=== PATIENT | female | born 1970 | race Caucasian/White ===

== ENCOUNTER 2016-08-16 12:08 | Emergency (ER) | payer BC ==
[2016-08-16] MEDS ORDERED: methylPREDNISolone SOD SUCCI 125 MG/2 ML VIAL IM STA (12:39)
[2016-08-16] MEDS ORDERED: IPRATROPIUM-ALBUTEROL 3 ML NEB INHALATION STA (12:39)
--- NOTE | 2016-08-16 12:42 | ED ---
General Adult HPI - General Chief complaint: Upper Respiratory Infection Stated complaint: asthma, chest congestion Time Seen by Provider: 08/16/16 12:34 Source: patient, RN notes reviewed Mode of arrival: ambulatory Limitations: no limitations - History of Present Illness Initial comments: Patient 46-year-old female with significant past medical history for asthma, who presents emergency room today with chief complaint of cough congestion over the last 2 weeks. Does admit that she was treated initially with steroid taper along with Bactrim. States she seemed to be getting better. He states seemed to increase over the weekend and Saturday went to her steam hand. States she was started on azithromycin and another course steroids. States does not feel like she is getting any better. Admits that she's been coughing so hard she has had some vomiting. States tried taking her medicine today but vomited shortly thereafter is unsure if it stayed down. Patient denies any other complaints or associated symptoms currently. Patient denies any recent fever, chills, chest pain, back pain, abdominal pain, nausea or vomiting, numbness or tingling, dysuria or hematuria, constipation or diarrhea, headaches or visual changes, or any other complaints. - Related Data Home Medications Medication Instructions Recorded Confirmed Fluticasone/Salmeterol [Advair 1 puff INHALATION RT-BID 08/04/14 08/16/16 250-50 Diskus] Montelukast [Singulair] 10 mg PO HS 08/04/14 08/16/16 Omeprazole [PriLOSEC] 20 mg PO DAILY PRN 08/04/14 08/16/16 Albuterol Inhaler [Ventolin 1 - 2 puff INHALATION RT-QID PRN 08/05/14 08/16/16 Inhaler] Albuterol Nebulized [Ventolin 2.5 mg INHALATION RT-QID PRN 08/16/16 08/16/16 Nebulized] Azithromycin [Zithromax] 500 mg PO DAILY 08/16/16 08/16/16 predniSONE See Taper PO DAILY 08/16/16 08/16/16 Previous Rx's Medication Instructions Recorded Benzonatate [Tessalon Perles] 100 mg PO TID PRN #30 capsule 08/16/16 Allergies Allergy/AdvReac Type Severity Reaction Status Date / Time moxifloxacin HCl Allergy Nausea & Verified 08/16/16 12:23 [From Avelox] Vomiting Review of Systems ROS Statement: Those systems with pertinent positive or pertinent negative responses have been documented in the HPI. ROS Other: All systems not noted in ROS Statement are negative. Past Medical History Past Medical History: Asthma, GERD/Reflux History of Any Multi-Drug Resistant Organisms: None Reported Past Surgical History: Appendectomy, Tonsillectomy Additional Past Surgical History / Comment(s): D&C; Bunionectomy Past Anesthesia/Blood Transfusion Reactions: Postoperative Nausea & Vomiting ( PONV) Smoking Status: Never smoker Past Alcohol Use History: Rare Past Drug Use History: None Reported - Past Family History Mother Family Medical History: No Reported History General Exam - General Exam Comments Initial Comments: General: The patient is awake and alert, in no distress, and does not appear acutely ill. Eye: Pupils are equal, round and reactive to light, extra-ocular movements are intact. No nystagmus. There is normal conjunctiva bilaterally. No signs of icterus. Ears, nose, mouth and throat: There are moist mucous membranes and no oral lesions. Neck: The neck is supple, there is no tenderness or JVD. Cardiovascular: There is a regular rate and rhythm. No murmur, rub or gallop is appreciated. Respiratory: Mild expiratory wheeze on the right with forced expiration. respirations are non-labored, breath sounds are equal. No stridor, rales, or rhonchi. Gastrointestinal: Soft, non-distended, non-tender abdomen without masses or organomegaly noted. There is no rebound or guarding present. No CVA tenderness. Bowel sounds are unremarkable. Musculoskeletal: Normal ROM, no tenderness. Strength 5/5. Sensation intact. Pulses equal bilaterally 2+. Neurological: A&O x 3. CN II-XII intact, There are no obvious motor or sensory deficits. Coordination appears grossly intact. Speech is normal. Skin: Skin is warm and dry and no rashes or lesions are noted. Psychiatric: Cooperative, appropriate mood & affect, normal judgment. Limitations: no limitations Course Vital Signs 08/16/16 08/16/16 08/16/16 12:10 13:02 13:14 Temperature 98.5 F Pulse Rate 94 86 84 Respiratory 18 Rate Blood Pressure 152/93 O2 Sat by Pulse 97 Oximetry Medical Decision Making - Medical Decision Making Patient's x-ray reviewed are unremarkable. Patient's vital stable here in the emergency room currently 97% on room air. Patient currently on azithromycin and steroids at home. Will be given cough suppressant. She does have an appointment with her steam hand tomorrow at 9 AM. Advised to follow-up in the morning. Advised return for any other concerns. Disposition Clinical Impression: Acute bronchitis Disposition: HOME SELF-CARE Condition: Good Instructions: Acute Bronchitis (ED) Additional Instructions: Please use medication as discussed. Please follow-up with steam hand tomorrow morning as scheduled. Please return to emergency room if the symptoms increase or worsen or for any other concerns. Prescriptions: Benzonatate [Tessalon Perles] 100 mg PO TID PRN #30 capsule PRN Reason: Cough Time of Disposition: 13:59
--- NOTE | 2016-08-16 13:40 | XR ---
EXAMINATION TYPE: XR chest 2V DATE OF EXAM: 08/16/2016 1:27 PM COMPARISON: NONE HISTORY: Cough, congestion, and shortness of breath. History of asthma. TECHNIQUE: Frontal and lateral views of the chest are obtained. FINDINGS: There is no focal air space opacity, pleural effusion, or pneumothorax seen. The cardiac silhouette size is within normal limits. The osseous structures are intact. IMPRESSION: No acute pulmonary process.
[2016-08-16 14:03] VITALS: BP 138/91; PULSE 93; RESP 20; TEMP 99.2
== END 2016-08-16 14:10 | disposition home or self-care (01) ==
LOC: EC 12:08
DX: J20.9 Acute bronchitis, unspecified (principal); K21.9 Gastro-esophageal reflux disease without esophagitis; Z79.899 Other long term (current) drug therapy; Z79.51 Long term (current) use of inhaled steroids; Z88.1 Allergy status to other antibiotic agents; J45.909 Unspecified asthma, uncomplicated
CPT/HCPCS: 94640; 71020; 99283; 96372; J2930

== ENCOUNTER 2016-08-27 10:07 | Day surgery (SDC) | payer BC ==
[~2016-08-27 10:07] MED LIST: ALBUTEROL NEB (CONC) 2.5 MG/0.5 ML INHALATION ONE; LIDOCAINE 2% (PF) 20 MG/ML 10ML INHALATION ONE
[2016-08-27] MEDS ORDERED: LIDOCAINE 1% 20 ML VIAL (10MG/ML) FOR IV START INTRADERMA PRN (10:31)
[2016-08-27] MEDS ORDERED: LACTATED RINGERS 1,000 ML IV ONE ×2 (10:31→11:33)
[2016-08-27 10:34] VITALS: TEMP 97.8
[2016-08-27] MEDS ORDERED: ATROPINE SULFATE 0.4 MG/ML 1 ML VIAL IM ONE (10:46)
[2016-08-27] MEDS ORDERED: ONDANSETRON 4 MG/2 ML VIAL IVP ONE (11:02)
[2016-08-27] MEDS ORDERED: PROPOFOL 10 MG/ML 20 ML VIAL IV ONE (11:05)
[2016-08-27] MEDS ORDERED: LIDOCAINE 1% INJ 10MG/ML (20 ML MDV) ONE (11:05)
[2016-08-27] MEDS ORDERED: MIDAZOLAM 2 MG/2 ML VIAL ONE (11:05)
[2016-08-27] MEDS ORDERED: LIDOCAINE 2% SYG (PF) 100 MG/5 ML MISCELLANE ONE (11:26)
--- NOTE | 2016-08-27 11:54 | PCN ---
DATE OF PROCEDURE: PROCEDURE: Bronch BAL airway examination, therapeutic lavage, BAL right middle lobe. PREOPERATIVE DIAGNOSIS: Persistent asthma and cough. POSTOPERATIVE DIAGNOSIS: Persistent asthma and cough. There was informed consent. There was universal timeout. CARDIOVASCULAR SURGEON provided IV conscious sedation. After the patient was adequately sedated and being fully monitored, the bronchoscope was inserted through the right nostril. It passed through the right nasopharynx into the oropharynx. The hypopharynx was identified. The hypopharyngeal structures, including anterior commissure, true cords, false cords, arytenoids, piriform sinuses, right and left valleculae were all normal. After topicalization, bronchoscope was pushed through the glottic opening into the trachea. Trachea was relatively normal save for the fact that there was lots of erythema and there was some vascular engorgement. Tracheal julius was sharp. The right and left mainstem were topicalized. I did a thorough evaluation of both lungs including the right upper lobe and its 3 segments, the right middle lobe and its 2 segments, the right lower lobe and its 5 segments, the left upper lobe proper and its 2 segments, the lingula and its 2 segments, and the left lower lobe and its 4 segments. Findings were similar throughout including diffuse airway erythema and hyperemia. There was significant vascular engorgement. There was mucosal friability. The patient bled easily. There were thick secretions noted throughout. No dominant mass or lesion. The bronchoscope was wedged into the right middle lobe. BAL took place. Additional saline was used to cleanse the rest of the airways. The patient tolerated the procedure well and the bronchoscope was withdrawn. The patient will be recovered.
[2016-08-27 12:02] VITALS: BP 122/80; PULSE 89; RESP 18
[2016-08-27 16:09] LABS: RBC, Body Fluid 7360 /uL
[2016-08-28] MEDS ORDERED: LACTATED RINGERS 1,000 ML IV ONE (05:00)
--- NOTE | 2016-08-29 12:41 | CDI ---
Pt Name: Leydi Grimes CONFIDENTIAL MR#: [id number] Adm Date: 08/27/2016 10:07:00 AM Printed:08/29/2016 Physician Documentation Request Page 1 of 1 ICD-10-CM Ready Physicians Documentation Request Patient: Leydi Grimes EPI: [id number] Account: [id number] Payer: [facility] Facility: [facility] Location: - Admit Date: 08/27/2016 10:07:00 AM Query Send By: Martha Newman Phone #: Ext. Communication Date: 08/29/2016 12:37:00 PM Clarification Outpatient By submitting this query, we are merely seeking further clarification of documentation to accurately reflect all conditions that you are monitoring, evaluating, treating or that extend the hospitalization or utilize additional resources of care. Please utilize your independent clinical judgment when addressing the question(s) below. Dear Doctor Shalom Coker, The patients Clinical Indicators include: see below Documentation Clarification OP The op report states that the CARBURETOR REPAIRER provided IV conscious sedation, but the Anesthesia Record shows GA/Unconscious Sedation. This is a conflict. If unconscious sedation was used, then we need an addendum to the op report. Please clarify the situation via an addendum. Thank you. PLEASE DOCUMENT ANY ADDITIONAL DIAGNOSES AND/OR SPECIFICITY IN THE PROGRESS NOTES AND/OR DISCHARGE SUMMARY. Agreed & documented Unable to determine/unknown Disagree with the above request Need to discuss MTDD
--- NOTE | 2016-08-30 11:00 | P.PN ---
Progress Note - Text The recent bronchoscopy done on this patient was done with general anesthesia and unconscious sedation.
== END 2016-08-27 12:16 | disposition home or self-care (01) ==
LOC: ORWHC2ENDO 10:07
PROVIDERS: ATTEND Internal Medicine Critical Care Medicine
DX: J45.51 Severe persistent asthma with (acute) exacerbation (principal); R05 Cough; K21.9 Gastro-esophageal reflux disease without esophagitis; Z79.51 Long term (current) use of inhaled steroids; Z79.52 Long term (current) use of systemic steroids; Z79.899 Other long term (current) drug therapy; Z88.8 Allergy status to other drugs, medicaments and biological substances; Z91.09 Other allergy status, other than to drugs and biological substances
CPT/HCPCS: 87798 ×4; 87496; 87498; 87529 ×2; 88108; 88305; 89050; 87252; 87502 ×2; 87070; 87205; 87116; 87102; 87206; 31624; J2250; J0461; J2405; J2001 ×2; J2704

== ENCOUNTER → 2016-10-29 | Outpatient (CLI) | payer BC ==
--- NOTE | 2016-10-30 07:48 | MM ---
Reason for exam: screening (asymptomatic). Last mammogram was performed 1 year and 4 months ago. Physical Findings: A clinical breast exam by your physician is recommended on an annual basis and results should be correlated with mammographic findings. MG 3D Screening Mammo W/Cad Bilateral CC and MLO view(s) were taken. Prior study comparison: July 11, 2015, bilateral MG 3d screening mammo w/cad. May 27, 2014, mammogram, performed at [facility]. The breast tissue is heterogeneously dense. This may lower the sensitivity of mammography. There is no discrete abnormality. No significant changes when compared with prior studies. ASSESSMENT: Negative, BI-RAD 1 RECOMMENDATION: Routine screening mammogram of both breasts in 1 year.
== END | disposition home or self-care (01) ==
LOC: RADMAMWWP 07:52
PROVIDERS: ATTEND Obstetrics & Gynecology
DX: Z12.31 Encounter for screening mammogram for malignant neoplasm of breast (principal)
CPT/HCPCS: 77063; G0202

== ENCOUNTER → 2017-12-09 | Outpatient (CLI) | payer BC ==
[2017-12-09 08:04] LABS: T4, Free (Free Thyroxine) 0.91 ng/dL (0.78-2.19)
--- NOTE | 2017-12-10 08:47 | MM ---
Reason for exam: screening (asymptomatic). Last mammogram was performed 1 year and 1 month ago. Physical Findings: A clinical breast exam by your physician is recommended on an annual basis and results should be correlated with mammographic findings. MG 3D Screening Mammo W/Cad Bilateral CC and MLO view(s) were taken. Prior study comparison: October 29, 2016, bilateral MG 3d screening mammo w/cad. July 11, 2015, bilateral MG 3d screening mammo w/cad. The breast tissue is heterogeneously dense. This may lower the sensitivity of mammography. No significant changes when compared with prior studies. ASSESSMENT: Negative, BI-RAD 1 RECOMMENDATION: Routine screening mammogram of both breasts in 1 year.
== END | disposition home or self-care (01) ==
LOC: RADMAMWWP 06:58
PROVIDERS: ATTEND Obstetrics & Gynecology
DX: Z12.31 Encounter for screening mammogram for malignant neoplasm of breast (principal); Z13.220 Encounter for screening for lipoid disorders; Z13.1 Encounter for screening for diabetes mellitus
CPT/HCPCS: 36415; 77063; 77067; 80061; 82947; 84439; 84443; 84479

== ENCOUNTER → 2018-07-25 | Outpatient (CLI) | payer OTHER ==
--- NOTE | 2018-07-25 15:41 | XR ---
EXAMINATION TYPE: XR ankle complete LT, XR foot complete LT DATE OF EXAM: 07/25/2018 CLINICAL HISTORY: Fall injury today with pain. TECHNIQUE: Frontal, lateral and oblique images of the left ankle and foot are obtained. COMPARISON: None. FINDINGS: There is no acute fracture/dislocation evident in the left ankle. The ankle mortise appea rs within normal limits. The overlying soft tissue appears unremarkable. There is no acute fracture or dislocation evident in the left foot. Hallex valgus positioning first m etatarsophalangeal joint is present. There is flexion and there is positioning distal fourth toe. The re is small to moderate size inferior calcaneal spur . Mild spurring hindfoot and midfoot level is pr esent. Overlying soft tissue is unremarkable. IMPRESSION: There is no acute fracture or dislocation in the left ankle or foot.
--- NOTE | 2018-07-25 15:42 | XR ---
EXAMINATION TYPE: XR knee complete LT DATE OF EXAM: 07/25/2018 CLINICAL HISTORY: Pain after fall injury today. TECHNIQUE: Three views of the left knee are obtained on 4 images. COMPARISON: None. FINDINGS: There is no acute fracture/dislocation evident in left knee. Mild medial tibiofemoral comp artment joint space loss is seen. The overlying soft tissue appears unremarkable. IMPRESSION: There is no acute fracture or dislocation in the left knee.
--- NOTE | 2018-07-25 15:44 | XR ---
EXAMINATION TYPE: XR lumbosacral spine min 4V DATE OF EXAM: 07/25/2018 COMPARISON: NONE HISTORY: 47-year-old female pain after fall today TECHNIQUE: 5 views FINDINGS: Levoconvex curvature. 5 lumbar type vertebral bodies. Hypertrophic facet arthropathy is present. No p ars interarticularis defect identified on the oblique views. There is a prominent grade 1, nearly gra de 2 anterolisthesis of L4-L5. Moderate disc height loss at L4-L5 and mild at L5-S1. Vertebral body h eights are preserved. IMPRESSION: Degenerated levoconvex curvature with advanced hypertrophic facet arthropathy mid to lower lumbar spi ne with grade 1, nearly grade 2 anterolisthesis of L4-L5. Moderate degenerative disc disease at L4-L5 and mild at L5-S1.
== END | disposition home or self-care (01) ==
LOC: RADXRMAIN 15:05
PROVIDERS: ATTEND Emergency Medicine
DX: M43.16 Spondylolisthesis, lumbar region (principal); M51.37 Other intervertebral disc degeneration, lumbosacral region; M46.86 Other specified inflammatory spondylopathies, lumbar region; M43.8X6 Other specified deforming dorsopathies, lumbar region; S80.02XA Contusion of left knee, initial encounter; S93.402A Sprain of unspecified ligament of left ankle, initial encounter; S93.602A Unspecified sprain of left foot, initial encounter; S30.0XXA Contusion of lower back and pelvis, initial encounter
CPT/HCPCS: 72110

== ENCOUNTER 2018-12-17 23:22 | Emergency (ER) | payer BC ==
[2018-12-17 23:29] VITALS: RESP 16; TEMP 98.1
[2018-12-17] MEDS ORDERED: SODIUM CHLORIDE 0.9% 1,000 ML IV STA (23:50)
[2018-12-18 00:01] LABS: Basophils # (A) 0.1 k/uL (0-0.2); Basophils % (A) 1 %; Eosinophils # (A) 0.3 k/uL (0-0.7); Eosinophils % (A) 2 %; HCT 43.4 % (34.0-46.0); HGB 14.3 gm/dL (11.4-16.0); Lymphocytes # (A) 3.7 k/uL (1.0-4.8); Lymphocytes % (A) 33 %; MCH 31.4 pg (25.0-35.0); MCHC 32.8 g/dL (31.0-37.0); MCV 95.6 fL (80.0-100.0); Mean Platelet Volume 7.9; Monocytes # (A) 0.7 k/uL (0-1.0); Monocytes % (A) 6 %; Neutrophils # (A) 6.4 k/uL (1.3-7.7); Neutrophils % (A) 56 %; Platelet Count 271 k/uL (150-450); RBC 4.54 m/uL (3.80-5.40); RDW 12.3 % (11.5-15.5); WBC 11.4 k/uL (3.8-10.6)
[2018-12-18 00:10] LABS: ALT 41 U/L (9-52); AST 33 U/L (14-36); African American GFR (CKD) >90 (>60 ml/min/1.73 sqM); Albumin 3.7 g/dL (3.5-5.0); Alkaline Phosphatase 74 U/L (38-126); Anion Gap 6 mmol/L; Blood Urea Nitrogen 13 mg/dL (7-17); Calcium 9.2 mg/dL (8.4-10.2); Carbon Dioxide 26 mmol/L (22-30); Chloride 107 mmol/L (98-107); Glucose 101 mg/dL (74-99); Potassium 3.6 mmol/L (3.5-5.1); Sodium 139 mmol/L (137-145); Total Bilirubin 0.6 mg/dL (0.2-1.3); Total Protein 6.3 g/dL (6.3-8.2)
[2018-12-18 00:20] LABS: D-Dimer 0.27 mg/L FEU (<0.60); INR 0.9 (<1.2); Partial Thromboplastin Time 23.9 sec (22.0-30.0); Prothrombin Time 9.5 sec (9.0-12.0)
--- NOTE | 2018-12-18 01:20 | XR ---
EXAM: XR Chest, 2 Views CLINICAL HISTORY: Chest pain TECHNIQUE: Frontal and lateral views of the chest. COMPARISON: Chest x-ray dated 08/16/2016 FINDINGS: Lungs: Unremarkable. No consolidation. Pleural space: Unremarkable. No pneumothorax. Heart: Unremarkable. No cardiomegaly. Mediastinum: Unremarkable. Bones/joints: Unremarkable. IMPRESSION: Normal chest x-rays.
--- NOTE | 2018-12-18 01:34 | ED ---
Arrhythmia/Palpitations HPI - General Chief Complaint: Arrhythmia/Palpitations Stated Complaint: Palpitations, Nausea Time Seen by Provider: 12/17/18 23:49 Source: patient Mode of arrival: ambulatory - History of Present Illness Initial Comments: Leydi is a 48-year-old female who presents the emergency department today for evaluation of palpitations. Patient reports that throughout the day today she was outside working, she reports that she was standing in her diuretic and that she wasn't drinking much water. By the end of the day she felt very exhausted, around 5:30 or 6 PM she went inside to lay down and relax however she felt like her heart was pounding very hard. Patient reports she was able to fall asleep but upon waking she still felt that her heart was beating too hard, she doesn't think it was beating too fast his Spann is beating hard. She also felt just generalized tired so she came to the ER for evaluation. Patient has no cardiac history no history of hypertension, hyperlipidemia, diabetes she was never a smoker. She does report that her mom may have had a mild cardiac event but not a heart attack when she was in her mid 50s no other family history of cardiac disease. - Related Data Home Medications Medication Instructions Recorded Confirmed Fluticasone/Salmeterol [Advair 1 puff INHALATION RT-BID 08/04/14 08/27/16 250-50 Diskus] Montelukast [Singulair] 10 mg PO HS 08/04/14 08/27/16 Omeprazole [PriLOSEC] 20 mg PO DAILY PRN 08/04/14 08/27/16 Albuterol Inhaler [Ventolin 1 - 2 puff INHALATION RT-QID PRN 08/05/14 08/27/16 Inhaler] Albuterol Nebulized [Ventolin 2.5 mg INHALATION RT-QID PRN 08/16/16 08/27/16 Nebulized] Azithromycin [Zithromax] 500 mg PO DAILY 08/16/16 08/27/16 predniSONE See Taper PO DAILY 08/16/16 08/27/16 Previous Rx's Medication Instructions Recorded Benzonatate [Tessalon Perles] 100 mg PO TID PRN #30 capsule 08/16/16 Allergies Allergy/AdvReac Type Severity Reaction Status Date / Time moxifloxacin HCl Allergy Nausea & Verified 08/27/16 10:36 [From Avelox] Vomiting Review of Systems ROS Statement: Those systems with pertinent positive or pertinent negative responses have been documented in the HPI. ROS Other: All systems not noted in ROS Statement are negative. Past Medical History Past Medical History: Asthma, GERD/Reflux History of Any Multi-Drug Resistant Organisms: None Reported Past Surgical History: Appendectomy, Tonsillectomy Additional Past Surgical History / Comment(s): D&C; Bunionectomy Past Anesthesia/Blood Transfusion Reactions: Postoperative Nausea & Vomiting (PONV) Smoking Status: Never smoker Past Alcohol Use History: Rare Past Drug Use History: None Reported - Past Family History Mother Family Medical History: No Reported History General Exam - General Exam Comments Initial Comments: Physical Exam GENERAL: Patient is well-developed and well-nourished. Patient is nontoxic and well- hydrated and is in no distress. HENT: Normocephalic, Atraumatic. EYES: PERRL, EOMI PULMONARY: Unlabored respirations. No audible rales rhonchi or wheezing was noted. CARDIOVASCULAR: There is a regular rate and rhythm without any murmurs gallops or rubs. ABDOMEN: Soft and nontender with normal bowel sounds. SKIN: Skin is clear with no lesions or rashes and otherwise unremarkable. : Deferred NEUROLOGIC: Patient is alert and oriented x3. Moving all extremities spontaneously MUSCULOSKELETAL: Normal extremities with adequate strength and full range of motion. No lower extremity swelling or edema. No calf tenderness. PSYCHIATRIC: Normal psychiatric evaluation. Course Vital Signs 12/17/18 12/18/18 23:25 01:45 Temperature 98.1 F Pulse Rate 82 66 Respiratory 16 16 Rate Blood Pressure 150/87 138/92 O2 Sat by Pulse 99 99 Oximetry EKG Findings - EKG Comments: EKG Findings:: EKG was obtained due to complaint of palpitations. EKG obtained at 2342, rate 74 rhythm is sinus there is a normal axis there are normal intervals, OR is 170 come here is 92, QT 402, QTc is 446 there are no acute ST elevations or depressions there is no evidence of acute ischemia, infarction or arrhythmia. Medical Decision Making - Medical Decision Making The patient was seen and evaluated, history is obtained from the patient has been at bedside With a previously healthy 48-year-old female no cardiac history presenting with feeling as though her heart was beating very hard, no exertional chest pain dyspnea lightheadedness or diaphoresis Labs and imaging were obtained Labs are unremarkable EKG is nonischemic Heart score to for age and risk factor of mother having possible cardiac event to their 50s Results were discussed with the patient. I discussed with patient options for staying in the hospital for observation and evaluation of cardiology versus discharge home. Risk factors were discussed at this time patient's comfortable with plan for discharge home and rest. I encouraged the patient to stay hydrated if she is working outside but to take it easy for the next day and relax. Patient expressed understanding and agreement with this plan. All q uestions pertaining care were answered return parameters were discussed patient was discharged home in stable condition. - Lab Data Result diagrams: 12/17/18 23:53 12/17/18 23:53 Lab Results 12/17/18 12/17/18 12/17/18 Range/Units 23:53 23:53 23:53 WBC 11.4 H (3.8-10.6) k/uL RBC 4.54 (3.80-5.40) m/uL Hgb 14.3 (11.4-16.0) gm/dL Hct 43.4 (34.0-46.0) % MCV 95.6 (80.0-100.0) fL MCH 31.4 (25.0-35.0) pg MCHC 32.8 (31.0-37.0) g/dL RDW 12.3 (11.5-15.5) % Plt Count 271 (150-450) k/uL Neutrophils % 56 % Lymphocytes % 33 % Monocytes % 6 % Eosinophils % 2 % Basophils % 1 % Neutrophils # 6.4 (1.3-7.7) k/uL Lymphocytes # 3.7 (1.0-4.8) k/uL Monocytes # 0.7 (0-1.0) k/uL Eosinophils # 0.3 (0-0.7) k/uL Basophils # 0.1 (0-0.2) k/uL PT 9.5 (9.0-12.0) sec INR 0.9 (<1.2) APTT 23.9 (22.0-30.0) sec D-Dimer 0.27 (<0.60) mg/L FEU Sodium 139 (137-145) mmol/L Potassium 3.6 (3.5-5.1) mmol/L Chloride 107 (98-107) mmol/L Carbon Dioxide 26 (22-30) mmol/L Anion Gap 6 mmol/L BUN 13 (7-17) mg/dL Creatinine 0.72 (0.52-1.04) mg/dL Est GFR (CKD-EPI)AfAm >90 (>60 ml/min/1.73 sqM) Est GFR (CKD-EPI)NonAf >90 (>60 ml/min/1.73 sqM) Glucose 101 H (74-99) mg/dL Calcium 9.2 (8.4-10.2) mg/dL Magnesium 2.0 (1.6-2.3) mg/dL Total Bilirubin 0.6 (0.2-1.3) mg/dL AST 33 (14-36) U/L ALT 41 (9-52) U/L Alkaline Phosphatase 74 (38-126) U/L Troponin I (0.000-0.034) ng/mL Total Protein 6.3 (6.3-8.2) g/dL Albumin 3.7 (3.5-5.0) g/dL TSH 4.330 (0.465-4.680) mIU/L 12/17/18 Range/Units 23:53 WBC (3.8-10.6) k/uL RBC (3.80-5.40) m/uL Hgb (11.4-16.0) gm/dL Hct (34.0-46.0) % MCV (80.0-100.0) fL MCH (25.0-35.0) pg MCHC (31.0-37.0) g/dL RDW (11.5-15.5) % Plt Count (150-450) k/uL Neutrophils % % Lymphocytes % % Monocytes % % Eosinophils % % Basophils % % Neutrophils # (1.3-7.7) k/uL Lymphocytes # (1.0-4.8) k/uL Monocytes # (0-1.0) k/uL Eosinophils # (0-0.7) k/uL Basophils # (0-0.2) k/uL PT (9.0-12.0) sec INR (<1.2) APTT (22.0-30.0) sec D-Dimer (<0.60) mg/L FEU Sodium (137-145) mmol/L Potassium (3.5-5.1) mmol/L Chloride (98-107) mmol/L Carbon Dioxide (22-30) mmol/L Anion Gap mmol/L BUN (7-17) mg/dL Creatinine (0.52-1.04) mg/dL Est GFR (CKD-EPI)AfAm (>60 ml/min/1.73 sqM) Est GFR (CKD-EPI)NonAf (>60 ml/min/1.73 sqM) Glucose (74-99) mg/dL Calcium (8.4-10.2) mg/dL Magnesium (1.6-2.3) mg/dL Total Bilirubin (0.2-1.3) mg/dL AST (14-36) U/L ALT (9-52) U/L Alkaline Phosphatase (38-126) U/L Troponin I <0.012 (0.000-0.034) ng/mL Total Protein (6.3-8.2) g/dL Albumin (3.5-5.0) g/dL TSH (0.465-4.680) mIU/L Disposition Clinical Impression: Palpitations Disposition: HOME SELF-CARE Condition: Stable Instructions (If sedation given, give patient instructions): Heart Palpitations (ED) Is patient prescribed a controlled substance at d/c from ED?: No Referrals: Harini Alejo MD [Primary Care Provider] - 1-2 days
[2018-12-18 01:46] VITALS: BP 138/92; PULSE 66
== END 2018-12-18 01:48 | disposition home or self-care (01) ==
LOC: EC 23:22
DX: R00.2 Palpitations (principal); J45.909 Unspecified asthma, uncomplicated; Z79.52 Long term (current) use of systemic steroids; Z79.51 Long term (current) use of inhaled steroids; Z79.899 Other long term (current) drug therapy; Z88.1 Allergy status to other antibiotic agents
CPT/HCPCS: 36415; 71046; 80053; 83735; 84443; 84484; 85025; 85379; 85610; 85730; 93005; 99285

== ENCOUNTER → 2019-01-02 | Outpatient (CLI) | payer BC ==
[2019-01-02 08:34] LABS: Cholesterol 221 mg/dL (<200); HDL Cholesterol 67 mg/dL (40-60); LDL Cholesterol,Calculated 140 mg/dL (0-99); Triglycerides 71 mg/dL (<150)
--- NOTE | 2019-01-06 08:05 | MM ---
Reason for exam: screening (asymptomatic). Last mammogram was performed 1 year and 1 month ago. History: Took hormonal contraceptives for 14 years. Physical Findings: A clinical breast exam by your physician is recommended on an annual basis and results should be correlated with mammographic findings. MG 3D Screening Mammo W/Cad Bilateral CC and MLO view(s) were taken. Prior study comparison: December 09, 2017, bilateral MG 3d screening mammo w/cad. October 29, 2016, bilateral MG 3d screening mammo w/cad. The breast tissue is heterogeneously dense. This may lower the sensitivity of mammography. No significant changes when compared with prior studies. ASSESSMENT: Benign, BI-RAD 2 RECOMMENDATION: Routine screening mammogram of both breasts in 1 year.
== END | disposition home or self-care (01) ==
LOC: RADMAMWWP 07:36
PROVIDERS: ATTEND Obstetrics & Gynecology
DX: Z12.31 Encounter for screening mammogram for malignant neoplasm of breast (principal); Z13.220 Encounter for screening for lipoid disorders
CPT/HCPCS: 36415; 77063; 77067; 80061

== ENCOUNTER → 2020-02-04 | Outpatient (CLI) | payer BC ==
[2020-02-04 10:22] LABS: HCT 45.9 % (34.0-46.0); HGB 14.8 gm/dL (11.4-16.0); MCH 31.9 pg (25.0-35.0); MCHC 32.2 g/dL (31.0-37.0); MCV 98.9 fL (80.0-100.0); Mean Platelet Volume 8.7; Platelet Count 340 k/uL (150-450); RBC 4.64 m/uL (3.80-5.40)
[2020-02-04 10:33] LABS: ALT 24 U/L (4-34); AST 30 U/L (14-36); African American GFR (CKD) >90 (>60 ml/min/1.73 sqM); Albumin 3.9 g/dL (3.5-5.0); Alkaline Phosphatase 71 U/L (38-126); Anion Gap 4 mmol/L; Blood Urea Nitrogen 10 mg/dL (7-17); Calcium 9.6 mg/dL (8.4-10.2); Carbon Dioxide 30 mmol/L (22-30); Chloride 103 mmol/L (98-107); Glucose 85 mg/dL (74-99); Non-African American GFR(CKD) >90 (>60 ml/min/1.73 sqM); Potassium 4.2 mmol/L (3.5-5.1); Sodium 137 mmol/L (137-145); Total Bilirubin 1.2 mg/dL (0.2-1.3); Total Protein 6.5 g/dL (6.3-8.2)
[2020-02-04 10:50] LABS: Cholesterol 222 mg/dL (<200); HDL Cholesterol 68 mg/dL (40-60); LDL Cholesterol,Calculated 133 mg/dL (0-99); Triglycerides 106 mg/dL (<150)
--- NOTE | 2020-02-08 09:01 | MM ---
Reason for exam: screening (asymptomatic). Last mammogram was performed 1 year and 1 month ago. History: Family history of breast cancer in mother at age 50 and breast cancer in maternal cousin. Took hormonal contraceptives for 14 years. Physical Findings: A clinical breast exam by your physician is recommended on an annual basis and results should be correlated with mammographic findings. MG 3D Screening Mammo W/Cad Bilateral CC and MLO view(s) were taken. Prior study comparison: January 02, 2019, bilateral MG 3d screening mammo w/cad. December 09, 2017, bilateral MG 3d screening mammo w/cad. The breast tissue is heterogeneously dense. This may lower the sensitivity of mammography. No significant changes when compared with prior studies. ASSESSMENT: Negative, BI-RAD 1 RECOMMENDATION: Routine screening mammogram of both breasts in 1 year.
== END | disposition home or self-care (01) ==
LOC: RADMAMWWP 09:03
PROVIDERS: ATTEND Obstetrics & Gynecology
DX: Z12.31 Encounter for screening mammogram for malignant neoplasm of breast (principal); Z80.3 Family history of malignant neoplasm of breast; Z13.220 Encounter for screening for lipoid disorders
CPT/HCPCS: 77063; 77067; 80053; 80061; 85027

== ENCOUNTER → 2021-01-03 | Outpatient (CLI) | payer BC ==
--- NOTE | 2021-01-03 11:04 | US ---
EXAMINATION TYPE: US venous doppler duplex LE RT DATE OF EXAM: 01/03/2021 10:48 AM COMPARISON: NONE CLINICAL HISTORY: R22.41 SWELLING OF THE RIGHT LOWER LIMB. Patient complains of pain right deep media l knee today; no observed swelling is noted SIDE PERFORMED: Right TECHNIQUE: The lower extremity deep venous system is examined utilizing real time linear array sonog catalina with graded compression, doppler sonography and color-flow sonography. VESSELS IMAGED: Common Femoral Vein Deep Femoral Vein Greater Saphenous Vein * Femoral Vein Popliteal Vein Proximal Calf Veins (* superficial vessels) Right Leg: Negative for DVT. Negative for Superficial Vein thrombosis at patient's complaint of me dial right knee pain. IMPRESSION: No sonographic evidence of deep vein thrombosis or superficial thrombophlebitis of the right lower ex tremity
== END | disposition home or self-care (01) ==
LOC: RADUSWWP 09:58
PROVIDERS: ATTEND Internal Medicine Critical Care Medicine
DX: R22.41 Localized swelling, mass and lump, right lower limb (principal); M25.561 Pain in right knee

== ENCOUNTER → 2021-02-28 | Outpatient (CLI) | payer BC ==
[2021-02-28 08:11] LABS: HCT 44.3 % (34.0-46.0); HGB 14.7 gm/dL (11.4-16.0); MCH 33.8 pg (25.0-35.0); MCHC 33.2 g/dL (31.0-37.0); MCV 101.8 fL (80.0-100.0); Platelet Count 350 k/uL (150-450); RBC 4.35 m/uL (3.80-5.40); RDW 12.3 % (11.5-15.5); WBC 9.8 k/uL (3.8-10.6)
[2021-02-28 08:40] LABS: T4, Free (Free Thyroxine) 0.96 ng/dL (0.78-2.19)
[2021-02-28 12:17] LABS: Chol/HDL Ratio 3.07; LDL Cholesterol,Calculated 131.2 mg/dL (0.0-131.0); VLDL Calculation 15.8 mg/dL (5.00-40.00)
--- NOTE | 2021-03-01 09:15 | MM ---
Reason for exam: screening (asymptomatic). Last mammogram was performed 1 year and 1 month ago. History: Family history of breast cancer in mother at age 50 and breast cancer in maternal cousin. Took hormonal contraceptives for 14 years. Physical Findings: A clinical breast exam by your physician is recommended on an annual basis and results should be correlated with mammographic findings. MG 3D Screening Mammo W/Cad Bilateral CC and MLO view(s) were taken. Prior study comparison: February 04, 2020, bilateral MG 3d screening mammo w/cad. January 02, 2019, bilateral MG 3d screening mammo w/cad. The breast tissue is heterogeneously dense. This may lower the sensitivity of mammography. There is no discrete abnormality. No significant changes when compared with prior studies. ASSESSMENT: Negative, BI-RAD 1 RECOMMENDATION: Routine screening mammogram of both breasts in 1 year.
== END | disposition home or self-care (01) ==
LOC: RADMAMWWP 07:38
PROVIDERS: ATTEND Obstetrics & Gynecology
DX: Z12.31 Encounter for screening mammogram for malignant neoplasm of breast (principal); Z80.3 Family history of malignant neoplasm of breast; Z79.3 Long term (current) use of hormonal contraceptives
CPT/HCPCS: 77063; 77067; 80061; 82947; 84439; 84443; 84479; 85027

== ENCOUNTER → 2021-04-18 | Outpatient (CLI) | payer BC ==
--- NOTE | 2021-04-18 08:57 | BD ---
EXAMINATION TYPE: Axial Bone Density DATE OF EXAM: 04/18/2021 COMPARISON: NONE CLINICAL HISTORY: Postmenopausal female. Height: 5 FT 5 IN Weight: 184 FRAX RISK QUESTIONS: Alcohol (3 or more units per day): NO Family History (Parent hip fracture): NO Glucocorticoids (More than 3mos): YES (Ex: prednisone, prednisolone, methylprednisolone, dexamethasone, and hydrocortisone). History of Fracture in Adulthood: NO Secondary Osteoporosis: 1. Type 1 Diabetes: NO 2. Hyperthyroidism: NO 3. Menopause before 45: NO 4. Malnutrition: NO 5. Chronic liver disease: FATTY Rheumatoid Arthritis: NO Current Tobacco Use: NO RISK FACTORS HISTORY OF: Surgery to Spine/Hip(right/left)/Wrist (right/left): NO Family History of Osteoporosis: NO Active: MODERATELY Diet low in dairy products/other sources of calcium: NO If Premenopausal, do you have irregular periods: YES Take estrogen and/or progesterone medications: NO Lost more than 2 inches in height since high school: NO MEDICATIONS: Prednisone or other steroids: ON AND OFF How Long: CURRENTLY USING FOR ASTHMA Additional Medications: ADVAIR,SINGULAIR,ZYRTEC, OMEPRAZOLE, ALBUTEROL Additional History: ASTHMA EXAM MEASUREMENTS: Bone mineral densitometry was performed using the Fresh[employer] System. Bone mineral density as measured about the Lumbar spine is: ----- L1-L4(G/cm2): 1.150 T Score Values are as follows: ----- L2: -0.9 ----- L3: 0.0 ----- L4: 1.5 ----- L1-L4: -0.3 BASELINE Bone mineral density about the R hip (g/cm2): 0.885 Bone mineral density about the L hip (g/cm2): 0.918 T Score values are as follows: -----R Neck: -1.1 -----L Neck: -0.9 -----R Total: -1.1 -----L Total: -1.2 BASELINE IMPRESSION: Osteopenia (T Score between -2.5 and -1). There is slightly increased risk of fracture and the patient may be considered for treatment. Re-Screen 2-5 years. NOTE: T-SCORE=SD OF THE YOUNG ADULT MEAN.
== END | disposition home or self-care (01) ==
LOC: RADBDWWP 07:16
PROVIDERS: ATTEND Obstetrics & Gynecology
DX: M85.89 Other specified disorders of bone density and structure, multiple sites (principal); Z78.0 Asymptomatic menopausal state; Z79.51 Long term (current) use of inhaled steroids; Z79.52 Long term (current) use of systemic steroids
CPT/HCPCS: 77080

== ENCOUNTER → 2022-01-09 | Outpatient (CLI) | payer BC ==
[2022-01-10 10:50] LABS: Alternaria alternata IgE <0.10 kU/L; Aspergillus fumagatus IgE <0.10 kU/L; Birch IgE <0.10 kU/L; Cladosporian herbarum IgE <0.10 kU/L; Clam IgE <0.10 kU/L; Cockroach IgE <0.10 kU/L; Codfish IgE <0.10 kU/L; Dog Dander IgE <0.10 kU/L; Egg White IgE <0.10 kU/L; Elm IgE <0.10 kU/L; Oak IgE <0.10 kU/L; Peanut IgE <0.10 kU/L; Ragweed,Common IgE <0.10 kU/L; Red Top (Bentgrass) IgE <0.10 kU/L; Scallop IgE <0.10 kU/L; Shrimp IgE <0.10 kU/L; Soybean IgE <0.10 kU/L; Walnut IgE (Food) <0.10 kU/L
[2022-01-10 12:41] LABS: Immunoglobulin E 8
[2022-01-10 12:42] LABS: Immunoglobulin E 8
[2022-01-10 13:43] LABS: Cat Epith & Dander IgE 2.03 kU/L; Dermato. farinae IgE 0.52 kU/L; Maple (Box Elder) IgE 0.17 kU/L
== END | disposition home or self-care (01) ==
LOC: LABWHC1 16:28
PROVIDERS: ATTEND Internal Medicine Critical Care Medicine
DX: J45.909 Unspecified asthma, uncomplicated (principal)
CPT/HCPCS: 36415; 82785; 86003

== ENCOUNTER → 2022-03-22 | Outpatient (CLI) | payer BC ==
[2022-03-22 14:45] LABS: Chol/HDL Ratio 3.33 Ratio; LDL Cholesterol,Calculated 133.6 mg/dL (0.0-131.0); VLDL Calculation 18.26 mg/dL (5.00-40.00)
--- NOTE | 2022-03-23 07:50 | MM ---
Reason for Exam: Screening (asymptomatic). Last screening mammogram was performed 12 month(s) ago. Patient History: Menarche at age 10. First Full-Term at age 25. Postmenopausal. Patient has history of breast feeding. Patient used Hormonal Contraceptives for 14 years. Maternal cousin had breast cancer. Mother had breast cancer, age 50. Risk Values: Nikkie 5 year model risk: 2.2%. NCI Lifetime model risk: 16.1%. Prior Study Comparison: 01/02/2019 Bilateral Screening Mammogram, [facility]. 02/04/2020 Bilateral Screening Mammogram, [facility]. 02/28/2021 Bilateral Screening Mammogram, [facility]. Tissue Density: The breast tissue is heterogeneously dense. This may lower the sensitivity of mammography. Findings: Analyzed By CAD. . Some Scattered and loosely grouped small benign-appearing round calcifications throughout the bilateral breasts are redemonstrated. There is no suspicious new group of microcalcifications or new suspicious mass in either breast. Overall Assessment: Benign, BI-RAD 2 Management: Screening Mammogram of both breasts in 1 year. A clinical breast exam by your physician is recommended on an annual basis and results should be correlated with mammographic findings. Electronically signed and approved by: Lopez Freed M.D.
== END | disposition home or self-care (01) ==
LOC: RADMAMWWP 07:41
PROVIDERS: ATTEND Obstetrics & Gynecology
DX: Z12.31 Encounter for screening mammogram for malignant neoplasm of breast (principal); Z13.220 Encounter for screening for lipoid disorders; Z80.3 Family history of malignant neoplasm of breast; Z78.0 Asymptomatic menopausal state
CPT/HCPCS: 77063; 77067; 80061

== ENCOUNTER → 2022-03-28 | Outpatient (CLI) | payer BC ==
--- NOTE | 2022-03-28 14:52 | USB ---
Patient History: Menarche at age 10. First Full-Term at age 25. Postmenopausal. Patient has history of breast feeding. Patient used Hormonal Contraceptives for 14 years. Maternal cousin had breast cancer. Mother had breast cancer, age 50. Risk Values: Nikkie 5 year model risk: 2.2%. NCI Lifetime model risk: 16.1%. Technique: Method: Targeted. Prior Study Comparison: 02/04/2020 Bilateral Screening Mammogram, [facility]. 02/28/2021 Bilateral Screening Mammogram, [facility]. 03/22/2022 Bilateral MG 3D screening mammo w/cad, [facility]. Findings: The medial section of the breast of the right breast was scanned. A complete US of all four quadrants of the breast and retro-areolar region were reviewed. No solid or cystic masses are identified. Nothing in the area of palpable abnormality is seen on grayscale imaging.. Overall Assessment: Negative, BI-RAD 1 Management: Screening Mammogram of both breasts in 1 year. Clinical correlation for patient's palpable abnormality. A clinical breast exam by your physician is recommended on an annual basis and results should be correlated with mammographic findings. Electronically signed and approved by: Shalom Peña DO
== END | disposition home or self-care (01) ==
LOC: RADUSWWP 14:15
PROVIDERS: ATTEND Obstetrics & Gynecology
DX: N63.10 Unspecified lump in the right breast, unspecified quadrant (principal); Z78.0 Asymptomatic menopausal state; Z80.3 Family history of malignant neoplasm of breast

== ENCOUNTER 2022-05-28 11:23 | Inpatient (IN) | payer BC ==
[~2022-05-28 11:23] MED LIST changes: +ATROPINE SULFATE 0.4 MG/ML 1 ML VIAL IM ONE; +LACTATED RINGERS 1,000 ML IV SCH; +LIDOCAINE 1% (10MG/ML) FOR IV START INTRADERMA PRN; -LIDOCAINE 2% (PF) 20 MG/ML 10ML INHALATION ONE; +LIDOCAINE VISCOUS 300 MG/15 ML CUP MUCOUS MEM ONE; +MORPHINE SULFATE 2 MG/ML SYRINGE IV PRN; +ONDANSETRON 4 MG/2 ML VIAL IVP PRN
[2022-05-28 11:56] LABS: Glucose,Whole Blood 92 mg/dL (70-110)
[2022-05-28] MEDS ORDERED: ONDANSETRON 4 MG/2 ML VIAL IVP ONE (11:57)
[2022-05-28] MEDS ORDERED: HYDROCORTISONE SUCCINATE 100 MG/2 ML VIAL IVP ONE (11:57)
[2022-05-28] MEDS ORDERED: MIDAZOLAM 2 MG/2 ML VIAL ONE (12:33)
[2022-05-28] MEDS ORDERED: LIDOCAINE 2% INJ 20 MG/ML (2 ML VIAL) ONE (12:33)
[2022-05-28] MEDS ORDERED: KETAMINE 10 MG/ML 20 ML VIAL ONE (12:33)
[2022-05-28] MEDS ORDERED: fentaNYL (PF) 50 MCG/ML 2 ML AMP ONE (12:33)
[2022-05-28] MEDS ORDERED: GLYCOPYRROLATE 0.2 MG/ML 2 ML VIAL ONE (12:33)
[2022-05-28] MEDS ORDERED: PROPOFOL 10 MG/ML 20 ML VIAL IV ONE (12:33)
[2022-05-28] MEDS ORDERED: SUCCINYLCHOLINE CHLORIDE 200 MG/10 ML VIAL IV ONE (12:33)
[2022-05-28] MEDS ORDERED: NALOXONE 0.4 MG/ML 1 ML VIAL IV PRN (13:17)
[2022-05-28 13:37] LABS: Glucose,Whole Blood 101 mg/dL (70-110)
--- NOTE | 2022-05-28 13:38 | P.CNPUL ---
History of Present Illness Consult date: 05/28/22 Requesting physician: Wily E Luis Reason for consult: dyspnea, cough, asthma, hypoxemia Chief complaint: Shortness of breath, cough. History of present illness: Pulmonary consult dated 05/28/2022. 51-year-old female who recently was at [facility] for an asthma exacerbation. She was discharged on Saturday, after a number of days, and she was discharged on prednisone 50 mg a day. The patient in my opinion, improved while at [facility], but her improvement was very gradual in minimal at best. The patient was scheduled to have an elective outpatient bronchoscopy airway examination therapy lavage and BAL today, at [facility]. Unfortunately, the patient's saturations were very low, we attempted to do bronchoscopy in the standard way, and therefore, we elected to intubate her, to do a more safely. Her airways were very inflamed and erythematous. There was mucosal friability. She bled easily. We did do a formal BAL in the right middle lobe. And we deci ded to keep the patient intubated and mechanically ventilated. The mid a bit for her in the intensive care unit. Her only other medical problem other than severe asthma is migraine cephalgia. No laboratory data as yet. The patient will be maintained on the ventilator. Ventilator settings will be the volume assist control mode, rate 20, tidal volume 400, FiO2 100%, and PEEP of 5. The patient will have a blood gas done eventually. In addition, the patient gets saline at 75 mL an hour, Zosyn, updrafts with albuterol sulfate and ipratropium bromide, along with updrafts with budesonide and formoterol, and Solu-Medrol 60 mg every 6 hours. The patient will stay on propofol for sedation. Labs and x- rays will be done in the morning. Review of Systems REVIEW OF SYSTEMS: CONSTITUTIONAL: [Negative.] NEUROLOGIC: [ Negative.] HEENT: [ Negative.] CARDIAC: [Negative.] PULMONARY: Shortness of breath, and cough. GI: [Negative.] : [Negative.] RHEUMATOLOGIC: [ Negative.] IMMUNOLOGIC: [ Negative.] ENDOCRINE: [Negative. ] DERMATOLOGIC: [Negative.] Past Medical History Past Medical History: Asthma, GERD/Reflux, Hypertension Additional Past Medical History / Comment(s): migraines, arrythmia per Dr Mon, swelling in neck ? thryroid. will see PCP. arthritis generalized. pt hospitalized [facility] 05/21/22 for cough increased SOB, ,will be discharged today. recent steroid use. hx of Covid 12/2021. hx RSV History of Any Multi-Drug Resistant Organisms: None Reported Past Surgical History: Appendectomy, Tonsillectomy, Uterine Ablation Additional Past Surgical History / Comment(s): D&C; Bunionectomy, colonoscopy. bronchoscopy Past Anesthesia/Blood Transfusion Reactions: Postoperative Nausea & Vomiting (PONV) Additional Past Anesthesia/Blood Transfusion Reaction / Comment(s): no blood tranfusions Smoking Status: Never smoker - Past Family History Mother Family Medical History: Cancer, Myocardial Infarction ([place]) Additional Family Medical History / Comment(s): breast cancer Father Additional Family Medical History / Comment(s): heart failure and multip organ failure recently passed Medications and Allergies Home Medications Medication Instructions Recorded Confirmed Type Montelukast [Singulair] 10 mg PO HS 08/04/14 05/25/22 History Omeprazole [PriLOSEC] 20 mg PO DAILY PRN 08/04/14 05/25/22 History Albuterol Inhaler [Ventolin 1 - 2 puff INHALATION RT-QID PRN 08/05/14 05/25/22 History Inhaler] Albuterol Nebulized [Ventolin 2.5 mg INHALATION RT-QID PRN 08/16/16 05/25/22 History Nebulized] Cholecalciferol [Vitamin D3 (25 50 mcg PO DAILY 05/25/22 05/25/22 History Mcg = 1000 Iu)] Fluticasone Propion/Salmeterol 1 puff INHALATION BID 05/25/22 05/25/22 History [Advair 500-50 Diskus] Propranolol HCl [Propranolol HCl 80 mg PO HS 05/25/22 05/25/22 History ER] Unk Multi Vitamin 1 tab PO DAILY 05/25/22 05/25/22 History Unk Vitamin C 1 tab PO DAILY 05/25/22 05/25/22 History Allergies Allergy/AdvReac Type Severity Reaction Status Date / Time moxifloxacin HCl Allergy Nausea & Verified 05/28/22 11:39 [From Avelox] Vomiting Physical Exam Osteopathic Statement: *. No significant issues noted on an osteopathic structural exam other than those noted in the History and Physical/Consult. Vitals: Vital Signs Temp Pulse Resp BP Pulse Ox FiO2 05/28/22 13:23 100 05/28/22 13:17 100 05/28/22 11:37 97.7 F 84 18 163/97 90 L Intake and Output 05/27/22 05/28/22 05/28/22 22:59 06:59 14:59 Intake Total 100 Balance 100 Intake: IV 100 Other: Weight 83.5 kg No acute distress, sedated, and intubated. HEENT examination is grossly unremarkable. Neck supple. Full range of motion. No adenopathy thyromegaly or neck vein distention. Cardiovascular examination reveals regular rhythm rate. S1-S2 normal. No S3 or S4. No discernible murmur noted. Heart rate 84 bpm. Lungs reveal coarse bilateral breath sounds. Expiratory wheezes are noted. No crackles. Breath sounds equal bilaterally. Her cough is harsh. Abdomen soft bowel sounds are heard. No masses or tenderness. Extremities are intact. No cyanosis clubbing or edema. Skin is without rash or lesion. Neurologic examination cannot be assessed as she is currently sedated. Prior to that, her neurologic examination was normal. Results - Diagnostic Findings Chest x-ray: image reviewed Assessment and Plan Assessment: Acute hypoxemic respiratory failure, secondary to severe asthma, status post bronchoscopy and intubation with mechanical ventilation, on 05/28/2022. History of severe asthma. History of migraine cephalgia. Recent admission to [facility] for severe asthma exacerbation. Plan: Plan dated 05/28/2022. The patient underwent bronchoscopy today. Unfortunately, because of low saturations, we ended up intubated the patient. Overnight, and hopefully get her extubated tomorrow or the next day. The patient is placed on Solu-Medrol 60 mg every 6, updrafts with albuterol and ipratropium bromide, as well as budesonide and formoterol. The patient will also be placed on Zosyn. Labs and x-rays be done in the morning. I did speak to the family. Additional recommendations and suggestions are forthcoming. Time with Patient: Greater than 30
[2022-05-28] MEDS: SODIUM CHLORIDE 0.9% 1,000 ML IV SCH (13:57)
[2022-05-28 14:20] LABS: Basophils # (A) 0.2 k/uL (0-0.2); Basophils % (A) 1 %; Eosinophils # (A) 0.3 k/uL (0-0.7); Eosinophils % (A) 1 %; HCT 44.9 % (34.0-46.0); HGB 15.2 gm/dL (11.4-16.0); Lymphocytes % (A) 12 %; MCH 32.4 pg (25.0-35.0); MCHC 33.8 g/dL (31.0-37.0); Mean Platelet Volume 8.7; Monocytes # (A) 1.2 k/uL (0-1.0); Monocytes % (A) 5 %; Neutrophils # (A) 19.9 k/uL (1.3-7.7); Neutrophils % (A) 80 %; Platelet Count 225 k/uL (150-450); RBC 4.68 m/uL (3.80-5.40); RDW 12.7 % (11.5-15.5); WBC 24.9 k/uL (3.8-10.6)
--- NOTE | 2022-05-28 14:22 | XR ---
EXAMINATION TYPE: XR chest 1V portable DATE OF EXAM: 05/28/2022 HISTORY: Shortness of breath. COMPARISON: 12/18/2018 TECHNIQUE: Single view of the chest is submitted. FINDINGS: Endotracheal tube is well-positioned with its distal tip approximately 3 cm from the julius. Basilar infiltrates and small effusions noted. NG tube is seen coursing into the stomach. The heart is stable. Hilar and mediastinal structures are within normal limits. Degenerative changes are seen of the dorsal spine. IMPRESSION: 1. Basilar infiltrates and/or atelectasis with small effusions. Indwelling tubes and catheters as no diamond.
[2022-05-28 14:31] LABS: African American GFR (CKD) >90 (>60 ml/min/1.73 sqM); Anion Gap 3 mmol/L; Blood Urea Nitrogen 13 mg/dL (7-17); Calcium 8.3 mg/dL (8.4-10.2); Carbon Dioxide 27 mmol/L (22-30); Chloride 104 mmol/L (98-107); Glucose 101 mg/dL (74-99); Non-African American GFR(CKD) >90 (>60 ml/min/1.73 sqM); Potassium 3.8 mmol/L (3.5-5.1); Sodium 134 mmol/L (137-145)
[2022-05-28] MEDS: IPRATROPIUM-ALBUTEROL 3 ML NEB INHALATION SCH ×3 (15:11→22:57)
[2022-05-28] MEDS: PIPERACILLIN-TAZOBACTAM 3.375 GM in SODIUM CHLORIDE 0.9% 100 ML IVPB SCH (16:19)
[2022-05-28] MEDS: methylPREDNISolone SOD SUCCI 125 MG/2 ML VIAL IV SCH (17:26)
[2022-05-28] MEDS: BUDESONIDE 1 MG/2 ML NEBU INHALATION SCH (19:22)
[2022-05-28] MEDS: FORMOTEROL FUMARATE 20 MCG/2 ML NEBU INHALATION SCH (19:43)
[2022-05-28] MEDS: HEPARIN SODIUM,PORCINE/PF 5,000 UNIT/0.5 ML SYRINGE SQ SCH (20:12)
[2022-05-28] MEDS: CHLORHEXIDINE GLUCONATE 15 ML CUP MUCOUS MEM SCH (20:12)
--- NOTE | 2022-05-28 20:12 | PCN ---
PROCEDURE NOTE PULMONARY/CRITICAL CARE PROCEDURE NOTE: PROCEDURES PERFORMED: Bronchoscopy airway examination, therapeutic lavage, and BAL right middle lobe. PREOPERATIVE DIAGNOSIS: Severe asthma. POSTOPERATIVE DIAGNOSIS: Severe asthma. OPERATORS: 1. Dr. Coker. 2. Dr. Florez. There was informed consent and universal timeout. ANESTHESIA: Anesthesia provided general anesthesia. DESCRIPTION OF PROCEDURE: The patient initially was to have a bronchoscopy in the standard fashion, with just a sedation, but unfortunately, she had her saturations dropped during the initial part of the procedure, and therefore, the patient was electively intubated by Anesthesia including Dr. Riojas. The patient did receive some propofol during that process. She was intubated and then we could safely proceed with bronchoscopy. The bronchoscope was passed through the bronchoscope adapter connected to the endotracheal tube. The trachea was very erythematous and hyperemic. There was some bleeding. Tracheal julius was sharp. Right and left mainstem were topicalized. The right upper lobe and its 3 segments, right middle lobe and its 2 segments, right lower lobe and its 5 segments, the left upper lobe proper and its 2 segments, lingula and its 2 segments, and left lower lobe and its 4 segments all had similar findings of diffuse insignificant airway erythema, hyperemia, and mucosal friability. The mucosa bled easily. There was vascular engorgement. There was no definitive or distinct masses or lesion. There were purulent secretions noted throughout. They were suctioned. The bronchoscope was wedged into the right middle lobe. A formal BAL took place. The fluid will be sent for analysis. There was no immediate complication. The patient tolerated the procedure well. The patient will remain intubated and be transported back to the intensive care unit. I did give the vent settings to the nurse. In addition, I did spend time talking to the family members about what happened during the procedure. They were very understanding. The patient will be kept sedated and be placed on steroids, antibiotics, and breathing treatments. Additional recommendations and suggestions are forthcoming. MMODL / IJN: [id number] /
[2022-05-29] MEDS: PIPERACILLIN-TAZOBACTAM 3.375 GM in SODIUM CHLORIDE 0.9% 100 ML IVPB SCH ×4 (00:23→23:51)
[2022-05-29] MEDS: methylPREDNISolone SOD SUCCI 125 MG/2 ML VIAL IV SCH ×5 (00:24→23:51)
[2022-05-29] MEDS: IPRATROPIUM-ALBUTEROL 3 ML NEB INHALATION SCH ×6 (03:10→19:49)
[2022-05-29] MEDS: SODIUM CHLORIDE 0.9% 1,000 ML IV SCH ×2 (03:16→16:46)
[2022-05-29 05:41] LABS: ABG Base Excess 4.1 mmol/L; ABG HCO3 28 mmol/L (21-25); ABG Oxygen Saturation 98.9 % (94-97); ABG PCO2 38 mmHg (35-45); ABG PH 7.48 (7.35-7.45); ABG PO2 118 mmHg (83-108); ABG TCO2 29 mmol/L (19-24); Allen Test Performed? Yes
[2022-05-29 06:45] LABS: HCT 43.6 % (34.0-46.0); HGB 14.8 gm/dL (11.4-16.0); MCH 32.4 pg (25.0-35.0); MCV 95.4 fL (80.0-100.0); Mean Platelet Volume 8.7; Platelet Count 309 k/uL (150-450); RBC 4.57 m/uL (3.80-5.40); RDW 12.3 % (11.5-15.5); WBC 27.3 k/uL (3.8-10.6)
[2022-05-29 06:59] LABS: African American GFR (CKD) >90 (>60 ml/min/1.73 sqM); Anion Gap 3 mmol/L; Blood Urea Nitrogen 12 mg/dL (7-17); Calcium 8.3 mg/dL (8.4-10.2); Carbon Dioxide 27 mmol/L (22-30); Chloride 105 mmol/L (98-107); Glucose 150 mg/dL (74-99); Non-African American GFR(CKD) >90 (>60 ml/min/1.73 sqM); Potassium 4.2 mmol/L (3.5-5.1); Sodium 135 mmol/L (137-145)
[2022-05-29] MEDS: FORMOTEROL FUMARATE 20 MCG/2 ML NEBU INHALATION SCH ×2 (07:39→19:49)
[2022-05-29] MEDS: BUDESONIDE 1 MG/2 ML NEBU INHALATION SCH ×2 (07:39→19:49)
[2022-05-29 07:42] LABS: Band Neutrophils % 2 %; Lymphocytes # (M) 1.64 k/uL (1.0-4.8); Monocytes # (M) 0.27 k/uL (0-1.0); Neutrophils % (M) 91 %; Nucleated Red Blood Cells 0 /100 WBC (0-0); Total Cells Counted 100
[2022-05-29 07:45] LABS: RBC Morphology Normal
[2022-05-29] MEDS: HEPARIN SODIUM,PORCINE/PF 5,000 UNIT/0.5 ML SYRINGE SQ SCH ×2 (08:17→20:49)
[2022-05-29] MEDS: CHLORHEXIDINE GLUCONATE 15 ML CUP MUCOUS MEM SCH (08:17)
--- NOTE | 2022-05-29 08:50 | XR ---
EXAMINATION TYPE: XR chest 1V portable DATE OF EXAM: 05/29/2022 6:45 AM COMPARISON: Chest radiographs from 05/28/2022 TECHNIQUE: XR chest 1V portable Frontal view of the chest. CLINICAL INDICATION:Female, 51 years old with history of Tube placement; FINDINGS: Lungs/Pleura: Small bilateral pleural effusions with similar bibasilar patchy opacities. No pneumotho rax. Pulmonary vascularity: Unremarkable. Heart/mediastinum: Cardiomediastinal silhouette is enlarged and stable. Musculoskeletal: No acute osseous pathology. Other findings: None Lines/Tubes: Endotracheal tube is stable position. Nasogastric tube is in stable position. IMPRESSION: 1. Similar small bilateral pleural effusions and cardiomegaly with bibasilar patchy airspace opaciti es which may represent infiltrates and/or atelectasis. 2. Stable support tubes.
[2022-05-29] MEDS ORDERED: FUROSEMIDE 10 MG/ML 10 ML VIAL IV STA (08:52)
[2022-05-29] MEDS ORDERED: PANTOPRAZOLE 40 MG/10 ML VIAL IV SCH (09:00)
[2022-05-29] MEDS: ARTIFICIAL TEARS-HYPROMELLOSE DROPS 15 ML BTL BOTH EYES PRN ×2 (10:14→23:54)
--- NOTE | 2022-05-29 11:13 | P.PN ---
Subjective Progress Note Date: 05/29/22 Principal diagnosis: Respiratory failure. Pulmonary consult dated 05/28/2022. 51-year-old female who recently was at [facility] for an asthma exacerbation. She was discharged on Saturday, after a number of days, and she was discharged on prednisone 50 mg a day. The patient in my opinion, improved while at [facility], but her improvement was very gradual in minimal at best. The patient was scheduled to have an elective outpatient bronchoscopy a [facility] examination therapy lavage and BAL today, at [facility]. Unfortunately, the patient's saturations were very low, we attempted to do bronchoscopy in the standard way, and therefore, we elected to intubate her, to do a more safely. Her airways were very inflamed and erythematous. There was mucosal friability. She bled easily. We did do a formal BAL in the right middle lobe. And we decided to keep the patient intubated and mechanically ventilated. The mid a bit for her in the intensive care unit. Her only other medical problem other than severe asthma is migraine cephalgia. No laboratory data as yet. The patient will be maintained on the ventilator. Ventilator settings will be the volume assist control mode, rate 20, tidal volume 400, FiO2 100%, and PEEP of 5. The patient will have a blood gas done eventually. In addition, the patient gets saline at 75 mL an hour, Zosyn, updrafts with albuterol sulfate and ipratropium bromide, along with updrafts with budesonide and formoterol, and Solu-Medrol 60 mg every 6 hours. The patient will stay on propofol for sedation. Labs and x-rays will be done in the morning. Progress note dated 05/29/2022. 51-year-old female was recently at [facility] for severe asthma exacerbation. She was discharged last Saturday, and brought to the bronchoscopy suite yesterday for an elective bronchoscopy and BAL. Unfortunately, as restarted the procedure, her saturations drop, and she required intubation and mechanical ventilation, to do this procedure safely. I did speak to the family afterwards. This morning, she remains on mechanical ventilator. She is on the volume assist control, rate 20, tidal volume 400, FiO2 down to 50%, with a PEEP of 5. Blood gases on 60% showed pO2 118, pCO2 38, and a pH 7.48. The broncho scopy in the intubation both place on May 28. This morning she is on propofol at 50 mcg/kg/m, and saline at 75 mL an hour. We are going to resume her Singulair. We will give her Lasix 60 mg IV push. The patient will have a daily interruption of sedation, and a spontaneous breathing trial. Laboratory data includes a white count of 27.3, with a normal hemoglobin, hematocrit, and platelet count. Sodium 135, potassium 4.2, chlorides 105, CO2 27, within normal BUN and creatinine. Chest x-ray shows some mild fluid overload, small lung volumes, and small bilateral effusions. Objective - Vital Signs Vital signs: Vital Signs Temp 98.2 F 05/29/22 08:00 Pulse 96 05/29/22 11:04 Resp 20 05/29/22 10:00 BP 138/88 05/29/22 10:00 Pulse Ox 92 L 05/29/22 10:00 FiO2 50 05/29/22 10:18 Intake & Output 05/28/22 05/29/22 05/29/22 18:59 06:59 18:59 Intake Total 083.881 5774.000 527.367 Output Total 1395 1635 1840 Balance -676.541 -50.000 -1312.633 Weight 86.5 kg 86 kg Intake: IV 575 1075 325 Piperacillin-Tazobactam 3 100 100 100 .375 gm In Sodium Chloride 0.9% 100 ml @ 25 mls/hr IVPB Q8HR ASHA Rx# :[id number] Sodium Chloride 0.9% 1, 375 975 225 000 ml @ 75 mls/hr IV . [id number] ASHA Rx#:[id number] Intake, IV Titration 63.459 300.000 142.367 Amount propofoL 1,000 mg In 63.459 300.000 142.367 Empty Bag 1 bag @ 15 MCG/ KG/MIN 7.515 mls/hr IV . [id number] ASHA Rx#:[id number] Tube Feeding 50 210 30 Other 30 30 Output: Urine 1395 1635 1840 Other: Voiding Method Indwelling Catheter Indwelling Catheter Indwelling Catheter - Exam No acute distress, sedated, and intubated. HEENT examination is grossly unremarkable. Neck supple. Full range of motion. No adenopathy thyromegaly or neck vein distention. Cardiovascular examination reveals regular rhythm rate. S1-S2 normal. No S3 or S4. No discernible murmur noted. Heart rate 96 bpm. Heart sounds are distant. Lungs reveal scattered rhonchi bilaterally. No wheezes. No crackles. Breath sounds equal. Abdomen soft bowel sounds are heard. No masses or tenderness. Extremities are intact. No cyanosis clubbing or edema. Skin is without rash or lesion. Neurologic examination cannot be assessed as she is currently sedated. - Labs CBC & Chem 7: 05/29/22 06:25 05/29/22 06:25 Labs: Abnormal Lab Results - Last 24 Hours (Table) 05/28/22 05/28/22 05/29/22 Range/Units 14:03 14:03 05:34 WBC 24.9 H (3.8-10.6) k/uL Neutrophils # 19.9 H (1.3-7.7) k/uL Neutrophils # (Manual) (1.3-7.7) k/uL Monocytes # 1.2 H (0-1.0) k/uL ABG pH 7.48 H (7.35-7.45) ABG pO2 118 H (83-108) mmHg ABG HCO3 28 H (21-25) mmol/L ABG Total CO2 29 H (19-24) mmol/L ABG O2 Saturation 98.9 H (94-97) % Sodium 134 L (137-145) mmol/L Glucose 101 H (74-99) mg/dL Calcium 8.3 L (8.4-10.2) mg/dL 05/29/22 05/29/22 Range/Units 06:25 06:25 WBC 27.3 H (3.8-10.6) k/uL Neutrophils # (1.3-7.7) k/uL Neutrophils # (Manual) 25.30 H (1.3-7.7) k/uL Monocytes # (0-1.0) k/uL ABG pH (7.35-7.45) ABG pO2 (83-108) mmHg ABG HCO3 (21-25) mmol/L ABG Total CO2 (19-24) mmol/L ABG O2 Saturation (94-97) % Sodium 135 L (137-145) mmol/L Glucose 150 H (74-99) mg/dL Calcium 8.3 L (8.4-10.2) mg/dL Assessment and Plan Assessment: Acute hypoxemic respiratory failure, secondary to severe asthma, status post bronchoscopy and intubation with mechanical ventilation, on 05/28/2022. History of severe asthma. History of migraine cephalgia. Recent admission to [facility] for severe asthma exacerbation. Plan: Plan dated 05/28/2022. The patient underwent bronchoscopy today. Unfortunately, because of low saturations, we ended up intubated the patient. Overnight, and hopefully get her extubated tomorrow or the next day. The patient is placed on Solu-Medrol 60 mg every 6, updrafts with albuterol and ipratropium bromide, as well as budesonide and formoterol. The patient will also be placed on Zosyn. Labs and x-rays be done in the morning. I did speak to the family. Additional recommendations and suggestions are forthcoming. Plan dated 05/29/2022. This morning, the patient received Lasix 60 mg IV push times one. Labs, x-rays, and medications are reviewed. The patient remains on albuterol sulfate and ipratropium bromide breathing treatments, budesonide, and formoterol breathing treatments, Solu-Medrol, and Zosyn. Also, we added back Singulair. The patient's weaning parameters this morning were excellent. The patient's rapid shallow breathing index was low. She had a good cuff leak. The patient was extubated. I did tell her Mazin. He had a number of questions, all of which I answered. Time with Patient: Greater than 30
[2022-05-29] MEDS ORDERED: guaiFENesin-Coden 100-10MG/5ML 10 ML CUP PO PRN (12:33)
[2022-05-29] MEDS: guaiFENesin-Coden 100-10MG/5ML 10 ML CUP PO SCH ×3 (12:44→23:51)
[2022-05-29] MEDS: BENZONATATE 100 MG CAP PO SCH ×2 (12:44→21:53)
[2022-05-29] MEDS ORDERED: PROMETHAZINE 25 MG TAB PO SCH (18:00)
[2022-05-29 19:12] LABS: Appearance,BF Bloody
--- NOTE | 2022-05-29 19:38 | P.HPIM ---
History of Present Illness H&P Date: 05/28/22 Chief Complaint: Intubated This is a 51-year-old patient, follows with Dr. Yarelis Alejo. 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 Patient long-standing asthma. Patient was recently at [facility] then for 5 days being discharged 3 days ago. She still having respiratory symptoms when she left. Patient is scheduled to have a bronchoscopy with lavage today. Relevant procedures she was found an extensive inflammatory changes secretions. And friable tissue including bleeding. Dr. coker decided to keep the patient intubated and admitted to the ICU. Patient is on propofol. Sinus rhythm. at the bedside. Review of systems: Patient intubated Past medical history to include: Asthma, reflux, hypertension, migraines, arthralgias COVID December 2021 Social history: . No smoking. Alcohol rarely Physical examination: VITAL SIGNS: 97.8, 83, 21, 145.94, 95% on the ventilator at 60% GENERAL: [Average built, laying in bed, intubated. EYES: Pupils equal. Conjunctiva normal. HEENT: External appearance of nose and ears normal, oral cavity endotracheal tube. NECK: JVD not raised; masses not palpable. HEART: First and second heart sounds are normal; no edema. LUNGS: Respiratory rate normal; decreased breath sounds. ABDOMEN: Soft, nontender, liver spleen not palpable, no masses palpable. PSYCH: [As his sedated l. MUSCULOSKELETAL:No Clubbing/cyanosis;muscles-grossly intact NEUROLOGICAL: Cranial nerves grossly intact; no facial asymmetry, power and sensation grossly intact. LYMPHATICS: No lymph nodes palpable in the axilla and neck INVESTIGATIONS, reviewed in the clinical context: White count 24.9 hemoglobin 15.2 platelets 225 potassium 3.8 creatinine 0.61 Telemetric tracing personally reviewed by me: Sinus rhythm Chest x-ray film personally reviewed by me-ET tube. Some basal haziness Assessment and plan: -Acute hypoxic respiratory failure from asthma exacerbation Ventilator support. -Acute severe asthma exacerbation DuoNeb, IV Solu-Medrol, nebulized Pulmicort, Perforomist, Singulair -Essential hypertension Diet-controlled -Chronic recurrent migraine headaches Patient on propranolol for migraine prophylaxis, resume when okay with Dr. Coker -GERD PPI -Acute severe tracheobronchitis IV Zosyn -Obesity BMI 30.6 Weight loss measures -Full code Patient intubated on the ventilator. DuoNeb, IV Solu-Medrol, nebulized Pu lmicort and Perforomist, IV Zosyn. Discussed with at the bedside. We will follow with pulmonary. Past Medical History Past Medical History: Asthma, GERD/Reflux, Hypertension Additional Past Medical History / Comment(s): migraines, arrythmia per Dr Mon, swelling in neck ? thryroid. will see PCP. arthritis generalized. pt hospitalized [facility] 05/21/22 for cough increased SOB, ,will be discharged today. recent steroid use. hx of Covid 12/2021. hx RSV History of Any Multi-Drug Resistant Organisms: None Reported Past Surgical History: Appendectomy, Tonsillectomy, Uterine Ablation Additional Past Surgical History / Comment(s): D&C; Bunionectomy, colonoscopy. bronchoscopy Past Anesthesia/Blood Transfusion Reactions: Postoperative Nausea & Vomiting (PONV) Additional Past Anesthesia/Blood Transfusion Reaction / Comment(s): no blood tranfusions Smoking Status: Never smoker - Past Family History Mother Family Medical History: Cancer, Myocardial Infarction (CT) Additional Family Medical History / Comment(s): breast cancer Father Additional Family Medical History / Comment(s): heart failure and multip organ failure recently passed Medications and Allergies Home Medications Medication Instructions Recorded Confirmed Type Montelukast [Singulair] 10 mg PO HS 08/04/14 05/25/22 History Omeprazole [PriLOSEC] 20 mg PO DAILY PRN 08/04/14 05/25/22 History Albuterol Inhaler [Ventolin 1 - 2 puff INHALATION RT-QID PRN 08/05/14 05/25/22 History Inhaler] Albuterol Nebulized [Ventolin 2.5 mg INHALATION RT-QID PRN 08/16/16 05/25/22 History Nebulized] Cholecalciferol [Vitamin D3 (25 50 mcg PO DAILY 05/25/22 05/25/22 History Mcg = 1000 Iu)] Fluticasone Propion/Salmeterol 1 puff INHALATION BID 05/25/22 05/25/22 History [Advair 500-50 Diskus] Propranolol HCl [Propranolol HCl 80 mg PO HS 05/25/22 05/25/22 History ER] Unk Multi Vitamin 1 tab PO DAILY 05/25/22 05/25/22 History Unk Vitamin C 1 tab PO DAILY 05/25/22 05/25/22 History Allergies Allergy/AdvReac Type Severity Reaction Status Date / Time Milk Containing Products Allergy Nausea & Verified 05/29/22 16:57 [Dairy] Vomiting & Diarrhea moxifloxacin HCl Allergy Nausea & Verified 05/28/22 11:39 [From Avelox] Vomiting Physical Exam Vitals: Vital Signs Temp Pulse Pulse Resp BP BP Pulse Ox 05/28/22 18:00 79 20 117/75 96 05/28/22 17:00 79 20 110/72 96 05/28/22 16:00 97.8 F 83 21 145/94 95 05/28/22 15:58 05/28/22 15:31 86 05/28/22 15:19 84 05/28/22 15:13 05/28/22 15:00 81 20 160/111 93 L 05/28/22 14:07 05/28/22 14:00 97.5 F L 80 20 149/106 100 05/28/22 13:25 98 05/28/22 13:23 05/28/22 13:17 05/28/22 11:37 97.7 F 84 18 163/97 90 L FiO2 05/28/22 18:00 60 05/28/22 17:00 60 05/28/22 16:00 60 05/28/22 15:58 60 05/28/22 15:31 05/28/22 15:19 05/28/22 15:13 60 05/28/22 15:00 60 05/28/22 14:07 60 05/28/22 14:00 60 05/28/22 13:25 05/28/22 13:23 100 05/28/22 13:17 100 05/28/22 11:37 Intake and Output 05/28/22 05/28/22 05/28/22 06:59 14:59 22:59 Intake Total 207.544 510.915 Output Total 400 995 Balance -192.456 -484.085 Intake: IV 175 400 Piperacillin-Tazobactam 3 100 .375 gm In Sodium Chloride 0.9% 100 ml @ 25 mls/hr IVPB Q8HR [facility] Rx# :[id number] Sodium Chloride 0.9% 1, 75 300 000 ml @ 75 mls/hr IV . [id number] [facility] Rx#:[id number] Intake, IV Titration 22.544 40.915 Amount propofoL 1,000 mg In 22.544 40.915 Empty Bag 1 bag @ 15 MCG/ KG/MIN 7.515 mls/hr IV . [id number] ASHA Rx#:[id number] Tube Feeding 10 40 Other 30 Output: Urine 400 995 Other: Voiding Method Indwelling Catheter Indwelling Catheter Weight 86.5 kg Results CBC & Chem 7: 05/29/22 06:25 05/29/22 06:25 Labs: Abnormal Lab Results - Last 24 Hours (Table) 05/28/22 05/28/22 Range/Units 14:03 14:03 WBC 24.9 H (3.8-10.6) k/uL Neutrophils # 19.9 H (1.3-7.7) k/uL Monocytes # 1.2 H (0-1.0) k/uL Sodium 134 L (137-145) mmol/L Glucose 101 H (74-99) mg/dL Calcium 8.3 L (8.4-10.2) mg/dL Thrombosis Risk Factor Assmnt - Choose All That Apply Each Factor Represents 1 point: Age 41-60 years, Obesity (BMI >25) Other Risk Factors: No Thrombosis Risk Factor Assessment Total Risk Factor Score: 2 Thrombosis Risk Factor Assessment Level: Low Risk
--- NOTE | 2022-05-29 19:41 | P.PN ---
Progress Note - Text Progress Note Date: 05/29/22 Chief Complaint: Intubated This is a 51-year-old patient, follows with Dr. Yarelis Alejo. 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 Patient long-standing asthma. Patient was recently at [facility] then for 5 days being discharged 3 days ago. She still having respiratory symptoms when she left. Patient is scheduled to have a bronchoscopy with lavage today. Relevant procedures she was found an extensive inflammatory changes secretions. And friable tissue including bleeding. Dr. coker decided to keep the patient intubated and admitted to the ICU. Patient is on propofol. Sinus rhythm. at the bedside. 05/29/2022: Patient was extubated earlier today. On nasal cannula. Some cough. Patient's 2 daughters at the bedside. Remains on bronchodilators steroids IV Zosyn. Active Medications Albuterol/Ipratropium (Ipratropium-Albuterol 3 Ml Neb) 3 ml INHALATION RT-Q2H PRN PRN Reason: Shortness Of Breath Or Wheezing Albuterol/Ipratropium (Ipratropium-Albuterol 3 Ml Neb) 3 ml INHALATION RT-QID ASHA Last Admin: 05/29/22 15:57 Dose: Not Given Artificial Tears (Artificial Tears-Hypromellose Drops 15 Ml Btl) 2 drops BOTH EYES QID PRN PRN Reason: Dry Eye(s) Last Admin: 05/29/22 10:14 Dose: 2 drops Benzonatate (Benzonatate 100 Mg Cap) 200 mg PO TID ASHA Last Admin: 05/29/22 12:44 Dose: 200 mg Budesonide (Budesonide 1 Mg/2 Ml Nebu) 1 mg INHALATION RT-BID ASHA Last Admin: 05/29/22 07:39 Dose: 1 mg Formoterol Fumarate (Formoterol Fumarate 20 Mcg/2 Ml Nebu) 20 mcg INHALATION RT-BID ASHA Last Admin: 05/29/22 07:39 Dose: 20 mcg Guaifenesin/Codeine Phosphate (Guaifenesin-Coden 100-10mg/5ml 10 Ml Cup) 10 ml PO Q6HR ASHA Last Admin: 05/29/22 17:06 Dose: 10 ml Heparin Sodium (Porcine) (Heparin Sodium,Porcine/Pf 5,000 Unit/0.5 Ml Syringe) 5,000 unit SQ Q12HR ASHA Last Admin: 05/29/22 08:17 Dose: 5,000 unit Sodium Chloride (Saline 0.9%) 1,000 mls @ 75 mls/hr IV .[id number] [facility] Last Admin: 05/29/22 16:46 Dose: 75 mls/hr Piperacillin Sod/Tazobactam (Sod 3.375 gm/ Sodium Chloride) 100 mls @ 25 mls/hr IVPB Q8HR [facility]; Protocol Last Admin: 05/29/22 16:46 Dose: 25 mls/hr Lidocaine HCl (Lidocaine 1% (10mg/Ml) For Iv Start) 0.1 ml INTRADERMA PER PROTOCOL PRN PRN Reason: IV Start Stop: 06/27/22 06:38 Methylprednisolone Sodium Succinate (Methylprednisolone Sod Succi 125 Mg/2 Ml Vial) 60 mg IV Q6HR [facility] Last Admin: 05/29/22 17:06 Dose: 60 mg Montelukast Sodium (Montelukast 10 Mg Tab) 10 mg PO HS [facility] Naloxone HCl (Naloxone 0.4 Mg/Ml 1 Ml Vial) 0.2 mg IV Q2M PRN PRN Reason: Opioid Reversal Pantoprazole Sodium (Pantoprazole 40 Mg/10 Ml Vial) 40 mg IV DAILY [facility] Last Admin: 05/29/22 08:17 Dose: 40 mg Past medical history to include: Asthma, reflux, hypertension, migraines, arthralgias COVID December 2021 Social history: . No smoking. Alcohol rarely Physical examination: VITAL SIGNS: ID 0.2, 93, 16, 1:30/88, 93% on 5 L GENERAL: Laying in bed, awake, tired EYES: Pupils equal. Conjunctiva normal. HEENT: External appearance of nose and ears normal, oral cavity endotracheal tube. NECK: JVD not raised; masses not palpable. HEART: First and second heart sounds are normal; no edema. LUNGS: Respiratory rate increased, decreased breaths on some extremity crackles ABDOMEN: Soft, nontender, liver spleen not palpable, no masses palpable. PSYCH: Alert 3, mood and affect normal MUSCULOSKELETAL:No Clubbing/cyanosis;muscles-grossly intact NEUROLOGICAL: Cranial nerves grossly intact; no facial asymmetry, power and sensation grossly intact. INVESTIGATIONS, reviewed in the clinical context: 05/29/2022: White count was 7.3 hemoglobin 14.8 platelets 309 potassium 4.2 creatinine 0.63 White count 24.9 hemoglobin 15.2 platelets 225 potassium 3.8 creatinine 0.61 Telemetric tracing personally reviewed by me: Sinus rhythm Chest x-ray film personally reviewed by me-ET tube. Some basal haziness Assessment and plan: -Acute hypoxic respiratory failure from asthma exacerbation:: Slow to respond Status post Ventilator support, extubated May 29. Currently on 5 L nasal cannula -Acute severe asthma exacerbation: Slow to respond DuoNeb, IV Solu-Medrol, nebulized Pulmicort, Perforomist, Singulair -Essential hypertension Diet-controlled -Chronic recurrent migraine headaches Patient on propranolol for migraine prophylaxis, resume when okay with Dr. Coker -GERD PPI -Acute severe tracheobronchitis IV Zosyn -Obesity BMI 30.6 Weight loss measures -Full code Continue DuoNeb, IV Solu-Medrol, nebulized Pulmicort and Perforomist, IV Zosyn. Discussed with the patient to daughters at the bedside. Increase Protonix to 40 mg twice a day. Incentive spirometry. Await culture results.
[2022-05-29] MEDS: PANTOPRAZOLE 40 MG TABLET PO SCH (20:49)
[2022-05-29] MEDS: MONTELUKAST 10 MG TAB PO SCH (20:49)
[2022-05-29] MEDS: IPRATROPIUM-ALBUTEROL 3 ML NEB INHALATION PRN (23:28)
[2022-05-30] MEDS: IPRATROPIUM-ALBUTEROL 3 ML NEB INHALATION PRN ×2 (03:22→23:44)
[2022-05-30] MEDS: SODIUM CHLORIDE 0.9% 1,000 ML IV SCH ×3 (05:53→23:04)
[2022-05-30] MEDS: methylPREDNISolone SOD SUCCI 125 MG/2 ML VIAL IV SCH ×4 (05:53→23:36)
[2022-05-30] MEDS: guaiFENesin-Coden 100-10MG/5ML 10 ML CUP PO SCH ×4 (05:54→23:36)
[2022-05-30 06:54] LABS: African American GFR (CKD) >90 (>60 ml/min/1.73 sqM); Anion Gap 4 mmol/L; Blood Urea Nitrogen 17 mg/dL (7-17); Calcium 8.8 mg/dL (8.4-10.2); Carbon Dioxide 30 mmol/L (22-30); Chloride 105 mmol/L (98-107); Glucose 145 mg/dL (74-99); Non-African American GFR(CKD) >90 (>60 ml/min/1.73 sqM); Potassium 3.9 mmol/L (3.5-5.1); Sodium 139 mmol/L (137-145)
--- NOTE | 2022-05-30 06:59 | XR ---
EXAMINATION TYPE: XR chest 1V portable DATE OF EXAM: 05/30/2022 5:29 AM COMPARISON: Chest radiograph from one day prior. TECHNIQUE: XR chest 1V portable Portable AP radiograph of the chest. CLINICAL INDICATION:Female, 51 years old with history of Tube placement; FINDINGS: Lungs/Pleura: Bibasilar atelectasis. No evidence for pneumothorax , or focal consolidation. Blunting of the costophrenic angles. Pulmonary vascularity: Unremarkable. Heart/mediastinum: Cardiomediastinal silhouette is enlarged and stable. Musculoskeletal: No acute osseous pathology. IMPRESSION: 1. Nasogastric tube has been removed. 2. Stable cardiomegaly and bilateral pleural effusions.
[2022-05-30] MEDS: FORMOTEROL FUMARATE 20 MCG/2 ML NEBU INHALATION SCH ×2 (07:32→20:01)
[2022-05-30] MEDS: IPRATROPIUM-ALBUTEROL 3 ML NEB INHALATION SCH ×4 (07:32→20:01)
[2022-05-30] MEDS: BUDESONIDE 1 MG/2 ML NEBU INHALATION SCH ×2 (07:32→20:01)
[2022-05-30] MEDS: PANTOPRAZOLE 40 MG TABLET PO SCH ×2 (08:49→17:22)
[2022-05-30] MEDS: HEPARIN SODIUM,PORCINE/PF 5,000 UNIT/0.5 ML SYRINGE SQ SCH ×2 (08:49→21:10)
[2022-05-30] MEDS: BENZONATATE 100 MG CAP PO SCH ×3 (08:50→23:02)
[2022-05-30] MEDS: PIPERACILLIN-TAZOBACTAM 3.375 GM in SODIUM CHLORIDE 0.9% 100 ML IVPB SCH ×3 (08:50→23:40)
[2022-05-30 09:07] LABS: Basophils # (A) 0.2 k/uL (0-0.2); Basophils % (A) 1 %; Eosinophils # (A) 0.1 k/uL (0-0.7); Eosinophils % (A) 0 %; HCT 45.5 % (34.0-46.0); HGB 15.1 gm/dL (11.4-16.0); Lymphocytes # (A) 1.1 k/uL (1.0-4.8); Lymphocytes % (A) 3 %; MCH 33.2 pg (25.0-35.0); MCHC 33.3 g/dL (31.0-37.0); MCV 99.8 fL (80.0-100.0); Mean Platelet Volume 10.6; Monocytes % (A) 3 %; Neutrophils # (A) 31.1 k/uL (1.3-7.7); Neutrophils % (A) 92 %; Platelet Count 233 k/uL (150-450); RBC 4.56 m/uL (3.80-5.40); WBC 33.8 k/uL (3.8-10.6)
[2022-05-30 09:56] LABS: RBC Morphology Normal
--- NOTE | 2022-05-30 10:12 | P.PN ---
Subjective Progress Note Date: 05/30/22 Principal diagnosis: Respiratory failure. Pulmonary consult dated 05/28/2022. 51-year-old female who recently was at [facility] for an asthma exacerbation. She was discharged on Saturday, after a number of days, and she was discharged on prednisone 50 mg a day. The patient in my opinion, improved while at [facility], but her improvement was very gradual in minimal at best. The patient was scheduled to have an elective outpatient bronchoscopy a [facility] examination therapy lavage and BAL today, at [facility]. Unfortunately, the patient's saturations were very low, we attempted to do bronchoscopy in the standard way, and therefore, we elected to intubate her, to do a more safely. Her airways were very inflamed and erythematous. There was mucosal friability. She bled easily. We did do a formal BAL in the right middle lobe. And we decided to keep the patient intubated and mechanically ventilated. The mid a bit for her in the intensive care unit. Her only other medical problem other than severe asthma is migraine cephalgia. No laboratory data as yet. The patient will be maintained on the ventilator. Ventilator settings will be the volume assist control mode, rate 20, tidal volume 400, FiO2 100%, and PEEP of 5. The patient will have a blood gas done eventually. In addition, the patient gets saline at 75 mL an hour, Zosyn, updrafts with albuterol sulfate and ipratropium bromide, along with updrafts with budesonide and formoterol, and Solu-Medrol 60 mg every 6 hours. The patient will stay on propofol for sedation. Labs and x-rays will be done in the morning. Progress note dated 05/29/2022. 51-year-old female was recently at [facility] for severe asthma exacerbation. She was discharged last Saturday, and brought to the bronchoscopy suite yesterday for an elective bronchoscopy and BAL. Unfortunately, as restarted the procedure, her saturations drop, and she required intubation and mechanical ventilation, to do this procedure safely. I did speak to the family afterwards. This morning, she remains on mechanical ventilator. She is on the volume assist control, rate 20, tidal volume 400, FiO2 down to 50%, with a PEEP of 5. Blood gases on 60% showed pO2 118, pCO2 38, and a pH 7.48. The broncho scopy in the intubation both place on May 28. This morning she is on propofol at 50 mcg/kg/m, and saline at 75 mL an hour. We are going to resume her Singulair. We will give her Lasix 60 mg IV push. The patient will have a daily interruption of sedation, and a spontaneous breathing trial. Laboratory data includes a white count of 27.3, with a normal hemoglobin, hematocrit, and platelet count. Sodium 135, potassium 4.2, chlorides 105, CO2 27, within normal BUN and creatinine. Chest x-ray shows some mild fluid overload, small lung volumes, and small bilateral effusions. Progress note dated 05/30/2022. 51-year-old female who was extubated yesterday, May 29. He was in the [facility], for a number of days, with a severe asthma exacerbation. We attempted bronchoscopy on Saturday, for BAL, and unfortunately, she had to be intubated. She was extubated yesterday successfully. She is on 3 L of oxygen. She's getting saline at 75 mL an hour. Microbiologic sampling from the bronchoscopy are thus far negative are pending. She's getting usual medications including Zosyn, updrafts, and steroids. We also are giving her a codeine containing cough syrup, and Tessalon. White count 33.8, with a normal hemoglobin, hematocrit, and platelet count. Sodium, potassium, chloride, CO2, BUN and creatinine are all normal. Glucose is 145. Objective - Vital Signs Vital signs: Vital Signs Temp 97.5 F L 05/30/22 04:00 Pulse 100 05/30/22 07:57 Resp 14 05/30/22 06:00 BP 136/84 05/30/22 06:00 Pulse Ox 93 L 05/30/22 06:00 FiO2 50 05/29/22 10:18 Intake & Output 05/29/22 05/30/22 05/30/22 18:59 06:59 18:59 Intake Total 1227.367 900 Output Total 3225 390 Balance -1996.633 510 Weight 86 kg 82.6 kg Intake: IV 1025 900 Piperacillin-Tazobactam 3 200 .375 gm In Sodium Chloride 0.9% 100 ml @ 25 mls/hr IVPB Q8HR [facility] Rx# :[id number] Sodium Chloride 0.9% 1, 825 900 000 ml @ 75 mls/hr IV . [id number] [facility] Rx#:[id number] Intake, IV Titration 142.367 Amount propofoL 1,000 mg In 142.367 Empty Bag 1 bag @ 15 MCG/ KG/MIN 7.515 mls/hr IV . [id number] [facility] Rx#:[id number] Tube Feeding 30 Other 30 Output: Urine 3225 390 Other: Voiding Method Indwelling Catheter Toilet Bedside Commode # Voids 0 - Exam No acute distress, on nasal O2 at 3 L. Feeling much better. HEENT examination is grossly unremarkable. Neck supple. Full range of motion. No adenopathy thyromegaly or neck vein distention. Cardiovascular examination reveals regular rhythm rate. S1-S2 normal. No S3 or S4. No discernible murmur noted. Heart rate 100 bpm. Heart sounds are distant. Lungs reveal scattered rhonchi bilaterally. No wheezes. No crackles. Breath sounds equal. Saturations are 98%. Abdomen soft bowel sounds are heard. No masses or tenderness. Extremities are intact. No cyanosis clubbing or edema. Skin is without rash or lesion. Neurologic examination is brief but nonfocal. - Labs CBC & Chem 7: 05/30/22 05:38 05/30/22 05:38 Labs: Abnormal Lab Results - Last 24 Hours (Table) 05/30/22 05/30/22 Range/Units 05:38 05:38 WBC 33.8 H (3.8-10.6) k/uL Neutrophils # 31.1 H (1.3-7.7) k/uL Glucose 145 H (74-99) mg/dL Microbiology - Last 24 Hours (Table) 05/28/22 12:45 Acid Fast Bacilli Culture - Preliminary Bronchial Washings - Right 05/28/22 12:45 Fungal Culture - Preliminary Bronchial Washings - Right 05/28/22 12:45 Bronchial Washings Culture - Preliminary Bronchial Washings - Right Assessment and Plan Assessment: Acute hypoxemic respiratory failure, secondary to severe asthma, status post bronchoscopy and intubation with mechanical ventilation, on 05/28/2022. S/P successful extubation on 05/29/2022. History of severe asthma. History of migraine cephalgia. Recent admission to [facility] for severe asthma exacerbation. Plan: Plan dated 05/28/2022. The patient underwent bronchoscopy today. Unfortunately, because of low saturations, we ended up intubated the patient. Overnight, and hopefully get her extubated tomorrow or the next day. The patient is placed on Solu-Medrol 60 mg every 6, updrafts with albuterol and ipratropium bromide, as well as budesonide and formoterol. The patient will also be placed on Zosyn. Labs and x-rays be done in the morning. I did speak to the family. Additional recommendations and suggestions are forthcoming. Plan dated 05/29/2022. This morning, the patient received Lasix 60 mg IV push times one. Labs, x-rays, and medications are reviewed. The patient remains on albuterol sulfate and ipratropium bromide breathing treatments, budesonide, and formoterol breathing treatments, Solu-Medrol, and Zosyn. Also, we added back Singulair. The patient's weaning parameters this morning were excellent. The patient's rapid shallow breathing index was low. She had a good cuff leak. The patient was extubated. I did tell her Mazin. He had a number of questions, all of which I answered. Plan dated 05/30/2022. The patient was successfully extubated yesterday. She remains in the intensive care unit. Later today, she could be transferred out to the general medical floor. She certainly not ready for discharge. I did update the family yesterd ay. She is resting comfortably in the intensive care unit. She continues on steroids, breathing treatments, and Zosyn. No additional recommendations are made. Prognosis is thought to be generally good. Time with Patient: Less than 30
--- NOTE | 2022-05-30 15:56 | P.PN ---
Progress Note - Text Progress Note Date: 05/30/22 Chief Complaint: Short of breath Hospital course: This is a 51-year-old patient, follows with Dr. Yarelis Alejo. 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 Patient long-standing asthma. Patient was recently at [facility] then for 5 days being discharged 3 days ago. She still having respiratory symptoms when she left. Patient is scheduled to have a bronchoscopy with lavage today. Relevant procedures she was found an extensive inflammatory changes secretions. And friable tissue including bleeding. Dr. coker decided to keep the patient intubated and admitted to the ICU. Patient is on propofol. Sinus rhythm. at the bedside. 05/29/2022: Patient was extubated earlier today. On nasal cannula. Some cough. Patient's 2 daughters at the bedside. Remains on bronchodilators steroids IV Zosyn. 05/30/2022: Up in a chair. Shortness of breath. Some congested cough. Throat hurts with cold liquids. Remains on IV Zosyn. DuoNeb. Cultures pending. Active Medications Albuterol/Ipratropium (Ipratropium-Albuterol 3 Ml Neb) 3 ml INHALATION RT-Q2H PRN PRN Reason: Shortness Of Breath Or Wheezing Last Admin: 05/30/22 03:22 Dose: 3 ml Albuterol/Ipratropium (Ipratropium-Albuterol 3 Ml Neb) 3 ml INHALATION RT-QID [facility] Last Admin: 05/30/22 15:14 Dose: 3 ml Artificial Tears (Artificial Tears-Hypromellose Drops 15 Ml Btl) 2 drops BOTH EYES QID PRN PRN Reason: Dry Eye(s) Last Admin: 05/29/22 23:54 Dose: 2 drops Benzonatate (Benzonatate 100 Mg Cap) 200 mg PO TID ASHA Last Admin: 05/30/22 08:50 Dose: 200 mg Budesonide (Budesonide 1 Mg/2 Ml Nebu) 1 mg INHALATION RT-BID ASHA Last Admin: 05/30/22 07:32 Dose: 1 mg Formoterol Fumarate (Formoterol Fumarate 20 Mcg/2 Ml Nebu) 20 mcg INHALATION RT-BID [facility] Last Admin: 05/30/22 07:32 Dose: 20 mcg Guaifenesin/Codeine Phosphate (Guaifenesin-Coden 100-10mg/5ml 10 Ml Cup) 10 ml PO Q6HR [facility] Last Admin: 05/30/22 12:20 Dose: 10 ml Heparin Sodium (Porcine) (Heparin Sodium,Porcine/Pf 5,000 Unit/0.5 Ml Syringe) 5,000 unit SQ Q12HR [facility] Last Admin: 05/30/22 08:49 Dose: 5,000 unit Sodium Chloride (Saline 0.9%) 1,000 mls @ 75 mls/hr IV .[id number] [facility] Last Admin: 05/30/22 05:53 Dose: 75 mls/hr Piperacillin Sod/Tazobactam (Sod 3.375 gm/ Sodium Chloride) 100 mls @ 25 mls/hr IVPB Q8HR [facility]; Protocol Last Admin: 05/30/22 08:50 Dose: 25 mls/hr Lidocaine HCl (Lidocaine 1% (10mg/Ml) For Iv Start) 0.1 ml INTRADERMA PER PROTOCOL PRN PRN Reason: IV Start Stop: 06/27/22 06:38 Methylprednisolone Sodium Succinate (Methylprednisolone Sod Succi 125 Mg/2 Ml Vial) 60 mg IV Q6HR [facility] Last Admin: 05/30/22 12:19 Dose: 60 mg Montelukast Sodium (Montelukast 10 Mg Tab) 10 mg PO HS [facility] Last Admin: 05/29/22 20:49 Dose: 10 mg Naloxone HCl (Naloxone 0.4 Mg/Ml 1 Ml Vial) 0.2 mg IV Q2M PRN PRN Reason: Opioid Reversal Pantoprazole Sodium (Pantoprazole 40 Mg Tablet) 40 mg PO AC-BID [facility] Last Admin: 05/30/22 08:49 Dose: 40 mg Past medical history to include: Asthma, reflux, hypertension, migraines, arthralgias COVID December 2021 Social history: . No smoking. Alcohol rarely Physical examination: VITAL SIGNS: 98.8, 101, 15, 1 5797, 92% on 3 L GENERAL: Up in a recliner tired EYES: Pupils equal. Conjunctiva normal. HEENT: External appearance of nose and ears normal, oral cavity endotracheal tube. NECK: JVD not raised; masses not palpable. HEART: First and second heart sounds are normal; no edema. LUNGS: Respiratory rate increased, decreased breaths sounds ABDOMEN: Soft, nontender, liver spleen not palpable, no masses palpable. PSYCH: Alert 3, mood and affect normal INVESTIGATIONS, reviewed in the clinical context: 05/30/2022: WBC 33.8 hemoglobin 15.7 potassium 3.9 pro-calcitonin 0.02 05/29/2022: White count was 7.3 hemoglobin 14.8 platelets 309 potassium 4.2 creatinine 0.63 White count 24.9 hemoglobin 15.2 platelets 225 potassium 3.8 creatinine 0.61 Telemetric tracing personally reviewed by me: Sinus rhythm Chest x-ray film personally reviewed by me-ET tube. Some basal haziness Assessment and plan: -Acute hypoxic respiratory failure from asthma exacerbation:: Slow to respond Status post Ventilator support, extubated May 29. Currently on3 L nasal cannula -Acute severe asthma exacerbation: Slow to respond DuoNeb, IV Solu-Medrol, nebulized Pulmicort, PerforomBrigette santos -Essential hypertension Diet-controlled -Chronic recurrent migraine headaches Patient on propranolol for migraine prophylaxis, resume when okay with Dr. Coker -GERD PPI -Acute severe tracheobronchitis IV Zosyn -Obesity BMI 30.6 Weight loss measures -Full code DuoNeb, IV Solu-Medrol, nebulized Pulmicort and Perforomist, IV Zosyn. Discussed with the patient Incentive spirometry. Await culture results. Told to avoid cold liquids. Add Mucinex
[2022-05-30] MEDS: guaiFENesin 600 MG TABLET.ER PO SCH ×2 (17:22→21:10)
[2022-05-30] MEDS: MONTELUKAST 10 MG TAB PO SCH (21:10)
[2022-05-31] MEDS: IPRATROPIUM-ALBUTEROL 3 ML NEB INHALATION PRN (03:43)
[2022-05-31] MEDS: methylPREDNISolone SOD SUCCI 125 MG/2 ML VIAL IV SCH (07:33)
[2022-05-31] MEDS: guaiFENesin-Coden 100-10MG/5ML 10 ML CUP PO SCH ×3 (07:33→15:31)
[2022-05-31] MEDS: PANTOPRAZOLE 40 MG TABLET PO SCH ×2 (07:33→15:30)
[2022-05-31] MEDS: IPRATROPIUM-ALBUTEROL 3 ML NEB INHALATION SCH ×4 (09:10→21:24)
[2022-05-31] MEDS: BUDESONIDE 1 MG/2 ML NEBU INHALATION SCH ×2 (09:10→21:24)
[2022-05-31] MEDS: FORMOTEROL FUMARATE 20 MCG/2 ML NEBU INHALATION SCH ×2 (09:10→21:24)
[2022-05-31] MEDS: PIPERACILLIN-TAZOBACTAM 3.375 GM in SODIUM CHLORIDE 0.9% 100 ML IVPB SCH ×2 (09:57→15:30)
[2022-05-31] MEDS: BENZONATATE 100 MG CAP PO SCH ×4 (11:06→20:50)
[2022-05-31] MEDS: guaiFENesin 600 MG TABLET.ER PO SCH ×2 (11:08→13:06)
[2022-05-31] MEDS: HEPARIN SODIUM,PORCINE/PF 5,000 UNIT/0.5 ML SYRINGE SQ SCH ×2 (11:08→20:50)
--- NOTE | 2022-05-31 11:50 | P.PN ---
Subjective Progress Note Date: 05/31/22 51-year-old female who recently was at [facility] for an asthma exacerbation. She was discharged on Saturday, after a number of days, and she was discharged on prednisone 50 mg a day. The patient in my opinion, improved while at [facility], but her improvement was very gradual in minimal at best. The patient was scheduled to have an elective outpatient bronchoscopy airway examination therapy lavage and BAL today, at [facility]. Unfortunately, the patient's saturations were very low, we attempted to do bronchoscopy in the standard way, and therefore, we elected to intubate her, to do a more safely. Her airways were very inflamed and erythematous. There was mucosal friability. She bled easily. We did do a formal BAL in the right middle lobe. And we decided to keep the patient intubated and mechanically ventilated. The mid a bit for her in the intensive care unit. Her only other medical problem other than severe asthma is migraine cephalgia. No laboratory data as yet. The patient will be maintained on the ventilator. Ventilator settings will be the volume assist control mode, rate 20, tidal volume 400, FiO2 100%, and PEEP of 5. The patient will have a blood gas done eventually. In addition, the patient gets saline at 75 mL an hour, Zosyn, updrafts with albuterol sulfate and ipratropium bromide, along with updrafts with budesonide and formoterol, and Solu-Medrol 60 mg every 6 hours. The patient will stay on propofol for sedation. Labs and x-rays will be done in the morning. Progress note dated 05/29/2022. 51-year-old female was recently at [facility] for severe asthma exacerbation. She was discharged last Saturday, and brought to the bronchoscopy suite yesterday for an elective bronchoscopy and BAL. Unfortunately, as res tarted the procedure, her saturations drop, and she required intubation and mechanical ventilation, to do this procedure safely. I did speak to the family afterwards. This morning, she remains on mechanical ventilator. She is on the volume assist control, rate 20, tidal volume 400, FiO2 down to 50%, with a PEEP of 5. Blood gases on 60% showed pO2 118, pCO2 38, and a pH 7.48. The bronchoscopy in the intubation both place on May 28. This morning she is on propofol at 50 mcg/kg/m, and saline at 75 mL an hour. We are going to resume her Singulair. We will give her Lasix 60 mg IV push. The patient will have a daily interruption of sedation, and a spontaneous breathing trial. Laboratory data includes a white count of 27.3, with a normal hemoglobin, hematocrit, and platelet count. Sodium 135, potassium 4.2, chlorides 105, CO2 27, within normal BUN and creatinine. Chest x-ray shows some mild fluid overload, small lung volumes, and small bilateral effusions. Progress note dated 05/30/2022. 51-year-old female who was extubated yesterday, May 29. He was in the [facility], for a number of days, with a severe asthma exacerbation. We attempted bronchoscopy on Saturday, for BAL, and unfortunately, she had to be intubated. She was extubated yesterday successfully. She is on 3 L of oxygen. She's getting saline at 75 mL an hour. Microbiologic sampling from the bronchoscopy are thus far negative are pending. She's getting usual medications including Zosyn, updrafts, and steroids. We also are giving her a codeine containing cough syrup, and Tessalon. White count 33.8, with a normal hemoglobin, hematocrit, and platelet count. Sodium, potassium, chloride, CO2, BUN and creatinine are all normal. Glucose is 145. The patient is seen today 05/31/2022 in follow-up on the regular medical floor. She is currently sitting up in bed. Awake and alert in no acute distress. She continues with the dry nonproductive cough. She is improved. She is maintaining O2 saturations in the 90s on 3 L/m per nasal cannula. Normal saline at 75 ML's per hour. Bronchoscopy wash cultures are still pending. Pro- calcitonin 0.02. She remains on Zosyn, IV Solu-Medrol, bronchodilators. Heparin for DVT prophylaxis. Objective - Vital Signs Vital signs: Vital Signs Temp 98.9 F 05/31/22 08:00 Pulse 78 05/31/22 09:35 Resp 16 05/31/22 08:00 BP 138/84 05/31/22 08:00 Pulse Ox 91 L 05/31/22 09:11 FiO2 50 12/06/22 10:18 Intake & Output 05/30/22 05/31/22 05/31/22 18:59 06:59 18:59 Intake Total 1660 20 Balance 1660 20 Intake: IV 940 20 Invasive Line 1 40 20 Sodium Chloride 0.9% 1, 900 000 ml @ 75 mls/hr IV . [id number] [facility] Rx#:[id number] Oral 720 Other: Voiding Method Toilet Toilet Bedside Commode Bedside Commode # Voids 0 2 - Exam GENERAL EXAM: Alert, pleasant 51-year-old female, on 3 L nasal cannula,, comfortable in no apparent distress. HEAD: Normocephalic. EYES: Normal reaction of pupils, equal size. NOSE: Clear with pink turbinates. THROAT: No erythema or exudates. NECK: No masses, no JVD. CHEST: No chest wall deformity. LUNGS: Equal air entry with end expiratory wheeze, diminished. CVS: S1 and S2 normal with no audible murmur, regular rhythm. ABDOMEN: No hepatosplenomegaly, normal bowel sounds, no guarding or rigidity. SPINE: No scoliosis or deformity SKIN: No rashes CENTRAL NERVOUS SYSTEM: No focal deficits, tone is normal in all 4 extremities. EXTREMITIES: There is no peripheral edema. No clubbing, no cyanosis. Peripheral pulses are intact. - Labs CBC & Chem 7: 05/30/22 05:38 05/30/22 05:38 Labs: Microbiology - Last 24 Hours (Table) 05/28/22 12:45 Acid Fast Bacilli Smear - Final Bronchial Washings - Right Acid Fast Bacilli Culture - Preliminary 05/28/22 12:45 Gram Stain - Preliminary Bronchial Washings - Right Bronchial Washings Culture - Preliminary Assessment and Plan Assessment: Acute hypoxemic respiratory failure, secondary to severe asthma, status post bronchoscopy and intubation with mechanical ventilation, on 05/28/2022. S/P successful extubation on 05/29/2022. History of severe asthma. History of migraine cephalgia. Recent admission to [facility] for severe asthma exacerbation. Plan: The patient was seen and evaluated Medications reviewed Discontinue Zosyn Add Augmentin Titrate the FiO2 as tolerated Continue Solu-Medrol and bronchodilators Increase her activity as tolerated We will continue to follow I have personally seen and examined the patient, performed the documentation and the assessment and plan as written. Number of minutes spent on the visit: 10.
[2022-05-31] MEDS: methylPREDNISolone SOD SUCCI 40 MG/ML 1 ML VIAL IV SCH (15:30)
--- NOTE | 2022-05-31 16:04 | P.PN ---
Progress Note - Text Progress Note Date: 05/31/22 Chief Complaint: Short of breath Hospital course: This is a 51-year-old patient, follows with Dr. Yarelis Alejo. 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 Patient long-standing asthma. Patient was recently at [facility] then for 5 days being discharged 3 days ago. She still having respiratory symptoms when she left. Patient is scheduled to have a bronchoscopy with lavage today. Relevant procedures she was found an extensive inflammatory changes secretions. And friable tissue including bleeding. Dr. coker decided to keep the patient intubated and admitted to the ICU. Patient is on propofol. Sinus rhythm. at the bedside. 05/29/2022: Patient was extubated earlier today. On nasal cannula. Some cough. Patient's 2 daughters at the bedside. Remains on bronchodilators steroids IV Zosyn. 05/30/2022: Up in a chair. Shortness of breath. Some congested cough. Throat hurts with cold liquids. Remains on IV Zosyn. DuoNeb. Cultures pending. 05/31/2022: Up in a recliner. Eating a bit better. Breathing better. On IV Zosyn DuoNeb Solu-Medrol. Discussed with patient. Incentive spirometry discussed and ordered Cultures pending. Active Medications Albuterol/Ipratropium (Ipratropium-Albuterol 3 Ml Neb) 3 ml INHALATION RT-Q2H PRN PRN Reason: Shortness Of Breath Or Wheezing Last Admin: 05/31/22 03:43 Dose: 3 ml Albuterol/Ipratropium (Ipratropium-Albuterol 3 Ml Neb) 3 ml INHALATION RT-QID [facility] Last Admin: 05/31/22 12:10 Dose: 3 ml Artificial Tears (Artificial Tears-Hypromellose Drops 15 Ml Btl) 2 drops BOTH EYES QID PRN PRN Reason: Dry Eye(s) Last Admin: 05/29/22 23:54 Dose: 2 drops Benzonatate (Benzonatate 100 Mg Cap) 200 mg PO TID [facility] Last Admin: 05/31/22 15:31 Dose: 200 mg Budesonide (Budesonide 1 Mg/2 Ml Nebu) 1 mg INHALATION RT-BID [facility] Last Admin: 05/31/22 09:10 Dose: 1 mg Formoterol Fumarate (Formoterol Fumarate 20 Mcg/2 Ml Nebu) 20 mcg INHALATION RT-BID [facility] Last Admin: 05/31/22 09:10 Dose: 20 mcg Guaifenesin/Codeine Phosphate (Guaifenesin-Coden 100-10mg/5ml 10 Ml Cup) 10 ml PO Q6HR [facility] Last Admin: 05/31/22 15:31 Dose: 10 ml Heparin Sodium (Porcine) (Heparin Sodium,Porcine/Pf 5,000 Unit/0.5 Ml Syringe) 5,000 unit SQ Q12HR [facility] Last Admin: 05/31/22 11:08 Dose: 5,000 unit Sodium Chloride (Saline 0.9%) 1,000 mls @ 20 mls/hr IV .Q24H [facility] Last Admin: 05/30/22 23:04 Dose: 75 mls/hr Piperacillin Sod/Tazobactam (Sod 3.375 gm/ Sodium Chloride) 100 mls @ 25 mls/hr IVPB Q8HR [facility]; Protocol Last Admin: 05/31/22 15:30 Dose: 25 mls/hr Methylprednisolone Sodium Succinate (Methylprednisolone Sod Succi 40 Mg/Ml 1 Ml Vial) 40 mg IV Q8HR [facility] Last Admin: 05/31/22 15:30 Dose: 40 mg Montelukast Sodium (Montelukast 10 Mg Tab) 10 mg PO HS [facility] Last Admin: 05/30/22 21:10 Dose: 10 mg Naloxone HCl (Naloxone 0.4 Mg/Ml 1 Ml Vial) 0.2 mg IV Q2M PRN PRN Reason: Opioid Reversal Pantoprazole Sodium (Pantoprazole 40 Mg Tablet) 40 mg PO AC-BID [facility] Last Admin: 05/31/22 15:30 Dose: 40 mg Past medical history to include: Asthma, reflux, hypertension, migraines, arthralgias COVID December 2021 Social history: . No smoking. Alcohol rarely Physical examination: VITAL SIGNS: 98.5, 94, 17, 130/86, 95% on 3 L GENERAL: Up in a recliner looking better EYES: Pupils equal. Conjunctiva normal. HEENT: External appearance of nose and ears normal, oral cavity endotracheal tube. NECK: JVD not raised; masses not palpable. HEART: First and second heart sounds are normal; no edema. LUNGS: Respiratory rate increased, decreased breaths sounds ABDOMEN: Soft, nontender, liver spleen not palpable, no masses palpable. PSYCH: Alert 3, mood and affect normal INVESTIGATIONS, reviewed in the clinical context: 05/30/2022: WBC 33.8 hemoglobin 15.7 potassium 3.9 pro-calcitonin 0.02 05/29/2022: White count was 7.3 hemoglobin 14.8 platelets 309 potassium 4.2 creatinine 0.63 White count 24.9 hemoglobin 15.2 platelets 225 potassium 3.8 creatinine 0.61 Telemetric tracing personally reviewed by me: Sinus rhythm Chest x-ray film personally reviewed by me-ET tube. Some basal haziness Assessment and plan: -Acute hypoxic respiratory failure from asthma exacerbation:: Status post Ventilator support, extubated May 29. Currently on3 L nasal cannula -Acute severe asthma exacerbation: Slow to respond DuoNeb, IV Solu-Medrol 40 mg every 8, nebulized Pulmicort, PerforomistBrigette -Essential hypertension Diet-controlled -Chronic recurrent migraine headaches Patient on propranolol for migraine prophylaxis, resume when okay with Dr. Coker -GERD PPI -Acute severe tracheobronchitis IV Zosyn -Obesity BMI 30.6 Weight loss measures -Full code DuoNeb, IV Solu-Medrol 40 mg every 8, nebulized Pulmicort and Perforomist, IV Zosyn. Discussed with the patient Incentive spirometry. Breathing exercises discussed length. Cultures pending. Increase activity.
[2022-05-31] MEDS: MONTELUKAST 10 MG TAB PO SCH (20:51)
[2022-05-31] MEDS ORDERED: LACTULOSE 20 GM/30 ML CUP PO ONE (21:19)
[2022-06-01] MEDS: PIPERACILLIN-TAZOBACTAM 3.375 GM in SODIUM CHLORIDE 0.9% 100 ML IVPB SCH ×2 (00:59→08:37)
[2022-06-01] MEDS: guaiFENesin-Coden 100-10MG/5ML 10 ML CUP PO SCH ×4 (00:59→18:48)
[2022-06-01] MEDS: methylPREDNISolone SOD SUCCI 40 MG/ML 1 ML VIAL IV SCH ×4 (00:59→18:48)
[2022-06-01] MEDS: IPRATROPIUM-ALBUTEROL 3 ML NEB INHALATION PRN (03:38)
[2022-06-01] MEDS: PANTOPRAZOLE 40 MG TABLET PO SCH ×2 (06:28→16:39)
[2022-06-01] MEDS: HEPARIN SODIUM,PORCINE/PF 5,000 UNIT/0.5 ML SYRINGE SQ SCH ×2 (08:36→22:19)
[2022-06-01] MEDS: BENZONATATE 100 MG CAP PO SCH ×3 (08:36→22:19)
[2022-06-01] MEDS: BUDESONIDE 1 MG/2 ML NEBU INHALATION SCH ×2 (09:00→20:32)
[2022-06-01] MEDS: FORMOTEROL FUMARATE 20 MCG/2 ML NEBU INHALATION SCH ×2 (09:00→20:32)
[2022-06-01] MEDS: IPRATROPIUM-ALBUTEROL 3 ML NEB INHALATION SCH ×4 (09:00→20:32)
--- NOTE | 2022-06-01 11:45 | P.PN ---
Subjective Progress Note Date: 06/01/22 51-year-old female who recently was at [facility] for an asthma exacerbation. She was discharged on Saturday, after a number of days, and she was discharged on prednisone 50 mg a day. The patient in my opinion, improved while at [facility], but her improvement was very gradual in minimal at best. The patient was scheduled to have an elective outpatient bronchoscopy airway examination therapy lavage and BAL today, at [facility]. Unfortunately, the patient's saturations were very low, we attempted to do bronchoscopy in the standard way, and therefore, we elected to intubate her, to do a more safely. Her airways were very inflamed and erythematous. There was mucosal friability. She bled easily. We did do a formal BAL in the right middle lobe. And we decided to keep the patient intubated and mechanically ventilated. The mid a bit for her in the intensive care unit. Her only other medical problem other than severe asthma is migraine cephalgia. No laboratory data as yet. The patient will be maintained on the ventilator. Ventilator settings will be the volume assist control mode, rate 20, tidal volume 400, FiO2 100%, and PEEP of 5. The patient will have a blood gas done eventually. In addition, the patient gets saline at 75 mL an hour, Zosyn, updrafts with albuterol sulfate and ipratropium bromide, along with updrafts with budesonide and formoterol, and Solu-Medrol 60 mg every 6 hours. The patient will stay on propofol for sedation. Labs and x-rays will be done in the morning. Progress note dated 05/29/2022. 51-year-old female was recently at [facility] for severe asthma exacerbation. She was discharged last Saturday, and brought to the bronchoscopy suite yesterday for an elective bronchoscopy and BAL. Unfortunately, as res tarted the procedure, her saturations drop, and she required intubation and mechanical ventilation, to do this procedure safely. I did speak to the family afterwards. This morning, she remains on mechanical ventilator. She is on the volume assist control, rate 20, tidal volume 400, FiO2 down to 50%, with a PEEP of 5. Blood gases on 60% showed pO2 118, pCO2 38, and a pH 7.48. The bronchoscopy in the intubation both place on May 28. This morning she is on propofol at 50 mcg/kg/m, and saline at 75 mL an hour. We are going to resume her Singulair. We will give her Lasix 60 mg IV push. The patient will have a daily interruption of sedation, and a spontaneous breathing trial. Laboratory data includes a white count of 27.3, with a normal hemoglobin, hematocrit, and platelet count. Sodium 135, potassium 4.2, chlorides 105, CO2 27, within normal BUN and creatinine. Chest x-ray shows some mild fluid overload, small lung volumes, and small bilateral effusions. Progress note dated 05/30/2022. 51-year-old female who was extubated yesterday, May 29. He was in the [facility], for a number of days, with a severe asthma exacerbation. We attempted bronchoscopy on Saturday, for BAL, and unfortunately, she had to be intubated. She was extubated yesterday successfully. She is on 3 L of oxygen. She's getting saline at 75 mL an hour. Microbiologic sampling from the bronchoscopy are thus far negative are pending. She's getting usual medications including Zosyn, updrafts, and steroids. We also are giving her a codeine containing cough syrup, and Tessalon. White count 33.8, with a normal hemoglobin, hematocrit, and platelet count. Sodium, potassium, chloride, CO2, BUN and creatinine are all normal. Glucose is 145. The patient is seen today 05/31/2022 in follow-up on the regular medical floor. She is currently sitting up in bed. Awake and alert in no acute distress. She continues with the dry nonproductive cough. She is improved. She is maintaining O2 saturations in the 90s on 3 L/m per nasal cannula. Normal saline at 75 ML's per hour. Bronchoscopy wash cultures are still pending. Pro- calcitonin 0.02. She remains on Zosyn, IV Solu-Medrol, bronchodilators. Heparin for DVT prophylaxis. The patient is seen today 06/01/2022 follow-up on the regular medical floor. She is awake and alert in no acute distress. Sitting up at the bedside. She is improved. Not quite back to her baseline. Still some bronchospasm and wheezin g. Still requiring some extra breathing treatments. She is continued on IV Solu-Medrol increased back to 60 mg IV every 6 hours, DuoNeb inhalations, Pulmicort and Perforomist inhalations, Singulair. Antibiotics in the form of Zosyn. Robitussin and Tessalon Perles for her cough. Bronchial wash cultures are still pending. Pro-calcitonin 0.02. Objective - Vital Signs Vital signs: Vital Signs Temp 97.5 F L 06/01/22 08:00 Pulse 74 06/01/22 09:19 Resp 17 06/01/22 08:00 BP 137/94 06/01/22 08:00 Pulse Ox 93 L 06/01/22 09:01 FiO2 50 05/29/22 10:18 Intake & Output 05/31/22 06/01/22 06/01/22 18:59 06:59 18:59 Intake Total 200 Balance 200 Weight 89.5 kg Intake: Intake, IV Titration 200 Amount Piperacillin-Tazobactam 3 200 .375 gm In Sodium Chloride 0.9% 100 ml @ 25 mls/hr IVPB Q8HR [facility] Rx# :[id number] Other: Voiding Method Toilet Toilet # Voids 2 - Exam GENERAL EXAM: Alert, pleasant 51-year-old female, on 3 L nasal cannula, sitting up at the bedside, comfortable in no apparent distress. HEAD: Normocephalic. EYES: Normal reaction of pupils, equal size. NOSE: Clear with pink turbinates. THROAT: No erythema or exudates. NECK: No masses, no JVD. CHEST: No chest wall deformity. LUNGS: Equal air entry with end expiratory wheeze, diminished. CVS: S1 and S2 normal with no audible murmur, regular rhythm. ABDOMEN: No hepatosplenomegaly, normal bowel sounds, no guarding or rigidity. SPINE: No scoliosis or deformity SKIN: No rashes CENTRAL NERVOUS SYSTEM: No focal deficits, tone is normal in all 4 extremities. EXTREMITIES: There is no peripheral edema. No clubbing, no cyanosis. Peripheral pulses are intact. - Labs CBC & Chem 7: 05/30/22 05:38 05/30/22 05:38 Assessment and Plan Assessment: Acute hypoxemic respiratory failure, secondary to severe asthma, status post bronchoscopy and intubation with mechanical ventilation, on 05/28/2022. S/P successful extubation on 05/29/2022. History of severe asthma. History of migraine cephalgia. Recent admission to [facility] for severe asthma exacerbation. Plan: The patient was seen and evaluated Medications reviewed Continue on Augmentin Continue Solu-Medrol and bronchodilators Increase her activity as tolerated Titrate down the FiO2 as tolerated We will continue to follow I have personally seen and examined the patient, performed the documentation and the assessment and plan as written. Number of minutes spent on the visit: 10.
[2022-06-01] MEDS: SODIUM CHLORIDE 0.9% 1,000 ML IV SCH (16:40)
[2022-06-01] MEDS: MONTELUKAST 10 MG TAB PO SCH (22:19)
[2022-06-01] MEDS: AMOXIC-POT CLAV 875-125MG 1 EACH TAB PO SCH (22:19)
--- NOTE | 2022-06-01 22:55 | P.PN ---
Progress Note - Text Progress Note Date: 06/01/22 Chief Complaint: Short of breath Hospital course: This is a 51-year-old patient, follows with Dr. Yarelis Alejo. Spice Fum[employer] Dr. Coker. Patient long-standing asthma. Patient was recently at [facility] then for 5 days being discharged 3 days ago. She still having respiratory symptoms when she left. Patient is scheduled to have a bronchoscopy with lavage today. Relevant procedures she was found an extensive inflammatory changes secretions. And friable tissue including bleeding. Dr. coker decided to keep the patient intubated and admitted to the ICU. Patient is on propofol. Sinus rhythm. at the bedside. 05/29/2022: Patient was extubated earlier today. On nasal cannula. Some cough. Patient's 2 daughters at the bedside. Remains on bronchodilators steroids IV Zosyn. 05/30/2022: Up in a chair. Shortness of breath. Some congested cough. Throat hurts with cold liquids. Remains on IV Zosyn. DuoNeb. Cultures pending. 05/31/2022: Up in a recliner. Eating a bit better. Breathing better. On IV Zosyn DuoNeb Solu-Medrol. Discussed with patient. Incentive spirometry discussed and ordered Cultures pending. 06/01/2022: Patient had some more wheezing this morning. Solu-Medrol increased to 60 mg every 6. Deep breathing exercises. Eating fair. Up to the bathroom. Family at the bedside. Active Medications Albuterol/Ipratropium (Ipratropium-Albuterol 3 Ml Neb) 3 ml INHALATION RT-Q2H PRN PRN Reason: Shortness Of Breath Or Wheezing Last Admin: 06/01/22 03:38 Dose: 3 ml Albuterol/Ipratropium (Ipratropium-Albuterol 3 Ml Neb) 3 ml INHALATION RT-QID ASHA Last Admin: 06/01/22 20:32 Dose: 3 ml Amoxicillin/Clavulanate Potassium (Amoxic-Pot Clav 875-125mg 1 Each Tab) 1 each PO Q12HR ASHA; Protocol Last Admin: 06/01/22 22:19 Dose: 1 each Artificial Tears (Artificial Tears-Hypromellose Drops 15 Ml Btl) 2 drops BOTH EYES QID PRN PRN Reason: Dry Eye(s) Last Admin: 05/29/22 23:54 Dose: 2 drops Benzonatate (Benzonatate 100 Mg Cap) 200 mg PO TID [facility] Last Admin: 06/01/22 22:19 Dose: 200 mg Budesonide (Budesonide 1 Mg/2 Ml Nebu) 1 mg INHALATION RT-BID [facility] Last Admin: 06/01/22 20:32 Dose: 1 mg Formoterol Fumarate (Formoterol Fumarate 20 Mcg/2 Ml Nebu) 20 mcg INHALATION RT-BID [facility] Last Admin: 06/01/22 20:32 Dose: 20 mcg Guaifenesin/Codeine Phosphate (Guaifenesin-Coden 100-10mg/5ml 10 Ml Cup) 10 ml PO Q6HR [facility] Last Admin: 06/01/22 18:48 Dose: 10 ml Heparin Sodium (Porcine) (Heparin Sodium,Porcine/Pf 5,000 Unit/0.5 Ml Syringe) 5,000 unit SQ Q12HR [facility] Last Admin: 06/01/22 22:19 Dose: 5,000 unit Sodium Chloride (Saline 0.9%) 1,000 mls @ 20 mls/hr IV .Q24H [facility] Last Admin: 06/01/22 16:40 Dose: 20 mls/hr Methylprednisolone Sodium Succinate (Methylprednisolone Sod Succi 40 Mg/Ml 1 Ml Vial) 60 mg IV Q6HR [facility] Last Admin: 06/01/22 18:48 Dose: 60 mg Montelukast Sodium (Montelukast 10 Mg Tab) 10 mg PO HS [facility] Last Admin: 06/01/22 22:19 Dose: 10 mg Naloxone HCl (Naloxone 0.4 Mg/Ml 1 Ml Vial) 0.2 mg IV Q2M PRN PRN Reason: Opioid Reversal Pantoprazole Sodium (Pantoprazole 40 Mg Tablet) 40 mg PO AC-BID [facility] Last Admin: 06/01/22 16:39 Dose: 40 mg Past medical history to include: Asthma, reflux, hypertension, migraines, arthralgias COVID December 2021 Social history: . No smoking. Alcohol rarely Physical examination: VITAL SIGNS: 97.8, 80, 20, 145 and 96, 93% on 2 L GENERAL: The bed, some shortness of breath EYES: Pupils equal. Conjunctiva normal. HEENT: External appearance of nose and ears normal, oral cavity endotracheal tube. NECK: JVD not raised; masses not palpable. HEART: First and second heart sounds are normal; no edema. LUNGS: Respiratory rate increased, decreased breaths sounds slight but air entry ABDOMEN: Soft, nontender, liver spleen not palpable, no masses palpable. PSYCH: Alert 3, mood and affect normal INVESTIGATIONS, reviewed in the clinical context: Bronchial washings: He will for less than fluency 05/30/2022: WBC 33.8 hemoglobin 15.7 potassium 3.9 pro-calcitonin 0.02 05/29/2022: White count was 7.3 hemoglobin 14.8 platelets 309 potassium 4.2 creatinine 0.63 White count 24.9 hemoglobin 15.2 platelets 225 potassium 3.8 creatinine 0.61 Telemetric tracing personally reviewed by me: Sinus rhythm Chest x-ray film personally reviewed by me-ET tube. Some basal haziness Assessment and plan: -Acute hypoxic respiratory failure from asthma exacerbation:: Status post Ventilator support, extubated May 29. Currently on3 L nasal cannula -Acute severe asthma exacerbation: Slow to respond DuoNeb, trace IV Solu-Medrol 60 every 6, nebulized Pulmicort, PerforomistBrigette -Essential hypertension Diet-controlled -Chronic recurrent migraine headaches Patient on propranolol for migraine prophylaxis, resume when okay with Dr. Coker -GERD PPI -Acute severe tracheobronchitis, from Haemophilus influenzae IV Zosyn -Obesity BMI 30.6 Weight loss measures -Full code DuoNeb, IV Solu-Medrol to every 6, nebulized Pulmicort and Perforomist, IV Zosyn. Discussed with the patient Incentive spirometry. Breathing exercises follow with pulmonary.
[2022-06-02] MEDS: methylPREDNISolone SOD SUCCI 40 MG/ML 1 ML VIAL IV SCH ×5 (01:22→23:56)
[2022-06-02] MEDS: guaiFENesin-Coden 100-10MG/5ML 10 ML CUP PO SCH ×5 (01:22→23:56)
[2022-06-02] MEDS: IPRATROPIUM-ALBUTEROL 3 ML NEB INHALATION PRN (04:27)
[2022-06-02] MEDS: BUDESONIDE 1 MG/2 ML NEBU INHALATION SCH ×2 (07:54→21:14)
[2022-06-02] MEDS: FORMOTEROL FUMARATE 20 MCG/2 ML NEBU INHALATION SCH ×2 (07:54→21:14)
[2022-06-02] MEDS: IPRATROPIUM-ALBUTEROL 3 ML NEB INHALATION SCH ×4 (07:54→21:14)
[2022-06-02] MEDS: PANTOPRAZOLE 40 MG TABLET PO SCH ×2 (08:52→16:13)
[2022-06-02] MEDS: BENZONATATE 100 MG CAP PO SCH ×3 (08:52→22:13)
[2022-06-02] MEDS: HEPARIN SODIUM,PORCINE/PF 5,000 UNIT/0.5 ML SYRINGE SQ SCH ×2 (08:52→22:13)
[2022-06-02] MEDS: AMOXIC-POT CLAV 875-125MG 1 EACH TAB PO SCH ×2 (08:52→22:13)
--- NOTE | 2022-06-02 13:33 | P.PN ---
Subjective Progress Note Date: 06/02/22 51-year-old female who recently was at [facility] for an asthma exacerbation. She was discharged on Saturday, after a number of days, and she was discharged on prednisone 50 mg a day. The patient in my opinion, improved while at [facility], but her improvement was very gradual in minimal at best. The patient was scheduled to have an elective outpatient bronchoscopy airway examination therapy lavage and BAL today, at [facility]. Unfortunately, the patient's saturations were very low, we attempted to do bronchoscopy in the standard way, and therefore, we elected to intubate her, to do a more safely. Her airways were very inflamed and erythematous. There was mucosal friability. She bled easily. We did do a formal BAL in the right middle lobe. And we decided to keep the patient intubated and mechanically ventilated. The mid a bit for her in the intensive care unit. Her only other medical problem other than severe asthma is migraine cephalgia. No laboratory data as yet. The patient will be maintained on the ventilator. Ventilator settings will be the volume assist control mode, rate 20, tidal volume 400, FiO2 100%, and PEEP of 5. The patient will have a blood gas done eventually. In addition, the patient gets saline at 75 mL an hour, Zosyn, updrafts with albuterol sulfate and ipratropium bromide, along with updrafts with budesonide and formoterol, and Solu-Medrol 60 mg every 6 hours. The patient will stay on propofol for sedation. Labs and x-rays will be done in the morning. Progress note dated 05/29/2022. 51-year-old female was recently at [facility] for severe asthma exacerbation. She was discharged last Saturday, and brought to the bronchoscopy suite yesterday for an elective bronchoscopy and BAL. Unfortunately, as res tarted the procedure, her saturations drop, and she required intubation and mechanical ventilation, to do this procedure safely. I did speak to the family afterwards. This morning, she remains on mechanical ventilator. She is on the volume assist control, rate 20, tidal volume 400, FiO2 down to 50%, with a PEEP of 5. Blood gases on 60% showed pO2 118, pCO2 38, and a pH 7.48. The bronchoscopy in the intubation both place on May 28. This morning she is on propofol at 50 mcg/kg/m, and saline at 75 mL an hour. We are going to resume her Singulair. We will give her Lasix 60 mg IV push. The patient will have a daily interruption of sedation, and a spontaneous breathing trial. Laboratory data includes a white count of 27.3, with a normal hemoglobin, hematocrit, and platelet count. Sodium 135, potassium 4.2, chlorides 105, CO2 27, within normal BUN and creatinine. Chest x-ray shows some mild fluid overload, small lung volumes, and small bilateral effusions. Progress note dated 05/30/2022. 51-year-old female who was extubated yesterday, May 29. He was in the [facility], for a number of days, with a severe asthma exacerbation. We attempted bronchoscopy on Saturday, for BAL, and unfortunately, she had to be intubated. She was extubated yesterday successfully. She is on 3 L of oxygen. She's getting saline at 75 mL an hour. Microbiologic sampling from the bronchoscopy are thus far negative are pending. She's getting usual medications including Zosyn, updrafts, and steroids. We also are giving her a codeine containing cough syrup, and Tessalon. White count 33.8, with a normal hemoglobin, hematocrit, and platelet count. Sodium, potassium, chloride, CO2, BUN and creatinine are all normal. Glucose is 145. The patient is seen today 05/31/2022 in follow-up on the regular medical floor. She is currently sitting up in bed. Awake and alert in no acute distress. She continues with the dry nonproductive cough. She is improved. She is maintaining O2 saturations in the 90s on 3 L/m per nasal cannula. Normal saline at 75 ML's per hour. Bronchoscopy wash cultures are still pending. Pro- calcitonin 0.02. She remains on Zosyn, IV Solu-Medrol, bronchodilators. Heparin for DVT prophylaxis. The patient is seen today 06/01/2022 follow-up on the regular medical floor. She is awake and alert in no acute distress. Sitting up at the bedside. She is improved. Not quite back to her baseline. Still some bronchospasm and wheezin g. Still requiring some extra breathing treatments. She is continued on IV Solu-Medrol increased back to 60 mg IV every 6 hours, DuoNeb inhalations, Pulmicort and Perforomist inhalations, Singulair. Antibiotics in the form of Zosyn. Robitussin and Tessalon Perles for her cough. Bronchial wash cultures are still pending. Pro-calcitonin 0.02. The patient is seen today 06/02/2022 follow-up on the regular medical floor. Sitting up at the bedside. Awake and alert in no acute distress. Breathing better today compared to yesterday. Still not quite back to her baseline. She is continued on IV Solu-Medrol, DuoNeb inhalations, Pulmicort and Perforomist inhalations. He is on Singulair. Remains on Tessalon Perles and Robitussin for her cough. Antibiotics in the form of Augmentin. Bronchial wash cultures were positive for Haemophilus influenza. Objective - Vital Signs Vital signs: Vital Signs Temp 97.6 F 06/02/22 08:02 Pulse 102 H 06/02/22 11:36 Resp 14 06/02/22 08:02 BP 178/82 06/02/22 08:02 Pulse Ox 91 L 06/02/22 08:02 FiO2 50 05/29/22 10:18 Intake & Output 06/01/22 06/02/22 06/02/22 18:59 06:59 18:59 Weight 86.7 kg Other: Voiding Method Toilet Toilet # Voids 3 2 - Exam GENERAL EXAM: Alert, pleasant 51-year-old female, on 3 L nasal cannula, comfortable in no apparent distress. HEAD: Normocephalic. EYES: Normal reaction of pupils, equal size. NOSE: Clear with pink turbinates. THROAT: No erythema or exudates. NECK: No masses, no JVD. CHEST: No chest wall deformity. LUNGS: Equal air entry with end expiratory wheeze, diminished. CVS: S1 and S2 normal with no audible murmur, regular rhythm. ABDOMEN: No hepatosplenomegaly, normal bowel sounds, no guarding or rigidity. SPINE: No scoliosis or deformity SKIN: No rashes CENTRAL NERVOUS SYSTEM: No focal deficits, tone is normal in all 4 extremities. EXTREMITIES: There is no peripheral edema. No clubbing, no cyanosis. Peripheral pulses are intact. - Labs CBC & Chem 7: 05/30/22 05:38 05/30/22 05:38 Labs: Microbiology - Last 24 Hours (Table) 05/28/22 12:45 Gram Stain - Final Bronchial Washings - Right Bronchial Washings Culture - Final Haemophilus influenzae Assessment and Plan Assessment: Acute hypoxemic respiratory failure, secondary to severe asthma, status post bronchoscopy and intubation with mechanical ventilation, on 05/28/2022. S/P successful extubation on 05/29/2022. History of severe asthma. History of migraine cephalgia. Recent admission to [facility] for severe asthma exacerbation. Plan: The patient was seen and evaluated Continue the current treatment plan Increase her activity as tolerated Titrate down the FiO2 as tolerated We will continue to follow I have personally seen and examined the patient, performed the documentation and the assessment and plan as written. Number of minutes spent on the visit: 10.
--- NOTE | 2022-06-02 16:20 | P.PN ---
Progress Note - Text Progress Note Date: 06/02/22 Chief Complaint: Short of breath Hospital course: This is a 51-year-old patient, follows with Dr. Yarelis Alejo. 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 Patient long-standing asthma. Patient was recently at [facility] then for 5 days being discharged 3 days ago. She still having respiratory symptoms when she left. Patient is scheduled to have a bronchoscopy with lavage today. Relevant procedures she was found an extensive inflammatory changes secretions. And friable tissue including bleeding. Dr. coker decided to keep the patient intubated and admitted to the ICU. Patient is on propofol. Sinus rhythm. at the bedside. 05/29/2022: Patient was extubated earlier today. On nasal cannula. Some cough. Patient's 2 daughters at the bedside. Remains on bronchodilators steroids IV Zosyn. 05/30/2022: Up in a chair. Shortness of breath. Some congested cough. Throat hurts with cold liquids. Remains on IV Zosyn. DuoNeb. Cultures pending. 05/31/2022: Up in a recliner. Eating a bit better. Breathing better. On IV Zosyn DuoNeb Solu-Medrol. Discussed with patient. Incentive spirometry discussed and ordered Cultures pending. 06/01/2022: Patient had some more wheezing this morning. Solu-Medrol increased to 60 mg every 6. Deep breathing exercises. Eating fair. Up to the bathroom. Family at the bedside. 06/02/2022: Some shortness of breath and wheezing. Getting slowly in the hallway. No phlegm. IV Solu-Medrol. Oral intake fair. Bronchial culture positive for Haemophilus influenzae. Active Medications Albuterol/Ipratropium (Ipratropium-Albuterol 3 Ml Neb) 3 ml INHALATION RT-Q2H PRN PRN Reason: Shortness Of Breath Or Wheezing Last Admin: 06/02/22 04:27 Dose: 3 ml Albuterol/Ipratropium (Ipratropium-Albuterol 3 Ml Neb) 3 ml INHALATION RT-QID ASHA Last Admin: 06/02/22 15:53 Dose: 3 ml Amoxicillin/Clavulanate Potassium (Amoxic-Pot Clav 875-125mg 1 Each Tab) 1 each PO Q12HR [facility]; Protocol Last Admin: 06/02/22 08:52 Dose: 1 each Artificial Tears (Artificial Tears-Hypromellose Drops 15 Ml Btl) 2 drops BOTH EYES QID PRN PRN Reason: Dry Eye(s) Last Admin: 05/29/22 23:54 Dose: 2 drops Benzonatate (Benzonatate 100 Mg Cap) 200 mg PO TID [facility] Last Admin: 06/02/22 16:13 Dose: 200 mg Budesonide (Budesonide 1 Mg/2 Ml Nebu) 1 mg INHALATION RT-BID [facility] Last Admin: 06/02/22 07:54 Dose: 1 mg Formoterol Fumarate (Formoterol Fumarate 20 Mcg/2 Ml Nebu) 20 mcg INHALATION RT-BID [facility] Last Admin: 06/02/22 07:54 Dose: 20 mcg Guaifenesin/Codeine Phosphate (Guaifenesin-Coden 100-10mg/5ml 10 Ml Cup) 10 ml PO Q6HR [facility] Last Admin: 06/02/22 16:14 Dose: 10 ml Heparin Sodium (Porcine) (Heparin Sodium,Porcine/Pf 5,000 Unit/0.5 Ml Syringe) 5,000 unit SQ Q12HR [facility] Last Admin: 06/02/22 08:52 Dose: 5,000 unit Methylprednisolone Sodium Succinate (Methylprednisolone Sod Succi 40 Mg/Ml 1 Ml Vial) 60 mg IV Q6HR [facility] Last Admin: 06/02/22 16:14 Dose: 60 mg Montelukast Sodium (Montelukast 10 Mg Tab) 10 mg PO HS [facility] Last Admin: 06/01/22 22:19 Dose: 10 mg Naloxone HCl (Naloxone 0.4 Mg/Ml 1 Ml Vial) 0.2 mg IV Q2M PRN PRN Reason: Opioid Reversal Pantoprazole Sodium (Pantoprazole 40 Mg Tablet) 40 mg PO AC-BID [facility] Last Admin: 06/02/22 16:13 Dose: 40 mg Past medical history to include: Asthma, reflux, hypertension, migraines, arthralgias COVID December 2021 Social history: . No smoking. Alcohol rarely Physical examination: VITAL SIGNS: As 7.8, 1 or 2, 16, 150/99, 92% on 3 L GENERAL: Some shortness of breath EYES: Pupils equal. Conjunctiva normal. HEENT: External appearance of nose and ears normal, oral cavity endotracheal tube. NECK: JVD not raised; masses not palpable. HEART: First and second heart sounds are normal; no edema. LUNGS: Respiratory rate increased, decreased breaths sounds ABDOMEN: Soft, nontender, liver spleen not palpable, no masses palpable. PSYCH: Alert 3, mood and affect normal INVESTIGATIONS, reviewed in the clinical context: Bronchial washings: Hemophyllis influenza 05/30/2022: WBC 33.8 hemoglobin 15.7 potassium 3.9 pro-calcitonin 0.02 05/29/2022: White count was 7.3 hemoglobin 14.8 platelets 309 potassium 4.2 creatinine 0.63 White count 24.9 hemoglobin 15.2 platelets 225 potassium 3.8 creatinine 0.61 Telemetric tracing personally reviewed by me: Sinus rhythm Chest x-ray film personally reviewed by me-ET tube. Some basal haziness Assessment and plan: -Acute hypoxic respiratory failure from asthma exacerbation:: Slow to respond Status post Ventilator support, extubated May 29. Currently on3 L nasal cannula -Acute severe asthma exacerbation: Slow to respond DuoNeb, trace IV Solu-Medrol 60 every 6, nebulized Pulmicort, Perforomist, Singulair -Essential hypertension Diet-controlled -Chronic recurrent migraine headaches Patient on propranolol for migraine prophylaxis, resume when okay with Dr. Coker -GERD PPI -Acute severe tracheobronchitis, from Haemophilus influenzae IV Zosyn -Obesity BMI 30.6 Weight loss measures -Full code DuoNeb, IV Solu-Medrol to every 6, nebulized Pulmicort and Perforomist, IV Zosyn. Discussed with the patient increase activity ambulation
[2022-06-02] MEDS: MONTELUKAST 10 MG TAB PO SCH (22:14)
[2022-06-03] MEDS ORDERED: IPRATROPIUM-ALBUTEROL 3 ML NEB ONE (00:02)
[2022-06-03] MEDS: IPRATROPIUM-ALBUTEROL 3 ML NEB INHALATION PRN ×2 (00:56→04:10)
[2022-06-03] MEDS: methylPREDNISolone SOD SUCCI 40 MG/ML 1 ML VIAL IV SCH ×4 (06:25→23:21)
[2022-06-03] MEDS: guaiFENesin-Coden 100-10MG/5ML 10 ML CUP PO SCH ×4 (06:25→23:21)
[2022-06-03] MEDS: AMOXIC-POT CLAV 875-125MG 1 EACH TAB PO SCH ×2 (07:23→20:46)
[2022-06-03] MEDS: BENZONATATE 100 MG CAP PO SCH ×3 (07:23→20:46)
[2022-06-03] MEDS: PANTOPRAZOLE 40 MG TABLET PO SCH ×2 (07:23→16:06)
[2022-06-03] MEDS: HEPARIN SODIUM,PORCINE/PF 5,000 UNIT/0.5 ML SYRINGE SQ SCH ×2 (07:23→20:45)
[2022-06-03] MEDS: FORMOTEROL FUMARATE 20 MCG/2 ML NEBU INHALATION SCH ×2 (07:36→19:08)
[2022-06-03] MEDS: BUDESONIDE 1 MG/2 ML NEBU INHALATION SCH ×2 (07:36→19:08)
[2022-06-03] MEDS: IPRATROPIUM-ALBUTEROL 3 ML NEB INHALATION SCH ×4 (07:36→19:08)
--- NOTE | 2022-06-03 13:30 | P.PN ---
Subjective Progress Note Date: 06/03/22 Principal diagnosis: Respiratory failure. Pulmonary consult dated 05/28/2022. 51-year-old female who recently was at [facility] for an asthma exacerbation. She was discharged on Saturday, after a number of days, and she was discharged on prednisone 50 mg a day. The patient in my opinion, improved while at [facility], but her improvement was very gradual in minimal at best. The patient was scheduled to have an elective outpatient bronchoscopy a [facility] examination therapy lavage and BAL today, at [facility]. Unfortunately, the patient's saturations were very low, we attempted to do bronchoscopy in the standard way, and therefore, we elected to intubate her, to do a more safely. Her airways were very inflamed and erythematous. There was mucosal friability. She bled easily. We did do a formal BAL in the right middle lobe. And we decided to keep the patient intubated and mechanically ventilated. The mid a bit for her in the intensive care unit. Her only other medical problem other than severe asthma is migraine cephalgia. No laboratory data as yet. The patient will be maintained on the ventilator. Ventilator settings will be the volume assist control mode, rate 20, tidal volume 400, FiO2 100%, and PEEP of 5. The patient will have a blood gas done eventually. In addition, the patient gets saline at 75 mL an hour, Zosyn, updrafts with albuterol sulfate and ipratropium bromide, along with updrafts with budesonide and formoterol, and Solu-Medrol 60 mg every 6 hours. The patient will stay on propofol for sedation. Labs and x-rays will be done in the morning. Progress note dated 05/29/2022. 51-year-old female was recently at [facility] for severe asthma exacerbation. She was discharged last Saturday, and brought to the bronchoscopy suite yesterday for an elective bronchoscopy and BAL. Unfortunately, as restarted the procedure, her saturations drop, and she required intubation and mechanical ventilation, to do this procedure safely. I did speak to the family afterwards. This morning, she remains on mechanical ventilator. She is on the volume assist control, rate 20, tidal volume 400, FiO2 down to 50%, with a PEEP of 5. Blood gases on 60% showed pO2 118, pCO2 38, and a pH 7.48. The broncho scopy in the intubation both place on May 28. This morning she is on propofol at 50 mcg/kg/m, and saline at 75 mL an hour. We are going to resume her Singulair. We will give her Lasix 60 mg IV push. The patient will have a daily interruption of sedation, and a spontaneous breathing trial. Laboratory data includes a white count of 27.3, with a normal hemoglobin, hematocrit, and platelet count. Sodium 135, potassium 4.2, chlorides 105, CO2 27, within normal BUN and creatinine. Chest x-ray shows some mild fluid overload, small lung volumes, and small bilateral effusions. Progress note dated 05/30/2022. 51-year-old female who was extubated yesterday, May 29. He was in the [facility], for a number of days, with a severe asthma exacerbation. We attempted bronchoscopy on Saturday, for BAL, and unfortunately, she had to be intubated. She was extubated yesterday successfully. She is on 3 L of oxygen. She's getting saline at 75 mL an hour. Microbiologic sampling from the bronchoscopy are thus far negative are pending. She's getting usual medications including Zosyn, updrafts, and steroids. We also are giving her a codeine containing cough syrup, and Tessalon. White count 33.8, with a normal hemoglobin, hematocrit, and platelet count. Sodium, potassium, chloride, CO2, BUN and creatinine are all normal. Glucose is 145. Progress note dated 06/03/2022. 51-year-old female who was admitted with a diagnosis of severe asthma. She underwent bronchoscopy, with BAL, on Saturday. Prior to that, she was at [facility] and discharged a week ago Saturday. Because of low saturations during bronchoscopy, she was intubated, and transferred to the intensive care unit. She was promptly extubated the following day. The BAL did show evidence of Haemophilus influenzae. She's currently on Augmentin, and prior to that was on Zosyn. She's been slow to improve, but, she is doing much better. She seen today in room 476. She is on O2 at 3 L. No new labs to note. I did order a chest x-ray in the morning. She will see my partner in the morning, and he will make a decision about possible discharge. Objective - Vital Signs Vital signs: Vital Signs Temp 97.6 F 06/03/22 08:00 Pulse 106 H 06/03/22 12:06 Resp 18 06/03/22 08:00 BP 149/90 06/03/22 08:00 Pulse Ox 93 L 06/03/22 08:00 FiO2 50 05/29/22 10:18 Intake & Output 06/02/22 06/03/22 06/03/22 18:59 06:59 18:59 Output Total 300 Balance -300 Weight 86.6 kg Output: Urine 300 Other: Voiding Method Toilet # Voids 2 2 - Exam No acute distress, on nasal O2 at 3 L. Feeling much better. HEENT examination is grossly unremarkable. Neck supple. Full range of motion. No adenopathy thyromegaly or neck vein distention. Cardiovascular examination reveals regular rhythm rate. S1-S2 normal. No S3 or S4. No discernible murmur noted. Heart rate 101 bpm. Heart sounds are distant. Lungs reveal scattered rhonchi bilaterally. No wheezes. No crackles. Breath sounds equal. Saturations are 95 %. Abdomen soft bowel sounds are heard. No masses or tenderness. Extremities are intact. No cyanosis clubbing or edema. Skin is without rash or lesion. Neurologic examination is brief but nonfocal. - Labs CBC & Chem 7: 05/30/22 05:38 05/30/22 05:38 Assessment and Plan Assessment: Acute hypoxemic respiratory failure, secondary to severe asthma, status post bronchoscopy and intubation with mechanical ventilation, on 05/28/2022. S/P successful extubation on 05/29/2022. History of severe asthma. History of migraine cephalgia. Recent admission to [facility] for severe asthma exacerbation. Plan: Plan dated 05/28/2022. The patient underwent bronchoscopy today. Unfortunately, because of low saturations, we ended up intubated the patient. Overnight, and hopefully get her extubated tomorrow or the next day. The patient is placed on Solu-Medrol 60 mg every 6, updrafts with albuterol and ipratropium bromide, as well as budesonide and formoterol. The patient will also be placed on Zosyn. Labs and x-rays be done in the morning. I did speak to the family. Additional recommendations and suggestions are forthcoming. Plan dated 05/29/2022. This morning, the patient received Lasix 60 mg IV push times one. Labs, x-rays, and medications are reviewed. The patient remains on albuterol sulfate and ipratropium bromide breathing treatments, budesonide, and formoterol breathing treatments, Solu-Medrol, and Zosyn. Also, we added back Singulair. The patient's weaning parameters this morning were excellent. The patient's rapid shallow breathing index was low. She had a good cuff leak. The patient was extubated. I did tell her Mazin. He had a number of questions, all of which I answered. Plan dated 05/30/2022. The patient was successfully extubated yesterday. She remains in the intensive care unit. Later today, she could be transferred out to the general medical floor. She certainly not ready for discharge. I did update the family yesterday. She is resting comfortably in the intensive care unit. She co ntinues on steroids, breathing treatments, and Zosyn. No additional recommendations are made. Prognosis is thought to be generally good. Plan dated 06/03/2022. The patient continues to improve. The patient is currently on 3 L. The patient may be able to be discharged early this week. I will leave that up to my partner. The patient continues on Augmentin, and usual breathing treatments, along with Solu-Medrol. The patient's bronchoscopy washings did come back positive for Haemophilus influenzae. The patient has been on Zosyn for a number of days, and then transitioned to Augmentin. Prognosis is guarded. She does have an appointment to see me this week in the office. Time with Patient: Less than 30
--- NOTE | 2022-06-03 16:11 | P.PN ---
Progress Note - Text Progress Note Date: 06/03/22 Chief Complaint: Short of breath Hospital course: This is a 51-year-old patient, follows with Dr. Yarelis Alejo. Molding Engineer Dr. Coker. Patient long-standing asthma. Patient was recently at [facility] then for 5 days being discharged 3 days ago. She still having respiratory symptoms when she left. Patient is scheduled to have a bronchoscopy with lavage today. Relevant procedures she was found an extensive inflammatory changes secretions. And friable tissue including bleeding. Dr. coker decided to keep the patient intubated and admitted to the ICU. Patient is on propofol. Sinus rhythm. at the bedside. 05/29/2022: Patient was extubated earlier today. On nasal cannula. Some cough. Patient's 2 daughters at the bedside. Remains on bronchodilators steroids IV Zosyn. 05/30/2022: Up in a chair. Shortness of breath. Some congested cough. Throat hurts with cold liquids. Remains on IV Zosyn. DuoNeb. Cultures pending. 05/31/2022: Up in a recliner. Eating a bit better. Breathing better. On IV Zosyn DuoNeb Solu-Medrol. Discussed with patient. Incentive spirometry discussed and ordered Cultures pending. 06/01/2022: Patient had some more wheezing this morning. Solu-Medrol increased to 60 mg every 6. Deep breathing exercises. Eating fair. Up to the bathroom. Family at the bedside. 06/02/2022: Some shortness of breath and wheezing. Getting slowly in the hallway. No phlegm. IV Solu-Medrol. Oral intake fair. Bronchial culture positive for Haemophilus influenzae. 06/03/2022: Congestive some shortness of breath and wheezing. On high dose IV Solu-Medrol. Care was discussed with the patient and mother at the bedside. Patient is ambulating in the room. Using incentive spirometry. Breathing exercises. Patient be switched over to Augmentin Active Medications Albuterol/Ipratropium (Ipratropium-Albuterol 3 Ml Neb) 3 ml INHALATION RT-Q2H PRN PRN Reason: Shortness Of Breath Or Wheezing Last Admin: 06/03/22 04:10 Dose: 3 ml Albuterol/Ipratropium (Ipratropium-Albuterol 3 Ml Neb) 3 ml INHALATION RT-QID REPLACED BY [facility] Last Admin: 06/03/22 15:34 Dose: 3 ml Amoxicillin/Clavulanate Potassium (Amoxic-Pot Clav 875-125mg 1 Each Tab) 1 each PO Q12HR REPLACED BY [facility]; Protocol Last Admin: 06/03/22 07:23 Dose: 1 each Artificial Tears (Artificial Tears-Hypromellose Drops 15 Ml Btl) 2 drops BOTH EYES QID PRN PRN Reason: Dry Eye(s) Last Admin: 05/29/22 23:54 Dose: 2 drops Benzonatate (Benzonatate 100 Mg Cap) 200 mg PO TID REPLACED BY [facility] Last Admin: 06/03/22 16:06 Dose: 200 mg Budesonide (Budesonide 1 Mg/2 Ml Nebu) 1 mg INHALATION RT-BID REPLACED BY [facility] Last Admin: 06/03/22 07:36 Dose: 1 mg Formoterol Fumarate (Formoterol Fumarate 20 Mcg/2 Ml Nebu) 20 mcg INHALATION RT-BID REPLACED BY [facility] Last Admin: 06/03/22 07:36 Dose: 20 mcg Guaifenesin/Codeine Phosphate (Guaifenesin-Coden 100-10mg/5ml 10 Ml Cup) 10 ml PO Q6HR REPLACED BY [facility] Last Admin: 06/03/22 12:33 Dose: 10 ml Heparin Sodium (Porcine) (Heparin Sodium,Porcine/Pf 5,000 Unit/0.5 Ml Syringe) 5,000 unit SQ Q12HR REPLACED BY [facility] Last Admin: 06/03/22 07:23 Dose: 5,000 unit Methylprednisolone Sodium Succinate (Methylprednisolone Sod Succi 40 Mg/Ml 1 Ml Vial) 60 mg IV Q6HR REPLACED BY [facility] Last Admin: 06/03/22 12:33 Dose: 60 mg Montelukast Sodium (Montelukast 10 Mg Tab) 10 mg PO HS REPLACED BY [facility] Last Admin: 06/02/22 22:14 Dose: 10 mg Naloxone HCl (Naloxone 0.4 Mg/Ml 1 Ml Vial) 0.2 mg IV Q2M PRN PRN Reason: Opioid Reversal Pantoprazole Sodium (Pantoprazole 40 Mg Tablet) 40 mg PO AC-BID REPLACED BY [facility] Last Admin: 06/03/22 16:06 Dose: 40 mg Past medical history to include: Asthma, reflux, hypertension, migraines, arthralgias COVID December 2021 Social history: . No smoking. Alcohol rarely Physical examination: VITAL SIGNS: 98.1, 108, 18, 1 57/95, 93% on 3 L GENERAL: Sitting up in bed, mild shortness of breath EYES: Pupils equal. Conjunctiva normal. HEENT: External appearance of nose and ears normal, oral cavity endotracheal tube. NECK: JVD not raised; masses not palpable. HEART: First and second heart sounds are normal; no edema. LUNGS: Respiratory rate increased, decreased breaths sounds , some wheezing ABDOMEN: Soft, nontender, liver spleen not palpable, no masses palpable. PSYCH: Alert 3, mood and affect normal INVESTIGATIONS, reviewed in the clinical context: Bronchial washings: Hemophyllis influenza 05/30/2022: WBC 33.8 hemoglobin 15.7 potassium 3.9 pro-calcitonin 0.02 05/29/2022: White count was 7.3 hemoglobin 14.8 platelets 309 potassium 4.2 creatinine 0.63 White count 24.9 hemoglobin 15.2 platelets 225 potassium 3.8 creatinine 0.61 Telemetric tracing personally reviewed by me: Sinus rhythm Chest x-ray film personally reviewed by me-ET tube. Some basal haziness Assessment and plan: -Acute hypoxic respiratory failure from asthma exacerbation:: Slow to respond Status post Ventilator support, extubated May 29. Currently on3 L nasal cannula -Acute severe asthma exacerbation: Slow to respond DuoNeb, trace IV Solu-Medrol 60 every 6, nebulized Pulmicort, DarielaomistIssaculair -Essential hypertension Diet-controlled -Chronic recurrent migraine headaches Patient on propranolol for migraine prophylaxis, resume when okay with Dr. Coker -GERD PPI -Acute severe tracheobronchitis, from Haemophilus influenzae IV Zosyn changed over to Augmentin yesterday -Obesity BMI 30.6 Weight loss measures -Full code DuoNeb, IV Solu-Medrol 60 to every 6, nebulized Pulmicort and Perforomist, IV Zosyn changed to Augmentin yesterday. Discussed with the patient and the mother. Did ambulate in the hallway.
[2022-06-03] MEDS: CALCIUM CARB-VIT D 500 MG-5 MCG TAB PO SCH (17:02)
[2022-06-03] MEDS: MONTELUKAST 10 MG TAB PO SCH (20:46)
[2022-06-04] MEDS: IPRATROPIUM-ALBUTEROL 3 ML NEB INHALATION SCH ×6 (00:25→19:56)
[2022-06-04] MEDS: methylPREDNISolone SOD SUCCI 40 MG/ML 1 ML VIAL IV SCH ×2 (06:40→12:44)
[2022-06-04] MEDS: guaiFENesin-Coden 100-10MG/5ML 10 ML CUP PO SCH ×4 (06:40→23:30)
--- NOTE | 2022-06-04 07:31 | XR ---
EXAMINATION TYPE: XR chest 2V DATE OF EXAM: 06/04/2022 7:00 AM COMPARISON: Chest radiographs from 05/30/2022. TECHNIQUE: XR chest 2V Frontal and lateral views of the chest. CLINICAL INDICATION:Female, 51 years old with history of pneumonia; FINDINGS: Lungs/Pleura: Bibasilar atelectasis with small bilateral pleural effusions, similar prior. Pulmonary vascularity: Unremarkable. Heart/mediastinum: Cardiomediastinal silhouette is unremarkable. Musculoskeletal: No acute osseous pathology. IMPRESSION: Similar bibasilar atelectasis and small bilateral pleural effusions.
[2022-06-04] MEDS: BUDESONIDE 1 MG/2 ML NEBU INHALATION SCH ×2 (08:02→19:56)
[2022-06-04] MEDS: FORMOTEROL FUMARATE 20 MCG/2 ML NEBU INHALATION SCH ×2 (08:02→19:56)
[2022-06-04] MEDS: BENZONATATE 100 MG CAP PO SCH ×3 (09:08→21:58)
[2022-06-04] MEDS: PANTOPRAZOLE 40 MG TABLET PO SCH ×2 (09:08→17:17)
[2022-06-04] MEDS: AMOXIC-POT CLAV 875-125MG 1 EACH TAB PO SCH ×2 (09:09→21:58)
[2022-06-04] MEDS: CALCIUM CARB-VIT D 500 MG-5 MCG TAB PO SCH ×2 (09:09→17:17)
[2022-06-04] MEDS: HEPARIN SODIUM,PORCINE/PF 5,000 UNIT/0.5 ML SYRINGE SQ SCH ×2 (09:09→21:58)
[2022-06-04 11:36] VITALS: BMI 31.0
[2022-06-04] MEDS ORDERED: FUROSEMIDE 10 MG/ML 4 ML VIAL IV STA (14:52)
[2022-06-04] MEDS: predniSONE 20 MG TAB PO SCH (15:38)
--- NOTE | 2022-06-04 17:40 | P.PN ---
Progress Note - Text Progress Note Date: 06/04/22 Chief Complaint: Short of breath Hospital course: This is a 51-year-old patient, follows with Dr. Yarelis Alejo. Catering Attendant Dr. Coker. Patient long-standing asthma. Patient was recently at [facility] then for 5 days being discharged 3 days ago. She still having respiratory symptoms when she left. Patient is scheduled to have a bronchoscopy with lavage today. Relevant procedures she was found an extensive inflammatory changes secretions. And friable tissue including bleeding. Dr. coker decided to keep the patient intubated and admitted to the ICU. Patient is on propofol. Sinus rhythm. at the bedside. 05/29/2022: Patient was extubated earlier today. On nasal cannula. Some cough. Patient's 2 daughters at the bedside. Remains on bronchodilators steroids IV Zosyn. 05/30/2022: Up in a chair. Shortness of breath. Some congested cough. Throat hurts with cold liquids. Remains on IV Zosyn. DuoNeb. Cultures pending. 05/31/2022: Up in a recliner. Eating a bit better. Breathing better. On IV Zosyn DuoNeb Solu-Medrol. Discussed with patient. Incentive spirometry discussed and ordered Cultures pending. 06/01/2022: Patient had some more wheezing this morning. Solu-Medrol increased to 60 mg every 6. Deep breathing exercises. Eating fair. Up to the bathroom. Family at the bedside. 06/02/2022: Some shortness of breath and wheezing. Getting slowly in the hallway. No phlegm. IV Solu-Medrol. Oral intake fair. Bronchial culture positive for Haemophilus influenzae. 06/03/2022: Congestive some shortness of breath and wheezing. On high dose IV Solu-Medrol. Care was discussed with the patient and mother at the bedside. Patient is ambulating in the room. Using incentive spirometry. Breathing exercises. Patient be switched over to Augmentin 06/04/2022: Ambulating. Some shortness of breath and wheezing present. This morning remains on IV Solu-Medrol. Later seen by pulmonary changed over to oral prednisone. Active Medications Albuterol/Ipratropium (Ipratropium-Albuterol 3 Ml Neb) 3 ml INHALATION RT-Q2H PRN PRN Reason: Shortness Of Breath Or Wheezing Last Admin: 06/03/22 04:10 Dose: 3 ml Albuterol/Ipratropium (Ipratropium-Albuterol 3 Ml Neb) 3 ml INHALATION RT-Q4H [facility] Last Admin: 06/04/22 16:06 Dose: 3 ml Amoxicillin/Clavulanate Potassium (Amoxic-Pot Clav 875-125mg 1 Each Tab) 1 each PO Q12HR [facility]; Protocol Last Admin: 06/04/22 09:09 Dose: 1 each Artificial Tears (Artificial Tears-Hypromellose Drops 15 Ml Btl) 2 drops BOTH EYES QID PRN PRN Reason: Dry Eye(s) Last Admin: 05/29/22 23:54 Dose: 2 drops Benzonatate (Benzonatate 100 Mg Cap) 200 mg PO TID [facility] Last Admin: 06/04/22 15:38 Dose: 200 mg Budesonide (Budesonide 1 Mg/2 Ml Nebu) 1 mg INHALATION RT-BID [facility] Last Admin: 06/04/22 08:02 Dose: 1 mg Calcium Carbonate (Calcium Carb-Vit D 500 Mg-5 Mcg Tab) 1 each PO BID-W/MEALS [facility] Last Admin: 06/04/22 17:17 Dose: 1 each Formoterol Fumarate (Formoterol Fumarate 20 Mcg/2 Ml Nebu) 20 mcg INHALATION RT-BID [facility] Last Admin: 06/04/22 08:02 Dose: 20 mcg Guaifenesin/Codeine Phosphate (Guaifenesin-Coden 100-10mg/5ml 10 Ml Cup) 10 ml PO Q6HR [facility] Last Admin: 06/04/22 17:17 Dose: 10 ml Heparin Sodium (Porcine) (Heparin Sodium,Porcine/Pf 5,000 Unit/0.5 Ml Syringe) 5,000 unit SQ Q12HR [facility] Last Admin: 06/04/22 09:09 Dose: 5,000 unit Montelukast Sodium (Montelukast 10 Mg Tab) 10 mg PO HS [facility] Last Admin: 06/03/22 20:46 Dose: 10 mg Naloxone HCl (Naloxone 0.4 Mg/Ml 1 Ml Vial) 0.2 mg IV Q2M PRN PRN Reason: Opioid Reversal Pantoprazole Sodium (Pantoprazole 40 Mg Tablet) 40 mg PO AC-BID [facility] Last Admin: 06/04/22 17:17 Dose: 40 mg Prednisone (Prednisone 20 Mg Tab) 40 mg PO DAILY [facility] Last Admin: 06/04/22 15:38 Dose: 40 mg Past medical history to include: Asthma, reflux, hypertension, migraines, arthralgias COVID December 2021 Social history: . No smoking. Alcohol rarely Physical examination: VITAL SIGNS: 98.4, 84, 17, 140/88, 94% on 3 L GENERAL: Sitting up in bed, some shortness of breath EYES: Pupils equal. Conjunctiva normal. HEENT: External appearance of nose and ears normal, oral cavity endotracheal tube. NECK: JVD not raised; masses not palpable. HEART: First and second heart sounds are normal; no edema. LUNGS: Respiratory rate increased, decreased breaths sounds , some wheezing ABDOMEN: Soft, nontender, liver spleen not palpable, no masses palpable. PSYCH: Alert 3, mood and affect normal INVESTIGATIONS, reviewed in the clinical context: Bronchial washings: Hemophyllis influenza 05/30/2022: WBC 33.8 hemoglobin 15.7 potassium 3.9 pro-calcitonin 0.02 05/29/2022: White count was 7.3 hemoglobin 14.8 platelets 309 potassium 4.2 creatinine 0.63 White count 24.9 hemoglobin 15.2 platelets 225 potassium 3.8 creatinine 0.61 Telemetric tracing personally reviewed by me: Sinus rhythm Chest x-ray film personally reviewed by me-ET tube. Some basal haziness Assessment and plan: -Acute hypoxic respiratory failure from asthma exacerbation:: Some improvement Status post Ventilator support, extubated May 29. Currently on3 L nasal cannula -Acute severe asthma exacerbation: DuoNeb, IV Solu-Medrol being changed over to prednisone 40 mg by pulmonary today., nebulized Pulmicort, Perforomist, Singulair -Essential hypertension Diet-controlled -Chronic recurrent migraine headaches Patient on propranolol for migraine prophylaxis, resume when okay with Dr. Coker -GERD PPI -Acute severe tracheobronchitis, from Haemophilus influenzae Augmentin -Obesity BMI 30.6 Weight loss measures -Full code DuoNeb, IV Solu-Medrol being changed to oral prednisone., nebulized Pulmicort and Perforomist, Augmentin.. Increased activity. Hopefully discharge tomorrow.
--- NOTE | 2022-06-04 19:14 | P.PN ---
Subjective Progress Note Date: 06/04/22 51-year-old female who recently was at [facility] for an asthma exacerbation. She was discharged on Saturday, after a number of days, and she was discharged on prednisone 50 mg a day. The patient in my opinion, improved while at [facility], but her improvement was very gradual in minimal at best. The patient was scheduled to have an elective outpatient bronchoscopy airway examination therapy lavage and BAL today, at [facility]. Unfortunately, the patient's saturations were very low, we attempted to do bronchoscopy in the standard way, and therefore, we elected to intubate her, to do a more safely. Her airways were very inflamed and erythematous. There was mucosal friability. She bled easily. We did do a formal BAL in the right middle lobe. And we decided to keep the patient intubated and mechanically ventilated. The mid a bit for her in the intensive care unit. Her only other medical problem other than severe asthma is migraine cephalgia. No laboratory data as yet. The patient will be maintained on the ventilator. Ventilator settings will be the volume assist control mode, rate 20, tidal volume 400, FiO2 100%, and PEEP of 5. The patient will have a blood gas done eventually. In addition, the patient gets saline at 75 mL an hour, Zosyn, updrafts with albuterol sulfate and ipratropium bromide, along with updrafts with budesonide and formoterol, and Solu-Medrol 60 mg every 6 hours. The patient will stay on propofol for sedation. Labs and x-rays will be done in the morning. Progress note dated 05/29/2022. 51-year-old female was recently at [facility] for severe asthma exacerbation. She was discharged last Saturday, and brought to the bronchoscopy suite yesterday for an elective bronchoscopy and BAL. Unfortunately, as re started the procedure, her saturations drop, and she required intubation and mechanical ventilation, to do this procedure safely. I did speak to the family afterwards. This morning, she remains on mechanical ventilator. She is on the volume assist control, rate 20, tidal volume 400, FiO2 down to 50%, with a PEEP of 5. Blood gases on 60% showed pO2 118, pCO2 38, and a pH 7.48. The bronchoscopy in the intubation both place on May 28. This morning she is on propofol at 50 mcg/kg/m, and saline at 75 mL an hour. We are going to resume her Singulair. We will give her Lasix 60 mg IV push. The patient will have a daily interruption of sedation, and a spontaneous breathing trial. Laboratory data includes a white count of 27.3, with a normal hemoglobin, hematocrit, and platelet count. Sodium 135, potassium 4.2, chlorides 105, CO2 27, within normal BUN and creatinine. Chest x-ray shows some mild fluid overload, small lung volumes, and small bilateral effusions. Progress note dated 05/30/2022. 51-year-old female who was extubated yesterday, May 29. He was in the [facility], for a number of days, with a severe asthma exacerbation. We attempted bronchoscopy on Saturday, for BAL, and unfortunately, she had to be intubated. She was extubated yesterday successfully. She is on 3 L of oxygen. She's getting saline at 75 mL an hour. Microbiologic sampling from the bronchoscopy are thus far negative are pending. She's getting usual medications including Zosyn, updrafts, and steroids. We also are giving her a codeine containing cough syrup, and Tessalon. White count 33.8, with a normal hemoglobin, hematocrit, and platelet count. Sodium, potassium, chloride, CO2, BUN and creatinine are all normal. Glucose is 145. Progress note dated 06/03/2022. 51-year-old female who was admitted with a diagnosis of severe asthma. She underwent bronchoscopy, with BAL, on Saturday. Prior to that, she was at [facility] and discharged a week ago Saturday. Because of low saturations during bronchoscopy, she was intubated, and transferred to the intensive care unit. She was promptly extubated the following day. The BAL did show evidence of Haemophilus influenzae. She's currently on Augmentin, and prior to that was on Zosyn. She's been slow to improve, but, she is doing much better. She seen today in room 476. She is on O2 at 3 L. No new labs to note. I did order a chest x-ray in the morning. She will see my partner in the orning, and he will make a decision about possible discharge. On 06/04/22, the patient is feeling better and she is less SOB. She is still on 02 and the CXR is showing pulmonary infiltrated, atelectasis and small effusions in the ling bases. The patient has elevated WBC count and this is probably related to steroids. No other complaint and she is ambulating Objective - Vital Signs Vital signs: Vital Signs Temp 97.8 F 06/04/22 08:00 Pulse 120 H 06/04/22 13:19 Resp 16 06/04/22 08:00 BP 145/88 06/04/22 08:00 Pulse Ox 90 L 06/04/22 13:19 FiO2 50 05/29/22 10:18 Intake & Output 06/03/22 06/04/22 06/04/22 18:59 06:59 18:59 Output Total 300 Balance -300 Weight 87.3 kg 87.3 kg Output: Urine 300 Other: Voiding Method Toilet Toilet # Voids 2 - Exam No acute distress, on nasal O2 at 3 L. Feeling much better. HEENT examination is grossly unremarkable. Neck supple. Full range of motion. No adenopathy thyromegaly or neck vein distention. Cardiovascular examination reveals regular rhythm rate. S1-S2 normal. No S3 or S4. No discernible murmur noted. Heart rate 101 bpm. Heart sounds are distant. Lungs reveal scattered rhonchi bilaterally. No wheezes. No crackles. Breath sounds equal. Abdomen soft bowel sounds are heard. No masses or tenderness. Extremities are intact. No cyanosis clubbing or edema. Skin is without rash or lesion. Neurologic examination is brief but nonfocal. - Labs CBC & Chem 7: 05/30/22 05:38 05/30/22 05:38 Assessment and Plan Plan: Acute hypoxemic respiratory failure, secondary to severe asthma, status post bronchoscopy and intubation with mechanical ventilation, on 05/28/2022. Haemophilus influenza pneumonia S/P successful extubation on 05/29/2022. History of severe asthma. History of migraine cephalgia. Recent admission to [facility] for severe asthma exacerbation. Acute leukocytosis Plan: Wean Fio2 Monitor white cell count DC IV Solu-Medrol. Start prednisone 40 mg by mouth daily continue IS Continue Augmentin Continue DuoNeb Continue Pulmicort and Perforomist We'll follow
[2022-06-04] MEDS: MONTELUKAST 10 MG TAB PO SCH (21:58)
[2022-06-05] MEDS: IPRATROPIUM-ALBUTEROL 3 ML NEB INHALATION SCH ×6 (01:03→21:41)
[2022-06-05] MEDS: guaiFENesin-Coden 100-10MG/5ML 10 ML CUP PO SCH ×3 (06:41→16:44)
[2022-06-05] MEDS: PANTOPRAZOLE 40 MG TABLET PO SCH ×2 (06:41→16:51)
[2022-06-05] MEDS: CALCIUM CARB-VIT D 500 MG-5 MCG TAB PO SCH ×2 (06:41→16:44)
[2022-06-05] MEDS: BUDESONIDE 1 MG/2 ML NEBU INHALATION SCH ×2 (08:17→21:41)
[2022-06-05] MEDS: FORMOTEROL FUMARATE 20 MCG/2 ML NEBU INHALATION SCH ×2 (08:17→21:41)
[2022-06-05] MEDS: AMOXIC-POT CLAV 875-125MG 1 EACH TAB PO SCH ×2 (09:03→21:47)
[2022-06-05] MEDS: predniSONE 20 MG TAB PO SCH (09:03)
[2022-06-05 09:04] LABS: HCT 41.5 % (37.2-46.3); HGB 13.5 g/dL (12.0-15.0); MCH 32.2 pg (27.0-32.0); MCHC 32.5 g/dL (32.0-37.0); Mean Platelet Volume 11.2 fL (9.5-12.2); NRBC Per 100 WBC 0 /100 WBCS (0.0-0.0); Platelet Count 291 X 10*3/uL (140-440); RBC 4.19 X 10*6/uL (4.10-5.20); RDW 14.4 % (11.5-14.5); WBC 20.52 X 10*3/uL (4.50-10.00)
[2022-06-05] MEDS: BENZONATATE 100 MG CAP PO SCH ×3 (09:04→21:46)
[2022-06-05] MEDS: HEPARIN SODIUM,PORCINE/PF 5,000 UNIT/0.5 ML SYRINGE SQ SCH ×2 (09:04→21:46)
[2022-06-05 09:28] LABS: African American GFR (CKD) 120.6 (60.0-200.0); Albumin 3.3 g/dL (3.8-4.9); Albumin/Globulin Ratio 1.94 (1.60-3.17); Anion Gap 11.2 mmol/L (10.00-18.00); BUN/Creat Ratio 26.67 Ratio (12.00-20.00); Carbon Dioxide 28.8 mmol/L (20.0-27.5); Globulin 1.7 g/dL (1.6-3.3); Non-African American GFR(CKD) 104.1 (60.0-200.0); Potassium 3.9 mmol/L (3.5-5.5); Total Bilirubin 0.5 mg/dL (0.30-1.20)
[2022-06-05 10:02] LABS: Basophils # (M) 0 X 10*3/uL (0.00-0.10); Eosinophils # (M) 0 X 10*3/uL (0.04-0.35); Lymphocytes # (M) 0.82 X 10*3/uL (0.90-5.00); Monocytes # (M) 1.44 X 10*3/uL (0.20-1.00); Neutrophils # (M) 18.26 X 10*3/uL (2.00-8.90); Neutrophils % (M) 89 %; RBC Morphology NORMAL
[2022-06-05] MEDS ORDERED: ACETAMINOPHEN TAB 500 MG TAB PO STA (10:48)
[2022-06-05] MEDS ORDERED: FUROSEMIDE 10 MG/ML 4 ML VIAL IV SCH (12:00)
[2022-06-05] MEDS: FUROSEMIDE 10 MG/ML 2 ML VIAL IV SCH ×2 (12:43→21:46)
--- NOTE | 2022-06-05 14:14 | P.PN ---
Subjective Progress Note Date: 06/05/22 51-year-old female who recently was at [facility] for an asthma exacerbation. She was discharged on Saturday, after a number of days, and she was discharged on prednisone 50 mg a day. The patient in my opinion, improved while at [facility], but her improvement was very gradual in minimal at best. The patient was scheduled to have an elective outpatient bronchoscopy airway examination therapy lavage and BAL today, at [facility]. Unfortunately, the patient's saturations were very low, we attempted to do bronchoscopy in the standard way, and therefore, we elected to intubate her, to do a more safely. Her airways were very inflamed and erythematous. There was mucosal friability. She bled easily. We did do a formal BAL in the right middle lobe. And we decided to keep the patient intubated and mechanically ventilated. The mid a bit for her in the intensive care unit. Her only other medical problem other than severe asthma is migraine cephalgia. No laboratory data as yet. The patient will be maintained on the ventilator. Ventilator settings will be the volume assist control mode, rate 20, tidal volume 400, FiO2 100%, and PEEP of 5. The patient will have a blood gas done eventually. In addition, the patient gets saline at 75 mL an hour, Zosyn, updrafts with albuterol sulfate and ipratropium bromide, along with updrafts with budesonide and formoterol, and Solu-Medrol 60 mg every 6 hours. The patient will stay on propofol for sedation. Labs and x-rays will be done in the morning. Progress note dated 05/29/2022. 51-year-old female was recently at [facility] for severe asthma exacerbation. She was discharged last Saturday, and brought to the bronchoscopy suite yesterday for an elective bronchoscopy and BAL. Unfortunately, as res tarted the procedure, her saturations drop, and she required intubation and mechanical ventilation, to do this procedure safely. I did speak to the family afterwards. This morning, she remains on mechanical ventilator. She is on the volume assist control, rate 20, tidal volume 400, FiO2 down to 50%, with a PEEP of 5. Blood gases on 60% showed pO2 118, pCO2 38, and a pH 7.48. The bronchoscopy in the intubation both place on May 28. This morning she is on propofol at 50 mcg/kg/m, and saline at 75 mL an hour. We are going to resume her Singulair. We will give her Lasix 60 mg IV push. The patient will have a daily interruption of sedation, and a spontaneous breathing trial. Laboratory data includes a white count of 27.3, with a normal hemoglobin, hematocrit, and platelet count. Sodium 135, potassium 4.2, chlorides 105, CO2 27, within normal BUN and creatinine. Chest x-ray shows some mild fluid overload, small lung volumes, and small bilateral effusions. Progress note dated 05/30/2022. 51-year-old female who was extubated yesterday, May 29. He was in the [facility], for a number of days, with a severe asthma exacerbation. We attempted bronchoscopy on Saturday, for BAL, and unfortunately, she had to be intubated. She was extubated yesterday successfully. She is on 3 L of oxygen. She's getting saline at 75 mL an hour. Microbiologic sampling from the bronchoscopy are thus far negative are pending. She's getting usual medications including Zosyn, updrafts, and steroids. We also are giving her a codeine containing cough syrup, and Tessalon. White count 33.8, with a normal hemoglobin, hematocrit, and platelet count. Sodium, potassium, chloride, CO2, BUN and creatinine are all normal. Glucose is 145. The patient is seen today 05/31/2022 in follow-up on the regular medical floor. She is currently sitting up in bed. Awake and alert in no acute distress. She continues with the dry nonproductive cough. She is improved. She is maintaining O2 saturations in the 90s on 3 L/m per nasal cannula. Normal saline at 75 ML's per hour. Bronchoscopy wash cultures are still pending. Pro- calcitonin 0.02. She remains on Zosyn, IV Solu-Medrol, bronchodilators. Heparin for DVT prophylaxis. The patient is seen today 06/01/2022 follow-up on the regular medical floor. She is awake and alert in no acute distress. Sitting up at the bedside. She is improved. Not quite back to her baseline. Still some bronchospasm and wheezin g. Still requiring some extra breathing treatments. She is continued on IV Solu-Medrol increased back to 60 mg IV every 6 hours, DuoNeb inhalations, Pulmicort and Perforomist inhalations, Singulair. Antibiotics in the form of Zosyn. Robitussin and Tessalon Perles for her cough. Bronchial wash cultures are still pending. Pro-calcitonin 0.02. The patient is seen today 06/02/2022 follow-up on the regular medical floor. Sitting up at the bedside. Awake and alert in no acute distress. Breathing better today compared to yesterday. Still not quite back to her baseline. She is continued on IV Solu-Medrol, DuoNeb inhalations, Pulmicort and Perforomist inhalations. He is on Singulair. Remains on Tessalon Perles and Robitussin for her cough. Antibiotics in the form of Augmentin. Bronchial wash cultures were positive for Haemophilus influenza. Progress note dated 06/03/2022. 51-year-old female who was admitted with a diagnosis of severe asthma. She underwent bronchoscopy, with BAL, on Saturday. Prior to that, she was at [facility] and discharged a week ago Saturday. Because of low saturations during bronchoscopy, she was intubated, and transferred to the intensive care unit. She was promptly extubated the following day. The BAL did show evidence of Haemophilus influenzae. She's currently on Augmentin, and prior to that was on Zosyn. She's been slow to improve, but, she is doing much better. She seen today in room 476. She is on O2 at 3 L. No new labs to note. I did order a chest x-ray in the morning. She will see my partner in the morning, and he will make a decision about possible discharge. On 06/04/22, the patient is feeling better and she is less SOB. She is still on 02 and the CXR is showing pulmonary infiltrated, atelectasis and small effusions in the ling bases. The patient has elevated WBC count and this is probably related to steroids. No other complaint and she is ambulating The patient is seen today 06/05/2022 in follow-up on the regular medical floor. She is currently sitting up in a chair at the bedside. Awake and alert in no acute distress. Doing better today compared to yesterday. Still not back to her baseline. Still with some dyspnea on exertion. Some end expiratory wheeze. She is continued on DuoNeb inhalations, Pulmicort and Perforomist inhalations, prednisone taper. Empiric Biaxin the form of Augmentin. She remains on Tessalon Perles. Remains on IV diuretics. She was having fluid retention sec ondary to the steroids. Objective - Vital Signs Vital signs: Vital Signs Temp 97.8 F 06/05/22 07:31 Pulse 100 06/05/22 12:16 Resp 18 06/05/22 07:31 BP 155/94 06/05/22 07:31 Pulse Ox 97 06/05/22 08:17 FiO2 50 05/29/22 10:18 Intake & Output 06/04/22 06/05/22 06/05/22 18:59 06:59 18:59 Output Total 1100 Balance -1100 Weight 87.3 kg 87.2 kg Output: Urine 1100 Other: Voiding Method Toilet Toilet # Voids 4 4 - Exam GENERAL EXAM: Alert, pleasant 51-year-old female, on 3 L nasal cannula, comfortable in no apparent distress. HEAD: Normocephalic. EYES: Normal reaction of pupils, equal size. NOSE: Clear with pink turbinates. THROAT: No erythema or exudates. NECK: No masses, no JVD. CHEST: No chest wall deformity. LUNGS: Equal air entry with end expiratory wheeze, diminished. CVS: S1 and S2 normal with no audible murmur, regular rhythm. ABDOMEN: No hepatosplenomegaly, normal bowel sounds, no guarding or rigidity. SPINE: No scoliosis or deformity SKIN: No rashes CENTRAL NERVOUS SYSTEM: No focal deficits, tone is normal in all 4 extremities. EXTREMITIES: There is 1+ peripheral edema. No clubbing, no cyanosis. Peripheral pulses are intact. - Labs CBC & Chem 7: 06/05/22 05:43 06/05/22 05:43 Labs: Abnormal Lab Results - Last 24 Hours (Table) 06/05/22 06/05/22 Range/Units 05:43 05:43 WBC 20.52 H (4.50-10.00) X 10*3/uL MCV 99.0 H (80.0-97.0) fL MCH 32.2 H (27.0-32.0) pg Neutrophils # (Manual) 18.26 H (2.00-8.90) X 10*3/uL Lymphocytes # (Manual) 0.82 L (0.90-5.00) X 10*3/uL Monocytes # (Manual) 1.44 H (0.20-1.00) X 10*3/uL Eosinophils # (Manual) 0 L (0.04-0.35) X 10*3/uL Carbon Dioxide 28.8 H (20.0-27.5) mmol/L BUN/Creatinine Ratio 26.67 H (12.00-20.00) Ratio Glucose 165 H (70-110) mg/dL ALT 57 H (8-44) U/L Total Protein 5.0 L (6.2-8.2) g/dL Albumin 3.3 L (3.8-4.9) g/dL Assessment and Plan Assessment: Acute hypoxemic respiratory failure, secondary to severe asthma, status post bronchoscopy and intubation with mechanical ventilation, on 05/28/2022. Extubated on 05/29/2022. History of severe asthma. History of migraine cephalgia. Recent admission to [facility] for severe asthma exacerbation. Plan: The patient was seen and evaluated Continue the current treatment plan Additional 20 mg of IV Lasix 2 Increase her activity as tolerated Titrate down the FiO2 as tolerated Probable discharge in the a.m. We will continue to follow I have personally seen and examined the patient, performed the documentation and the assessment and plan as written. Number of minutes spent on the visit: 10. Joint evaluation that was done along with the nurse practitioner. Again the above-mentioned plan. Evaluation was done in more than 20 minutes . The patient is on diuretics. White blood given additional dose of Lasix. We'll continue to follow. Repeat chest x-ray in a.m.
--- NOTE | 2022-06-05 17:23 | P.PN ---
Progress Note - Text Progress Note Date: 06/05/22 Chief Complaint: Short of breath Hospital course: This is a 51-year-old patient, follows with Dr. Yarelis Alejo. Watch [employer] Dr. Coker. Patient long-standing asthma. Patient was recently at [facility] then for 5 days being discharged 3 days ago. She still having respiratory symptoms when she left. Patient is scheduled to have a bronchoscopy with lavage today. Relevant procedures she was found an extensive inflammatory changes secretions. And friable tissue including bleeding. Dr. coker decided to keep the patient intubated and admitted to the ICU. Patient is on propofol. Sinus rhythm. at the bedside. 05/29/2022: Patient was extubated earlier today. On nasal cannula. Some cough. Patient's 2 daughters at the bedside. Remains on bronchodilators steroids IV Zosyn. 05/30/2022: Up in a chair. Shortness of breath. Some congested cough. Throat hurts with cold liquids. Remains on IV Zosyn. DuoNeb. Cultures pending. 05/31/2022: Up in a recliner. Eating a bit better. Breathing better. On IV Zosyn DuoNeb Solu-Medrol. Discussed with patient. Incentive spirometry discussed and ordered Cultures pending. 06/01/2022: Patient had some more wheezing this morning. Solu-Medrol increased to 60 mg every 6. Deep breathing exercises. Eating fair. Up to the bathroom. Family at the bedside. 06/02/2022: Some shortness of breath and wheezing. Getting slowly in the hallway. No phlegm. IV Solu-Medrol. Oral intake fair. Bronchial culture positive for Haemophilus influenzae. 06/03/2022: Congestive some shortness of breath and wheezing. On high dose IV Solu-Medrol. Care was discussed with the patient and mother at the bedside. Patient is ambulating in the room. Using incentive spirometry. Breathing exercises. Patient be switched over to Augmentin 06/04/2022: Ambulating. Some shortness of breath and wheezing present. This morning remains on IV Solu-Medrol. Later seen by pulmonary changed over to oral prednisone. 06/05/2022: Episodes of shortness of breath wheezing up and down. Deep breathing exercises. On oral prednisone. DuoNeb. Augmentin. Discussed with patient in pulmonary. Some Lasix given by pulmonary. Fluid retention secondary to steroids. Active Medications Albuterol/Ipratropium (Ipratropium-Albuterol 3 Ml Neb) 3 ml INHALATION RT-Q2H PRN PRN Reason: Shortness Of Breath Or Wheezing Last Admin: 06/03/22 04:10 Dose: 3 ml Albuterol/Ipratropium (Ipratropium-Albuterol 3 Ml Neb) 3 ml INHALATION RT-Q4H ASHA Last Admin: 06/05/22 16:54 Dose: 3 ml Amoxicillin/Clavulanate Potassium (Amoxic-Pot Clav 875-125mg 1 Each Tab) 1 each PO Q12HR ASHA; Protocol Last Admin: 06/05/22 09:03 Dose: 1 each Artificial Tears (Artificial Tears-Hypromellose Drops 15 Ml Btl) 2 drops BOTH EYES QID PRN PRN Reason: Dry Eye(s) Last Admin: 05/29/22 23:54 Dose: 2 drops Benzonatate (Benzonatate 100 Mg Cap) 200 mg PO TID FOR[facility]LY [facility], [facility]1983 Last Admin: 06/05/22 16:43 Dose: 200 mg Budesonide (Budesonide 1 Mg/2 Ml Nebu) 1 mg INHALATION RT-BID ASHA Last Admin: 06/05/22 08:17 Dose: 1 mg Calcium Carbonate (Calcium Carb-Vit D 500 Mg-5 Mcg Tab) 1 each PO BID-W/MEALS FORMERLY [facility], 1928–1983 Last Admin: 06/05/22 16:44 Dose: 1 each Formoterol Fumarate (Formoterol Fumarate 20 Mcg/2 Ml Nebu) 20 mcg INHALATION RT-BID FOR[facility]LY [facility], 1928–1983 Last Admin: 06/05/22 08:17 Dose: 20 mcg Furosemide (Furosemide 10 Mg/Ml 2 Ml Vial) 20 mg IV Q12HR ASHA Stop: 06/05/22 21:01 Last Admin: 06/05/22 12:43 Dose: 20 mg Guaifenesin/Codeine Phosphate (Guaifenesin-Coden 100-10mg/5ml 10 Ml Cup) 10 ml PO Q6HR FOR[facility], 1928[facility]1983 Last Admin: 06/05/22 16:44 Dose: 10 ml Heparin Sodium (Porcine) (Heparin Sodium,Porcine/Pf 5,000 Unit/0.5 Ml Syringe) 5,000 unit SQ Q12HR ASHA Last Admin: 06/05/22 09:04 Dose: 5,000 unit Montelukast Sodium (Montelukast 10 Mg Tab) 10 mg PO HS [facility], [facility] Last Admin: 06/04/22 21:58 Dose: 10 mg Naloxone HCl (Naloxone 0.4 Mg/Ml 1 Ml Vial) 0.2 mg IV Q2M PRN PRN Reason: Opioid Reversal Pantoprazole Sodium (Pantoprazole 40 Mg Tablet) 40 mg PO AC-BID FOR[facility], [facility]1983 Last Admin: 06/05/22 16:51 Dose: 40 mg Prednisone (Prednisone 20 Mg Tab) 40 mg PO DAILY FOR[facility]LY [facility], [facility]1983 Last Admin: 06/05/22 09:03 Dose: 40 mg Past medical history to include: Asthma, reflux, hypertension, migraines, arthralgias COVID December 2021 Social history: . No smoking. Alcohol rarely Physical examination: VITAL SIGNS: 98.1, 110, 18, 154.93, 92% on 1 L GENERAL: Sitting up in chair, mild shortness of breath EYES: Pupils equal. Conjunctiva normal. HEENT: External appearance of nose and ears normal, oral cavity endotracheal tube. NECK: JVD not raised; masses not palpable. HEART: First and second heart sounds are normal; no edema. LUNGS: Respiratory rate increased, decreased breaths sounds , some wheezing ABDOMEN: Soft, nontender, liver spleen not palpable, no masses palpable. PSYCH: Alert 3, mood and affect normal INVESTIGATIONS, reviewed in the clinical context: Bronchial washings: Hemophyllis influenza 05/30/2022: WBC 33.8 hemoglobin 15.7 potassium 3.9 pro-calcitonin 0.02 05/29/2022: White count was 7.3 hemoglobin 14.8 platelets 309 potassium 4.2 creatinine 0.63 White count 24.9 hemoglobin 15.2 platelets 225 potassium 3.8 creatinine 0.61 Telemetric tracing personally reviewed by me: Sinus rhythm Chest x-ray film personally reviewed by me-ET tube. Some basal haziness Assessment and plan: -Acute hypoxic respiratory failure from asthma exacerbation:: Some improvement Status post Ventilator support, extubated May 29. Currently on3 L nasal cannula -Acute severe asthma exacerbation: DuoNeb, prednisone 40 mg ., nebulized Pulmicort, Perforomist, Singulair -Essential hypertension Diet-controlled. Chlorthalidone -Chronic recurrent migraine headaches Patient on propranolol for migraine prophylaxis, resume when okay with Dr. Coker -GERD PPI -Acute severe tracheobronchitis, from Haemophilus influenzae Augmentin -Obesity BMI 30.6 Weight loss measures -Full code DuoNeb, oral prednisone., nebulized Pulmicort and Perforomist, Augmentin.. Increased activity. Discussed with pulmonary. Taking some IV Lasix. Add chlorthalidone. Fluid restriction to 1 mL day.
[2022-06-05] MEDS: MONTELUKAST 10 MG TAB PO SCH (21:47)
[2022-06-06] MEDS: guaiFENesin-Coden 100-10MG/5ML 10 ML CUP PO SCH ×2 (00:04→06:56)
[2022-06-06] MEDS: IPRATROPIUM-ALBUTEROL 3 ML NEB INHALATION SCH ×4 (00:53→12:14)
[2022-06-06 03:09] VITALS: RESP 16
[2022-06-06] MEDS: PANTOPRAZOLE 40 MG TABLET PO SCH (06:56)
[2022-06-06] MEDS: CALCIUM CARB-VIT D 500 MG-5 MCG TAB PO SCH (06:56)
[2022-06-06 07:11] LABS: African American GFR (CKD) >90 (>60 ml/min/1.73 sqM); Anion Gap 2 mmol/L; Blood Urea Nitrogen 19 mg/dL (7-17); Calcium 8.7 mg/dL (8.4-10.2); Carbon Dioxide 35 mmol/L (22-30); Chloride 99 mmol/L (98-107); Glucose 88 mg/dL (74-99); Non-African American GFR(CKD) >90 (>60 ml/min/1.73 sqM); Potassium 4.1 mmol/L (3.5-5.1); Sodium 136 mmol/L (137-145)
[2022-06-06 07:18] VITALS: BP 121/81; TEMP 98.2
[2022-06-06] MEDS ORDERED: CHLORTHALIDONE 25 MG TAB PO SCH (09:00)
[2022-06-06] MEDS: BUDESONIDE 1 MG/2 ML NEBU INHALATION SCH (09:01)
[2022-06-06] MEDS: FORMOTEROL FUMARATE 20 MCG/2 ML NEBU INHALATION SCH (09:01)
[2022-06-06] MEDS: HEPARIN SODIUM,PORCINE/PF 5,000 UNIT/0.5 ML SYRINGE SQ SCH (10:36)
[2022-06-06] MEDS: AMOXIC-POT CLAV 875-125MG 1 EACH TAB PO SCH (10:36)
[2022-06-06] MEDS: BENZONATATE 100 MG CAP PO SCH (10:36)
[2022-06-06] MEDS: predniSONE 20 MG TAB PO SCH (10:37)
[2022-06-06 12:19] VITALS: PULSE 104
--- NOTE | 2022-06-06 12:21 | XR ---
EXAMINATION TYPE: XR chest 1V portable DATE OF EXAM: 06/06/2022 COMPARISON: 06/04/2022 INDICATION: Bilateral effusions TECHNIQUE: Single frontal view of the chest is obtained. FINDINGS: The heart size is normal. The pulmonary vasculature is normal. Bibasilar infiltrates are present likely on the basis of subsegmental atelectasis. Small residual rig ht pleural effusion may be present. Previous left pleural effusion is not as well-visualized on the c urrent exam. IMPRESSION: 1. Bibasilar subsegmental atelectasis with small right pleural effusion
--- NOTE | 2022-06-06 15:23 | P.PN ---
Subjective Progress Note Date: 06/06/22 51-year-old female who recently was at [facility] for an asthma exacerbation. She was discharged on Saturday, after a number of days, and she was discharged on prednisone 50 mg a day. The patient in my opinion, improved while at [facility], but her improvement was very gradual in minimal at best. The patient was scheduled to have an elective outpatient bronchoscopy airway examination therapy lavage and BAL today, at [facility]. Unfortunately, the patient's saturations were very low, we attempted to do bronchoscopy in the standard way, and therefore, we elected to intubate her, to do a more safely. Her airways were very inflamed and erythematous. There was mucosal friability. She bled easily. We did do a formal BAL in the right middle lobe. And we decided to keep the patient intubated and mechanically ventilated. The mid a bit for her in the intensive care unit. Her only other medical problem other than severe asthma is migraine cephalgia. No laboratory data as yet. The patient will be maintained on the ventilator. Ventilator settings will be the volume assist control mode, rate 20, tidal volume 400, FiO2 100%, and PEEP of 5. The patient will have a blood gas done eventually. In addition, the patient gets saline at 75 mL an hour, Zosyn, updrafts with albuterol sulfate and ipratropium bromide, along with updrafts with budesonide and formoterol, and Solu-Medrol 60 mg every 6 hours. The patient will stay on propofol for sedation. Labs and x-rays will be done in the morning. Progress note dated 05/29/2022. 51-year-old female was recently at [facility] for severe asthma exacerbation. She was discharged last Saturday, and brought to the bronchoscopy suite yesterday for an elective bronchoscopy and BAL. Unfortunately, as res tarted the procedure, her saturations drop, and she required intubation and mechanical ventilation, to do this procedure safely. I did speak to the family afterwards. This morning, she remains on mechanical ventilator. She is on the volume assist control, rate 20, tidal volume 400, FiO2 down to 50%, with a PEEP of 5. Blood gases on 60% showed pO2 118, pCO2 38, and a pH 7.48. The bronchoscopy in the intubation both place on May 28. This morning she is on propofol at 50 mcg/kg/m, and saline at 75 mL an hour. We are going to resume her Singulair. We will give her Lasix 60 mg IV push. The patient will have a daily interruption of sedation, and a spontaneous breathing trial. Laboratory data includes a white count of 27.3, with a normal hemoglobin, hematocrit, and platelet count. Sodium 135, potassium 4.2, chlorides 105, CO2 27, within normal BUN and creatinine. Chest x-ray shows some mild fluid overload, small lung volumes, and small bilateral effusions. Progress note dated 05/30/2022. 51-year-old female who was extubated yesterday, May 29. He was in the [facility], for a number of days, with a severe asthma exacerbation. We attempted bronchoscopy on Saturday, for BAL, and unfortunately, she had to be intubated. She was extubated yesterday successfully. She is on 3 L of oxygen. She's getting saline at 75 mL an hour. Microbiologic sampling from the bronchoscopy are thus far negative are pending. She's getting usual medications including Zosyn, updrafts, and steroids. We also are giving her a codeine containing cough syrup, and Tessalon. White count 33.8, with a normal hemoglobin, hematocrit, and platelet count. Sodium, potassium, chloride, CO2, BUN and creatinine are all normal. Glucose is 145. The patient is seen today 05/31/2022 in follow-up on the regular medical floor. She is currently sitting up in bed. Awake and alert in no acute distress. She continues with the dry nonproductive cough. She is improved. She is maintaining O2 saturations in the 90s on 3 L/m per nasal cannula. Normal saline at 75 ML's per hour. Bronchoscopy wash cultures are still pending. Pro- calcitonin 0.02. She remains on Zosyn, IV Solu-Medrol, bronchodilators. Heparin for DVT prophylaxis. The patient is seen today 06/01/2022 follow-up on the regular medical floor. She is awake and alert in no acute distress. Sitting up at the bedside. She is improved. Not quite back to her baseline. Still some bronchospasm and wheezin g. Still requiring some extra breathing treatments. She is continued on IV Solu-Medrol increased back to 60 mg IV every 6 hours, DuoNeb inhalations, Pulmicort and Perforomist inhalations, Singulair. Antibiotics in the form of Zosyn. Robitussin and Tessalon Perles for her cough. Bronchial wash cultures are still pending. Pro-calcitonin 0.02. The patient is seen today 06/02/2022 follow-up on the regular medical floor. Sitting up at the bedside. Awake and alert in no acute distress. Breathing better today compared to yesterday. Still not quite back to her baseline. She is continued on IV Solu-Medrol, DuoNeb inhalations, Pulmicort and Perforomist inhalations. He is on Singulair. Remains on Tessalon Perles and Robitussin for her cough. Antibiotics in the form of Augmentin. Bronchial wash cultures were positive for Haemophilus influenza. Progress note dated 06/03/2022. 51-year-old female who was admitted with a diagnosis of severe asthma. She underwent bronchoscopy, with BAL, on Saturday. Prior to that, she was at [facility] and discharged a week ago Saturday. Because of low saturations during bronchoscopy, she was intubated, and transferred to the intensive care unit. She was promptly extubated the following day. The BAL did show evidence of Haemophilus influenzae. She's currently on Augmentin, and prior to that was on Zosyn. She's been slow to improve, but, she is doing much better. She seen today in room 476. She is on O2 at 3 L. No new labs to note. I did order a chest x-ray in the morning. She will see my partner in the morning, and he will make a decision about possible discharge. On 06/04/22, the patient is feeling better and she is less SOB. She is still on 02 and the CXR is showing pulmonary infiltrated, atelectasis and small effusions in the ling bases. The patient has elevated WBC count and this is probably related to steroids. No other complaint and she is ambulating The patient is seen today 06/05/2022 in follow-up on the regular medical floor. She is currently sitting up in a chair at the bedside. Awake and alert in no acute distress. Doing better today compared to yesterday. Still not back to her baseline. Still with some dyspnea on exertion. Some end expiratory wheeze. She is continued on DuoNeb inhalations, Pulmicort and Perforomist inhalations, prednisone taper. Empiric Biaxin the form of Augmentin. She remains on Tessalon Perles. Remains on IV diuretics. She was having fluid retention sec ondary to the steroids. The patient is seen today 06/06/2022 in follow-up on the regular medical floor. She is awake and alert in no acute distress. Feeling nearly back to her baseline. Maintaining good O2 saturations in the 90s on room air. Less edema. She is continued on the current treatment plan. She is anxious to go home. Sodium 136. Potassium 4.1. Bicarb 35. BUN 19. Creatinine 0.67. Objective - Vital Signs Vital signs: Vital Signs Temp 98.2 F 06/06/22 07:13 Pulse 104 H 06/06/22 12:28 Resp 16 06/06/22 07:13 BP 121/81 06/06/22 07:13 Pulse Ox 95 06/06/22 09:02 FiO2 50 05/29/22 10:18 Intake & Output 06/05/22 06/06/22 06/06/22 18:59 06:59 18:59 Output Total 1999 Balance -1999 Weight 85.4 kg Output: Urine 1999 Other: Voiding Method Toilet Toilet # Voids 2 - Exam GENERAL EXAM: Alert, pleasant 51-year-old female, on room air, comfortable in no apparent distress. HEAD: Normocephalic. EYES: Normal reaction of pupils, equal size. NOSE: Clear with pink turbinates. THROAT: No erythema or exudates. NECK: No masses, no JVD. CHEST: No chest wall deformity. LUNGS: Equal air entry with faint end expiratory wheeze, diminished. CVS: S1 and S2 normal with no audible murmur, regular rhythm. ABDOMEN: No hepatosplenomegaly, normal bowel sounds, no guarding or rigidity. SPINE: No scoliosis or deformity SKIN: No rashes CENTRAL NERVOUS SYSTEM: No focal deficits, tone is normal in all 4 extremities. EXTREMITIES: There is 1+ peripheral edema. No clubbing, no cyanosis. Peripheral pulses are intact. - Labs CBC & Chem 7: 06/05/22 05:43 06/06/22 06:24 Labs: Abnormal Lab Results - Last 24 Hours (Table) 06/06/22 Range/Units 06:24 Sodium 136 L (137-145) mmol/L Carbon Dioxide 35 H (22-30) mmol/L BUN 19 H (7-17) mg/dL Assessment and Plan Assessment: Acute hypoxemic respiratory failure, secondary to severe asthma, status post bronchoscopy and intubation with mechanical ventilation, on 05/28/2022. Extubated on 05/29/2022. History of severe asthma. History of migraine cephalgia. Recent admission to [facility] for severe asthma exacerbation. Plan: The patient was seen and evaluated Medications and labs reviewed Stable and on room air Cleared for discharge from pulmonary standpoint Follow up with Dr. Coker in the office next week I have personally seen and examined the patient, performed the documentation and the assessment and plan as written. Number of minutes spent on the visit: 10. This is a joint evaluation that was done along with INTERACTIVE MEDIA MARKETING STRATEGIST. The patient was seen and evaluated personally. I reviewed and discussed the the above-mentioned plan with the patient and the INTERACTIVE MEDIA MARKETING STRATEGIST. This evaluation was done in more than 20 minutes. I agree to the above-mentioned evaluation, information and planning.
--- NOTE | 2022-06-06 19:16 | P.DS ---
Providers Date of admission: 05/28/22 13:15 Expected date of discharge: 06/06/22 Attending physician: Mikhail Mitchell Consults: 05/28/22 14:01 Consult Physician Routine Consulting Provider: Shalom Coker Reason/Comments: ICU management/vent Do you want consulting provider notified?: Already Contacted Primary care physician: Harini Alejo [facility] Course: Chief Complaint: Short of breath Hospital course: This is a 51-year-old patient, follows with Dr. Yarelis Alejo. Technical Services Assistant Dr. Coker. Patient long-standing asthma. Patient was recently at [facility] then for 5 days being discharged 3 days ago. She still having respiratory symptoms when she left. Patient is scheduled to have a bronchoscopy with lavage today. Relevant procedures she was found an extensive inflammatory changes secretions. And friable tissue including bleeding. Dr. coker decided to keep the patient intubated and admitted to the ICU. Patient is on propofol. Sinus rhythm. at the bedside. 05/29/2022: Patient was extubated earlier today. On nasal cannula. Some cough. Patient's 2 daughters at the bedside. Remains on bronchodilators steroids IV Zosyn. 05/30/2022: Up in a chair. Shortness of breath. Some congested cough. Throat hurts with cold liquids. Remains on IV Zosyn. DuoNeb. Cultures pending. 05/31/2022: Up in a recliner. Eating a bit better. Breathing better. On IV Zosyn DuoNeb Solu-Medrol. Discussed with patient. Incentive spirometry discussed and ordered Cultures pending. 06/01/2022: Patient had some more wheezing this morning. Solu-Medrol increased to 60 mg every 6. Deep breathing exercises. Eating fair. Up to the bathroom. Family at the bedside. 06/02/2022: Some shortness of breath and wheezing. Getting slowly in the hallway. No phlegm. IV Solu-Medrol. Oral intake fair. Bronchial culture positive for Haemophilus influenzae. 06/03/2022: Congestive some shortness of breath and wheezing. On high dose IV Solu-Medrol. Care was discussed with the patient and mother at the bedside. Patient is ambulating in the room. Using incentive spirometry. Breathing exercises. Patient be switched over to Augmentin 06/04/2022: Ambulating. Some shortness of breath and wheezing present. This morning remains on IV Solu-Medrol. Later seen by pulmonary changed over to oral prednisone. 06/05/2022: Episodes of shortness of breath wheezing up and down. Deep breathing exercises. On oral prednisone. DuoNeb. Augmentin. Discussed with patient in pulmonary. Some Lasix given by pulmonary. Fluid retention secondary to steroids. 06/06/2022: Patient done well overnight. Off oxygen. Breathing better. Discussed Dr. Romero. We'll discharged on 40 mg of prednisone. She's been on steroids for a while. This can be tapered as outpatient by pharmacy clerk Dr. Neri. Breathing exercises discussed. Questions answered. Discussed fluid restriction. Discussion and discharge planning more than 35 minutes Past medical history to include: Asthma, reflux, hypertension, migraines, arthralgias COVID December 2021 Social history: . No smoking. Alcohol rarely Physical examination: VITAL SIGNS: 98.2, 101, 16, 120/81, 95% room air GENERAL: Sitting up in chair, breathing stable EYES: Pupils equal. Conjunctiva normal. HEENT: External appearance of nose and ears normal, oral cavity endotracheal tube. NECK: JVD not raised; masses not palpable. HEART: First and second heart sounds are normal; no edema. LUNGS: Respiratory rate normal, appropriate entry ABDOMEN: Soft, nontender, liver spleen not palpable, no masses palpable. PSYCH: Alert 3, mood and affect normal INVESTIGATIONS, reviewed in the clinical context: Bronchial washings: Hemophyllis influenza 05/30/2022: WBC 33.8 hemoglobin 15.7 potassium 3.9 pro-calcitonin 0.02 05/29/2022: White count was 7.3 hemoglobin 14.8 platelets 309 potassium 4.2 creatinine 0.63 White count 24.9 hemoglobin 15.2 platelets 225 potassium 3.8 creatinine 0.61 Telemetric tracing personally reviewed by me: Sinus rhythm Chest x-ray film personally reviewed by me-ET tube. Some basal haziness Assessment and plan: -Acute hypoxic respiratory failure from asthma exacerbation:: Improved Status post Ventilator support, extubated May 29. Down to room air -Acute severe asthma exacerbation: Improved DuoNeb, prednisone 40 mg ., nebulized Pulmicort, PerforomistBrigette Discharged on: Ventolin nebulizer 3 times a day, prednisone 40 mg a day, Advair 500/50 -Essential hypertension Diet-controlled. Chlorthalidone -Chronic recurrent migraine headaches Patient on propranolol for migraine prophylaxis, resume when okay with Dr. Coker -GERD PPI -Acute severe tracheobronchitis, from Haemophilus influenzae Augmentin -Obesity BMI 30.6 Weight loss measures -Full code Disposition: Home Plan - Discharge Summary Discharge Rx Participant: No New Discharge Prescriptions: New Chlorthalidone [Hygroton] 25 mg PO DAILY #30 tab Calcium Carb-Vit D 500Mg-5Mcg [Oscal 500+D 5 Mcg (200 Iu)] 1 each PO BID- W/MEALS #60 tab Albuterol Nebulized [Ventolin Nebulized] 2.5 mg INHALATION TID #75 ml Artificial Tears-Hypromellose [Artificial Tear Drops] 2 drops BOTH EYES QID PRN ml PRN Reason: Dry Eye(S) Amoxic-Pot Clav 875-125Mg [Augmentin 875-125] 1 each PO Q12HR #14 tab predniSONE [Deltasone] 40 mg PO DAILY #60 tab Omeprazole [PriLOSEC] 20 mg PO AC-BID #60 cap Continue Montelukast [Singulair] 10 mg PO HS Albuterol Inhaler [Ventolin Hfa Inhaler] 1 - 2 puff INHALATION RT-QID PRN PRN Reason: Bronchospasm Albuterol Nebulized [Ventolin Nebulized] 2.5 mg INHALATION RT-QID PRN PRN Reason: Shortness Of Breath Fluticasone Propion/Salmeterol [Advair 500-50 Diskus] 1 puff INHALATION BID Unk Vitamin C 1 tab PO DAILY Unk Multi Vitamin 1 tab PO DAILY Discontinued Omeprazole [PriLOSEC] 20 mg PO DAILY PRN PRN Reason: gerd Cholecalciferol [Vitamin D3 (25 Mcg = 1000 Iu)] 50 mcg PO DAILY Discharge Medication List Montelukast [Singulair] 10 mg PO HS 08/04/14 [History] Albuterol Inhaler [Ventolin Hfa Inhaler] 1 - 2 puff INHALATION RT-QID PRN 08/05/14 [History] Albuterol Nebulized [Ventolin Nebulized] 2.5 mg INHALATION RT-QID PRN 08/16/16 [History] Fluticasone Propion/Salmeterol [Advair 500-50 Diskus] 1 puff INHALATION BID 05/25/22 [History] Unk Multi Vitamin 1 tab PO DAILY 05/25/22 [History] Unk Vitamin C 1 tab PO DAILY 05/25/22 [History] Albuterol Nebulized [Ventolin Nebulized] 2.5 mg INHALATION TID #75 ml 06/06/22 [Rx] Amoxic-Pot Clav 875-125Mg [Augmentin 875-125] 1 each PO Q12HR #14 tab 06/06/22 [Rx] Artificial Tears-Hypromellose [Artificial Tear Drops] 2 drops BOTH EYES QID PRN ml 06/06/22 [Rx] Calcium Carb-Vit D 500Mg-5Mcg [Oscal 500+D 5 Mcg (200 Iu)] 1 each PO BID-W/MEALS #60 tab 06/06/22 [Rx] Chlorthalidone [Hygroton] 25 mg PO DAILY #30 tab 06/06/22 [Rx] Omeprazole [PriLOSEC] 20 mg PO AC-BID #60 cap 06/06/22 [Rx] predniSONE [Deltasone] 40 mg PO DAILY #60 tab 06/06/22 [Rx] Follow up Appointment(s)/Referral(s): [facility] [NON-STAFF] - As Needed (nebulizer) Shalom Coker DO [Doctor of Osteopathic Medicine] - 1 Week Harini Alejo MD [Primary Care Provider] - 1 Week Patient Instructions/Handouts: Asthma (DC)
== END 2022-06-06 13:40 | disposition home or self-care (01) | DRG 208 ==
LOC: ORWHC2ENDO 11:23 → 2SICU 13:06 → ORWHC2ENDO 13:15 → 2SICU 13:15 → 4SSUR 05-30 22:30
PROVIDERS: ADMIT Hospitalist; ATTEND Hospitalist
PROC: 0B9D8ZX Drainage of Right Middle Lung Lobe, Via Natural or Artificial Opening Endoscopic, Diagnostic (ICD-10-PCS; principal; 2022-05-28 12:30)
PROC: 0D9670Z Drainage of Stomach with Drainage Device, Via Natural or Artificial Opening (ICD-10-PCS; principal; 2022-05-28 12:30)
PROC: 5A1945Z Respiratory Ventilation, 24-96 Consecutive Hours (ICD-10-PCS; principal; 2022-05-28 12:30)
DX: J45.51 Severe persistent asthma with (acute) exacerbation (principal); J96.01 Acute respiratory failure with hypoxia; J98.11 Atelectasis; J20.9 Acute bronchitis, unspecified; E87.70 Fluid overload, unspecified; D72.829 Elevated white blood cell count, unspecified; I10 Essential (primary) hypertension; G43.909 Migraine, unspecified, not intractable, without status migrainosus; K21.9 Gastro-esophageal reflux disease without esophagitis; M19.90 Unspecified osteoarthritis, unspecified site; E66.9 Obesity, unspecified; Z68.30 Body mass index [BMI] 30.0-30.9, adult; T38.0X5A Adverse effect of glucocorticoids and synthetic analogues, initial encounter; Z79.51 Long term (current) use of inhaled steroids; Z79.899 Other long term (current) drug therapy; Z86.16 Personal history of COVID-19; Z71.3 Dietary counseling and surveillance; Z88.1 Allergy status to other antibiotic agents; Z91.011 Allergy to milk products
CPT/HCPCS: 31624; 36600; 71045; 71046; 80048; 80053; 82805; 83735; 84145; 85025; 87070; 87102; 87116; 87205; 87206; 87252; 87496; 87498; 87502; 87529; 87634; 87798; 88108; 88305; 89050; 94002; 94003; 94640; 94760

== ENCOUNTER 2022-06-09 08:02 | Inpatient (IN) | payer BC ==
[2022-06-09] MEDS ORDERED: SODIUM CHLORIDE 0.9% 500 ML 500 ML IV STA (08:35)
--- NOTE | 2022-06-09 08:44 | ED ---
General Adult HPI - General Chief complaint: Chest Pain Stated complaint: back pain, chest pain Time Seen by Provider: 06/09/22 08:15 Source: patient, RN notes reviewed, old records reviewed Mode of arrival: ambulatory - History of Present Illness Initial comments: This is a 51-year-old female who was just discharged the hospital 2 days ago. Patient was in the hospital and was determined to have pneumonia him off as influenza. Patient states last night she had no episode which started to sweat and felt short of breath and then it seemed to subside. Patient states that it occurred in the middle the night she started having chest pain radiated to her back became very short of breath she took 3 baby aspirin and it seemed to subside over half an hour and then she woke up this morning and it started to occur again. Patient denies any recent fever or chills. Patient states she still is occasional cough. Patient denies any headache patient denies lightheadedness or dizziness. Patient denies any abdominal pain. Patient states that this time she has a very slight chest discomfort but is very mild compared to earlier today. - Related Data Home Medications Medication Instructions Recorded Confirmed Montelukast [Singulair] 10 mg PO HS 08/04/14 05/25/22 Albuterol Inhaler [Ventolin Hfa 1 - 2 puff INHALATION RT-QID PRN 08/05/14 05/25/22 Inhaler] Albuterol Nebulized [Ventolin 2.5 mg INHALATION RT-QID PRN 08/16/16 05/25/22 Nebulized] Fluticasone Propion/Salmeterol 1 puff INHALATION BID 05/25/22 05/25/22 [Advair 500-50 Diskus] Unk Multi Vitamin 1 tab PO DAILY 05/25/22 05/25/22 Unk Vitamin C 1 tab PO DAILY 05/25/22 05/25/22 Previous Rx's Medication Instructions Recorded Albuterol Nebulized [Ventolin 2.5 mg INHALATION TID #75 ml 06/06/22 Nebulized] Amoxic-Pot Clav 875-125Mg 1 each PO Q12HR #14 tab 06/06/22 [Augmentin 875-125] Artificial Tears-Hypromellose 2 drops BOTH EYES QID PRN ml 06/06/22 [Artificial Tear Drops] Calcium Carb-Vit D 500Mg-5Mcg 1 each PO BID-W/MEALS #60 tab 06/06/22 [Oscal 500+D 5 Mcg (200 Iu)] Chlorthalidone [Hygroton] 25 mg PO DAILY #30 tab 06/06/22 Omeprazole [PriLOSEC] 20 mg PO AC-BID #60 cap 06/06/22 predniSONE [Deltasone] 40 mg PO DAILY #60 tab 06/06/22 Allergies Allergy/AdvReac Type Severity Reaction Status Date / Time Milk Containing Products Allergy Nausea & Verified 06/09/22 08:13 [Dairy] Vomiting & Diarrhea moxifloxacin HCl Allergy Nausea & Verified 06/09/22 08:13 [From Avelox] Vomiting Review of Systems ROS Statement: Those systems with pertinent positive or pertinent negative responses have been documented in the HPI. ROS Other: All systems not noted in ROS Statement are negative. Past Medical History Past Medical History: Atrial Fibrillation, Asthma, GERD/Reflux, Hypertension Additional Past Medical History / Comment(s): migraines, dx in 2019 w/ paroxysmal atrial fib. monitored by Dr Mon q 6 mos Holter for monitoring and no anticoagulation, swelling in neck ? thryroid. will see PCP. arthritis generalized. pt hospitalized [facility] 05/21/22 for cough increased SOB, ,will be discharged today. recent steroid use. hx of Covid 12/2021. hx RSV History of Any Multi-Drug Resistant Organisms: None Reported Past Surgical History: Appendectomy, Tonsillectomy, Uterine Ablation Additional Past Surgical History / Comment(s): D&C; Bunionectomy, colonoscopy. bronchoscopy Past Anesthesia/Blood Transfusion Reactions: Postoperative Nausea & Vomiting (PONV) Additional Past Anesthesia/Blood Transfusion Reaction / Comment(s): no blood tranfusions Past Psychological History: No Psychological Hx Reported Smoking Status: Never smoker Past Alcohol Use History: Rare Past Drug Use History: None Reported - Past Family History Mother Family Medical History: Cancer, Myocardial Infarction ([place]) Additional Family Medical History / Comment(s): breast cancer Father Additional Family Medical History / Comment(s): heart failure and multip organ failure recently passed General Exam - General Exam Comments Initial Comments: GENERAL: Patient is well-developed and well-nourished. Patient is nontoxic and well- hydrated and is in mild distress. ENT: Neck is soft and supple. No significant lymphadenopathy is noted. Oropharynx is clear. Moist mucous membranes. Neck has full range of motion without elicit ing any pain. EYES: The sclera were anicteric and conjunctiva were pink and moist. Extraocular mo vements were intact and pupils were equal round and reactive to light. Eyelids were unremarkable. PULMONARY: Unlabored respirations. Good breath sounds bilaterally. Crackles left base CARDIOVASCULAR: There is a regular rate and rhythm without any murmurs gallops or rubs. ABDOMEN: Soft and nontender with normal bowel sounds. SKIN: Skin is clear with no lesions or rashes and otherwise unremarkable. NEUROLOGIC: Patient is alert and oriented x3. Cranial nerves II through XII are grossly intact. Motor and sensory are also intact. Normal speech, volume and content. Symmetrical smile. MUSCULOSKELETAL: Normal extremities with adequate strength and full range of motion. No lower ex tremity swelling or edema. No calf tenderness. LYMPHATICS: No significant lymphadenopathy is noted PSYCHIATRIC: Normal psychiatric evaluation. Course Vital Signs 06/09/22 06/09/22 06/09/22 08:06 08:34 09:25 Temperature 97.9 F 98.6 F Pulse Rate 124 H 114 H 111 H Respiratory 20 18 12 Rate Blood Pressure 145/103 156/110 142/104 O2 Sat by Pulse 95 96 95 Oximetry Medical Decision Making - Medical Decision Making EKG is interpreted by me. EKG shows sinus tachycardia at 113 bpm OR interval 136 dresses 76 QT interval 288 QTC is 366. Patient's EKG shows no ST segment elevation or depression. Chest x-ray is interpreted by me. X-ray shows no acute abnormality. I started the patient on antibiotics because of the elevated white count and a previous history of Haemophilus is 417. Patient has not yet had a CAT scan and she still having some shortness of breath and tachycardia is why we'll be CAT scan for PE. I spoke with Dr. Barreto and he agreed to admit the patient admitted the patient wrote admitting orders. I consulted cardiology and pulmonology. - Lab Data Result diagrams: 06/09/22 08:44 06/09/22 08:44 Lab Results 06/09/22 06/09/22 06/09/22 Range/Units 08:30 08:44 08:44 WBC 23.4 H (3.8-10.6) k/uL RBC 5.07 (3.80-5.40) m/uL Hgb 16.7 H (11.4-16.0) gm/dL Hct 48.3 H (34.0-46.0) % MCV 95.3 (80.0-100.0) fL MCH 32.9 (25.0-35.0) pg MCHC 34.5 (31.0-37.0) g/dL RDW 13.2 (11.5-15.5) % Plt Count 348 (150-450) k/uL MPV 8.1 Neutrophils % 77 % Lymphocytes % 16 % Monocytes % 4 % Eosinophils % 1 % Basophils % 1 % Neutrophils # 18.1 H (1.3-7.7) k/uL Lymphocytes # 3.6 (1.0-4.8) k/uL Monocytes # 1.0 (0-1.0) k/uL Eosinophils # 0.2 (0-0.7) k/uL Basophils # 0.2 (0-0.2) k/uL PT 9.9 (9.0-12.0) sec INR 0.9 (<1.2) APTT 21.2 L (22.0-30.0) sec D-Dimer 0.46 (<0.60) mg/L FEU Sodium (137-145) mmol/L Potassium (3.5-5.1) mmol/L Chloride (98-107) mmol/L Carbon Dioxide (22-30) mmol/L Anion Gap mmol/L BUN (7-17) mg/dL Creatinine (0.52-1.04) mg/dL Est GFR (CKD-EPI)AfAm (>60 ml/min/1.73 sqM) Est GFR (CKD-EPI)NonAf (>60 ml/min/1.73 sqM) Glucose (74-99) mg/dL Plasma Lactic Acid [place]ald 1.5 (0.7-2.0) mmol/L Calcium (8.4-10.2) mg/dL Magnesium (1.6-2.3) mg/dL Total Bilirubin (0.2-1.3) mg/dL AST (14-36) U/L ALT (4-34) U/L Alkaline Phosphatase (38-126) U/L Troponin I (0.000-0.034) ng/mL Total Protein (6.3-8.2) g/dL Albumin (3.5-5.0) g/dL 06/09/22 06/09/22 Range/Units 08:44 08:44 WBC (3.8-10.6) k/uL RBC (3.80-5.40) m/uL Hgb (11.4-16.0) gm/dL Hct (34.0-46.0) % MCV (80.0-100.0) fL MCH (25.0-35.0) pg MCHC (31.0-37.0) g/dL RDW (11.5-15.5) % Plt Count (150-450) k/uL MPV Neutrophils % % Lymphocytes % % Monocytes % % Eosinophils % % Basophils % % Neutrophils # (1.3-7.7) k/uL Lymphocytes # (1.0-4.8) k/uL Monocytes # (0-1.0) k/uL Eosinophils # (0-0.7) k/uL Basophils # (0-0.2) k/uL PT (9.0-12.0) sec INR (<1.2) APTT (22.0-30.0) sec D-Dimer (<0.60) mg/L FEU Sodium 131 L (137-145) mmol/L Potassium 4.5 (3.5-5.1) mmol/L Chloride 99 (98-107) mmol/L Carbon Dioxide 25 (22-30) mmol/L Anion Gap 7 mmol/L BUN 25 H (7-17) mg/dL Creatinine 0.67 (0.52-1.04) mg/dL Est GFR (CKD-EPI)AfAm >90 (>60 ml/min/1.73 sqM) Est GFR (CKD-EPI)NonAf >90 (>60 ml/min/1.73 sqM) Glucose 115 H (74-99) mg/dL Plasma Lactic Acid [place] (0.7-2.0) mmol/L Calcium 9.2 (8.4-10.2) mg/dL Magnesium 2.0 (1.6-2.3) mg/dL Total Bilirubin 1.8 H (0.2-1.3) mg/dL AST 58 H (14-36) U/L ALT 116 H (4-34) U/L Alkaline Phosphatase 78 (38-126) U/L Troponin I <0.012 (0.000-0.034) ng/mL Total Protein 6.9 (6.3-8.2) g/dL Albumin 4.0 (3.5-5.0) g/dL Disposition Clinical Impression: Chest pain, Dyspnea, Leukocytosis, Tachycardia Disposition: ADMITTED IP TO THIS HOSP Referrals: Harini Alejo MD [Primary Care Provider] - 1-2 days Time of Disposition: 11:15
[2022-06-09 08:48] LABS: Basophils # (A) 0.2 k/uL (0-0.2); Basophils % (A) 1 %; Eosinophils # (A) 0.2 k/uL (0-0.7); Eosinophils % (A) 1 %; HCT 48.3 % (34.0-46.0); HGB 16.7 gm/dL (11.4-16.0); Lymphocytes # (A) 3.6 k/uL (1.0-4.8); Lymphocytes % (A) 16 %; MCH 32.9 pg (25.0-35.0); MCHC 34.5 g/dL (31.0-37.0); MCV 95.3 fL (80.0-100.0); Mean Platelet Volume 8.1; Monocytes % (A) 4 %; Neutrophils # (A) 18.1 k/uL (1.3-7.7); Neutrophils % (A) 77 %; Platelet Count 348 k/uL (150-450); RBC 5.07 m/uL (3.80-5.40); RDW 13.2 % (11.5-15.5); WBC 23.4 k/uL (3.8-10.6)
[2022-06-09 09:04] LABS: INR 0.9 (<1.2); Partial Thromboplastin Time 21.2 sec (22.0-30.0); Prothrombin Time 9.9 sec (9.0-12.0)
--- NOTE | 2022-06-09 09:08 | XR ---
EXAMINATION TYPE: XR chest 2V DATE OF EXAM: 06/09/2022 8:58 AM COMPARISON: Chest radiographs from 06/06/2022 TECHNIQUE: XR chest 2V Frontal and lateral views of the chest. CLINICAL INDICATION:Female, 51 years old with history of Chest Pain; FINDINGS: Lungs/Pleura: There is no evidence of pleural effusion, focal consolidation, or pneumothorax. Pulmonary vascularity: Unremarkable. Heart/mediastinum: Cardiomediastinal silhouette is unremarkable. Musculoskeletal: No acute osseous pathology. IMPRESSION: No acute cardiopulmonary disease/process.
[2022-06-09 09:10] LABS: ALT 116 U/L (4-34); African American GFR (CKD) >90 (>60 ml/min/1.73 sqM); Anion Gap 7 mmol/L; Blood Urea Nitrogen 25 mg/dL (7-17); Calcium 9.2 mg/dL (8.4-10.2); Carbon Dioxide 25 mmol/L (22-30); Chloride 99 mmol/L (98-107); Glucose 115 mg/dL (74-99); Non-African American GFR(CKD) >90 (>60 ml/min/1.73 sqM); Sodium 131 mmol/L (137-145); Total Bilirubin 1.8 mg/dL (0.2-1.3); Total Protein 6.9 g/dL (6.3-8.2)
[2022-06-09 09:21] LABS: AST 58 U/L (14-36); Alkaline Phosphatase 78 U/L (38-126); Potassium 4.5 mmol/L (3.5-5.1)
[2022-06-09] MEDS ORDERED: cefTRIAXone IN SWFI 1,000 MG/10 ML SYRINGE IVP STA (11:17)
[2022-06-09] MEDS ORDERED: NITROGLYCERIN SL TABS 0.4 MG TAB SUBLINGUAL PRN (11:38)
--- NOTE | 2022-06-09 12:10 | CT ---
EXAMINATION TYPE: CT chest angio for PE CT DLP: 370.5 mGycm, Automated exposure control for dose reduction was used. DATE OF EXAM: 06/09/2022 11:51 AM COMPARISON: Chest radiograph from same day. CLINICAL INDICATION:Female, 51 years old with history of Tachycardic and short of breath; chest and b ack pain TECHNIQUE/CONTRAST: CTA scan of the thorax is performed with IV Contrast, patient injected with 100 mL of Isovue 370, pul monary embolism protocol. MIP images are created and reviewed. FINDINGS: Pulmonary Artery: There is no evidence for a filling defect within the pulmonary vasculature to sugge st acute pulmonary embolism. The pulmonary artery is of normal size. Lungs/Pleura: No evidence of focal consolidation, pleural effusion or pneumothorax. Scattered streaky atelectasis in the lung bases. Airway: Large airways are patent. Heart: Heart is mildly enlarged for size.r Vasculature: No evidence of aortic aneurysm. Mediastinum: No gross evidence of adenopathy. Musculoskeletal: No acute osseous abnormalities, mild disc degeneration changes. Soft Tissues: Unremarkable. Lower neck: No significant findings. Upper Abdomen: Hepatic cyst. Small hiatal hernia. IMPRESSION: 1. No evidence of pulmonary embolism. 2. No evidence for airspace disease, scattered atelectasis in the lung bases. 3. Hiatal hernia.
[2022-06-09] MEDS ORDERED: ARTIFICIAL TEARS-HYPROMELLOSE DROPS 15 ML BTL BOTH EYES PRN (13:19)
[2022-06-09] MEDS ORDERED: ALBUTEROL NEBULIZED 2.5 MG/3 ML INHALATION PRN ×3 (13:19→20:57)
--- NOTE | 2022-06-09 13:28 | P.HPIM ---
History of Present Illness Patient is a 51-year-old female came in with complaints of symptoms of not feeling well excess is pretty chest pressure-like sensation radiating to the back. Patient does have shortness of breath patient does have extensive history of asthma was hospitalized multiple times recently for that and patient was intubated during her last hospitalization patient remains on his stomach steroids and antibiotics was discharged about 3 days ago. Patient denied any abdominal pain. Patient is saturating well patient does doesn't have any fever patient does have chronically elevated which actually has come down. She is persistently tachycardic sinus tachycardia apparently patient has been tachycardic since her recent hospitalizations patient does have elevated mildly elevated AST and ALT. First set of troponin is negative EKG sinus tach cardia without any acute ST-T wave changes REVIEW OF SYSTEMS: CONSTITUTIONAL: As mentioned in HPI HEENT: No recent visual problems or hearing problems. Denied any sore throat. CARDIOVASCULAR: No chest pain, orthopnea, PND, no palpitations, no syncope. PULMONARY: No shortness of breath, no cough, no hemoptysis. GASTROINTESTINAL: No diarrhea, no nausea, no vomiting, no abdominal pain. NEUROLOGICAL: No headaches, no weakness, no numbness. HEMATOLOGICAL: Denies any bleeding or petechiae. GENITOURINARY: Denies any burning micturition, frequency, or urgency. MUSCULOSKELETAL/RHEUMATOLOGICAL: Denies any joint pain, swelling, or any muscle pain. ENDOCRINE: Denies any polyuria or polydipsia. The rest of the 14-point review of systems is negative. PHYSICAL EXAMINATION: GENERAL: The patient is alert and oriented x3, not in any acute distress. Well developed, well nourished. HEENT: Pupils are round and equally reacting to light. EOMI. No scleral icterus. No conjunctival pallor. Normocephalic, atraumatic. No pharyngeal erythema. No thyromegaly. CARDIOVASCULAR: S1 and S2 present. No murmurs, rubs, or gallops. PULMONARY: Chest is clear to auscultation, no wheezing or crackles. ABDOMEN: Soft, nontender, nondistended, normoactive bowel sounds. No palpable organomegaly. MUSCULOSKELETAL: No joint swelling or deformity. EXTREMITIES: No cyanosis, clubbing, or pedal edema. NEUROLOGICAL: Gross neurological examination did not reveal any focal deficits. SKIN: No rashes. Assessment and plan -Chest pain we'll rule out acute coronary syndromes patient chest pain is atypical, cardiology will evaluate the patient -Rule out pulmonary embolism -History of for severe persistent asthma patient is presently not in status asthmaticus continue with antibiotics and it steroids inhalational treatments monitor her overnight -Elevated liver enzymes which were normal during her last admission and this is secondary to Augmentin because of which I'll hold off on Augmentin patient will be started on Ceftin instead we'll repeat liver enzymes tomorrow Leukocytosis appears to be chronic actually coming down compared to last hospitalization no further intervention at this time need to follow up with the oncology as an outpatient -Chest esophageal reflux disease continue with the [facility] DVT prophylaxis: Ambulation Past Medical History Past Medical History: Atrial Fibrillation, Asthma, GERD/Reflux, Hypertension Additional Past Medical History / Comment(s): migraines, dx in 2019 w/ paroxysmal atrial fib. monitored by Dr Mon q 6 mos Holter for monitoring and no anticoagulation, swelling in neck ? thryroid. will see PCP. arthritis generalized. pt hospitalized [facility] 05/21/22 for cough increased SOB, ,will be discharged today. recent steroid use. hx of Covid 12/2021. hx RSV History of Any Multi-Drug Resistant Organisms: None Reported Past Surgical History: Appendectomy, Tonsillectomy, Uterine Ablation Additional Past Surgical History / Comment(s): D&C; Bunionectomy, colonoscopy. bronchoscopy Past Anesthesia/Blood Transfusion Reactions: Postoperative Nausea & Vomiting (PONV) Additional Past Anesthesia/Blood Transfusion Reaction / Comment(s): no blood tranfusions Past Psychological History: No Psychological Hx Reported Smoking Status: Never smoker Past Alcohol Use History: Rare Past Drug Use History: None Reported - Past Family History Mother Family Medical History: Cancer, Myocardial Infarction ([place]) Additional Family Medical History / Comment(s): breast cancer Father Additional Family Medical History / Comment(s): heart failure and multip organ failure recently passed Medications and Allergies Home Medications Medication Instructions Recorded Confirmed Type Montelukast [Singulair] 10 mg PO HS 08/04/14 06/09/22 History Albuterol Inhaler [Ventolin Hfa 1 - 2 puff INHALATION RT-QID PRN 08/05/14 06/09/22 History Inhaler] Albuterol Nebulized [Ventolin 2.5 mg INHALATION RT-QID PRN 08/16/16 06/09/22 History Nebulized] Artificial Tears-Hypromellose 2 drops BOTH EYES QID PRN ml 06/06/22 06/09/22 Rx [Artificial Tear Drops] Chlorthalidone [Hygroton] 25 mg PO DAILY #30 tab 06/06/22 06/09/22 Rx Omeprazole [PriLOSEC] 20 mg PO AC-BID #60 cap 06/06/22 06/09/22 Rx predniSONE [Deltasone] 40 mg PO DAILY #60 tab 06/06/22 06/09/22 Rx Amoxic-Pot Clav 875-125Mg 1 tab PO Q12HR 06/09/22 06/09/22 History [Augmentin 875-125] Calcium Carb-Vit D 500Mg-5Mcg 1 tab PO BID-W/MEALS 06/09/22 06/09/22 History [Oscal 500+D 5 Mcg (200 Iu)] Fluticasone Propion/Salmeterol 1 puff INHALATION RT-BID 06/09/22 06/09/22 History [Wixela 500-50 Inhub] Multivitamins, Thera [Multivitamin 1 tab PO DAILY 06/09/22 06/09/22 History (formulary)] guaiFENesin [Mucinex] 600 mg PO Q12H 06/09/22 06/09/22 History Allergies Allergy/AdvReac Type Severity Reaction Status Date / Time Milk Containing Products Allergy Nausea & Verified 06/09/22 12:27 [Dairy] Vomiting & Diarrhea moxifloxacin HCl Allergy Nausea & Verified 06/09/22 12:27 [From Avelox] Vomiting Physical Exam Vitals: Vital Signs Temp Pulse Resp BP Pulse Ox 06/09/22 12:29 125 H 18 139/97 96 06/09/22 09:25 111 H 12 142/104 95 06/09/22 08:34 98.6 F 114 H 18 156/110 96 06/09/22 08:06 97.9 F 124 H 20 145/103 95 Intake and Output 06/08/22 06/09/22 06/09/22 22:59 06:59 14:59 Other: Weight 83.007 kg Results CBC & Chem 7: 06/09/22 08:44 06/09/22 08:44 Labs: Abnormal Lab Results - Last 24 Hours (Table) 06/09/22 06/09/22 06/09/22 Range/Units 08:44 08:44 08:44 WBC 23.4 H (3.8-10.6) k/uL Hgb 16.7 H (11.4-16.0) gm/dL Hct 48.3 H (34.0-46.0) % Neutrophils # 18.1 H (1.3-7.7) k/uL APTT 21.2 L (22.0-30.0) sec Sodium 131 L (137-145) mmol/L BUN 25 H (7-17) mg/dL Glucose 115 H (74-99) mg/dL Total Bilirubin 1.8 H (0.2-1.3) mg/dL AST 58 H (14-36) U/L ALT 116 H (4-34) U/L
[2022-06-09] MEDS: guaiFENesin 600 MG TABLET.ER PO SCH ×2 (14:18→20:26)
[2022-06-09] MEDS: predniSONE 20 MG TAB PO SCH (14:18)
[2022-06-09] MEDS: METOPROLOL TARTRATE 25 MG TAB PO SCH (17:42)
[2022-06-09] MEDS: CALCIUM CARB-VIT D 500 MG-5 MCG TAB PO SCH (17:42)
[2022-06-09] MEDS: PANTOPRAZOLE 40 MG TABLET PO SCH (17:42)
--- NOTE | 2022-06-09 17:48 | P.CNPUL ---
History of Present Illness Consult date: 06/09/22 Reason for consult: chest pain History of present illness: This is a 51-year-old female patient was coming in for chest pain. The patient was recently discharged from the hospital after being treated for asthma exacerbation, Haemophilus influenza pneumonia, hypoxic respiratory failure, requiring intubation mechanical ventilation and the patient has improved and the patient was discharged home on oral antibiotics, prednisone burst taper, Sym bicort and nebulizer. He was noted that the patient was tachycardic and she was in sinus tachycardia time of admission and she was having tachycardia with exertion and movement. This was attributed to deconditioning and aggressive use of steroids and bronchodilators. No history of any valvular heart disease. No 70 cardiac disease. No history of any thyroid disease. The patient came back to the hospital because of GI because of chest pain that occurred yesterday and overnight and she decided to be sharp. In same that she is A Sore Chest Wall Palpation. Note That the Patient Was Having Significant Amount of Coughing during cardiac hospitalizations. She came into the hospital. CT antigram shows limited atelectatic changes in lung bases. No evidence of any pulmonary embolism. Cardiac enzymes were not elevated. The patient has a stable asthma this point in time and there is no signs of any acute bronchospasm wheezing. She was admitted to the hospital in Cardiologic consultation was requested. She is doing well for now. She is on room air oxygen. Review of Systems All systems: negative (chest pain as discussed above, sharp, midsternal, reproducible.) Past Medical History Past Medical History: Atrial Fibrillation, Asthma, GERD/Reflux, Hypertension Additional Past Medical History / Comment(s): migraines, dx in 2019 w/ paroxysmal atrial fib. monitored by Dr Mon q 6 mos Holter for monitoring and no anticoagulation, swelling in neck ? thryroid. will see PCP. arthritis generalized. pt hospitalized [facility] 05/21/22 for cough increased SOB, ,will be discharged today. recent steroid use. hx of Covid 12/2021. hx RSV History of Any Multi-Drug Resistant Organisms: None Reported Past Surgical History: Appendectomy, Tonsillectomy, Uterine Ablation Additional Past Surgical History / Comment(s): D&C; Bunionectomy, colonoscopy. bronchoscopy Past Anesthesia/Blood Transfusion Reactions: Postoperative Nausea & Vomiting (PONV) Additional Past Anesthesia/Blood Transfusion Reaction / Comment(s): no blood tranfusions Past Psychological History: No Psychological Hx Reported Smoking Status: Never smoker Past Alcohol Use History: Rare Past Drug Use History: None Reported - Past Family History Mother Family Medical History: Cancer, Myocardial Infarction ([place]) Additional Family Medical History / Comment(s): breast cancer Father Additional Family Medical History / Comment(s): heart failure and multip organ failure recently passed Medications and Allergies Home Medications Medication Instructions Recorded Confirmed Type Montelukast [Singulair] 10 mg PO HS 08/04/14 06/09/22 History Albuterol Inhaler [Ventolin Hfa 1 - 2 puff INHALATION RT-QID PRN 08/05/14 06/09/22 History Inhaler] Albuterol Nebulized [Ventolin 2.5 mg INHALATION RT-QID PRN 08/16/16 06/09/22 History Nebulized] Artificial Tears-Hypromellose 2 drops BOTH EYES QID PRN ml 06/06/22 06/09/22 Rx [Artificial Tear Drops] Chlorthalidone [Hygroton] 25 mg PO DAILY #30 tab 06/06/22 06/09/22 Rx Omeprazole [PriLOSEC] 20 mg PO AC-BID #60 cap 06/06/22 06/09/22 Rx predniSONE [Deltasone] 40 mg PO DAILY #60 tab 06/06/22 06/09/22 Rx Amoxic-Pot Clav 875-125Mg 1 tab PO Q12HR 06/09/22 06/09/22 History [Augmentin 875-125] Calcium Carb-Vit D 500Mg-5Mcg 1 tab PO BID-W/MEALS 06/09/22 06/09/22 History [Oscal 500+D 5 Mcg (200 Iu)] Fluticasone Propion/Salmeterol 1 puff INHALATION RT-BID 06/09/22 06/09/22 History [Wixela 500-50 Inhub] Multivitamins, Thera [Multivitamin 1 tab PO DAILY 06/09/22 06/09/22 History (formulary)] guaiFENesin [Mucinex] 600 mg PO Q12H 06/09/22 06/09/22 History Allergies Allergy/AdvReac Type Severity Reaction Status Date / Time Milk Containing Products Allergy Nausea & Verified 06/09/22 12:27 [Dairy] Vomiting & Diarrhea moxifloxacin HCl Allergy Nausea & Verified 06/09/22 12:27 [From Avelox] Vomiting Physical Exam Vitals: Vital Signs Temp Pulse Pulse Resp BP BP Pulse Ox 06/09/22 17:36 121 H 18 128/89 90 L 06/09/22 16:33 121 H 11 L 168/103 96 06/09/22 14:18 131 H 14 153/100 95 06/09/22 12:29 125 H 18 139/97 96 06/09/22 09:25 111 H 12 142/104 95 06/09/22 08:34 98.6 F 114 H 18 156/110 96 06/09/22 08:06 97.9 F 124 H 20 145/103 95 Intake and Output 06/09/22 06/09/22 06/09/22 06:59 14:59 22:59 Other: Weight 83.007 kg No acute distress, onroom air oxygen and there are no signs of any respiratory distress HEENT examination is grossly unremarkable. Neck supple. Full range of motion. No adenopathy thyromegaly or neck vein distention. Cardiovascular examination reveals regular rhythm rate. S1-S2 normal. No S3 or S4. No discernible murmur noted. the patient remains in sinus tachycardia Lungs reveal scattered rhonchi bilaterally. No wheezes. No crackles. Breath sounds equal. Abdomen soft bowel sounds are heard. No masses or tenderness. Extremities are intact. No cyanosis clubbing or edema. Skin is without rash or lesion. Neurologic examination is brief but nonfocal. Results - Laboratory Findings CBC and BMP: 06/09/22 08:44 06/09/22 08:44 PT/INR, D-dimer PT 9.9 sec (9.0-12.0) 06/09/22 08:44 INR 0.9 (<1.2) 06/09/22 08:44 D-Dimer 0.46 mg/L FEU (<0.60) 06/09/22 08:44 Abnormal lab findings: Abnormal Labs 06/09/22 06/09/22 06/09/22 08:44 08:44 08:44 WBC 23.4 H Hgb 16.7 H Hct 48.3 H Neutrophils # 18.1 H APTT 21.2 L Sodium 131 L BUN 25 H Glucose 115 H Total Bilirubin 1.8 H AST 58 H ALT 116 H - Diagnostic Findings Chest x-ray: image reviewed CT scan - chest: image reviewed Assessment and Plan Plan: Chest pain, under investigation, likely skeletal in nature. Cardiac enzymes are negative. EKGs monitoring an acute ischemic changes. Most of any cardiac disease. Cardiology evaluation is pending. Echocardiogram is pending Recent catheterization for acute hypoxic respiratory failure secondary severe persistent bilateral asthma with secondary pneumonia Haemophilus influenza pneumonia, recovering History of intubation mechanical ventilation and the patient was extubated on 05/29/2022 History of severe asthma exacerbation with frequent coughing probably contributing to skeletal chest wall pain History of severe persistent bronchial asthma Leukocytosis probably related to steroids Sinus tachycardia, could be related to deconditioning. Underlying cardiac disease is not excluded. Consider valvular heart disease. Consider thyroid disease Plan Overall performance status is stable and the patient's CT angiogram is not revealing any acute abnormalities other than some atelectatic changes and postpneumonic changes in lower lobes. Continue the current antibiotic coverage Rocephin and a prednisone burst taper. Check thyroid function test Check echocardiogram Cardiology consultation Cardiac enzymes also negative Resume all medications We'll continue to follow
[2022-06-09] MEDS: SYMBICORT 160-4.5 MCG INHALER INHALATION SCH (20:49)
[2022-06-09] MEDS: CEFDINIR 300 MG CAP PO SCH (20:56)
[2022-06-09] MEDS ORDERED: MONTELUKAST 10 MG TAB PO SCH (21:00)
[2022-06-09] MEDS ORDERED: AMOXIC-POT CLAV 875-125MG 1 EACH TAB PO SCH (21:00)
[2022-06-10] MEDS: CALCIUM CARB-VIT D 500 MG-5 MCG TAB PO SCH (06:42)
[2022-06-10] MEDS: PANTOPRAZOLE 40 MG TABLET PO SCH (06:42)
[2022-06-10] MEDS: SYMBICORT 160-4.5 MCG INHALER INHALATION SCH (08:24)
[2022-06-10 08:37] VITALS: BP 128/90; PULSE 108; RESP 18; TEMP 97.8
[2022-06-10] MEDS: CEFDINIR 300 MG CAP PO SCH (08:37)
[2022-06-10] MEDS: guaiFENesin 600 MG TABLET.ER PO SCH (08:37)
[2022-06-10] MEDS: predniSONE 20 MG TAB PO SCH (08:37)
[2022-06-10] MEDS: METOPROLOL TARTRATE 25 MG TAB PO SCH (08:37)
[2022-06-10] MEDS ORDERED: ASPIRIN 325 MG TAB PO SCH (09:00)
[2022-06-10 10:21] LABS: ALT 96 U/L (4-34); AST 30 U/L (14-36); African American GFR (CKD) >90 (>60 ml/min/1.73 sqM); Albumin 3.8 g/dL (3.5-5.0); Alkaline Phosphatase 79 U/L (38-126); Anion Gap 5 mmol/L; Blood Urea Nitrogen 22 mg/dL (7-17); Calcium 9.2 mg/dL (8.4-10.2); Carbon Dioxide 31 mmol/L (22-30); Chloride 98 mmol/L (98-107); Glucose 118 mg/dL (74-99); Non-African American GFR(CKD) 85 (>60 ml/min/1.73 sqM); Potassium 4.3 mmol/L (3.5-5.1); Sodium 134 mmol/L (137-145); Total Bilirubin 1.2 mg/dL (0.2-1.3); Total Protein 6.4 g/dL (6.3-8.2)
--- NOTE | 2022-06-10 13:17 | P.CRDCN ---
History of Present Illness Consult date: 06/10/22 History of present illness: History of Present Illness: The patient is a 51-year-old female with known history of paroxysmal atrial fibrillation, history of bronchial asthma recent intubation who presented was episode of chest discomfort and palpitations that occurred at home. She was in sinus mechanism. She's feeling better at this time. She was having a lot of co ugh earlier that has improved. She is active physically without difficulties. She has no history of PND, orthopnea or peripheral edema. She has no documented recurrent atrial fibrillation at this time. She has no syncope. She has no history of documented obstructive coronary artery disease. Her cardiac enzymes on presentation were normal and she has been in sinus mechanism since admission. She is asymptomatic this morning. Medications: Prilosec, Singulair, Ventolin, Lopressor 25 mg twice a day, prednisone Review of Systems: Respiratory: She has a history of bronchial asthma and recent intubation and cough GI: No nausea or vomiting . No history of peptic ulcer disease. No recent GI bl eed. : No hematuria or dysuria. Nervous System: No stroke or seizure. Physical Examination: 51-year-old female, alert oriented no apparent distress ,Blood pressure 128/90, Heart rate 90 Head: Normocephalic. Eyes: Sclerae nonicteric. Neck: Good carotid upstroke, no bruit, no jugular venous distention. Lungs: Clear to auscultation. Heart: Regular rate and rhythm, S1-S2, no S3, no rub. No murmur. Abdomen: Soft nontender, positive bowel sounds no organomegaly. Extremities: No edema, intact distal pulses. Labs: Potassium 4.5, BUN 25, creatinine 0.67. Troponin less than 0.012. EKG: EKG sinus tachycardia with no ST segment changes Impression: 1. Chest discomfort appears to be noncardiac 2. Palpitations, sinus tachycardia 3. History of paroxysmal atrial fibrillation, maintaining sinus mechanism 4. Bronchial asthma and recent intubation Plan: 1. Continue present therapy 2. Follow-up as an outpatient with Dr. Mon 3. Thank you for this consult we will follow with you Past Medical History Past Medical History: Atrial Fibrillation, Asthma, GERD/Reflux, Hypertension Additional Past Medical History / Comment(s): migraines, dx in 2019 w/ paroxysmal atrial fib. monitored by Dr Mon q 6 mos Holter for monitoring and no anticoagulation, swelling in neck ? thryroid. will see PCP. arthritis generalized. pt hospitalized [facility] 05/21/22 for cough increased SOB, ,will be discharged today. recent steroid use. hx of Covid 12/2021. hx RSV History of Any Multi-Drug Resistant Organisms: None Reported Past Surgical History: Appendectomy, Tonsillectomy, Uterine Ablation Additional Past Surgical History / Comment(s): D&C; Bunionectomy, colonoscopy. bronchoscopy Past Anesthesia/Blood Transfusion Reactions: Postoperative Nausea & Vomiting (PONV) Additional Past Anesthesia/Blood Transfusion Reaction / Comment(s): no blood tranfusions Past Psychological History: No Psychological Hx Reported Smoking Status: Never smoker Past Alcohol Use History: Rare Past Drug Use History: None Reported - Past Family History Mother Family Medical History: Cancer, Myocardial Infarction ([place]) Additional Family Medical History / Comment(s): breast cancer Father Additional Family Medical History / Comment(s): heart failure and multip organ failure recently passed Medications and Allergies Home Medications Medication Instructions Recorded Confirmed Type Montelukast [Singulair] 10 mg PO HS 08/04/14 06/09/22 History Albuterol Inhaler [Ventolin Hfa 1 - 2 puff INHALATION RT-QID PRN 08/05/14 06/09/22 History Inhaler] Albuterol Nebulized [Ventolin 2.5 mg INHALATION RT-QID PRN 08/16/16 06/09/22 History Nebulized] Artificial Tears-Hypromellose 2 drops BOTH EYES QID PRN ml 06/06/22 06/09/22 Rx [Artificial Tear Drops] Omeprazole [PriLOSEC] 20 mg PO AC-BID #60 cap 06/06/22 06/09/22 Rx predniSONE [Deltasone] 40 mg PO DAILY #60 tab 06/06/22 06/09/22 Rx Calcium Carb-Vit D 500Mg-5Mcg 1 tab PO BID-W/MEALS 06/09/22 06/09/22 History [Oscal 500+D 5 Mcg (200 Iu)] Fluticasone Propion/Salmeterol 1 puff INHALATION RT-BID 06/09/22 06/09/22 History [Wixela 500-50 Inhub] Multivitamins, Thera [Multivitamin 1 tab PO DAILY 06/09/22 06/09/22 History (formulary)] guaiFENesin [Mucinex] 600 mg PO Q12H 06/09/22 06/09/22 History Cefdinir [Omnicef] 300 mg PO BID #7 cap 06/10/22 Rx Metoprolol Tartrate [Lopressor] 25 mg PO BID #60 tab 06/10/22 Rx Allergies Allergy/AdvReac Type Severity Reaction Status Date / Time Milk Containing Products Allergy Nausea & Verified 06/09/22 12:27 [Dairy] Vomiting & Diarrhea moxifloxacin HCl Allergy Nausea & Verified 06/09/22 12:27 [From Avelox] Vomiting Physical Exam Vitals: Vital Signs Temp Pulse Pulse Pulse Resp BP BP 06/10/22 08:36 97.8 F 108 H 18 128/90 06/10/22 08:25 06/10/22 04:00 94 17 124/85 06/10/22 00:59 106 H 06/10/22 00:00 97.5 F L 97 18 120/84 06/09/22 20:00 98.4 F 120 H 120 H 18 115/78 06/09/22 17:36 121 H 18 128/89 06/09/22 16:33 121 H 11 L 168/103 06/09/22 14:18 131 H 14 153/100 Pulse Ox 06/10/22 08:36 95 06/10/22 08:25 95 06/10/22 04:00 96 06/10/22 00:59 06/10/22 00:00 96 06/09/22 20:00 95 06/09/22 17:36 90 L 06/09/22 16:33 96 06/09/22 14:18 95 Intake and Output 06/09/22 06/10/22 06/10/22 22:59 06:59 14:59 Other: Voiding Method Toilet Toilet Toilet # Voids 2 Results 06/09/22 08:44 06/10/22 09:09 Cardiac Enzymes 06/09/22 06/09/22 06/10/22 Range/Units 12:23 14:49 09:09 AST 30 (14-36) U/L Troponin I <0.012 <0.012 (0.000-0.034) ng/mL Comprehensive Metabolic Panel 06/10/22 Range/Units 09:09 Sodium 134 L (137-145) mmol/L Potassium 4.3 (3.5-5.1) mmol/L Chloride 98 (98-107) mmol/L Carbon Dioxide 31 H (22-30) mmol/L BUN 22 H (7-17) mg/dL Creatinine 0.80 (0.52-1.04) mg/dL Glucose 118 H (74-99) mg/dL Calcium 9.2 (8.4-10.2) mg/dL AST 30 (14-36) U/L ALT 96 H (4-34) U/L Alkaline Phosphatase 79 (38-126) U/L Total Protein 6.4 (6.3-8.2) g/dL Albumin 3.8 (3.5-5.0) g/dL Intake and Output 06/09/22 06/10/22 06/10/22 22:59 06:59 14:59 Other: Voiding Method Toilet Toilet Toilet # Voids 2 06/09/22 08:44 06/10/22 09:09
--- NOTE | 2022-06-10 13:38 | P.PN ---
Subjective Progress Note Date: 06/10/22 This is a 51-year-old female patient was coming in for chest pain. The patient was recently discharged from the hospital after being treated for asthma exacerbation, Haemophilus influenza pneumonia, hypoxic respiratory failure, requiring intubation mechanical ventilation and the patient has improved and the patient was discharged home on oral antibiotics, prednisone burst taper, Symbicort and nebulizer. He was noted that the patient was tachycardic and she was in sinus tachycardia time of admission and she was having tachycardia with exertion and movement. This was attributed to deconditioning and aggressive use of steroids and bronchodilators. No history of any valvular heart disease. No 70 cardiac disease. No history of any thyroid disease. The patient came back to the hospital because of GI because of chest pain that occurred yesterday and overnight and she decided to be sharp. In same that she is A Sore Chest Wall Palpation. Note That the Patient Was Having Significant Amount of Coughing during cardiac hospitalizations. She came into the hospital. CT antigram shows limited atelectatic changes in lung bases. No evidence of any pulmonary embolism. Cardiac enzymes were not elevated. The patient has a stable asthma this point in time and there is no signs of any acute bronchospasm wheezing. She was admitted to the hospital in Cardiologic consultation was requested. She is doing well for now. She is on room air oxygen. On 06/10/2022, the patient is still any chest pain. She has no complaints whatsoever. No respiratory difficulties. Awaiting final recommendation from cardiology regarding her chest pain which based on my judgment, with an atypical chest pain. Objective - Vital Signs Vital signs: Vital Signs Temp 97.8 F 06/10/22 08:36 Pulse 108 H 06/10/22 08:36 Resp 18 06/10/22 08:36 BP 128/90 06/10/22 08:36 Pulse Ox 95 06/10/22 08:36 FiO2 Intake & Output 06/09/22 06/10/22 06/10/22 18:59 06:59 18:59 Intake Total 240 Balance 240 Weight 83.007 kg Intake: Oral 240 Other: Voiding Method Toilet Toilet # Voids 0 2 - Exam No acute distress, onroom air oxygen and there are no signs of any respiratory distress HEENT examination is grossly unremarkable. Neck supple. Full range of motion. No adenopathy thyromegaly or neck vein distention. Cardiovascular examination reveals regular rhythm rate. S1-S2 normal. No S3 or S4. No discernible murmur noted. the patient remains in sinus tachycardia Lungs reveal scattered rhonchi bilaterally. No wheezes. No crackles. Breath sounds equal. Abdomen soft bowel sounds are heard. No masses or tenderness. Extremities are intact. No cyanosis clubbing or edema. Skin is without rash or lesion. Neurologic examination is brief but nonfocal. - Labs CBC & Chem 7: 06/09/22 08:44 06/10/22 09:09 Assessment and Plan Plan: Chest pain, under investigation, likely skeletal in nature. Cardiac enzymes are negative. EKGs monitoring an acute ischemic changes. Most of any cardiac disease. Cardiology evaluation is pending. Echocardiogram is pending Recent catheterization for acute hypoxic respiratory failure secondary severe persistent bilateral asthma with secondary pneumonia Haemophilus influenza pneumonia, recovering History of intubation mechanical ventilation and the patient was extubated on 05/29/2022 History of severe asthma exacerbation with frequent coughing probably co ntributing to skeletal chest wall pain History of severe persistent bronchial asthma Leukocytosis probably related to steroids Sinus tachycardia, could be related to deconditioning. Underlying cardiac disease is not excluded. Consider valvular heart disease. Consider thyroid disease Plan Clinically stable Overall performance status is stable and the patient's CT angiogram is not revealing any acute abnormalities other than some atelectatic changes and postpneumonic changes in lower lobes. Continue the current antibiotic coverage Rocephin and a prednisone burst taper. Check thyroid function test was done yesterday levels are within normal limits From the pulmonary standpoint, the patient is stable and the patient can be discharged home. Awaiting final recommendation from cardiology. Resume all medications We'll continue to follow
--- NOTE | 2022-06-10 14:47 | P.DS ---
Providers Date of admission: 06/09/22 11:38 Attending physician: Kwabena Barreto Consults: 06/09/22 11:38 Consult Physician Urgent Consulting Provider: [facility] Consult Reason/Comments: Chest pain Do you want consulting provider notified?: Yes Primary care physician: Harini Alejo Patient is a 51-year-old female came in with complaints of symptoms of not feeling well excess is pretty chest pressure-like sensation radiating to the back. Patient does have shortness of breath patient does have extensive history of asthma was hospitalized multiple times recently for that and patient was intubated during her last hospitalization patient remains on his stomach steroids and antibiotics was discharged about 3 days ago. Patient denied any abdominal pain. Patient is saturating well patient does doesn't have any fever patient does have chronically elevated which actually has come down. She is persistently tachycardic sinus tachycardia apparently patient has been tachycardic since her recent hospitalizations patient does have elevated mildly elevated AST and ALT. First set of troponin is negative EKG sinus tach cardia without any acute ST-T wave changes 06/10/2022 Patient was evaluated by cardiology cleared her for discharge chest discomfort appears to be noncardiac was evaluated by pulmonology as well patient is clinically stable will be discharged today patient on Augmentin will be discu ssed in patient will be discharged on Ceftin for 3 more days. PHYSICAL EXAMINATION: GENERAL: The patient is alert and oriented x3, not in any acute distress. Well developed, well nourished. HEENT: Pupils are round and equally reacting to light. EOMI. No scleral icterus. No conjunctival pallor. Normocephalic, atraumatic. No pharyngeal erythema. No thyromegaly. CARDIOVASCULAR: S1 and S2 present. No murmurs, rubs, or gallops. PULMONARY: Chest is clear to auscultation, no wheezing or crackles. ABDOMEN: Soft, nontender, nondistended, normoactive bowel sounds. No palpable organomegaly. MUSCULOSKELETAL: No joint swelling or deformity. EXTREMITIES: No cyanosis, clubbing, or pedal edema. NEUROLOGICAL: Gross neurological examination did not reveal any focal deficits. SKIN: No rashes. Assessment and plan -Chest pain rule out acute coronary syndromes patient chest pain is atypical, cardiology . The patient with the prescription for outpatient echocardiogram -Ruled out pulmonary embolism -History of for severe persistent asthma patient is presently not in status asthmaticus continue with antibiotics and it steroids inhalational treatments monitor her overnight -Elevated liver enzymes which were normal during her last admission and this is secondary to Augmentin because of which Lasix was switched to Ceftin patient liver enzymes did improve Leukocytosis appears to be chronic actually coming down compared to last hospitalization no further intervention at this time need to follow up with the oncology as an outpatient -Gastroesophageal reflux disease Plan - Discharge Summary Discharge Rx Participant: No New Discharge Prescriptions: New Cefdinir [Omnicef] 300 mg PO BID #7 cap Metoprolol Tartrate [Lopressor] 25 mg PO BID #60 tab Continue Montelukast [Singulair] 10 mg PO HS Albuterol Inhaler [Ventolin Hfa Inhaler] 1 - 2 puff INHALATION RT-QID PRN PRN Reason: Shortness Of Breath Albuterol Nebulized [Ventolin Nebulized] 2.5 mg INHALATION RT-QID PRN PRN Reason: Shortness Of Breath guaiFENesin [Mucinex] 600 mg PO Q12H Calcium Carb-Vit D 500Mg-5Mcg [Oscal 500+D 5 Mcg (200 Iu)] 1 tab PO BID- W/MEALS Artificial Tears-Hypromellose [Artificial Tear Drops] 2 drops BOTH EYES QID PRN ml PRN Reason: Dry Eye(S) predniSONE [Deltasone] 40 mg PO DAILY #60 tab Omeprazole [PriLOSEC] 20 mg PO AC-BID #60 cap Multivitamins, Thera [Multivitamin (formulary)] 1 tab PO DAILY Fluticasone Propion/Salmeterol [Wixela 500-50 Inhub] 1 puff INHALATION RT-BID Discontinued Chlorthalidone [Hygroton] 25 mg PO DAILY #30 tab Amoxic-Pot Clav 875-125Mg [Augmentin 875-125] 1 tab PO Q12HR Discharge Medication List Montelukast [Singulair] 10 mg PO HS 08/04/14 [History] Albuterol Inhaler [Ventolin Hfa Inhaler] 1 - 2 puff INHALATION RT-QID PRN 08/05/14 [History] Albuterol Nebulized [Ventolin Nebulized] 2.5 mg INHALATION RT-QID PRN 08/16/16 [History] Artificial Tears-Hypromellose [Artificial Tear Drops] 2 drops BOTH EYES QID PRN ml 12/14/22 [Rx] Omeprazole [PriLOSEC] 20 mg PO AC-BID #60 cap 06/06/22 [Rx] predniSONE [Deltasone] 40 mg PO DAILY #60 tab 06/06/22 [Rx] Calcium Carb-Vit D 500Mg-5Mcg [Oscal 500+D 5 Mcg (200 Iu)] 1 tab PO BID-W/MEALS 06/09/22 [History] Fluticasone Propion/Salmeterol [Wixela 500-50 Inhub] 1 puff INHALATION RT-BID 06/09/22 [History] Multivitamins, Thera [Multivitamin (formulary)] 1 tab PO DAILY 06/09/22 [History] guaiFENesin [Mucinex] 600 mg PO Q12H 06/09/22 [History] Cefdinir [Omnicef] 300 mg PO BID #7 cap 06/10/22 [Rx] Metoprolol Tartrate [Lopressor] 25 mg PO BID #60 tab 06/10/22 [Rx] Follow up Appointment(s)/Referral(s): Janay Sahni MD [STAFF PHYSICIAN] - 1 Week (Please call tomorrow to schedule follow up appoitment. You will need a out patient ECHO.) Shalom Coker DO [Family Provider] - 1 Week (Please call tomorrow to make follow up appoitment) Harini Alejo MD [Primary Care Provider] - 3 Days (Please call tomorrow to make follow up appoitment) Patient Instructions/Handouts: Tachycardia (GEN) Discharge Disposition: HOME SELF-CARE
[2022-06-10 17:20] LABS: Chol/HDL Ratio 3.02 Ratio; LDL Cholesterol,Calculated 139.2 mg/dL (0.0-131.0)
== END 2022-06-10 11:55 | disposition home or self-care (01) | DRG 313 ==
LOC: EC 08:02 → 3SCARD 11:38
PROVIDERS: ADMIT Internal Medicine; ATTEND Internal Medicine
DX: R07.89 Other chest pain (principal); I10 Essential (primary) hypertension; I48.0 Paroxysmal atrial fibrillation; Z20.822 Contact with and (suspected) exposure to COVID-19; G43.909 Migraine, unspecified, not intractable, without status migrainosus; R00.0 Tachycardia, unspecified; R00.2 Palpitations; J45.50 Severe persistent asthma, uncomplicated; K21.9 Gastro-esophageal reflux disease without esophagitis; Z79.899 Other long term (current) drug therapy; Z82.49 Family history of ischemic heart disease and other diseases of the circulatory system; Z86.16 Personal history of COVID-19; Z91.011 Allergy to milk products; Z88.8 Allergy status to other drugs, medicaments and biological substances
CPT/HCPCS: 36415; 71046; 71275; 80053; 80061; 83605; 83735; 84443; 84484; 85025; 85379; 85610; 85730; 87040; 87636; 93005; 94640; 94760; 96374; 99285

== ENCOUNTER → 2022-07-27 | Outpatient (CLI) | payer BC | END | disposition home or self-care (01) | LOC: LABWHC1 13:57 | PROVIDERS: ATTEND Internal Medicine Critical Care Medicine | DX: J45.909 Unspecified asthma, uncomplicated (principal) | CPT/HCPCS: 36415; 82785; 85008 ==

== ENCOUNTER → 2023-04-10 | Outpatient (CLI) | payer BC ==
--- NOTE | 2023-04-11 09:18 | MM ---
Reason for Exam: Screening (asymptomatic). Last mammogram was performed 1 year(s) and 1 month(s) ago. Patient History: Menarche at age 10. First Full-Term at age 25. Postmenopausal. Patient has history of breast feeding. Patient used Hormonal Contraceptives for 14 years. Maternal cousin had breast cancer. Mother had breast cancer, age 50. Risk Values: Nikkie 5 year model risk: 2.2%. NCI Lifetime model risk: 15.8%. Prior Study Comparison: 12/09/2017 Bilateral Screening Mammogram, [facility]. 01/02/2019 Bilateral Screening Mammogram, [facility]. 02/04/2020 Bilateral Screening Mammogram, [facility]. 02/28/2021 Bilateral Screening Mammogram, [facility]. 03/22/2022 Bilateral MG 3D screening mammo w/cad, [facility]. Tissue Density: The breast tissue is heterogeneously dense. This may lower the sensitivity of mammography. Findings: Analyzed By CAD. There is no suspicious group of microcalcifications or new suspicious mass. Overall Assessment: Negative, BI-RAD 1 Management: Screening Mammogram of both breasts in [address] [facility] will attempt to contact patient to return for supplemental views and ultrasound if indicated. Patient should continue monthly self-breast exams. A clinical breast exam by your physician is recommended on an annual basis. This exam should not preclude additional follow-up of suspicious palpable abnormalities. Note on Nikkie scores and lifetime risk: 1. A Nikkie score greater than 3% is considered moderate risk. If this is the case, consider specialist referral to assess eligibility for a risk reducing agent. 2. If overall lifetime risk for the development of breast cancer is 20% or higher, the patient may qualify for future screening with alternating mammogram and breast MRI. Electronically signed and approved by: Shalom Peña DO
== END | disposition home or self-care (01) ==
LOC: RADMAMWWP 07:18
PROVIDERS: ATTEND Obstetrics & Gynecology
DX: Z12.31 Encounter for screening mammogram for malignant neoplasm of breast (principal); Z78.0 Asymptomatic menopausal state; Z80.3 Family history of malignant neoplasm of breast
CPT/HCPCS: 77063; 77067

== ENCOUNTER → 2023-04-16 | Outpatient (CLI) | payer BC ==
[2023-04-16 15:52] LABS: Chol/HDL Ratio 3.59 Ratio; LDL Cholesterol,Calculated 153.4 mg/dL (0.0-131.0)
== END | disposition home or self-care (01) ==
LOC: LABWHC1 10:17
PROVIDERS: ATTEND Obstetrics & Gynecology
DX: Z13.220 Encounter for screening for lipoid disorders (principal)
CPT/HCPCS: 36415; 80061

== ENCOUNTER → 2023-04-18 | Outpatient (CLI) | payer BC ==
--- NOTE | 2023-04-18 07:36 | MM ---
Reason for Exam: Additional evaluation requested from abnormal screening. Last screening mammogram was performed less than 1 month ago. Patient History: Menarche at age 10. First Full-Term at age 25. Postmenopausal. Patient has history of breast feeding. Patient used Hormonal Contraceptives for 14 years. Maternal cousin had breast cancer. Mother had breast cancer, age 50. Risk Values: Nikkie 5 year model risk: 2.2%. NCI Lifetime model risk: 15.8%. Prior Study Comparison: 02/28/2021 Bilateral Screening Mammogram, [facility]. 03/22/2022 Bilateral MG 3D screening mammo w/cad, [facility]. 04/10/2023 Bilateral MG 3D screening mammo w/cad, [facility]. Tissue Density: Left: The breast tissue is heterogeneously dense. This may lower the sensitivity of mammography. Findings: Analyzed By CAD. Area of concern compresses out on spot compression imaging. No new suspicious masses, calcifications or distortions. Overall Assessment: Negative, BI-RAD 1 Management: Screening Mammogram of both breasts in 1 year. Results were given to the patient verbally at the time of exam. Patient should continue monthly self-breast exams. A clinical breast exam by your physician is recommended on an annual basis. This exam should not preclude additional follow-up of suspicious palpable abnormalities. Note on Nikkie scores and lifetime risk: 1. A Nikkie score greater than 3% is considered moderate risk. If this is the case, consider specialist referral to assess eligibility for a risk reducing agent. 2. If overall lifetime risk for the development of breast cancer is 20% or higher, the patient may qualify for future screening with alternating mammogram and breast MRI. Electronically signed and approved by: Shalom Peña DO
== END | disposition home or self-care (01) ==
LOC: RADMAMWWP 06:55
PROVIDERS: ATTEND Obstetrics & Gynecology
DX: R92.332 Mammographic heterogeneous density, left breast (principal); Z78.0 Asymptomatic menopausal state; Z80.3 Family history of malignant neoplasm of breast
CPT/HCPCS: 77061; 77065

== ENCOUNTER 2023-09-10 10:24 | Observation (INO) | payer BC, OTHER ==
[2023-09-10] MEDS: methylPREDNISolone SOD SUCCI 125 MG/2 ML VIAL IV STA (11:19)
[2023-09-10] MEDS: IPRATROPIUM-ALBUTEROL 3 ML NEB INHALATION STA (11:23)
[2023-09-10 11:28] LABS: ALT 33 U/L (4-34); AST 26 U/L (14-36); African American GFR (CKD) >90 (>60 ml/min/1.73 sqM); Albumin 3.6 g/dL (3.5-5.0); Alkaline Phosphatase 97 U/L (38-126); Anion Gap 5 mmol/L; Blood Urea Nitrogen 23 mg/dL (7-17); Calcium 9.7 mg/dL (8.4-10.2); Carbon Dioxide 24 mmol/L (22-30); Chloride 107 mmol/L (98-107); Glucose 112 mg/dL (74-99); Non-African American GFR(CKD) 84 (>60 ml/min/1.73 sqM); Potassium 4.3 mmol/L (3.5-5.1); Sodium 136 mmol/L (137-145); Total Bilirubin 1.5 mg/dL (0.2-1.3); Total Protein 6.3 g/dL (6.3-8.2)
[2023-09-10 11:32] LABS: Basophils % (A) 0 %; Eosinophils # (A) 0.1 k/uL (0-0.7); Eosinophils % (A) 0 %; HCT 49.4 % (34.0-46.0); HGB 16.6 gm/dL (11.4-16.0); Lymphocytes # (A) 2.3 k/uL (1.0-4.8); Lymphocytes % (A) 10 %; MCH 32.5 pg (25.0-35.0); MCHC 33.6 g/dL (31.0-37.0); MCV 96.7 fL (80.0-100.0); Mean Platelet Volume 9.3; Monocytes # (A) 1.2 k/uL (0-1.0); Monocytes % (A) 5 %; Neutrophils # (A) 18.7 k/uL (1.3-7.7); Neutrophils % (A) 83 %; Platelet Count 338 k/uL (150-450); RBC 5.11 m/uL (3.80-5.40); RDW 12.5 % (11.5-15.5); WBC 22.6 k/uL (3.8-10.6)
[2023-09-10 11:36] LABS: NT-Pro-B-Type Natriuretic Pept 242 pg/mL
[2023-09-10 11:43] LABS: INR 0.9 (<1.2); Prothrombin Time 9.8 sec (10.0-12.5)
--- NOTE | 2023-09-10 12:15 | ED ---
General Adult HPI - General Chief complaint: Shortness of Breath Stated complaint: SOB, sent by Lung Dr Time Seen by Provider: 09/10/23 10:44 Source: patient, RN notes reviewed Mode of arrival: ambulatory Limitations: no limitations - History of Present Illness Initial comments: 53-year-old female presents emergency department from Dr. Coker's office for admission for asthma exacerbation. Patient states she has been having worsening symptoms over the last several weeks. Patient has been on courses of steroids, antibiotics, steroid injections with no significant improvement. Patient was sent over here for admission. Patient states she has not had any recent fever. Patient states that her breathing treatments at home were not helping. She den ies any leg pain leg swelling no congestive heart failure. She states she does have some chest tightness. - Related Data Home Medications Medication Instructions Recorded Confirmed Montelukast [Singulair] 10 mg PO HS 08/04/14 06/09/22 Albuterol Nebulized [Ventolin 2.5 mg INHALATION RT-QID PRN 08/16/16 06/09/22 Nebulized] Fluticasone Propion/Salmeterol 1 puff INHALATION RT-BID 06/09/22 06/09/22 [Wixela 500-50 Inhub] CHLORPHEN-HYDROcod 8-10mg/5ml 5 ml PO Q12HR PRN 09/10/23 09/10/23 [Tussionex] Cetirizine HCl [Zyrtec] 10 mg PO HS 09/10/23 09/10/23 Cholecalciferol (Vitamin D3) 150 mcg PO HS 09/10/23 09/10/23 [Vitamin D3 (3000 Iu)] Dupilumab [Dupixent Pen] 300 mg SQ Q14D 09/10/23 09/10/23 Guaifenesin/Pseudoephedrne HCl 1 tab PO BID 09/10/23 09/10/23 [Guaifenesin-Pse ER 600-60 mg] Ipratropium-Albuterol Nebulize 3 ml INHALATION RT-Q4H 09/10/23 09/10/23 [Duoneb 0.5 mg-3 mg/3 ml Soln] Metoprolol Succinate (ER) [Toprol 25 mg PO HS 09/10/23 09/10/23 Xl] Omeprazole [PriLOSEC] 20 mg PO HS 09/10/23 09/10/23 predniSONE 10 mg PO DAILY 09/10/23 09/10/23 Allergies Allergy/AdvReac Type Severity Reaction Status Date / Time Milk Containing Products AdvReac Nausea & Verified 09/10/23 12:39 (Dairy) Vomiting & [Dairy] Diarrhea moxifloxacin HCl AdvReac Nausea & Verified 09/10/23 12:39 [From Avelox] Vomiting/ Passes out Review of Systems ROS Statement: Those systems with pertinent positive or pertinent negative responses have been documented in the HPI. ROS Other: All systems not noted in ROS Statement are negative. Past Medical History Past Medical History: Asthma, GERD/Reflux, Hypertension Additional Past Medical History / Comment(s): PVCs, History of Any Multi-Drug Resistant Organisms: None Reported Past Surgical History: Appendectomy, Tonsillectomy Additional Past Surgical History / Comment(s): D&C; Bunionectomy Past Anesthesia/Blood Transfusion Reactions: Postoperative Nausea & Vomiting (PONV) Additional Past Anesthesia/Blood Transfusion Reaction / Comment(s): no blood tranfusions Past Psychological History: No Psychological Hx Reported Smoking Status: Never smoker Past Alcohol Use History: Occasional, Rare Past Drug Use History: None Reported - Past Family History Mother Family Medical History: Cancer, Myocardial Infarction ([place]) Additional Family Medical History / Comment(s): breast cancer Father Additional Family Medical History / Comment(s): heart failure and multip organ failure recently passed General Exam Limitations: no limitations General appearance: alert, in no apparent distress Head exam: Present: atraumatic, normocephalic, normal inspection Eye exam: Present: normal appearance, PERRL, EOMI. Absent: scleral icterus, conjunctival injection, periorbital swelling ENT exam: Present: normal exam, normal oropharynx, mucous membranes moist Neck exam: Present: normal inspection. Absent: tenderness, meningismus, lymphadenopathy Respiratory exam: Present: wheezes. Absent: normal lung sounds bilaterally, respiratory distress, rales, rhonchi, stridor Cardiovascular Exam: Present: normal rhythm, tachycardia, normal heart sounds. Absent: systolic murmur, diastolic murmur, rubs, gallop, clicks Course Vital Signs 09/10/23 09/10/23 09/10/23 10:26 11:22 11:23 Temperature 97.5 F L Pulse Rate 105 H 98 94 Respiratory 22 16 Rate Blood Pressure 149/93 156/111 O2 Sat by Pulse 97 94 L Oximetry 09/10/23 09/10/23 11:31 12:00 Temperature Pulse Rate 99 75 Respiratory 16 Rate Blood Pressure 149/111 O2 Sat by Pulse 98 Oximetry EKG Findings - EKG Comments: EKG Findings:: EKG performed at 10: 57 sinus rhythm with a rate of 89 VA 142 QRS 81 QT/QTc 321/368 - EKG Results: EKG: interpreted by FREDY Medical Decision Making - Medical Decision Making Was pt. sent in by a medical professional or institution (, PA, APPLIANCE ADJUSTER, urgent care, hospital, or halfway...) When possible be specific @ -[Systems Technologist Did you speak to anyone other than the patient for history (EMS, parent, family, police, friend...)? What history was obtained from this source @ -No Did you review nursing and triage notes (agree or disagree)? Why? @ -I reviewed and agree with nursing and triage notes Were old charts reviewed (outside hosp., previous admission, EMS record, old EKG, old radiological studies, urgent care reports/EKG's, halfway records)? Report findings @ -No old charts were reviewed Differential Diagnosis (chest pain, altered mental status, abdominal pain women, abdominal pain men, vaginal bleeding, weakness, fever, dyspnea, syncope, headache, dizziness, GI bleed, back pain, seizure, CVA, palpatations, mental health, musculoskeletal)? @ -Differential Dyspnea: Coronary syndrome, arrhythmia, tamponade, asthma, COPD, pulmonary embolism, pneumonia, pneumothorax, pulmonary effusion, anaphylaxis, diabetic ketoacidosis, flailed chest, pulmonary contusion, diaphragmatic rupture, anemia, neuromuscular, this is not meant to be an all-inclusive list. EKG interpreted by me (3pts min.). @ -As above X-rays interpreted by me (1pt min.). @ -Chest shows no acute cardiopulmonary process CT interpreted by me (1pt min.). @ -None done U/S interpreted by me (1pt. min.). @ -None done What testing was considered but not performed or refused? (CT, X-rays, U/S, labs)? Why? @ -None What meds were considered but not given or refused? Why? @ -None Did you discuss the management of the patient with other professionals (professionals i.e. , PA, APPLIANCE ADJUSTER, lab, RT, psych nurse, social science manager, director of individual giving, teacher, hearing officer, manager work)? Give summary @ -Dr. Sandoval for admission for failure of outpatient treatment of asthma Was smoking cessation discussed for >3mins.? @ -No Was critical care preformed (if so, how long)? @ -No Were there social determinants of health that impacted care today? How? (Homelessness, low income, unemployed, alcoholism, drug addiction, transportation, low edu. Level, literacy, decrease access to med. care, [facility], rehab)? @ -No Was there de-escalation of care discussed even if they declined (Discuss DNR or withdrawal of care, Hospice)? DNR status @ -No What co-morbidities impacted this encounter? (DM, HTN, Smoking, COPD, CAD, Cancer, CVA, ARF, Chemo, Hep., AIDS, mental health diagnosis, sleep apnea, morbid obesity)? @ -Asthma Was patient admitted / discharged? Hospital course, mention meds given and route, prescriptions, significant lab abnormalities, going to OR and other pertinent info. @ -Admitted patient is found to have acute asthma exacerbation and she has had multiple modalities outpatient with no improvement of symptoms. She does have some moderate leukocytosis may related to underlying infection was started on IV antibiotics, blood cultures were drawn. Patient will have consult to cabinetmaker apprentice, steroids, breathing treatments. Undiagnosed new problem with uncertain prognosis? @ -No Drug Therapy requiring intensive monitoring for toxicity (Heparin, Nitro, Insulin, Cardizem)? @ -No Were any procedures done? @ -No Diagnosis/symptom? @ -Asthma exacerbation, leukocytosis Acute, or Chronic, or Acute on Chronic? @ -Acute Uncomplicated (without systemic symptoms) or Complicated (systemic symptoms)? @ -Complicated Side effects of treatment? @ -No Exacerbation, Progression, or Severe Exacerbation? @ -Exacerbation Poses a threat to life or bodily function? How? (Chest pain, [place], NH, pneumonia, PE, COPD, DKA, ARF, appy, cholecystitis, CVA, Diverticulitis, Homicidal, Suicidal, threat to staff... and all critical care pts) @ -Yes possible respiratory failure from asthma - Lab Data Result diagrams: 09/10/23 11:08 09/10/23 11:08 Lab Results 09/10/23 09/10/23 09/10/23 Range/Units 11:08 11:08 11:08 WBC 22.6 H (3.8-10.6) k/uL RBC 5.11 (3.80-5.40) m/uL Hgb 16.6 H (11.4-16.0) gm/dL Hct 49.4 H (34.0-46.0) % MCV 96.7 (80.0-100.0) fL MCH 32.5 (25.0-35.0) pg MCHC 33.6 (31.0-37.0) g/dL RDW 12.5 (11.5-15.5) % Plt Count 338 (150-450) k/uL MPV 9.3 Neutrophils % 83 % Lymphocytes % 10 % Monocytes % 5 % Eosinophils % 0 % Basophils % 0 % Neutrophils # 18.7 H (1.3-7.7) k/uL Lymphocytes # 2.3 (1.0-4.8) k/uL Monocytes # 1.2 H (0-1.0) k/uL Eosinophils # 0.1 (0-0.7) k/uL Basophils # 0.0 (0-0.2) k/uL PT 9.8 L (10.0-12.5) sec INR 0.9 (<1.2) APTT 22.0 (22.0-30.0) sec D-Dimer 0.29 (<0.60) mg/L FEU Sodium 136 L (137-145) mmol/L Potassium 4.3 (3.5-5.1) mmol/L Chloride 107 (98-107) mmol/L Carbon Dioxide 24 (22-30) mmol/L Anion Gap 5 mmol/L BUN 23 H (7-17) mg/dL Creatinine 0.80 (0.52-1.04) mg/dL Est GFR (CKD-EPI)AfAm >90 (>60 ml/min/1.73 sqM) Est GFR (CKD-EPI)NonAf 84 (>60 ml/min/1.73 sqM) Glucose 112 H (74-99) mg/dL Plasma Lactic Acid Oswald (0.7-2.0) mmol/L Calcium 9.7 (8.4-10.2) mg/dL Magnesium 2.0 (1.6-2.3) mg/dL Total Bilirubin 1.5 H (0.2-1.3) mg/dL AST 26 (14-36) U/L ALT 33 (4-34) U/L Alkaline Phosphatase 97 (38-126) U/L Troponin I (0.000-0.034) ng/mL NT-Pro-B Natriuret Pep 242 pg/mL Total Protein 6.3 (6.3-8.2) g/dL Albumin 3.6 (3.5-5.0) g/dL 09/10/23 09/10/23 Range/Units 11:08 11:08 WBC (3.8-10.6) k/uL RBC (3.80-5.40) m/uL Hgb (11.4-16.0) gm/dL Hct (34.0-46.0) % MCV (80.0-100.0) fL MCH (25.0-35.0) pg MCHC (31.0-37.0) g/dL RDW (11.5-15.5) % Plt Count (150-450) k/uL MPV Neutrophils % % Lymphocytes % % Monocytes % % Eosinophils % % Basophils % % Neutrophils # (1.3-7.7) k/uL Lymphocytes # (1.0-4.8) k/uL Monocytes # (0-1.0) k/uL Eosinophils # (0-0.7) k/uL Basophils # (0-0.2) k/uL PT (10.0-12.5) sec INR (<1.2) APTT (22.0-30.0) sec D-Dimer (<0.60) mg/L FEU Sodium (137-145) mmol/L Potassium (3.5-5.1) mmol/L Chloride (98-107) mmol/L Carbon Dioxide (22-30) mmol/L Anion Gap mmol/L BUN (7-17) mg/dL Creatinine (0.52-1.04) mg/dL Est GFR (CKD-EPI)AfAm (>60 ml/min/1.73 sqM) Est GFR (CKD-EPI)NonAf (>60 ml/min/1.73 sqM) Glucose (74-99) mg/dL Plasma Lactic Acid Oswald 2.0 (0.7-2.0) mmol/L Calcium (8.4-10.2) mg/dL Magnesium (1.6-2.3) mg/dL Total Bilirubin (0.2-1.3) mg/dL AST (14-36) U/L ALT (4-34) U/L Alkaline Phosphatase (38-126) U/L Troponin I <0.012 (0.000-0.034) ng/mL NT-Pro-B Natriuret Pep pg/mL Total Protein (6.3-8.2) g/dL Albumin (3.5-5.0) g/dL Disposition Clinical Impression: Acute asthma exacerbation, Leukocytosis, Failure of outpatient treatment Disposition: ADMITTED IP TO THIS HOSP Condition: Fair Referrals: Harini Alejo MD [Primary Care Provider] - 1-2 days Time of Disposition: 12:49
--- NOTE | 2023-09-10 12:32 | XR ---
EXAMINATION TYPE: XR chest 2V DATE OF EXAM: 09/10/2023 11:45 AM CLINICAL INDICATION:Female, 53 years old with history of difficulty breathing; [facility] COMPARISON: Chest radiographs from 06/09/2022 TECHNIQUE: XR chest 2V Frontal and lateral views of the chest. FINDINGS: Lungs/Pleura: There is no evidence of pleural effusion, focal consolidation, or pneumothorax. Pulmonary vascularity: Unremarkable. Heart/mediastinum: Cardiomediastinal silhouette is unremarkable. Musculoskeletal: No acute osseous pathology. IMPRESSION: No acute cardiopulmonary disease/process.
[2023-09-10] MEDS ORDERED: NALOXONE 0.4 MG/ML 1 ML VIAL IV PRN (13:15)
[2023-09-10] MEDS ORDERED: ONDANSETRON 4 MG/2 ML VIAL IVP PRN (13:15)
[2023-09-10] MEDS: IPRATROPIUM-ALBUTEROL 3 ML NEB INHALATION PRN ×2 (14:57→20:52)
[2023-09-10] MEDS: methylPREDNISolone SOD SUCCI 125 MG/2 ML VIAL IV SCH ×2 (17:17→19:56)
[2023-09-10] MEDS: PANTOPRAZOLE 40 MG TABLET PO SCH (19:56)
[2023-09-10] MEDS: MONTELUKAST 10 MG TAB PO SCH (19:57)
[2023-09-10] MEDS: METOPROLOL SUCCINATE (ER) 25 MG TAB.ER.24H PO SCH (19:57)
[2023-09-10] MEDS: CHOLECALCIFEROL 125 MCG (5000 IU) TABLET PO SCH (19:57)
[2023-09-10] MEDS: CHOLECALCIFEROL 25 MCG (1000 IU) TABLET PO SCH (19:57)
[2023-09-10] MEDS: DOXYCYCLINE 100 MG CAP PO SCH (20:10)
[2023-09-10] MEDS: SYMBICORT 160-4.5 MCG INHALER INHALATION SCH (20:52)
[2023-09-10] MEDS: guaiFENesin 600 MG TABLET.ER PO SCH (20:59)
--- NOTE | 2023-09-10 21:54 | P.CNPUL ---
History of Present Illness Consult date: 09/10/23 Reason for consult: dyspnea History of present illness: This is a 53-year-old female patient was hospitalized for worsening shortness of breath. The patient has been having asthma activity for the past month. She was in a holiday in a while following her arrival she developed worsening shortness of breath typical of underlying asthma exacerbation requiring antibiotics and steroids and steroid injections that was given to the patient on outpatient basis without any much improvement. For that reason, she has not of coming to the hospital for further care. She has a congested cough. Minimal sputum production. No fever or chills. No pleurisy or hemoptysis. No chest pain. She is known to have severe persistent none eosinophilic, nonallergic steroid-dependent bronchial asthma was maintained on Dupixent on outpatient basis and she has been also on Wixela Inhub as maintenance and Singulair. She has been utilizing her albuterol and ipratropium nebulized treatments frequently prior to her hospital admission. White cell count is at 22 t and hemoglobin is at 16.6 with a platelet count of 338. The viral panel has been negative. Electrolytes and renal function has been within normal limits. Troponins are negative. Chest x-ray shows no acute cardiopulmonary process. Noted the following her initiation with apixaban 2 years back, the patient has been has been under better control. Nevertheless, she continues to be on a prednisone maintenance of 10 mg p.o. daily that she has been taking on an outpatient basis. Back in 2021, the patient had a Haemophilus influenzae pneumonia and this occurred back in May 2022 and since then the patient has not had any further hospitalizations. Review of Systems Constitutional: Reports as per HPI Eyes: denies as per HPI, denies blurred vision, denies bulging eye, denies decreased vision, denies diplopia, denies discharge, denies dry eye, denies irritation, denies itching, denies pain, denies photophobia, denies loss of peripheral vision, denies loss of vision, denies tunnel vision/blind spots Ears: deny: decreased hearing, ear discharge, earache, tinnitus Ears, nose, mouth and throat: Reports as per HPI Breasts: absent: as per HPI, change in shape, gynecomastia, masses, nipple discharge, pain, skin changes, swelling Cardiovascular: Reports decreased exercise tolerance, Reports dyspnea on exertion Respiratory: Reports congestion, Reports cough, Reports cough with sputum, Repor ts dyspnea, Reports wheezing Gastrointestinal: Reports as per HPI Menstruation: Reports as per HPI Musculoskeletal: Reports as per HPI Musculoskeletal: absent: ankle pain, ankle stiffness, ankle swelling Integumentary: Reports as per HPI Neurological: Reports as per HPI Psychiatric: Reports as per HPI Endocrine: Reports as per HPI Hematologic/Lymphatic: Reports as per HPI Allergic/Immunologic: Reports as per HPI Past Medical History Past Medical History: Asthma, GERD/Reflux, Hypertension Additional Past Medical History / Comment(s): PVCs, History of Any Multi-Drug Resistant Organisms: None Reported Past Surgical History: Appendectomy, Tonsillectomy Additional Past Surgical History / Comment(s): D&C; Bunionectomy Past Anesthesia/Blood Transfusion Reactions: Postoperative Nausea & Vomiting (PONV) Additional Past Anesthesia/Blood Transfusion Reaction / Comment(s): no blood tranfusions Past Psychological History: No Psychological Hx Reported Smoking Status: Never smoker Past Alcohol Use History: Occasional, Rare Past Drug Use History: None Reported - Past Family History Mother Family Medical History: Cancer, Myocardial Infarction ([place]) Additional Family Medical History / Comment(s): breast cancer Father Additional Family Medical History / Comment(s): heart failure and multip organ failure recently passed Medications and Allergies Home Medications Medication Instructions Recorded Confirmed Type Montelukast [Singulair] 10 mg PO HS 08/04/14 09/10/23 History Albuterol Nebulized [Ventolin 2.5 mg INHALATION RT-Q4H 08/16/16 09/10/23 History Nebulized] Fluticasone Propion/Salmeterol 1 puff INHALATION RT-BID 06/09/22 09/10/23 History [Wixela 500-50 Inhub] CHLORPHEN-HYDROcod 8-10mg/5ml 5 ml PO Q12HR PRN 09/10/23 09/10/23 History [Tussionex] Cetirizine HCl [Zyrtec] 10 mg PO HS 09/10/23 09/10/23 History Cholecalciferol (Vitamin D3) 150 mcg PO HS 09/10/23 09/10/23 History [Vitamin D3 (3000 Iu)] Dupilumab [Dupixent Pen] 300 mg SQ Q14D 09/10/23 09/10/23 History Guaifenesin/Pseudoephedrne HCl 1 tab PO BID 09/10/23 09/10/23 History [Guaifenesin-Pse ER 600-60 mg] Ipratropium-Albuterol Nebulize 3 ml INHALATION RT-Q4H 09/10/23 09/10/23 History [Duoneb 0.5 mg-3 mg/3 ml Soln] Metoprolol Succinate (ER) [Toprol 25 mg PO HS 09/10/23 09/10/23 History Xl] Omeprazole [PriLOSEC] 20 mg PO HS 09/10/23 09/10/23 History predniSONE 10 mg PO DAILY 09/10/23 09/10/23 History Allergies Allergy/AdvReac Type Severity Reaction Status Date / Time Milk Containing Products AdvReac Nausea & Verified 09/10/23 12:39 (Dairy) Vomiting & [Dairy] Diarrhea moxifloxacin HCl AdvReac Nausea & Verified 09/10/23 12:39 [From Avelox] Vomiting/ Passes out Physical Exam Vitals: Vital Signs Temp Pulse Resp BP Pulse Ox 09/10/23 21:36 95 09/10/23 17:00 109 H 19 129/82 94 L 09/10/23 16:00 105 H 16 139/91 94 L 09/10/23 15:07 94 09/10/23 15:00 113 H 18 139/91 95 09/10/23 14:57 97 09/10/23 14:00 18 139/102 91 L 09/10/23 13:00 16 149/111 94 L 09/10/23 12:00 75 16 149/111 98 09/10/23 11:31 99 09/10/23 11:23 94 09/10/23 11:22 98 16 156/111 94 L 09/10/23 10:26 97.5 F L 105 H 22 149/93 97 Intake and Output 09/10/23 09/10/23 09/10/23 06:59 14:59 22:59 Other: Weight 81.647 kg 81.647 kg No acute distress, on room air oxygen and there are no signs of any respiratory distress, no use of accessory muscles of breathing HEENT examination is grossly unremarkable. Neck supple. Full range of motion. No adenopathy thyromegaly or neck vein distention. Cardiovascular examination reveals regular rhythm rate. S1-S2 normal. No S3 or S4. No discernible murmur noted. Lungs reveal scattered rhonchi bilaterally. No wheezes. No crackles. Breath sounds equal. Abdomen soft bowel sounds are heard. No masses or tenderness. Extremities are intact. No cyanosis clubbing or edema. Examination of the skin revealed no evidence of significant rashes, suspicious appearing nevi or other concerning lesions. Neurologic examination is brief but nonfocal. Results - Laboratory Findings CBC and BMP: 09/10/23 11:08 09/10/23 11:08 PT/INR, D-dimer PT 9.8 sec (10.0-12.5) L 09/10/23 11:08 INR 0.9 (<1.2) 09/10/23 11:08 D-Dimer 0.29 mg/L FEU (<0.60) 09/10/23 11:08 Abnormal lab findings: Abnormal Labs 09/10/23 09/10/23 09/10/23 11:08 11:08 11:08 WBC 22.6 H Hgb 16.6 H Hct 49.4 H Neutrophils # 18.7 H Monocytes # 1.2 H PT 9.8 L Sodium 136 L BUN 23 H Glucose 112 H Total Bilirubin 1.5 H Assessment and Plan Plan: Acute exacerbation of chronic bronchial asthma that has failed to respond on outpatient basis. The patient has been having difficulties with asthma exacerbation for the past 3 weeks, failed outpatient treatment and based on that the patient was hospitalized for further inpatient treatment with bronchodila tors and steroids., Severe persistent steroid-dependent nonallergic, noneosinophilic bronchial as thma, and based on the patient steroid-dependent, the patient will maintain on a combination of Dupixent, Wixela and Singulair on outpatient basis Shortness of breath secondary to above Previous history of intubation mechanical ventilation related to asthma exacerbation and haemophilus influenza pneumonia back in May 2022 Hypertension History of paroxysmal atrial fibrillation, current rhythm is sinus Previous history of COVID-19 infection in December 2021 Plan Will admit this patient for bronchodilator and steroid treatment. The patient is currently on DuoNeb updrafts 4 times a day and IV Solu-Medrol 60 mg every 6 hours will be continued. During her hospital stay, the patient will be maintained on Symbicort instead of Wixela. Nevertheless, patient medication of choice will be Trelegy Ellipta at that dose of 200 mcg 1 puff a day combination with Singulair 10 mg p.o. daily and albuterol options. Will obtain sputum Gram stain and culture. Check procalcitonin level. Viral panel has been negative. Resume home medications. Will continue to follow. Chest x-ray is free of any acute pulmonary infiltrates.
--- NOTE | 2023-09-11 00:14 | P.HPIM ---
History of Present Illness H&P Date: 09/10/23 Chief Complaint: Shortness of breath Patient is a 53-year-old female with a past medical history of severe persistent asthma, hypertension and GERD and prior history of PVCs was sent from Dr. Coker's office due to worsening shortness of breath. Patient has been having symptoms for the past 3 weeks. She was on steroids and also antibiotic course as an outpatient without much improvement. Patient was sent to ER for further evaluation. Patient does have congested cough with occasional sputum production sometimes yellow and whitish. Denies any fever or chills. No complaints of chest pain. No nausea vomiting abdominal pain or diarrhea. On admission EKG showed sinus rhythm Chest x-ray showed no acute cardiopulmonary process/disease. Laboratory data showed WBC 22.6 hemoglobin 16.6 and platelets 338 D-dimer 0.29, sodium 136 potassium 4.3 chloride 107 bicarb is 24 BUN 23 and creatinine 0.8 and blood sugar 112 and AST 26 ALT 33 and alk phos 97 and total bili 1.5 proBNP 242 and albumin 3.6 Influenza A B RSV and COVID-19 PCR not detected. Review of Systems Constitutional: Patient denies any fever or chills . No generalized weakness or weight loss. Abdomen: Patient denied nausea vomiting and diarrhea and abdominal pain. Cardiovascular: Patient denies any chest pain. Does have short of breath no palpitations. No leg swelling Respiratory: patient complains of congested cough with occasional sputum production.. Positive for shortness of breath Neurologic: Patient denied any numbness or tingling headache. Musculoskeletal: Patient denies any complaints of joint swelling or deformity. Skin: Negative Psychiatric: Negative Endocrine: No heat or cold intolerance. No recent weight gain. Genitourinary: No dysuria or hematuria. All other 14 point ROS negative except the above Past Medical History Past Medical History: Asthma, GERD/Reflux, Hypertension Additional Past Medical History / Comment(s): PVCs, History of Any Multi-Drug Resistant Organisms: None Reported Past Surgical History: Appendectomy, Tonsillectomy Additional Past Surgical History / Comment(s): D&C; Bunionectomy Past Anesthesia/Blood Transfusion Reactions: Postoperative Nausea & Vomiting ( PONV) Additional Past Anesthesia/Blood Transfusion Reaction / Comment(s): no blood tranfusions Past Psychological History: No Psychological Hx Reported Smoking Status: Never smoker Past Alcohol Use History: Occasional, Rare Past Drug Use History: None Reported - Past Family History Mother Family Medical History: Cancer, Myocardial Infarction (PR) Additional Family Medical History / Comment(s): breast cancer Father Additional Family Medical History / Comment(s): heart failure and multip organ failure recently passed Medications and Allergies Home Medications Medication Instructions Recorded Confirmed Type Montelukast [Singulair] 10 mg PO HS 08/04/14 09/10/23 History Albuterol Nebulized [Ventolin 2.5 mg INHALATION RT-Q4H 08/16/16 09/10/23 History Nebulized] Fluticasone Propion/Salmeterol 1 puff INHALATION RT-BID 06/09/22 09/10/23 History [Wixela 500-50 Inhub] CHLORPHEN-HYDROcod 8-10mg/5ml 5 ml PO Q12HR PRN 09/10/23 09/10/23 History [Tussionex] Cetirizine HCl [Zyrtec] 10 mg PO HS 09/10/23 09/10/23 History Cholecalciferol (Vitamin D3) 150 mcg PO HS 09/10/23 09/10/23 History [Vitamin D3 (3000 Iu)] Dupilumab [Dupixent Pen] 300 mg SQ Q14D 09/10/23 09/10/23 History Guaifenesin/Pseudoephedrne HCl 1 tab PO BID 09/10/23 09/10/23 History [Guaifenesin-Pse ER 600-60 mg] Ipratropium-Albuterol Nebulize 3 ml INHALATION RT-Q4H 09/10/23 09/10/23 History [Duoneb 0.5 mg-3 mg/3 ml Soln] Metoprolol Succinate (ER) [Toprol 25 mg PO HS 09/10/23 09/10/23 History Xl] Omeprazole [PriLOSEC] 20 mg PO HS 09/10/23 09/10/23 History predniSONE 10 mg PO DAILY 09/10/23 09/10/23 History Allergies Allergy/AdvReac Type Severity Reaction Status Date / Time Milk Containing Products AdvReac Nausea & Verified 09/10/23 12:39 (Dairy) Vomiting & [Dairy] Diarrhea moxifloxacin HCl AdvReac Nausea & Verified 09/10/23 12:39 [From Avelox] Vomiting/ Passes out Physical Exam Vitals: Vital Signs Temp Pulse Resp BP Pulse Ox 09/10/23 17:00 109 H 19 129/82 94 L 09/10/23 16:00 105 H 16 139/91 94 L 09/10/23 15:07 94 09/10/23 15:00 113 H 18 139/91 95 09/10/23 14:57 97 09/10/23 14:00 18 139/102 91 L 09/10/23 13:00 16 149/111 94 L 09/10/23 12:00 75 16 149/111 98 09/10/23 11:31 99 09/10/23 11:23 94 09/10/23 11:22 98 16 156/111 94 L 09/10/23 10:26 97.5 F L 105 H 22 149/93 97 Intake and Output 09/10/23 09/10/23 09/10/23 06:59 14:59 22:59 Other: Weight 81.647 kg 81.647 kg PHYSICAL EXAMINATION: Patient is lying in the bed comfortably, no acute distress, awake alert and oriented.. HEENT: Normocephalic. Neck is supple. Pupils reactive. Nostrils clear. Oral cavity is moist. Neck reveals no JVD, carotid bruits, or thyromegaly. CHEST EXAMINATION: Trachea is central. Symmetrical expansion. Expiratory wheezing and prolonged expiration. Nonlabored breathing. Scattered rhonchi.. CARDIAC: Normal S1, S2 with no gallops. No murmurs ABDOMEN: Soft. Bowel sounds normal. No organomegaly. No abdominal bruits. Extremities: reveal no edema. No clubbing or cyanosis Neurologically awake, alert, oriented x3 with well-coordinated movements. No focal deficits noted Skin: No rash or skin lesions. Psychiatric: Coperative. Nonsuicidal Musculoskeletal: No joint swelling or deformity. Normal range of motion. Results CBC & Chem 7: 09/10/23 11:08 09/10/23 11:08 Labs: Abnormal Lab Results - Last 24 Hours (Table) 09/10/23 09/10/23 09/10/23 Range/Units 11:08 11:08 11:08 WBC 22.6 H (3.8-10.6) k/uL Hgb 16.6 H (11.4-16.0) gm/dL Hct 49.4 H (34.0-46.0) % Neutrophils # 18.7 H (1.3-7.7) k/uL Monocytes # 1.2 H (0-1.0) k/uL PT 9.8 L (10.0-12.5) sec Sodium 136 L (137-145) mmol/L BUN 23 H (7-17) mg/dL Glucose 112 H (74-99) mg/dL Total Bilirubin 1.5 H (0.2-1.3) mg/dL Thrombosis Risk Factor Assmnt - DVT/VTE Prophylaxis DVT/VTE Prophylaxis: Pharmacologic Prophylaxis ordered - Choose All That Apply Any of the Below Risk Factors Present?: Yes Each Factor Represents 1 point: Age 41-60 years, Obesity (BMI >25) Other Risk Factors: No Other congenital or acquired thrombophilia - If yes, enter type in comment: No Thrombosis Risk Factor Assessment Total Risk Factor Score: 2 Thrombosis Risk Factor Assessment Level: Low Risk Assessment and Plan Assessment: Acute exacerbation of asthma failed outpatient treatment. Severe persistent asthma. Patient is steroid-dependent. Leukocytosis Prior history of mechanical relation due to haemophilus influenza pneumonia in 2021 History of PVCs on follow-up with cardiology and is on metoprolol. Hypertension GERD DVT prophylaxis with heparin subcu GI prophylaxis patient is on PPI Plan: Patient will be continued on oxygen supplementation as needed. Continue with IV Solu-Medrol 60 mg every 6 hourly and DuoNebs and also will be continued on Symbicort. Patient be started back on Singulair. Was given a dose of ceftriaxone in the ER. Follow-up sputum culture and blood culture report. Continue with with antibiotics doxycycline. Procalcitonin level was ordered. Pulmonary is on board. Continue to follow closely. Time with Patient: Greater than 30
[2023-09-11 08:49] LABS: Basophils # (A) 0.04 X 10*3/uL (0.00-0.10); Basophils % (A) 0.2 %; Eosinophils # (A) 0 X 10*3/uL (0.04-0.35); Eosinophils % (A) 0 %; HCT 45.8 % (37.2-46.3); HGB 15.2 g/dL (12.0-15.0); Lymphocytes # (A) 1.14 X 10*3/uL (0.90-5.00); Lymphocytes % (A) 6.3 %; MCH 31.4 pg (27.0-32.0); MCHC 33.2 g/dL (32.0-37.0); MCV 94.6 FL (80.0-97.0); Mean Platelet Volume 11.2 FL (9.5-12.2); Monocytes # (A) 0.49 X 10*3/uL (0.20-1.00); Monocytes % (A) 2.7 %; NRBC Per 100 WBC 0 X 10*3/uL (0.00-0.01); Neutrophils % (A) 89.4 %; Platelet Count 300 X 10*3/uL (140-440); RBC 4.84 X 10*6/uL (4.10-5.20); RDW 13.1 % (11.5-14.5); WBC 18.13 X 10*3/uL (4.50-10.00)
[2023-09-11 09:12] LABS: Blood Urea Nitrogen 18.3 mg/dL (9.0-27.0); Glucose 166 mg/dL (70-110)
[2023-09-11 09:13] LABS: BUN/Creat Ratio 22.88 Ratio (12.00-20.00); Calcium 9.4 mg/dL (8.7-10.3); Carbon Dioxide 23.1 mmol/L (21.6-31.8); Chloride 105 mmol/L (96-109); Potassium 4.5 mmol/L (3.5-5.5); Sodium 140 mmol/L (135-145)
[2023-09-11] MEDS: HEPARIN SODIUM,PORCINE 5,000 UNIT/ML 1 ML VIAL SQ SCH (09:16)
--- NOTE | 2023-09-11 12:12 | P.PN ---
Subjective Progress Note Date: 09/11/23 This is a 53-year-old female patient was hospitalized for worsening shortness of breath. The patient has been having asthma activity for the past month. She was in a holiday in a while following her arrival she developed worsening shortness of breath typical of underlying asthma exacerbation requiring antibiotics and steroids and steroid injections that was given to the patient on outpatient basis without any much improvement. For that reason, she has not of coming to the hospital for further care. She has a congested cough. Minimal sputum production. No fever or chills. No pleurisy or hemoptysis. No chest pain. She is known to have severe persistent none eosinophilic, nonallergic steroid-dependent bronchial asthma was maintained on Dupixent on outpatient basis and she has been also on Wixela Inhub as maintenance and Singulair. She has been utilizing her albuterol and ipratropium nebulized treatments frequently prior to her hospital admission. White cell count is at 22 t and hemoglobin is at 16.6 with a platelet count of 338. The viral panel has been negative. Electrolytes and renal function has been within normal limits. Troponins are negative. Chest x-ray shows no acute cardiopulmonary process. Noted the following her initiation with apixaban 2 years back, the patient has been has been under better control. Nevertheless, she continues to be on a prednisone maintenance of 10 mg p.o. daily that she has been taking on an outpatient basis. Back in 2021, the patient had a Haemophilus influenzae pneumonia and this occurred back in May 2022 and since then the patient has not had any further hospitalizations. On today's evaluation of 09/11/2023, the patient is being seen for a follow-up. The patient is feeling slightly improved compared to yesterday. Less bronchospastic and wheezy. She remains on DuoNeb updrafts. She remains on doxycycline. She remains on IV Solu-Medrol. Her white cell count of 18 with a hemoglobin 15.2 and a platelet count of 300. Electrolytes are within normal limits. The viral screen was negative Objective - Vital Signs Vital signs: Vital Signs Temp 97.4 F L 09/11/23 07:00 Pulse 97 09/11/23 08:26 Resp 17 09/11/23 07:00 BP 165/106 09/11/23 07:00 Pulse Ox 95 09/11/23 07:00 FiO2 Intake & Output 03/19/24 03/20/24 03/20/24 18:59 06:59 18:59 Intake Total 500 Balance 500 Weight 81.647 kg Intake: Oral 500 Other: # Voids 2 - Exam No acute distress, on room air oxygen and there are no signs of any respiratory distress, no use of accessory muscles of breathing HEENT examination is grossly unremarkable. Neck supple. Full range of motion. No adenopathy thyromegaly or neck vein distention. Cardiovascular examination reveals regular rhythm rate. S1-S2 normal. No S3 or S4. No discernible murmur noted. Lungs reveal scattered rhonchi bilaterally. No wheezes. No crackles. Breath sounds equal. Abdomen soft bowel sounds are heard. No masses or tenderness. Extremities are intact. No cyanosis clubbing or edema. Examination of the skin revealed no evidence of significant rashes, suspicious appearing nevi or other concerning lesions. Neurologic examination is brief but nonfocal. - Labs CBC & Chem 7: 09/11/23 05:25 09/11/23 05:25 Labs: Abnormal Lab Results - Last 24 Hours (Table) 09/10/23 09/10/23 09/10/23 Range/Units 11:08 11:08 11:08 WBC 22.6 H (3.8-10.6) k/uL Hgb 16.6 H (11.4-16.0) gm/dL Hct 49.4 H (34.0-46.0) % Immature Gran # (0.00-0.04) X 10*3/uL Neutrophils # 18.7 H (1.3-7.7) k/uL Monocytes # 1.2 H (0-1.0) k/uL Eosinophils # (0.04-0.35) X 10*3/uL PT 9.8 L (10.0-12.5) sec Sodium 136 L (137-145) mmol/L BUN 23 H (7-17) mg/dL BUN/Creatinine Ratio (12.00-20.00) Ratio Glucose 112 H (74-99) mg/dL Total Bilirubin 1.5 H (0.2-1.3) mg/dL 09/11/23 09/11/23 Range/Units 05:25 05:25 WBC 18.13 H (3.8-10.6) k/uL Hgb 15.2 H (11.4-16.0) gm/dL Hct (34.0-46.0) % Immature Gran # 0.26 H (0.00-0.04) X 10*3/uL Neutrophils # 16.20 H (1.3-7.7) k/uL Monocytes # (0-1.0) k/uL Eosinophils # 0 L (0.04-0.35) X 10*3/uL PT (10.0-12.5) sec Sodium (137-145) mmol/L BUN (7-17) mg/dL BUN/Creatinine Ratio 22.88 H (12.00-20.00) Ratio Glucose 166 H (74-99) mg/dL Total Bilirubin (0.2-1.3) mg/dL Assessment and Plan Plan: Acute exacerbation of chronic bronchial asthma that has failed to respond on outpatient basis. The patient has been having difficulties with asthma exacerbation for the past 3 weeks, failed outpatient treatment and based on that the patient was hospitalized for further inpatient treatment with b ronchodilators and steroids., Severe persistent steroid-dependent nonallergic, noneosinophilic bronchial asthma, and based on the patient steroid-dependent, the patient will maintain on a combination of Dupixent, Wixela and Singulair on outpatient basis Shortness of breath secondary to above Previous history of intubation mechanical ventilation related to asthma exacerbation and haemophilus influenza pneumonia back in May 2022 Hypertension History of paroxysmal atrial fibrillation, current rhythm is sinus Previous history of COVID-19 infection in December 2021 Plan Clinically improving and the patient seems to be less short of breath compared to yesterday. White cell count is improving Viral screen has been negative Continue same treatment The patient is currently on DuoNeb updrafts 4 times a day and IV Solu-Medrol 60 mg every 6 hours will be continued. During her hospital stay, the patient will be maintained on Symbicort instead of Wixela. Nevertheless, patient medication of choice will be Trelegy Ellipta at that dose of 200 mcg 1 puff a day combination with Singulair 10 mg p.o. daily and albuterol options. Will obtain sputum Gram stain and culture. Check procalcitonin level. Viral panel has been negative. Resume home medications. Will continue to follow. Chest x-ray is free of any acute pulmonary infiltrates.
[2023-09-11] MEDS: ACETAMINOPHEN TAB 325 MG TAB PO PRN (18:37)
[2023-09-12 11:18] LABS: HCT 44.6 % (37.2-46.3); HGB 14.7 g/dL (12.0-15.0); MCH 31.4 pg (27.0-32.0); MCV 95.3 FL (80.0-97.0); Mean Platelet Volume 11.7 FL (9.5-12.2); NRBC Per 100 WBC 0 X 10*3/uL (0.00-0.01); Platelet Count 297 X 10*3/uL (140-440); RBC 4.68 X 10*6/uL (4.10-5.20); RDW 13.3 % (11.5-14.5); WBC 24.55 X 10*3/uL (4.50-10.00)
[2023-09-12 11:41] LABS: Blood Urea Nitrogen 16.1 mg/dL (9.0-27.0); Calcium 9.8 mg/dL (8.7-10.3); Carbon Dioxide 23.3 mmol/L (21.6-31.8); Chloride 106 mmol/L (96-109); Glucose 151 mg/dL (70-110); Potassium 4.2 mmol/L (3.5-5.5); Sodium 139 mmol/L (135-145)
[2023-09-12 12:04] LABS: Basophils # (A) 0.06 X 10*3/uL (0.00-0.10); Basophils % (A) 0.2 %; Eosinophils # (A) 0.02 X 10*3/uL (0.04-0.35); Eosinophils % (A) 0.1 %; Lymphocytes # (A) 1.12 X 10*3/uL (0.90-5.00); Lymphocytes % (A) 4.6 %; Monocytes # (A) 0.99 X 10*3/uL (0.20-1.00); Neutrophils # (A) 22.03 X 10*3/uL (1.80-7.70); Neutrophils % (A) 89.8 %
--- NOTE | 2023-09-12 15:40 | XR ---
EXAMINATION TYPE: XR chest 1V portable DATE OF EXAM: 09/12/2023 3:30 PM CLINICAL INDICATION:Female, 53 years old with history of shortness of breath; [facility] COMPARISON: Chest radiographs from 09/10/2023. TECHNIQUE: XR chest 1V portable Frontal view of the chest. FINDINGS: Lungs/Pleura: There is no evidence of pleural effusion, focal consolidation, or pneumothorax. Pulmonary vascularity: Unremarkable. Heart/mediastinum: Cardiomediastinal silhouette is unremarkable. Musculoskeletal: No acute osseous pathology. Other findings: None IMPRESSION: No acute cardiopulmonary disease/process.
--- NOTE | 2023-09-12 17:49 | P.PN ---
Subjective Progress Note Date: 09/12/23 This is a 53-year-old female patient was hospitalized for worsening shortness of breath. The patient has been having asthma activity for the past month. She was in a holiday in a while following her arrival she developed worsening shortness of breath typical of underlying asthma exacerbation requiring antibiotics and steroids and steroid injections that was given to the patient on outpatient basis without any much improvement. For that reason, she has not of coming to the hospital for further care. She has a congested cough. Minimal sputum production. No fever or chills. No pleurisy or hemoptysis. No chest pain. She is known to have severe persistent none eosinophilic, nonallergic steroid-dependent bronchial asthma was maintained on Dupixent on outpatient basis and she has been also on Wixela Inhub as maintenance and Singulair. She has been utilizing her albuterol and ipratropium nebulized treatments frequently prior to her hospital admission. White cell count is at 22 t and hemoglobin is at 16.6 with a platelet count of 338. The viral panel has been negative. Electrolytes and renal function has been within normal limits. Troponins are negative. Chest x-ray shows no acute cardiopulmonary process. Noted the following her initiation with apixaban 2 years back, the patient has been has been under better control. Nevertheless, she continues to be on a prednisone maintenance of 10 mg p.o. daily that she has been taking on an outpatient basis. Back in 2021, the patient had a Haemophilus influenzae pneumonia and this occurred back in May 2022 and since then the patient has not had any further hospitalizations. On today's evaluation of 09/11/2023, the patient is being seen for a follow-up. The patient is feeling slightly improved compared to yesterday. Less bronchospastic and wheezy. She remains on DuoNeb updrafts. She remains on doxycycline. She remains on IV Solu-Medrol. Her white cell count of 18 with a hemoglobin 15.2 and a platelet count of 300. Electrolytes are within normal limits. The viral screen was negative On today's evaluation of 09/12/2023, the patient is being seen for a follow-up. Essentially unchanged compared to yesterday. Continues to bronchospastic and wheezy and limited progress since yesterday. Remains on bronchodilators. Remains on steroids. Remains on doxycycline. White cell count today is at 24 with a hemoglobin 14.7 and a platelet count of 297. Electrolytes are all within normal limits. She remains on room air oxygen. She continues to have some cough and congestion. She is on Mucinex 600 mg p.o. twice a day. She is also on Singulair. IV Solu-Medrol are being given at a dose of 60 mg IV every 6 hour s. Objective - Vital Signs Vital signs: Vital Signs Temp 98.3 F 09/12/23 07:00 Pulse 94 09/12/23 08:00 Resp 17 09/12/23 07:00 BP 141/93 09/12/23 07:00 Pulse Ox 93 L 09/12/23 07:00 FiO2 Intake & Output 09/11/23 09/12/23 09/12/23 18:59 06:59 18:59 Other: # Voids 2 2 - Exam No acute distress, on room air oxygen and there are no signs of any respiratory distress, no use of accessory muscles of breathing HEENT examination is grossly unremarkable. Neck supple. Full range of motion. No adenopathy thyromegaly or neck vein distention. Cardiovascular examination reveals regular rhythm rate. S1-S2 normal. No S3 or S4. No discernible murmur noted. Lungs reveal scattered rhonchi bilaterally. No wheezes. No crackles. Breath sounds equal. Abdomen soft bowel sounds are heard. No masses or tenderness. Extremities are intact. No cyanosis clubbing or edema. Examination of the skin revealed no evidence of significant rashes, suspicious appearing nevi or other concerning lesions. Neurologic examination is brief but nonfocal. - Labs CBC & Chem 7: 09/12/23 06:44 09/12/23 06:44 Labs: Microbiology - Last 24 Hours (Table) 09/11/23 15:40 Gram Stain - Preliminary Sputum 09/10/23 12:51 Blood Culture - Preliminary Blood 09/10/23 12:51 Blood Culture - Preliminary Blood Assessment and Plan Plan: Acute exacerbation of chronic bronchial asthma that has failed to respond on ou tpatient basis. The patient has been having difficulties with asthma exacerbation for the past 3 weeks, failed outpatient treatment and based on that the patient was hospitalized for further inpatient treatment with bronchodilators and steroids., Severe persistent steroid-dependent nonallergic, noneosinophilic bronchial asthma, and based on the patient steroid-dependent, the patient will maintain on a combination of Dupixent, Wixela and Singulair on outpatient basis Shortness of breath secondary to above Previous history of intubation mechanical ventilation related to asthma exacerbation and haemophilus influenza pneumonia back in May 2022 Hypertension History of paroxysmal atrial fibrillation, current rhythm is sinus Previous history of COVID-19 infection in December 2021 Leukocytosis, being monitored. White cell count is elevated and stable. Plan Clinically stable compared to yesterday and will continue the same treatment White cell count is improving Viral screen has been negative Continue same treatment The patient is currently on DuoNeb updrafts 4 times a day and IV Solu-Medrol 60 mg every 6 hours will be continued. During her hospital stay, the patient will be maintained on Symbicort instead of Wixela. Nevertheless, patient medication of choice will be Trelegy Ellipta at that dose of 200 mcg 1 puff a day combination with Singulair 10 mg p.o. daily and al buterol options. Will obtain sputum Gram stain and culture. Check procalcitonin level. Viral panel has been negative. Resume home medications. Will continue to follow. Chest x-ray is free of any acute pulmonary infiltrates.
[2023-09-12] MEDS: LORATADINE 10 MG TAB PO SCH (21:02)
[2023-09-12] MEDS: amLODIPine 5 MG TAB PO STA (23:49)
--- NOTE | 2023-09-13 06:51 | P.PN ---
Subjective Progress Note Date: 09/12/23 Patient is a 53-year-old female with a past medical history of severe persistent asthma, hypertension and GERD and prior history of PVCs was sent from Dr. Coker's office due to worsening shortness of breath. Patient has been having symptoms for the past 3 weeks. She was on steroids and also antibiotic course as an outpatient without much improvement. Patient was sent to ER for further evaluation. Patient does have congested cough with occasional sputum production sometimes yellow and whitish. Denies any fever or chills. No complaints of chest pain. No nausea vomiting abdominal pain or diarrhea. On admission EKG showed sinus rhythm Chest x-ray showed no acute cardiopulmonary process/disease. Laboratory data showed WBC 22.6 hemoglobin 16.6 and platelets 338 D-dimer 0.29, sodium 136 potassium 4.3 chloride 107 bicarb is 24 BUN 23 and creatinine 0.8 and blood sugar 112 and AST 26 ALT 33 and alk phos 97 and total bili 1.5 proBNP 242 and albumin 3.6 Influenza A B RSV and COVID-19 PCR not detected. 09/12/2023 Patient is seen in follow-up this morning being followed by pulmonary continues with acute asthma exacerbation. Patient continues to report shortness of breath and reports to feeling worse today. Patient is continued on IV steroids along with breathing inhalational treatments with no significant improvement. Patient is bronchospastic and wheezy on exam. Will obtain repeat chest x-ray. Blood pressures have been slightly more elevated low-dose Norvasc and monitor. Pulmon prabhu following with plans for possible bronchoscopy in the next 24 hours shortness of breath with significant wheezing and continued cough. Review of systems: Constitutional: No reports of fatigue, fever, or chills Cardiovascular: No reports of chest pain or palpitations Respiratory: reports of continued shortness of breath with wheezing and extensive cough, minimal phlegm production GI: No reports of nausea, vomiting, or diarrhea : No reports of dysuria or retention Neurovascular: No reports of weakness or numbness All medications have been reviewed PHYSICAL EXAMINATION: Patient is sitting up in the bed comfortably, no acute distress, awake alert and oriented.. Well-developed, well-nourished, obese HEENT: Normocephalic. Neck is supple. Pupils reactive. Nostrils clear. Oral cavity is moist. Neck reveals no JVD, carotid bruits, or thyromegaly. CHEST EXAMINATION: Trachea is central. Symmetrical expansion. Expiratory wheezing and prolonged expiration. Bronchospastic on exam. Nonlabored breathing. Scattered rhonchi.. CARDIAC: Normal S1, S2 with no gallops. No murmurs ABDOMEN: Soft. Bowel sounds normal. No organomegaly. No abdominal bruits. Extremities: reveal no edema. No clubbing or cyanosis Neurologically awake, alert, oriented x3 with well-coordinated movements. No focal deficits noted Skin: No rash or skin lesions. Psychiatric: Cooperative. Non-suicidal Musculoskeletal: No joint swelling or deformity. Normal range of motion. Assessment: Acute exacerbation of asthma failed outpatient treatment. Severe persistent asthma. Patient is steroid-dependent. Leukocytosis Prior history of mechanical ventilation due to haemophilus influenza pneumonia in 2021 History of PVCs on follow-up with cardiology and is on metoprolol. Hypertension GERD DVT prophylaxis with heparin subcu GI prophylaxis patient is on PPI Full code Plan: Patient will be continued on oxygen supplementation as needed. Patient is off oxygen currently although continues to be extremely bronchospastic with significant wheezing on exam Pulmonary following and repeat chest x-ray showing no acute process. Plans for bronchoscopy in the next 24 hours Continue with IV Solu-Medrol 60 mg every 6 hourly and DuoNebs and also will be continued on Symbicort. Patient is continued on Singulair. Was given a dose of ceftriaxone in the ER. Patient is continued on empiric antibiotics in the form of doxycycline. Procalcitonin was negative at 0.03 Encouraged to increase activity as tolerated Will await pulmonary clearance to discuss discharge planning. Plan for bronchoscopy on 09/13/2023 and will follow-up with the patient Prognosis is guarded at this time The impression and plan of care has been dictated by Ainsley Wang, Nurse Practitioner as directed. Dr. Lori MD I have performed a history and examination and MDM of this patient, discussed the same with the dictator, and agree with the dictator's assessment and plan as written ,documented as a scribe. Based on total visit time, I have performed more than 50% of the visit. Objective - Vital Signs Vital signs: Vital Signs Temp 97.4 F L 09/13/23 02:00 Pulse 88 09/13/23 03:49 Resp 17 09/13/23 02:00 BP 164/97 09/13/23 02:00 Pulse Ox 95 09/13/23 02:00 FiO2 Intake & Output 09/12/23 09/12/23 09/13/23 06:59 18:59 06:59 Intake Total 0 Balance 0 Intake: Oral 0 Other: # Voids 2 2 - Labs CBC & Chem 7: 09/12/23 06:44 09/12/23 06:44 Labs: Abnormal Lab Results - Last 24 Hours (Table) 09/12/23 09/12/23 Range/Units 06:44 06:44 WBC 24.55 H (4.50-10.00) X 10*3/uL Immature Gran # 0.33 H (0.00-0.04) X 10*3/uL Neutrophils # 22.03 H (1.80-7.70) X 10*3/uL Eosinophils # 0.02 L (0.04-0.35) X 10*3/uL BUN/Creatinine Ratio 23.00 H (12.00-20.00) Ratio Glucose 151 H (70-110) mg/dL Microbiology - Last 24 Hours (Table) 09/10/23 12:51 Blood Culture - Preliminary Blood 09/10/23 12:51 Blood Culture - Preliminary Blood 09/11/23 15:40 Gram Stain - Preliminary Sputum
[2023-09-13 08:19] VITALS: BP 161/96; RESP 18; TEMP 98.4
[2023-09-13] MEDS: amLODIPine 5 MG TAB PO SCH (08:22)
[2023-09-13 14:55] VITALS: PULSE 90
--- NOTE | 2023-09-13 16:18 | P.PN ---
Subjective Progress Note Date: 09/13/23 This is a 53-year-old female patient was hospitalized for worsening shortness of breath. The patient has been having asthma activity for the past month. She was in a holiday in a while following her arrival she developed worsening shortness of breath typical of underlying asthma exacerbation requiring antibiotics and steroids and steroid injections that was given to the patient on outpatient basis without any much improvement. For that reason, she has not of coming to the hospital for further care. She has a congested cough. Minimal sputum production. No fever or chills. No pleurisy or hemoptysis. No chest pain. She is known to have severe persistent none eosinophilic, nonallergic steroid-dependent bronchial asthma was maintained on Dupixent on outpatient basis and she has been also on Wixela Inhub as maintenance and Singulair. She has been utilizing her albuterol and ipratropium nebulized treatments frequently prior to her hospital admission. White cell count is at 22 t and hemoglobin is at 16.6 with a platelet count of 338. The viral panel has been negative. Electrolytes and renal function has been within normal limits. Troponins are negative. Chest x-ray shows no acute cardiopulmonary process. Noted the following her initiation with apixaban 2 years back, the patient has been has been under better control. Nevertheless, she continues to be on a prednisone maintenance of 10 mg p.o. daily that she has been taking on an outpatient basis. Back in 2021, the patient had a Haemophilus influenzae pneumonia and this occurred back in May 2022 and since then the patient has not had any further hospitalizations. On today's evaluation of 09/11/2023, the patient is being seen for a follow-up. The patient is feeling slightly improved compared to yesterday. Less bronchospastic and wheezy. She remains on DuoNeb updrafts. She remains on doxycycline. She remains on IV Solu-Medrol. Her white cell count of 18 with a hemoglobin 15.2 and a platelet count of 300. Electrolytes are within normal limits. The viral screen was negative On today's evaluation of 09/12/2023, the patient is being seen for a follow-up. Essentially unchanged compared to yesterday. Continues to bronchospastic and wheezy and limited progress since yesterday. Remains on bronchodilators. Remains on steroids. Remains on doxycycline. White cell count today is at 24 with a hemoglobin 14.7 and a platelet count of 297. Electrolytes are all within normal limits. She remains on room air oxygen. She continues to have some cough and congestion. She is on Mucinex 600 mg p.o. twice a day. She is also on Singulair. IV Solu-Medrol are being given at a dose of 60 mg IV every 6 hour s. On today's evaluation of 09/13/2023, the patient is feeling well. Ambulating in the hallways and she is on room air oxygen. No respiratory difficulties whatsoever. She is ready for discharge on a prednisone burst taper. She is maintained on Advair and Singulair and Dupixent injection on outpatient basis. Objective - Vital Signs Vital signs: Vital Signs Temp 98.4 F 09/13/23 07:29 Pulse 90 09/13/23 14:35 Resp 18 09/13/23 07:29 BP 161/96 09/13/23 07:29 Pulse Ox 95 09/13/23 07:29 FiO2 Intake & Output 09/12/23 09/13/23 09/13/23 18:59 06:59 18:59 Intake Total 0 Balance 0 Intake: Oral 0 Other: # Voids 2 3 - Exam No acute distress, on room air oxygen and there are no signs of any respiratory distress, no use of accessory muscles of breathing HEENT examination is grossly unremarkable. Neck supple. Full range of motion. No adenopathy thyromegaly or neck vein distention. Cardiovascular examination reveals regular rhythm rate. S1-S2 normal. No S3 or S4. No discernible murmur noted. Lungs reveal scattered rhonchi bilaterally. No wheezes. No crackles. Breath sounds equal. Abdomen soft bowel sounds are heard. No masses or tenderness. Extremities are intact. No cyanosis clubbing or edema. Examination of the skin revealed no evidence of significant rashes, suspicious appearing nevi or other concerning lesions. Neurologic examination is brief but nonfocal. - Labs CBC & Chem 7: 09/12/23 06:44 09/12/23 06:44 Labs: Microbiology - Last 24 Hours (Table) 09/11/23 15:40 Gram Stain - Final Sputum Sputum Culture - Final 09/10/23 12:51 Blood Culture - Preliminary Blood 09/10/23 12:51 Blood Culture - Preliminary Blood Assessment and Plan Plan: Acute exacerbation of chronic bronchial asthma that has failed to respond on outpatient basis. The patient has been having difficulties with asthma exacerbation for the past 3 weeks, failed outpatient treatment and based on that the patient was hospitalized for further inpatient treatment with bronchodilators and steroids., Severe persistent steroid-dependent nonallergic, noneosinophilic bronchial asthma, and based on the patient steroid-dependent, the patient will maintain on a combination of Dupixent, Wixela and Singulair on outpatient basis Shortness of breath secondary to above Previous history of intubation mechanical ventilation related to asthma exacerbation and haemophilus influenza pneumonia back in May 2022 Hypertension History of paroxysmal atrial fibrillation, current rhythm is sinus Previous history of COVID-19 infection in December 2021 Leukocytosis, being monitored. White cell count is elevated and stable. Plan Clinically stable and the patient is improved and the patient will likely get discharged home on a prednisone burst taper. Clinically improved and the patient will continue Advair and Singulair and apixaban outpatient basis in addition to albuterol nebulized treatments. Follow-up in our office regarding her asthma control. Clinically much improved.
--- NOTE | 2023-09-14 11:24 | P.DS ---
Providers Date of admission: 09/10/23 12:53 Expected date of discharge: 09/13/23 Attending physician: Charline Sandoval Consults: 09/10/23 13:15 Consult Physician Urgent Consulting Provider: Fatou Romero Consult Reason/Comments: Asthma exacerbation Do you want consulting provider notified?: Yes Primary care physician: Harini Alejo Hospital Course: Final diagnosis Acute exacerbation of asthma failed outpatient treatment. Severe persistent asthma. Patient is steroid-dependent. Leukocytosis Prior history of mechanical ventilation due to haemophilus influenza pneumonia in 2021 History of PVCs on follow-up with cardiology and is on metoprolol. Hypertension GERD DVT prophylaxis GI prophylaxis Full code Discharge disposition Patient is being discharged in a stable condition with guarded prognosis to home. Patient will follow-up with Dr. Alejo in the outpatient setting upon discharge. Patient is to continue with long prednisone taper and follow-up with pulmonary as scheduled. Patient to continue with doxycycline twice daily for 1 week. Total time taken is greater than 35 minutes. Hospital course This is a 53-year-old female who was recently admitted with acute asthma exacerbation with failure of outpatient treatment. Patient maintained on IV steroids along with DuoNeb treatments being followed by pulmonary discussing possible bronchoscopy. Patient showed improvement and is maintained on room air and will continue a long prednisone taper and continue with breathing inhalational treatments along with DuoNebs and close outpatient follow-up with pulmonary. Patient reports to feeling improved and currently not requiring a bronchoscopy. Patient has been cleared by pulmonary. Currently no reports of chest pain, shortness of breath, or palpitations. Patient is afebrile. No reports of nausea or vomiting and patient is tolerating diet. Patient will be discharged home today. Physical exam: Gen: This is a 53-year-old female who is awake oriented x 3,, obese HEENT: Head is atraumatic, normocephalic. Pupils equal, round. Sclerae is anicteric. NECK: Supple. No JVD. No lymphadenopathy. No thyromegaly. LUNGS: Diminished breath sounds bilaterally with, some coarse rhonchi. less bronchospastic today and improvement in aeration . No intercostal retractions. HEART: Regular rate and rhythm. No murmur. ABDOMEN: Soft. Bowel sounds are present. No masses. No tenderness. EXTREMITIES: No pedal edema. No calf tenderness. NEUROLOGICAL: Patient is awake, alert and oriented x3. Cranial nerves 2 through 12 are grossly intact. Please refer to medication reconciliation sheet for a list of medications. The impression and plan of care has been dictated by Ainsley Wang, Nurse Practitioner as directed. Dr. Lori MD I have performed a history and examination and MDM of this patient, discussed the same with the dictator, and agree with the dictator's assessment and plan as written ,documented as a scribe. Based on total visit time, I have performed more than 50% of the visit. Patient Condition at Discharge: Fair Plan - Discharge Summary Discharge Rx Participant: No New Discharge Prescriptions: New Fluconazole [Diflucan] 200 mg PO ONCE 1 Days #1 tablet guaiFENesin [Mucinex] 600 mg PO Q12HR 7 Days #14 tab Ipratropium-Albuterol Nebulize [Duoneb 0.5 mg-3 mg/3 ml Soln] 3 ml INHALATION RT-Q2H PRN each PRN Reason: Shortness Of Breath Or Wheezing amLODIPine [Norvasc] 5 mg PO DAILY #30 tab predniSONE 10 mg PO DIRECTED #37 tab Acetaminophen Tab [Tylenol] 650 mg PO Q6HR PRN tab PRN Reason: Mild Pain Or Fever > 100.5 Doxycycline [Vibramycin] 100 mg PO BID 7 Days #14 cap predniSONE 10 mg PO DIRECTED #36 tab Continue Montelukast [Singulair] 10 mg PO HS Albuterol Nebulized [Ventolin Nebulized] 2.5 mg INHALATION RT-Q4H predniSONE 10 mg PO DAILY Metoprolol Succinate (ER) [Toprol XL] 25 mg PO HS CHLORPHEN-HYDROcod 8-10mg/5ml [Tussionex] 5 ml PO Q12HR PRN PRN Reason: Cough Cholecalciferol (Vitamin D3) [Vitamin D3 (3000 Iu)] 150 mcg PO HS Cetirizine HCl [Zyrtec] 10 mg PO HS Fluticasone Propion/Salmeterol [Wixela 500-50 Inhub] 1 puff INHALATION RT-BID Dupilumab [Dupixent Pen] 300 mg SQ Q14D Guaifenesin/Pseudoephedrne HCl [Guaifenesin-Pse ER 600-60 mg] 1 tab PO BID Omeprazole [PriLOSEC] 20 mg PO HS Ipratropium-Albuterol Nebulize [Duoneb 0.5 mg-3 mg/3 ml Soln] 3 ml INHALATION RT-Q4H #100 each Discharge Medication List Montelukast [Singulair] 10 mg PO HS 08/04/14 [History] Albuterol Nebulized [Ventolin Nebulized] 2.5 mg INHALATION RT-Q4H 08/16/16 [History] Fluticasone Propion/Salmeterol [Wixela 500-50 Inhub] 1 puff INHALATION RT-BID 06/09/22 [History] CHLORPHEN-HYDROcod 8-10mg/5ml [Tussionex] 5 ml PO Q12HR PRN 09/10/23 [History] Cetirizine HCl [Zyrtec] 10 mg PO HS 09/10/23 [History] Cholecalciferol (Vitamin D3) [Vitamin D3 (3000 Iu)] 150 mcg PO HS 09/10/23 [History] Dupilumab [Dupixent Pen] 300 mg SQ Q14D 09/10/23 [History] Guaifenesin/Pseudoephedrne HCl [Guaifenesin-Pse ER 600-60 mg] 1 tab PO BID 09/10/23 [History] Metoprolol Succinate (ER) [Toprol XL] 25 mg PO HS 09/10/23 [History] Omeprazole [PriLOSEC] 20 mg PO HS 09/10/23 [History] predniSONE 10 mg PO DAILY 09/10/23 [History] Acetaminophen Tab [Tylenol] 650 mg PO Q6HR PRN tab 09/13/23 [Rx] Doxycycline [Vibramycin] 100 mg PO BID 7 Days #14 cap 09/13/23 [Rx] Fluconazole [Diflucan] 200 mg PO ONCE 1 Days #1 tablet 09/13/23 [Rx] Ipratropium-Albuterol Nebulize [Duoneb 0.5 mg-3 mg/3 ml Soln] 3 ml INHALATION RT-Q2H PRN each 09/13/23 [Rx] Ipratropium-Albuterol Nebulize [Duoneb 0.5 mg-3 mg/3 ml Soln] 3 ml INHALATION RT-Q4H #100 each 09/13/23 [Rx] amLODIPine [Norvasc] 5 mg PO DAILY #30 tab 09/13/23 [Rx] guaiFENesin [Mucinex] 600 mg PO Q12HR 7 Days #14 tab 09/13/23 [Rx] predniSONE 10 mg PO DIRECTED #36 tab 09/13/23 [Rx] predniSONE 10 mg PO DIRECTED #37 tab 09/13/23 [Rx] Follow up Appointment(s)/Referral(s): Shalom Coker DO [Doctor of Osteopathic Medicine] - 1 Week (Keep your scheduled appointment in September or call the office sooner if having increasing symptoms) Harini Alejo MD [Primary Care Provider] - 1-2 days (Office stated they will contact patient with follow-up appointment.) Patient Instructions/Handouts: Asthma (DC) Activity/Diet/Wound Care/Special Instructions: Activity limited until follow-up Follow-up with primary care provider on discharge Follow-up with pulmonary as scheduled or call the office sooner if needed Continue with medications as prescribed Continue with incentive spirometer use at least 10 times every hour while awake Continue coughing and deep breathing Avoid brisk weather changes and recommend wearing a mask Encourage fluids and rest Discharge Disposition: HOME SELF-CARE
--- NOTE | 2023-09-14 23:51 | P.PN ---
Subjective Progress Note Date: 09/11/23 Patient is a 53-year-old female with a past medical history of severe persistent asthma, hypertension and GERD and prior history of PVCs was sent from Dr. Coker's office due to worsening shortness of breath. Patient has been having symptoms for the past 3 weeks. She was on steroids and also antibiotic course as an outpatient without much improvement. Patient was sent to ER for further evaluation. Patient does have congested cough with occasional sputum production sometimes yellow and whitish. Denies any fever or chills. No complaints of chest pain. No nausea vomiting abdominal pain or diarrhea. On admission EKG showed sinus rhythm Chest x-ray showed no acute cardiopulmonary process/disease. Laboratory data showed WBC 22.6 hemoglobin 16.6 and platelets 338 D-dimer 0.29, sodium 136 potassium 4.3 chloride 107 bicarb is 24 BUN 23 and creatinine 0.8 and blood sugar 112 and AST 26 ALT 33 and alk phos 97 and total bili 1.5 proBNP 242 and albumin 3.6 Influenza A B RSV and COVID-19 PCR not detected. 09/11/2023 Patient is currently on room air. Awake alert and oriented x 3. No complaints of chest pain. Patient initially slightly improved compared to yesterday. Patient has been afebrile. Continued on IV Solu-Medrol and DuoNebs and also antibiotics in the form of doxycycline. Sputum culture was ordered. No nausea vomiting abdominal pain or diarrhea. Laboratory data showed WBC tren ding down to 18.1, hemoglobin 15.2 and platelets 300 Sodium 140 potassium 4.5 chloride 105 bicarb is 23.1 BUN 18.3 and creatinine 0.8 and procalcitonin level 0.03 Pulmonary is on board. Current medications reviewed. Objective - Vital Signs Vital signs: Vital Signs Temp 97.4 F L 09/11/23 07:00 Pulse 74 09/11/23 11:48 Resp 17 09/11/23 07:00 BP 165/106 09/11/23 07:00 Pulse Ox 95 09/11/23 07:00 FiO2 Intake & Output 09/10/23 09/11/23 09/11/23 18:59 06:59 18:59 Intake Total 500 Balance 500 Weight 81.647 kg Intake: Oral 500 Other: # Voids 2 2 - Exam PHYSICAL EXAMINATION: Patient is lying in the bed comfortably, no acute distress, awake alert and oriented.. HEENT: Normocephalic. Neck is supple. Pupils reactive. Nostrils clear. Oral cavity is moist. Neck reveals no JVD, carotid bruits, or thyromegaly. CHEST EXAMINATION: Trachea is central. Symmetrical expansion. Bilateral expiratory wheezing and scattered rhonchi nonlabored breathing.. CARDIAC: Normal S1, S2 with no gallops. No murmurs ABDOMEN: Soft. Bowel sounds normal. No organomegaly. No abdominal bruits. Extremities: reveal no edema. No clubbing or cyanosis Neurologically awake, alert, oriented x3 with well-coordinated movements. No focal deficits noted Skin: No rash or skin lesions. Psychiatric: Coperative. Nonsuicidal Musculoskeletal: No joint swelling or deformity. Normal range of motion. - Labs CBC & Chem 7: 09/12/23 06:44 09/12/23 06:44 Labs: Abnormal Lab Results - Last 24 Hours (Table) 09/11/23 09/11/23 Range/Units 05:25 05:25 WBC 18.13 H (4.50-10.00) X 10*3/uL Hgb 15.2 H (12.0-15.0) g/dL Immature Gran # 0.26 H (0.00-0.04) X 10*3/uL Neutrophils # 16.20 H (1.80-7.70) X 10*3/uL Eosinophils # 0 L (0.04-0.35) X 10*3/uL BUN/Creatinine Ratio 22.88 H (12.00-20.00) Ratio Glucose 166 H (70-110) mg/dL Assessment and Plan Assessment: Acute exacerbation of asthma failed outpatient treatment. Severe persistent asthma. Patient is steroid-dependent. Leukocytosis improving Prior history of mechanical relation due to haemophilus influenza pneumonia in 2021 History of PVCs on follow-up with cardiology and is on metoprolol. Hypertension GERD DVT prophylaxis with heparin subcu GI prophylaxis patient is on PPI Plan: Patient will be continued on oxygen supplementation as needed. Continue with IV Solu-Medrol 60 mg every 6 hourly and DuoNebs and also will be continued on Symbicort. Patient be started back on Singulair. Was given a dose of ceftriaxone in the ER. Follow-up sputum culture and blood culture report. Continue with with antibiotics doxycycline. Procalcitonin level is not elevated. Pulmonary is on board. Continue to follow closely.
== END 2023-09-13 15:01 | disposition home or self-care (01) ==
LOC: EC 10:24 → 6NMEDSUR 12:52 → OBSVTOIN 12:53 → INTOOBSV 12:53 → 4SSUR 16:37 → UNDODISIN 09-13 15:01
PROVIDERS: ADMIT Internal Medicine; ATTEND Internal Medicine
PROC: 3E0F7SF Introduction of Other Gas into Respiratory Tract, Via Natural or Artificial Opening (ICD-10-PCS; principal; 2023-09-10)
DX: J45.51 Severe persistent asthma with (acute) exacerbation (principal); D72.829 Elevated white blood cell count, unspecified; I48.0 Paroxysmal atrial fibrillation; I10 Essential (primary) hypertension; I49.3 Ventricular premature depolarization; K21.9 Gastro-esophageal reflux disease without esophagitis; E66.9 Obesity, unspecified; Z68.30 Body mass index [BMI] 30.0-30.9, adult; Z79.51 Long term (current) use of inhaled steroids; Z79.52 Long term (current) use of systemic steroids; Z79.899 Other long term (current) drug therapy; Z88.1 Allergy status to other antibiotic agents; Z91.011 Allergy to milk products; Z11.52 Encounter for screening for COVID-19; Z11.59 Encounter for screening for other viral diseases; Z87.01 Personal history of pneumonia (recurrent); Z86.16 Personal history of COVID-19
CPT/HCPCS: 96376 ×5; 96372 ×3; 96365; 96375; 99285; 36415; 94640 ×8; 93005; 85379; 83880; 80053; 80048 ×2; 83605; 83735; 84484; 85025 ×3; 85610; 85730; 87040; 87070; 87205; 84145; 87636; 71045; 71046; G0378 ×5; J1644 ×3; J2930 ×4; J0696

== ENCOUNTER 2023-10-08 14:01 | Inpatient (IN) | payer OTHER ==
--- NOTE | 2023-10-08 14:15 | ED ---
General Adult HPI - General Source: patient, RN notes reviewed, old records reviewed Limitations: no limitations <Gilson Mustafa - Last Filed: 10/08/23 14:13> <Salinas Cherry - Last Filed: 10/08/23 20:16> - General Stated complaint: Asthma Time Seen by Provider: 10/08/23 14:08 - History of Present Illness Initial comments: Quick note 53-year-old female presents emergency department chief complaint of shortness of breath. Patient was admitted approximate 1 month ago for similar complaints. She states that she was feeling better but of recently she fell like she picked up a new illness and is having worsening shortness of breath, wheezing. She does have severe asthma in which she has received antibiotics, steroid injections and has had no improvement of symptoms and was advised by her spring inspector Dr. Francis, emergency department. Patient states she has had pulse ox in the upper 80s at home. She states that her symptoms are exertional at times but reports that over the fever or night sweats. (Gilson Mustafa) Dictation was produced using [employer] dictation software. please excuse any grammatical, word or spelling errors. Chief Complaint: 53-year-old female with extensive pulmonary history presents to the ER for worsening cough History of Present Illness: Patient 53-year-old female she has known asthma. She has had a worsening cough for the last week. She has been admitted and intubated in the past due to respiratory failure. She has been on intensive medications on outpatient basis to treat her lungs. She is currently on antibiotics and steroids. She seems like she gets worse. She does report that her symptoms improved with IV antibiotics. Patient currently on outpatient cefdinir. She has been doing breathing treatments sees pulmonology. She reports her cough has been productive of sputum. The ROS documented in this emergency department record has been reviewed and confirmed by me. Those systems with pertinent positive or negative responses have been documented in the HPI. All other systems are other negative and/or noncontributory. (Salinas Cherry) - Related Data Home Medications Medication Instructions Recorded Confirmed Montelukast [Singulair] 10 mg PO HS 08/04/14 10/08/23 Albuterol Nebulized [Ventolin 2.5 mg INHALATION RT-Q4H 08/16/16 10/08/23 Nebulized] CHLORPHEN-HYDROcod 8-10mg/5ml 5 ml PO Q12HR PRN 09/10/23 10/08/23 [Tussionex] Cetirizine HCl [Zyrtec] 10 mg PO HS 09/10/23 10/08/23 Cholecalciferol (Vitamin D3) 150 mcg PO HS 09/10/23 10/08/23 [Vitamin D3 (3000 Iu)] Dupilumab [Dupixent Pen] 300 mg SQ Q14D 09/10/23 10/08/23 Guaifenesin/Pseudoephedrne HCl 1 tab PO BID 09/10/23 10/08/23 [Guaifenesin-Pse ER 600-60 mg] Metoprolol Succinate (ER) [Toprol 25 mg PO HS 09/10/23 10/08/23 XL] Omeprazole [PriLOSEC] 20 mg PO HS 09/10/23 10/08/23 Cefdinir 300 mg PO BID 10/08/23 10/08/23 Fluticasone/Umeclidin/Vilanter 1 puff INHALATION RT-DAILY 10/08/23 10/08/23 [Trelegy Ellipta 100-62.5-25] predniSONE 60 mg PO DAILY 10/08/23 10/08/23 Previous Rx's Medication Instructions Recorded Acetaminophen Tab [Tylenol] 650 mg PO Q6HR PRN tab 09/13/23 Ipratropium-Albuterol Nebulize 3 ml INHALATION RT-Q2H PRN each 09/13/23 [Duoneb 0.5 mg-3 mg/3 ml Soln] Ipratropium-Albuterol Nebulize 3 ml INHALATION RT-Q4H #100 each 09/13/23 [Duoneb 0.5 mg-3 mg/3 ml Soln] guaiFENesin [Mucinex] 600 mg PO Q12HR 7 Days #14 tab 09/13/23 Allergies Allergy/AdvReac Type Severity Reaction Status Date / Time Milk Containing Products AdvReac Nausea & Verified 10/08/23 15:56 (Dairy) Vomiting & [Dairy] Diarrhea moxifloxacin HCl AdvReac Nausea & Verified 10/08/23 15:56 [From Avelox] Vomiting/ Passes out Review of Systems ROS Other: All systems not noted in ROS Statement are negative. <Gilson Mustafa - Last Filed: 10/08/23 14:13> ROS Other: All systems not noted in ROS Statement are negative. <Salinas Cherry - Last Filed: 10/08/23 20:16> ROS Statement: Those systems with pertinent positive or pertinent negative responses have been documented in the HPI. Past Medical History Past Medical History: Asthma, GERD/Reflux, Hypertension Additional Past Medical History / Comment(s): PVCs, History of Any Multi-Drug Resistant Organisms: None Reported Past Surgical History: Appendectomy, Tonsillectomy Additional Past Surgical History / Comment(s): D&C; Bunionectomy Past Anesthesia/Blood Transfusion Reactions: Postoperative Nausea & Vomiting (PONV) Additional Past Anesthesia/Blood Transfusion Reaction / Comment(s): no blood tranfusions Past Psychological History: No Psychological Hx Reported Smoking Status: Never smoker Past Alcohol Use History: Occasional, Rare Past Drug Use History: None Reported - Past Family History Mother Family Medical History: Cancer, Myocardial Infarction ([place]) Additional Family Medical History / Comment(s): breast cancer Father Additional Family Medical History / Comment(s): heart failure and multip organ failure recently passed <Gilson Mustafa - Last Filed: 10/08/23 14:13> General Exam <Gilson Mustafa - Last Filed: 10/08/23 14:13> <Salinas Cherry - Last Filed: 10/08/23 20:16> - General Exam Comments Initial Comments: Visual Physical Exam Vital signs reviewed General: Well-appearing, nontoxic, no acute distress. Head: Normocephalic, atraumatic Eyes: PERRLA, EOMI ENT: Airway patent Chest: Nonlabored breathing Skin: No visual rash, normal skin tone Neuro: Alert and oriented 3 Musculoskeletal: No gross abnormalities (Gilson Mustafa) PHYSICAL EXAM: General Impression: Alert and oriented x3, not in acute distress HEENT: Normocephalic atraumatic, extra-ocular movements intact, pupils equal and reactive to light bilaterally, mucous membranes moist. Cardiovascular: Heart regular rate and rhythm Chest: diffuse rhonchi Abdomen: abdomen soft, non-tender, non-distended, no organomegaly Musculoskeletal: Pulses present and equal in all extremities, no peripheral edema Motor: no focal deficits noted Neurological: CN II-XII grossly intact, no focal motor or sensory deficits noted Skin: Intact with no visualized rashes Psych: Normal affect and mood (Salinas Cherry) Course Vital Signs 10/08/23 10/08/23 10/08/23 14:36 14:45 16:27 Temperature 98.4 F Pulse Rate 121 H 104 H Respiratory 24 20 20 Rate Blood Pressure 146/108 O2 Sat by Pulse 95 Oximetry 10/08/23 10/08/23 10/08/23 16:53 18:36 19:45 Temperature Pulse Rate 122 H 126 H 118 H Respiratory 20 20 20 Rate Blood Pressure 124/88 150/98 O2 Sat by Pulse 92 L 97 Oximetry Medical Decision Making <Gilson Mustafa - Last Filed: 10/08/23 14:13> - Lab Data Result diagrams: 10/08/23 15:19 <Salinas Cherry - Last Filed: 10/08/23 20:16> - Medical Decision Making I completed the quick note portion of this chart signed Gilson Mustafa PA-C (Gilson Mustafa) Was pt. sent in by a medical professional or institution (Dr. PA, DIRECTOR OF SALES AND MARKETING, urgent care, hospital, or long term...) When possible be specific @ -No Did you speak to anyone other than the patient for history (EMS, parent, family, police, friend...)? What history was obtained from this source @ -No Did you review nursing and triage notes (agree or disagree)? Why? @ -I reviewed and agree with nursing and triage notes Were old charts reviewed (outside hosp., previous admission, EMS record, old EKG, old radiological studies, urgent care reports/EKG's, long term records)? Report findings @ -No old charts were reviewed Differential Diagnosis (chest pain, altered mental status, abdominal pain women, abdominal pain men, vaginal bleeding, musculoskeletal, weakness, fever, dyspnea, syncope, headache, dizziness, GI bleed, back pain, seizure, CVA, palpatations, mental health)? @ -Differential Dyspnea: Coronary syndrome, arrhythmia, tamponade, asthma, COPD, pulmonary embolism, pneu monia, pneumothorax, pulmonary effusion, anaphylaxis, diabetic ketoacidosis, flailed chest, pulmonary contusion, diaphragmatic rupture, anemia, neuromuscular, this is not meant to be an all-inclusive list. EKG interpreted by me (3pts min.). @ -None done X-rays interpreted by me (1pt min.). @ -Chest x-ray shows no obvious opacities CT interpreted by me (1pt min.). @ -None done U/S interpreted by me (1pt. min.). @ -None done What testing was considered but not performed or refused? (CT, X-rays, U/S, labs)? Why? @ -None What meds were considered but not given or refused? Why? @ -None Did you discuss the management of the patient with other professionals (professionals i.e. , PA, DIRECTOR OF SALES AND MARKETING, lab, RT, psych nurse, social media specialist, product representative, teacher, workplace rehabilitation officer, pillowcase cleaner)? Give summary @ -Case discussed with hospitalist for admission Was smoking cessation discussed for >3mins.? @ -No Was critical care preformed (if so, how long)? @ -No Were there social determinants of health that impacted care today? How? (Homelessness, low income, unemployed, alcoholism, drug addiction, transpo rtation, low edu. Level, literacy, decrease access to med. care, group home, rehab)? @ -No Was there de-escalation of care discussed even if they declined (Discuss DNR or withdrawal of care, Hospice)? DNR status @ -No What co-morbidities impacted this encounter? (DM, HTN, Smoking, COPD, CAD, Cancer, CVA, ARF, Chemo, Hep., AIDS, mental health diagnosis, sleep apnea, morbid obesity)? @ -None Was patient admitted / discharged? Hospital course, mention meds given and route, prescriptions, significant lab abnormalities, going to OR and other pertinent info. @ -53-year-old female presents emergency department for worsening cough. She is currently on several medications for outpatient treatment. She is not improving and in fact getting worse. She follows up closely with pulmonology. Vital signs upon arrival are within acceptable limits. She does have positive lung sounds with auscultation. Patient has leukocytosis of 15.7. Coag panel is negative. Viral testing negative. Patient started on IV antibiotics will be admitted consultation pulmonology. pending CMP. Undiagnosed new problem with uncertain prognosis? @ -No Drug Therapy requiring intensive monitoring for toxicity (Heparin, Nitro, Insulin, Cardizem)? @ -No Were any procedures done? @ -No Diagnosis/symptom? Acute, or Chronic, or Acute on Chronic? Uncomplicated (without systemic symptoms) or Complicated (systemic symptoms)? @ -Pneumonia Side effects of treatment? @ -No Exacerbation, Progression, or Severe Exacerbation? @ -No Poses a threat to life or bodily function? How? (Chest pain, [place], [place], pneumonia, PE, COPD, DKA, ARF, appy, cholecystitis, CVA, Diverticulitis, Homicidal, Suicidal, threat to staff... and all critical care pts) @ -yes (Salinas Cherry) - Lab Data Lab Results 10/08/23 10/08/23 10/08/23 Range/Units 15:19 15:19 15:19 WBC 15.7 H (3.8-10.6) k/uL RBC 4.63 (3.80-5.40) m/uL Hgb 14.8 (11.4-16.0) gm/dL Hct 45.0 (34.0-46.0) % MCV 97.1 (80.0-100.0) fL MCH 32.0 (25.0-35.0) pg MCHC 32.9 (31.0-37.0) g/dL RDW 13.0 (11.5-15.5) % Plt Count 324 (150-450) k/uL MPV 8.3 Neutrophils % 65 % Lymphocytes % 26 % Monocytes % 6 % Eosinophils % 1 % Basophils % 1 % Neutrophils # 10.3 H (1.3-7.7) k/uL Lymphocytes # 4.0 (1.0-4.8) k/uL Monocytes # 1.0 (0-1.0) k/uL Eosinophils # 0.1 (0-0.7) k/uL Basophils # 0.1 (0-0.2) k/uL PT 9.9 L (10.0-12.5) sec INR 0.9 (<1.2) APTT 21.8 L (22.0-30.0) sec Plasma Lactic Acid Oswald 1.2 (0.7-2.0) mmol/L Troponin I (0.000-0.034) ng/mL Influenza Type A (PCR) (Not Detectd) Influenza Type B (PCR) (Not Detectd) RSV (PCR) (Not Detectd) SARS-CoV-2 (PCR) (Not Detectd) 10/08/23 10/08/23 Range/Units 15:19 15:19 WBC (3.8-10.6) k/uL RBC (3.80-5.40) m/uL Hgb (11.4-16.0) gm/dL Hct (34.0-46.0) % MCV (80.0-100.0) fL MCH (25.0-35.0) pg MCHC (31.0-37.0) g/dL RDW (11.5-15.5) % Plt Count (150-450) k/uL MPV Neutrophils % % Lymphocytes % % Monocytes % % Eosinophils % % Basophils % % Neutrophils # (1.3-7.7) k/uL Lymphocytes # (1.0-4.8) k/uL Monocytes # (0-1.0) k/uL Eosinophils # (0-0.7) k/uL Basophils # (0-0.2) k/uL PT (10.0-12.5) sec INR (<1.2) APTT (22.0-30.0) sec Plasma Lactic Acid Oswald (0.7-2.0) mmol/L Troponin I <0.012 (0.000-0.034) ng/mL Influenza Type A (PCR) Not Detected (Not Detectd) Influenza Type B (PCR) Not Detected (Not Detectd) RSV (PCR) Not Detected (Not Detectd) SARS-CoV-2 (PCR) Not Detected (Not Detectd) Disposition <Gilson Mustafa M - Last Filed: 10/08/23 14:13> Decision Time: 19:07 <Salinas Cherry - Last Filed: 10/08/23 20:16> Clinical Impression: Pneumonia Disposition: ADMITTED IP TO THIS HOSP Condition: Fair
[2023-10-08] MEDS: methylPREDNISolone SOD SUCCI 125 MG/2 ML VIAL IV STA (15:24)
[2023-10-08 15:27] LABS: Basophils # (A) 0.1 k/uL (0-0.2); Basophils % (A) 1 %; Eosinophils # (A) 0.1 k/uL (0-0.7); Eosinophils % (A) 1 %; HGB 14.8 gm/dL (11.4-16.0); Lymphocytes % (A) 26 %; MCHC 32.9 g/dL (31.0-37.0); MCV 97.1 fL (80.0-100.0); Mean Platelet Volume 8.3; Monocytes % (A) 6 %; Neutrophils # (A) 10.3 k/uL (1.3-7.7); Neutrophils % (A) 65 %; Platelet Count 324 k/uL (150-450); RBC 4.63 m/uL (3.80-5.40); WBC 15.7 k/uL (3.8-10.6)
[2023-10-08] MEDS ORDERED: DEXTROSE 50% SYRINGE 50 ML IVP PRN ×2 (16:01)
[2023-10-08] MEDS: FORMOTEROL FUMARATE 20 MCG/2 ML NEBU INHALATION SCH (16:11)
[2023-10-08] MEDS: BUDESONIDE 1 MG/2 ML NEBU INHALATION SCH (16:11)
[2023-10-08] MEDS: IPRATROPIUM 0.5 MG/2.5 ML NEBU INHALATION STA (16:12)
[2023-10-08 16:13] LABS: INR 0.9 (<1.2); Prothrombin Time 9.9 sec (10.0-12.5)
[2023-10-08] MEDS: ALBUTEROL NEBULIZED 2.5 MG/3 ML INHALATION STA (16:18)
[2023-10-08] MEDS: IPRATROPIUM-ALBUTEROL 3 ML NEB INHALATION STA (16:18)
--- NOTE | 2023-10-08 16:35 | XR ---
EXAMINATION TYPE: XR chest 2V DATE OF EXAM: 10/08/2023 COMPARISON: 09/12/2023 INDICATION: Difficulty breathing TECHNIQUE: Frontal and lateral views of the chest are obtained. FINDINGS: The heart size is normal. The pulmonary vasculature is normal. The lungs are clear. IMPRESSION: 1. No acute pulmonary process.
[2023-10-08 16:41] LABS: Partial Thromboplastin Time 21.8 sec (22.0-30.0)
[2023-10-08] MEDS: methylPREDNISolone SOD SUCCI 125 MG/2 ML VIAL IV SCH (17:25)
[2023-10-08] MEDS: INSULIN ASPART (NovoLOG) 100 UNIT/ML VIAL SQ SCH (18:50)
[2023-10-08] MEDS ORDERED: PNEUMONIA PROTOCOL UTILIZED 1 EACH MISC PO PRN (19:04)
[2023-10-08] MEDS: AZITHROMYCIN 500 MG in SODIUM CHLORIDE 0.9% 250 ML IVPB STA (19:35)
[2023-10-08] MEDS: IPRATROPIUM-ALBUTEROL 3 ML NEB INHALATION SCH (20:49)
[2023-10-08] MEDS: METOPROLOL SUCCINATE (ER) 25 MG TAB.ER.24H PO SCH (21:12)
[2023-10-08] MEDS: MONTELUKAST 10 MG TAB PO SCH (21:12)
[2023-10-08 21:13] LABS: Glucose,Whole Blood 159 mg/dL (70-110)
[2023-10-08] MEDS: CHOLECALCIFEROL 125 MCG (5000 IU) TABLET PO SCH (21:13)
[2023-10-08] MEDS: LORATADINE 10 MG TAB PO SCH (21:13)
[2023-10-08] MEDS: guaiFENesin 600 MG TABLET.ER PO SCH (21:13)
[2023-10-08] MEDS: HEPARIN SODIUM,PORCINE 5,000 UNIT/ML 1 ML VIAL SQ SCH (21:15)
[2023-10-08 22:12] LABS: ALT 31 U/L (4-34); AST 25 U/L (14-36); African American GFR (CKD) >90 (>60 ml/min/1.73 sqM); Albumin 3.7 g/dL (3.5-5.0); Alkaline Phosphatase 93 U/L (38-126); Anion Gap 10 mmol/L; Blood Urea Nitrogen 14 mg/dL (7-17); Calcium 9.1 mg/dL (8.4-10.2); Carbon Dioxide 19 mmol/L (22-30); Chloride 112 mmol/L (98-107); Glucose 166 mg/dL (74-99); Magnesium 2.1 mg/dL (1.6-2.3); Non-African American GFR(CKD) 81 (>60 ml/min/1.73 sqM); Sodium 141 mmol/L (137-145); Total Bilirubin 0.6 mg/dL (0.2-1.3); Total Protein 6.3 g/dL (6.3-8.2)
[2023-10-08 22:21] LABS: NT-Pro-B-Type Natriuretic Pept 70 pg/mL
--- NOTE | 2023-10-09 02:21 | HP ---
HISTORY AND PHYSICAL CHIEF COMPLAINT: Shortness of breath, cough and mucopurulent sputum. HISTORY OF PRESENT ILLNESS: This 53-year-old woman with a past medical history of asthma, had significant respiratory infections with cough and mucopurulent sputum for the last several weeks on and off. The patient is not responding to antibiotics. The patient came to [place], was admitted for evaluation and treatment. The patient is following Dr. Coker for asthma. Previously, the patient has to have a bronchoscopy and the patient was apparently monitored in ICU also at that time. There is no history of any fever, rigors, or chills at this time. PAST MEDICAL HISTORY: History of asthma, severe persistent fall, hypertension, GERD, multiple medical issues. Rest of history in chart is also reviewed. HOME MEDICATIONS: Reviewed, include dupilumab. Dose and rest of medications reviewed. ALLERGIES: Milk containing products. FAMILY HISTORY: History of myocardial infarction in the family. SOCIAL HISTORY: Occasional alcohol. REVIEW OF SYSTEMS: Fourteen-point review is negative as mentioned earlier. PHYSICAL EXAMINATION: VITAL SIGNS: Pulse is 121, blood pressure 142/92, respirations 24. HEENT: Conjunctivae normal. NECK: No JVD. CARDIOVASCULAR: S1, S2. RESPIRATIONS: A few scattered rhonchi. Expiratory wheezing also present, left more than right. ABDOMEN: Soft, nontender. NERVOUS SYSTEM: Nonfocal. SKIN: No ulcer, rash, bleeding. JOINTS: No active deforming arthropathy. LABORATORY DATA: WBC ntd ASSESSMENT: 1. Asthma, acute exacerbation with possible acute purulent tracheobronchitis or pneumonia with failure of outpatient treatment. 2. History of gastroesophageal reflux disease. 3. Hypertension. 4. History of premature ventricular contractions. 5. History of bronchoscopy and ICU monitoring. RECOMMENDATIONS: This 53-year-old woman presented with multiple complex medical issues. We will monitor the patient closely. Continue the current medications and intensive bronchodilators, steroids, otherwise chest x-ray, empiric antibiotics, cultures. We will closely follow with Pulmonary and continue to monitor. Further recommendations to follow. See orders for further details. MMODL / IJN: [id number] / MTDD
--- NOTE | 2023-10-09 04:44 | P.CNPUL ---
History of Present Illness Consult date: 10/09/23 Requesting physician: Carlos Wallace Reason for consult: asthma Chief complaint: Shortness of breath, wheezing, chest tightness, productive cough History of present illness: Patient is a 53-year-old white female with past medical history significant for chronic bronchial asthma, GERD. She is maintained on Dupixent outpatient basis. She is also just recently switched to Trelegy inhaler. She does follow in the pulmonary office with Dr. Coker. She did have a recent hospitalization for asthma approximately 1 month ago. She was discharged home on 09/13/2023. Initially, states she was doing well for the first week, however, her symptoms quickly returned. She has been treated on multiple occasions with antibiotics, steroid injection, and prednisone burst taper. She states that she has been progressively more short of breath. She has been wheezing and endorses chest tightness. She has had a productive congested cough with green/todd sputum production. Denies any fevers. Denies any chest pain. Denies any hemoptysis. She was most recently treated with a combination of cefdinir, steroid injection, and prednisone burst taper. Her symptoms have not been improving. She states th at she checked her pulse ox at home, and her SpO2 was noted to be in the 80s. She presented to the emergency room yesterday afternoon. Chest x-ray does not show any acute cardiopulmonary process. Negative for influenza, RSV, COVID. CBC shows some leukocytosis with a WC count of 15.7, otherwise unremarkable. D- dimer not elevated. BMP includes a sodium of 141, potassium 4, chloride 112, serum bicarb 19, BUN 14, creatinine 0.82, glucose 166. LFTs not elevated. Troponin less than 0.012. NT proBNP low. Patient is currently sitting up in bed, on 2 L/min nasal cannula, in no acute distress. Afebrile. Heart rhythm appears sinus tachycardia on bedside monitor in the low 100s. Vital signs are stable. Review of Systems REVIEW OF SYSTEMS: CONSTITUTIONAL: Denies any recent significant weight loss or weight gain. EYES: Denies change in vision. EARS, NOSE, MOUTH, THROAT: Denies headaches, denies sore throat. CARDIOVASCULAR: Denies chest pain, palpitations or syncopal episodes. RESPIRATORY: See HPI GASTROINTESTINAL: Denies change in appetite, abdominal pain, nausea and vomiting, or diarrhea GENITOURINARY: Denies hematuria, denies infections. MUSKULOSKELETAL: Denies pain, denies swelling. INTEGUMENTARY: Denies rash, denies eczema. NEUROLOGICAL: Denies recent memory loss, no recent seizure activity. PSYCHIATRIC: Denies anxiety, denies depression. HEMATOLOGIC/LYMPHATIC: Denies anemia, denies enlarged lymph node Past Medical History Past Medical History: Asthma, GERD/Reflux, Hypertension Additional Past Medical History / Comment(s): PVCs, History of Any Multi-Drug Resistant Organisms: None Reported Past Surgical History: Appendectomy, Tonsillectomy Additional Past Surgical History / Comment(s): D&C; Bunionectomy Past Anesthesia/Blood Transfusion Reactions: Postoperative Nausea & Vomiting (PONV) Additional Past Anesthesia/Blood Transfusion Reaction / Comment(s): no blood tranfusions Past Psychological History: No Psychological Hx Reported Smoking Status: Never smoker Past Alcohol Use History: Occasional, Rare Past Drug Use History: None Reported - Past Family History Mother Family Medical History: Cancer, Myocardial Infarction ([place]) Additional Family Medical History / Comment(s): breast cancer Father Additional Family Medical History / Comment(s): heart failure and multip organ failure recently passed Medications and Allergies Home Medications Medication Instructions Recorded Confirmed Type Montelukast [Singulair] 10 mg PO HS 08/04/14 10/08/23 History Albuterol Nebulized [Ventolin 2.5 mg INHALATION RT-Q4H 08/16/16 10/08/23 History Nebulized] CHLORPHEN-HYDROcod 8-10mg/5ml 5 ml PO Q12HR PRN 09/10/23 10/08/23 History [Tussionex] Cetirizine HCl [Zyrtec] 10 mg PO HS 09/10/23 10/08/23 History Cholecalciferol (Vitamin D3) 150 mcg PO HS 09/10/23 10/08/23 History [Vitamin D3 (3000 Iu)] Dupilumab [Dupixent Pen] 300 mg SQ Q14D 09/10/23 10/08/23 History Guaifenesin/Pseudoephedrne HCl 1 tab PO BID 09/10/23 10/08/23 History [Guaifenesin-Pse ER 600-60 mg] Metoprolol Succinate (ER) [Toprol 25 mg PO HS 09/10/23 10/08/23 History XL] Omeprazole [PriLOSEC] 20 mg PO HS 09/10/23 10/08/23 History Acetaminophen Tab [Tylenol] 650 mg PO Q6HR PRN tab 09/13/23 10/08/23 Rx Ipratropium-Albuterol Nebulize 3 ml INHALATION RT-Q2H PRN each 09/13/2309/22 Rx [Duoneb 0.5 mg-3 mg/3 ml Soln] Ipratropium-Albuterol Nebulize 3 ml INHALATION RT-Q4H #100 each 09/13/23 10/08/23 Rx [Duoneb 0.5 mg-3 mg/3 ml Soln] guaiFENesin [Mucinex] 600 mg PO Q12HR 7 Days #14 tab 09/13/23 10/08/23 Rx Cefdinir 300 mg PO BID 10/08/23 10/08/23 History Fluticasone/Umeclidin/Vilanter 1 puff INHALATION RT-DAILY 10/08/23 10/08/23 History [Trelegy Ellipta 100-62.5-25] predniSONE 60 mg PO DAILY 10/08/23 10/08/23 History Allergies Allergy/AdvReac Type Severity Reaction Status Date / Time Milk Containing Products AdvReac Nausea & Verified 10/08/23 15:56 (Dairy) Vomiting & [Dairy] Diarrhea moxifloxacin HCl AdvReac Nausea & Verified 10/08/23 15:56 [From Avelox] Vomiting/ Passes out Physical Exam Vitals: Vital Signs Temp Pulse Resp BP Pulse Ox 10/09/23 01:26 104 H 10/09/23 01:23 96 10/09/23 01:18 102 H 10/09/23 00:43 102 H 20 129/87 94 L 10/08/23 21:09 121 H 10/08/23 21:00 97.5 F L 123 H 20 150/102 95 10/08/23 20:50 117 H 10/08/23 19:45 118 H 20 150/98 97 10/08/23 18:36 126 H 20 124/88 92 L 10/08/23 16:53 122 H 20 10/08/23 16:27 104 H 20 10/08/23 14:45 20 10/08/23 14:36 98.4 F 121 H 24 146/108 95 Intake and Output 10/08/23 10/08/23 10/09/23 14:59 22:59 06:59 Other: Weight 79.832 kg GENERAL EXAM: Alert, 53-year-old white female, comfortable in no apparent distress. HEAD: Normocephalic and atraumatic EYES: Normal reaction of pupils, equal size. NOSE: Clear with pink turbinates. THROAT: No erythema or exudates. NECK: No masses, no JVD. CHEST: No chest wall deformity. LUNGS: Equal air entry with scattered rhonchi throughout. On 2 L/min nasal cannula. No conversational dyspnea or accessory muscle use while at rest CVS: S1 and S2 normal with no audible murmur, regular rhythm. No extra heart sounds ABDOMEN: No hepatosplenomegaly, active bowel sounds, no guarding or rigidity. SPINE: No scoliosis or deformity SKIN: No rashes CENTRAL NERVOUS SYSTEM: No focal deficits, tone is normal in all 4 extremities. EXTREMITIES: There is no peripheral edema, clubbing, or cyanosis. Peripheral pulses are intact. Results - Laboratory Findings CBC and BMP: 10/08/23 15:19 10/08/23 21:45 PT/INR, D-dimer PT 9.9 sec (10.0-12.5) L 10/08/23 15: INR 0.9 (<1.2) 10/08/23 15: D-Dimer 0.37 mg/L FEU (<0.60) 10/08/23 20:33 Abnormal lab findings: Abnormal Labs 10/08/23 10/08/23 10/08/23 15:19 15:19 21:11 WBC 15.7 H Neutrophils # 10.3 H PT 9.9 L APTT 21.8 L Chloride Carbon Dioxide Glucose POC Glucose (mg/dL) 159 H 10/08/23 21:45 WBC Neutrophils # PT APTT Chloride 112 H Carbon Dioxide 19 L Glucose 166 H POC Glucose (mg/dL) - Diagnostic Findings Chest x-ray: image reviewed Assessment and Plan Assessment: Acute exacerbation of chronic bronchial asthma, secondary to possible acute tracheobronchitis, that has failed to respond on outpatient basis. Chest x-ray does not show any focal infiltrates or evidence of pneumonia. Negative for influenza, RSV, COVID. Severe persistent steroid-dependent nonallergic, noneosinophilic bronchial asthma, patient on Dupixent an outpatient basis. Also recently transitioned to Trelegy inhaler. Acute hypoxemic respiratory failure, secondary to above Acute leukocytosis Previous history of intubation mechanical ventilation related to asthma exacerbation and haemophilus influenza pneumonia back in May 2022 Hypertension History of paroxysmal atrial fibrillation, current rhythm is sinus tachycardia History of GERD, without esophagitis Previous history of COVID-19 infection in December 2021 Plan: Patient's medications, labs, chest x-ray reviewed Continue supplemental oxygen to maintain oxygen saturation 92% or greater Continue combination of bronchodilators, budesonide inhalation, formoterol inhalation, and IV Solu-Medrol Continue empiric antibiotics. Procalcitonin level pending. Sputum culture pending. Blood cultures pending. Continue Mucinex as expectorant Overall, patient is hemodynamically stable and has a nontoxic appearance. She is to be admitted to general medical floor once bed available. We will continue to follow I have personally seen and examined the patient, performed the documentation and the assessment and plan as written. Number of minutes spent on the visit:20 Time with Patient: Greater than 30
[2023-10-09 06:41] LABS: Glucose,Whole Blood 206 mg/dL (70-110)
[2023-10-09 07:59] LABS: Glucose,Whole Blood 161 mg/dL (70-110)
[2023-10-09] MEDS: PANTOPRAZOLE 40 MG TABLET PO SCH ×2 (08:14→18:45)
[2023-10-09 10:05] LABS: Basophils % (A) 0 %; Eosinophils % (A) 0 %; HCT 46.7 % (34.0-46.0); HGB 15.1 gm/dL (11.4-16.0); Lymphocytes # (A) 1.1 k/uL (1.0-4.8); Lymphocytes % (A) 7 %; MCH 31.5 pg (25.0-35.0); MCHC 32.3 g/dL (31.0-37.0); MCV 97.5 fL (80.0-100.0); Mean Platelet Volume 8.3; Monocytes # (A) 0.7 k/uL (0-1.0); Monocytes % (A) 4 %; Neutrophils # (A) 14.9 k/uL (1.3-7.7); Neutrophils % (A) 88 %; Platelet Count 401 k/uL (150-450); RBC 4.79 m/uL (3.80-5.40); RDW 13.2 % (11.5-15.5); WBC 16.8 k/uL (3.8-10.6)
[2023-10-09 10:32] LABS: African American GFR (CKD) >90 (>60 ml/min/1.73 sqM); Anion Gap 11 mmol/L; Blood Urea Nitrogen 14 mg/dL (7-17); Calcium 9.8 mg/dL (8.4-10.2); Carbon Dioxide 20 mmol/L (22-30); Chloride 107 mmol/L (98-107); Glucose 190 mg/dL (74-99); Non-African American GFR(CKD) >90 (>60 ml/min/1.73 sqM); Potassium 4.1 mmol/L (3.5-5.1); Sodium 138 mmol/L (137-145)
[2023-10-09 11:35] LABS: Glucose,Whole Blood 130 mg/dL (70-110)
[2023-10-09] MEDS: IPRATROPIUM-ALBUTEROL 3 ML NEB INHALATION SCH (11:57)
[2023-10-09] MEDS: amLODIPine 10 MG TAB PO SCH (15:26)
[2023-10-09 16:32] LABS: Glucose,Whole Blood 178 mg/dL (70-110)
[2023-10-09] MEDS ORDERED: NON FORMULARY DRUG (Omeprazole 20 MG Capsule.Dr) PO SCH (21:00)
[2023-10-09] MEDS: PSEUDOEPHEDRINE 12HR 120 MG TABLET.ER PO SCH (21:34)
[2023-10-09 22:19] LABS: Glucose,Whole Blood 182 mg/dL (70-110)
--- NOTE | 2023-10-09 22:33 | PN ---
PROGRESS NOTE DATE OF SERVICE: 10/09/2023 SUBJECTIVE: This is a 53-year-old woman who was admitted with asthma acute exacerbation, failure of outpatient treatment, also has significant cough, sputum production also which is mucopurulent. Dr. Natarajan has seen the patient. Chest x-ray showed no infiltrates. No chest pain, no palpitation. OBJECTIVE: VITAL SIGNS: Pulse is 95, blood pressure 160/108, respirations 16. CHEST: Few scattered rhonchi and crackles. ABDOMEN: Soft. NERVOUS SYSTEM: Nonfocal. LABORATORY DATA: Noted. ASSESSMENT: 1. Asthma acute exacerbation with possible acute purulent tracheobronchitis with failure of outpatient treatment. 2. History of GERD. 3. Hypertension. 4. History of PVCs. 5. Copious secretions. 6. History of previous bronchoscopy and ICU monitor and H influenzae. RECOMMENDATIONS: Recommended to continue current management, continue symptomatic treatment, continue the bronchodilators, steroids, antibiotics. Closely follow with Pulmonary. Monitor blood pressure closely. Guarded prognosis. Further recommendations to follow. MMODL / IJN: [id number] /
[2023-10-10 04:59] LABS: Appearance,Urine Clear (Clear); Bilirubin,Urine Negative (Negative); Blood,Urine Negative (Negative); Color,Urine Yellow; Glucose,Urine (UA) 3+ (Negative); Ketones,Urine Negative (Negative); Leukocyte Esterase,Urine Negative (Negative); Nitrite,Urine Negative (Negative); Protein,Urine Trace (Negative); Specific Gravity,Urine 1.021 (1.001-1.035); Urobilinogen,Urine <2.0 mg/dL (<2.0)
[2023-10-10 06:55] LABS: Glucose,Whole Blood 133 mg/dL (70-110)
[2023-10-10] MEDS ORDERED: NON FORMULARY DRUG (Fluticasone/Umeclidin/Vilanter [Trelegy Ellipta 100-62.5-25] 1 EACH Bl INHALATION SCH (08:00)
[2023-10-10] MEDS: AZITHROMYCIN 500 MG in SODIUM CHLORIDE 0.9% 250 ML IVPB SCH (11:11)
[2023-10-10 11:16] LABS: Basophils # (A) 0.11 X 10*3/uL (0.00-0.10); Basophils % (A) 0.5 %; Eosinophils # (A) 0 X 10*3/uL (0.04-0.35); Eosinophils % (A) 0 %; HGB 14.8 g/dL (12.0-15.0); Lymphocytes # (A) 1.22 X 10*3/uL (0.90-5.00); Lymphocytes % (A) 5.6 %; MCH 31.8 pg (27.0-32.0); MCHC 32.9 g/dL (32.0-37.0); MCV 96.6 FL (80.0-97.0); Mean Platelet Volume 10.9 FL (9.5-12.2); Monocytes # (A) 0.78 X 10*3/uL (0.20-1.00); Monocytes % (A) 3.6 %; NRBC Per 100 WBC 0 X 10*3/uL (0.00-0.01); Neutrophils # (A) 19.08 X 10*3/uL (1.80-7.70); Neutrophils % (A) 87.1 %; Platelet Count 394 X 10*3/uL (140-440); RBC 4.66 X 10*6/uL (4.10-5.20); RDW 14.2 % (11.5-14.5)
[2023-10-10 11:20] LABS: Blood Urea Nitrogen 12.6 mg/dL (9.0-27.0); Carbon Dioxide 22.7 mmol/L (21.6-31.8); Chloride 104 mmol/L (96-109); Glucose 245 mg/dL (70-110); Potassium 4.4 mmol/L (3.5-5.5); Sodium 140 mmol/L (135-145)
[2023-10-10 11:55] LABS: Glucose,Whole Blood 138 mg/dL (70-110)
--- NOTE | 2023-10-10 12:07 | CT ---
EXAMINATION TYPE: CT sinus wo con DATE OF EXAM: 10/10/2023 COMPARISON: None HISTORY: Sinus congestion CT DLP: 334.5 mGycm CONTRAST: 0 mL of Isovue 300 The paranasal sinuses are examined in the axial plane at 2 mm thick sections. Reconstructed images i n the coronal plane were obtained. There is dental amalgam scatter artifact Tiny medial inferior retention cyst is present. Right maxillary sinus is otherwise clear. Left maxill prabhu sinus is clear. The ethmoid air cells are clear. The sphenoid sinuses are clear. The frontal s inuses are clear. The septum is evaluated. There is septal deviation to the left. The ostiomeatal units are patent. IMPRESSION: 1. Tiny mucous retention cyst inferior medial right maxillary sinus.
--- NOTE | 2023-10-10 13:47 | P.PN ---
Subjective Progress Note Date: 10/10/23 Patient is a 53-year-old white female with past medical history significant for chronic bronchial asthma, GERD. She is maintained on Dupixent outpatient basis. She is also just recently switched to Trelegy inhaler. She does follow in the pulmonary office with Dr. Coker. She did have a recent hospitalization for asthma approximately 1 month ago. She was discharged home on 09/13/2023. Initially, states she was doing well for the first week, however, her symptoms quickly returned. She has been treated on multiple occasions with antibiotics, steroid injection, and prednisone burst taper. She states that she has been progressively more short of breath. She has been wheezing and endorses chest tightness. She has had a productive congested cough with green/todd sputum production. Denies any fevers. Denies any chest pain. Denies any hemoptysis. She was most recently treated with a combination of cefdinir, steroid injection, and prednisone burst taper. Her symptoms have not been improving. She states that she checked her pulse ox at home, and her SpO2 was noted to be in the 80s. She presented to the emergency room yesterday afternoon. Chest x-ray does not show any acute cardiopulmonary process. Negative for influenza, RSV, COVID. CBC shows some leukocytosis with a WC count of 15.7, otherwise unremarkable. D- dimer not elevated. BMP includes a sodium of 141, potassium 4, chloride 112, serum bicarb 19, BUN 14, creatinine 0.82, glucose 166. LFTs not elevated. Troponin less than 0.012. NT proBNP low. Patient is currently sitting up in bed, on 2 L/min nasal cannula, in no acute distress. Afebrile. Heart rhythm appears sinus tachycardia on bedside monitor in the low 100s. Vital signs are stable. The patient is seen today October 10, 2023 in follow-up on the regular medical floor. She is currently sitting up in bed. Awake and alert in no acute distress. She is feeling about more congested today compared to yesterday. She has some complaints of sinus congestion. She still has some chest tightness and wheezing. Continues without congested cough. She is maintaining good O2 saturations in the 90s on room air. She is afebrile. Hemodynamically stable. Blood cultures pending. Sputum culture pending. She is continued on Rocephin and azithromycin per her request. Procalcitonin 0.04. Remains on DuoNeb inhalations every 4 hours. Continued on Pulmicort and Perforomist inhalations twice daily. Remains on Solu-Medrol 60 mg IV every 6 hours. Continued on Singulair, Sudafed, Protonix, Claritin, Mucinex. Heparin for DVT prophylaxis. White count 21.9. Hemoglobin 14.8. Platelets 394. Sodium 140. Potassium 4.4. Bicarb 23. BUN 13. Creatinine 0.9. Glucose 138. Objective - Vital Signs Vital signs: Vital Signs Temp 98.1 F 10/10/23 07:41 Pulse 119 H 10/10/23 13:03 Resp 20 10/10/23 10:11 BP 129/83 10/10/23 07:41 Pulse Ox 96 10/10/23 09:22 FiO2 Intake & Output 10/09/23 10/10/23 10/10/23 18:59 06:59 18:59 Intake Total 450 540 350 Balance 450 540 350 Weight 79.832 kg Intake: Oral 450 540 350 Other: Voiding Method Toilet Toilet Toilet # Voids 3 3 - Exam GENERAL EXAM: Alert, very pleasant 53-year-old female, on room air, fairly comfortable in no apparent distress. HEAD: Normocephalic. EYES: Normal reaction of pupils, equal size. NOSE: Anus congestion. Clear with pink turbinates. THROAT: No erythema or exudates. NECK: No masses, no JVD. CHEST: No chest wall deformity. LUNGS: Equal air entry with end expiratory wheeze, few scattered rhonchi. CVS: S1 and S2 normal with no audible murmur, regular rhythm. ABDOMEN: No hepatosplenomegaly, normal bowel sounds, no guarding or rigidity. SPINE: No scoliosis or deformity SKIN: No rashes CENTRAL NERVOUS SYSTEM: No focal deficits, tone is normal in all 4 extremities. EXTREMITIES: There is no peripheral edema. No clubbing, no cyanosis. Peripheral pulses are intact. - Labs CBC & Chem 7: 10/10/23 08:25 10/10/23 08:25 Labs: Abnormal Lab Results - Last 24 Hours (Table) 10/09/23 10/09/23 10/09/23 Range/Units 09:48 13:40 14:12 WBC (4.50-10.00) X 10*3/uL Immature Gran # (0.00-0.04) X 10*3/uL Neutrophils # (1.80-7.70) X 10*3/uL Eosinophils # (0.04-0.35) X 10*3/uL Basophils # (0.00-0.10) X 10*3/uL Anion Gap (4.00-12.00) mmol/L Glucose (70-110) mg/dL POC Glucose (mg/dL) (70-110) mg/dL Hemoglobin A1c 6.4 H (<=6.0) % C-Reactive Protein 1.6 H (<1.0) mg/dL Urine Protein Trace H (Negative) Urine Glucose (UA) 3+ H (Negative) 10/09/23 10/09/23 10/10/23 Range/Units 16:31 22:17 06:51 WBC (4.50-10.00) X 10*3/uL Immature Gran # (0.00-0.04) X 10*3/uL Neutrophils # (1.80-7.70) X 10*3/uL Eosinophils # (0.04-0.35) X 10*3/uL Basophils # (0.00-0.10) X 10*3/uL Anion Gap (4.00-12.00) mmol/L Glucose (70-110) mg/dL POC Glucose (mg/dL) 178 H 182 H 133 H (70-110) mg/dL Hemoglobin A1c (<=6.0) % C-Reactive Protein (<1.0) mg/dL Urine Protein (Negative) Urine Glucose (UA) (Negative) 10/10/23 10/10/23 10/10/23 Range/Units 08:25 08:25 11:54 WBC 21.90 H (4.50-10.00) X 10*3/uL Immature Gran # 0.71 H (0.00-0.04) X 10*3/uL Neutrophils # 19.08 H (1.80-7.70) X 10*3/uL Eosinophils # 0 L (0.04-0.35) X 10*3/uL Basophils # 0.11 H (0.00-0.10) X 10*3/uL Anion Gap 13.30 H (4.00-12.00) mmol/L Glucose 245 H (70-110) mg/dL POC Glucose (mg/dL) 138 H (70-110) mg/dL Hemoglobin A1c (<=6.0) % C-Reactive Protein (<1.0) mg/dL Urine Protein (Negative) Urine Glucose (UA) (Negative) Microbiology - Last 24 Hours (Table) 10/09/23 08:21 Gram Stain - Preliminary Sputum 10/08/23 15:05 Blood Culture - Preliminary Blood 10/08/23 14:50 Blood Culture - Preliminary Blood Assessment and Plan Assessment: Acute exacerbation of chronic bronchial asthma, secondary to possible acute tracheobronchitis, that has failed to respond on outpatient basis. Chest x-ray does not show any focal infiltrates or evidence of pneumonia. Procalcitonin 0.04. Negative for influenza, RSV, COVID. Severe persistent steroid-dependent nonallergic, noneosinophilic bronchial asthma, patient on Dupixent an outpatient basis. Also recently transitioned to Trelegy inhaler. Acute hypoxemic respiratory failure, secondary to above Acute leukocytosis Previous history of intubation mechanical ventilation related to asthma exacerbation and haemophilus influenza pneumonia back in May 2022 Hypertension History of paroxysmal atrial fibrillation, current rhythm is sinus tachycardia History of GERD, without esophagitis Previous history of COVID-19 infection in December 2021 Plan: The patient was seen and evaluated Labs and medications reviewed Will order CT scan of the sinuses Continue ceftriaxone and azithromycin for now Continue bronchodilators and steroids Currently stable and on room air We will continue to follow I have personally seen and examined the patient, performed the documentation and the assessment and plan as written. Number of minutes spent on the visit: 10.
[2023-10-10] MEDS: ACETAMINOPHEN TAB 325 MG TAB PO PRN (13:48)
--- NOTE | 2023-10-10 14:17 | PN ---
PROGRESS NOTE DATE OF SERVICE: 10/10/2023 SUBJECTIVE: This 53-year-old woman was admitted with asthma exacerbation, failure of outpatient treatment, is being closely monitored. No chest pain, no palpitations, no fever. OBJECTIVE: VITAL SIGNS: Pulse is 107, blood pressure 129/83, respirations 16. HEENT: Conjunctivae normal. NECK: No jugular venous distention. CARDIOVASCULAR: S1, S2. RESPIRATIONS: Diminished at the bases. Few scattered rhonchi, no crackles. ABDOMEN: Soft. NERVOUS SYSTEM: No focal deficits. LABORATORY DATA: Reviewed. ASSESSMENT: 1. Asthma acute exacerbation with possible acute tracheobronchitis with failure of outpatient treatment. 2. History of GERD. 3. Hypertension. 4. History of PVCs. 5. Copious secretions. 6. History of previous bronchoscopy and ICU monitoring. 7. Acute influenza. RECOMMENDATIONS: Recommended to continue current management, continue symptomatic treatment. Continue the antibiotics, steroids, bronchodilators. Guarded prognosis. Further recommendations to follow. MMODL / IJN: [id number] /
--- NOTE | 2023-10-10 15:32 | CDI ---
Documentation Clarification Form Date: From: Vicky Allison Phone: [phone] Admit Date: 10/08/2023 07:05:00 PM Patient Name: Leydi Grimes Visit Number: [id number] Discharge Date: ATTENTION: The Clinical Documentation Specialists (CDI) and [facility] Coding Staff appreciate your assistance in clarifying documentation. Please respond to the clarification below the line at the bottom and electronically sign. The CDI & [facility] Coding staff will review the response and follow-up if needed. Please note: Queries are made part of the Legal Health Record. If you have any questions, please contact the author of this message via ITS. Dr. Carlos Wallace The patient has Heart rate of 121, Respiratory rate on 24 and WBC of 15.7 per lab results and vital flowsheets on 10/07. Based on this information and the findings below, is there an additional diagnosis that is clinically appropriate for this patient? History/Risk Factors: "53-year-old white female with past medical history significant for chronic bronchial asthma, GERD. She is maintained on Dupixent outpatient basis. She is also just recently switched to Trelegy inhaler." - Per Pulmonology note on 10/08 Clinical Indicators: "recent hospitalization for asthma approximately 1 month ago. She was discharged home on 09/13/2023" "she has been progressively more short of breath. She has been wheezing and endorses chest tightness" "Chest x- ray does not show any acute cardiopulmonary process. Negative for influenza, RSV, COVID" - Per Pulmonology note on 10/08 WBC: 10/07 - 15.7, 10/08 - 16.8, 10/09 - 21.90 C-Reactive Protein: 10/08 - 1.6 Blood Culture collected 10/07: "No growth after 24 hours" - 10/08 Sputum culture collected 10/08: "Moderate Gram Positive Cocci" "Few Gram Negative Bacilli" - 10/09 Vitals signs: 10/07 - Temp. 98.4, HR 121, RR 24, BP 146/108, O2 95% on room air Treatment: Per Pulmonology note on 10/08 "Continue supplemental oxygen to maintain oxygen saturation 92% or greater Continue combination of bronchodilators, budesonide inhalation, formoterol inhalation, and IV Solu-Medrol Continue empiric antibiotics. Procalcitonin level pending. Sputum culture pending. Blood cultures pending. Continue Mucinex as expectorant" Is there an additional diagnosis that is clinically appropriate for this patient? [ ] Sepsis, present on admission [ ] SIRS, without underlying infectious process [ ] No additional diagnosis/not clinically significant [ ] Other, please specify [ ] Unable to determine SIRS Criteria: 2 or more of the following may indicate SIRS Temperature < 96.8F (36C) or > 101.0F (38.3C) Heart Rate > 90 bpm Respiratory Rate > 20 breaths/min or PaCO2 < 32 mmHg White Blood Cell Count > 12,000 or < 4,000 cells/mm3 or > 10% bands No additional diagnosis/not clinically significant MTDD
[2023-10-10 16:36] LABS: Glucose,Whole Blood 157 mg/dL (70-110)
[2023-10-10] MEDS: ACETYLCYSTEINE 800 MG/4 ML VIAL INHALATION SCH (17:02)
[2023-10-10 20:19] LABS: Glucose,Whole Blood 139 mg/dL (70-110)
[2023-10-11 07:38] LABS: Glucose,Whole Blood 166 mg/dL (70-110)
[2023-10-11 09:16] LABS: Basophils % (A) 0 %; Eosinophils % (A) 0 %; HCT 43.8 % (34.0-46.0); HGB 14.2 gm/dL (11.4-16.0); Lymphocytes # (A) 1.2 k/uL (1.0-4.8); Lymphocytes % (A) 5 %; MCH 31.6 pg (25.0-35.0); MCHC 32.3 g/dL (31.0-37.0); MCV 97.7 fL (80.0-100.0); Monocytes # (A) 1.1 k/uL (0-1.0); Monocytes % (A) 5 %; Neutrophils # (A) 19.2 k/uL (1.3-7.7); Neutrophils % (A) 89 %; Platelet Count 386 k/uL (150-450); RBC 4.48 m/uL (3.80-5.40); RDW 13.5 % (11.5-15.5); WBC 21.6 k/uL (3.8-10.6)
[2023-10-11 11:48] LABS: Glucose,Whole Blood 162 mg/dL (70-110)
[2023-10-11 11:55] LABS: ALT 29 U/L (4-34); AST 22 U/L (14-36); African American GFR (CKD) >90 (>60 ml/min/1.73 sqM); Albumin 3.5 g/dL (3.5-5.0); Albumin/Globulin Ratio 1.5; Alkaline Phosphatase 88 U/L (38-126); Anion Gap 7 mmol/L; Blood Urea Nitrogen 14 mg/dL (7-17); Calcium 9.7 mg/dL (8.4-10.2); Carbon Dioxide 24 mmol/L (22-30); Chloride 107 mmol/L (98-107); Globulin 2.3 g/dL; Glucose 188 mg/dL (74-99); Non-African American GFR(CKD) >90 (>60 ml/min/1.73 sqM); Potassium 3.9 mmol/L (3.5-5.1); Sodium 138 mmol/L (137-145); Total Bilirubin 0.6 mg/dL (0.2-1.3); Total Protein 5.8 g/dL (6.3-8.2)
--- NOTE | 2023-10-11 13:58 | P.PN ---
Subjective Progress Note Date: 10/11/23 Patient is a 53-year-old white female with past medical history significant for chronic bronchial asthma, GERD. She is maintained on Dupixent outpatient basis. She is also just recently switched to Trelegy inhaler. She does follow in the pulmonary office with Dr. Coker. She did have a recent hospitalization for asthma approximately 1 month ago. She was discharged home on 09/13/2023. Initially, states she was doing well for the first week, however, her symptoms quickly returned. She has been treated on multiple occasions with antibiotics, steroid injection, and prednisone burst taper. She states that she has been progressively more short of breath. She has been wheezing and endorses chest tightness. She has had a productive congested cough with green/todd sputum production. Denies any fevers. Denies any chest pain. Denies any hemoptysis. She was most recently treated with a combination of cefdinir, steroid injection, and prednisone burst taper. Her symptoms have not been improving. She states that she checked her pulse ox at home, and her SpO2 was noted to be in the 80s. She presented to the emergency room yesterday afternoon. Chest x-ray does not show any acute cardiopulmonary process. Negative for influenza, RSV, COVID. CBC shows some leukocytosis with a WC count of 15.7, otherwise unremarkable. D- dimer not elevated. BMP includes a sodium of 141, potassium 4, chloride 112, serum bicarb 19, BUN 14, creatinine 0.82, glucose 166. LFTs not elevated. Troponin less than 0.012. NT proBNP low. Patient is currently sitting up in bed, on 2 L/min nasal cannula, in no acute distress. Afebrile. Heart rhythm appears sinus tachycardia on bedside monitor in the low 100s. Vital signs are stable. The patient is seen today October 10, 2023 in follow-up on the regular medical floor. She is currently sitting up in bed. Awake and alert in no acute distress. She is feeling about more congested today compared to yesterday. She has some complaints of sinus congestion. She still has some chest tightness and wheezing. Continues without congested cough. She is maintaining good O2 saturations in the 90s on room air. She is afebrile. Hemodynamically stable. Blood cultures pending. Sputum culture pending. She is continued on Rocephin and azithromycin per her request. Procalcitonin 0.04. Remains on DuoNeb inhalations every 4 hours. Continued on Pulmicort and Perforomist inhalations twice daily. Remains on Solu-Medrol 60 mg IV every 6 hours. Continued on Singulair, Sudafed, Protonix, Claritin, Mucinex. Heparin for DVT prophylaxis. White count 21.9. Hemoglobin 14.8. Platelets 394. Sodium 140. Potassium 4.4. Bicarb 23. BUN 13. Creatinine 0.9. Glucose 138. The patient is seen today October 11, 2019 for follow-up on the regular medical floor. She is awake and alert in no acute distress. Sitting up in bed. Maintaining good O2 saturations in the 90s on room air. She states she is feeling better today compared to yesterday. She remains on DuoNeb ventilations, Mucomyst inhalations, Pulmicort and Perforomist inhalations, Singulair and Solu- Medrol. She is continued on Protonix. Continued on antibiotics in the form of ceftriaxone and azithromycin. CT scan of the sinuses revealed a tiny mucous retention cyst otherwise clear sinuses. She remains on Sudafed and Claritin. From for DVT prophylaxis. Blood cultures revealed no growth. Sputum culture revealed no growth. White count 21.6. Hemoglobin 14.2. Platelets 386. Sodium 138. Potassium 3.9. Bicarb 24. BUN 14. Creatinine 0.68. Glucose 188. Objective - Vital Signs Vital signs: Vital Signs Temp 98.2 F 10/11/23 13:16 Pulse 109 H 10/11/23 13:16 Resp 20 10/11/23 13:16 BP 139/83 10/11/23 13:16 Pulse Ox 94 L 10/11/23 13:16 FiO2 Intake & Output 10/10/23 10/11/23 10/11/23 18:59 06:59 18:59 Intake Total 350 Balance 350 Intake: Oral 350 Other: Voiding Method Toilet Toilet Toilet # Voids 3 2 - Exam GENERAL EXAM: Alert, pleasant 53-year-old female, on room air, sitting up in bed, comfortable in no apparent distress. HEAD: Normocephalic. EYES: Normal reaction of pupils, equal size. NOSE: Anus congestion. Clear with pink turbinates. THROAT: No erythema or exudates. NECK: No masses, no JVD. CHEST: No chest wall deformity. LUNGS: Equal air entry with end expiratory wheeze. CVS: S1 and S2 normal with no audible murmur, regular rhythm. ABDOMEN: No hepatosplenomegaly, normal bowel sounds, no guarding or rigidity. SPINE: No scoliosis or deformity SKIN: No rashes CENTRAL NERVOUS SYSTEM: No focal deficits, tone is normal in all 4 extremities. EXTREMITIES: There is no peripheral edema. No clubbing, no cyanosis. Peripheral pulses are intact. - Labs CBC & Chem 7: 10/11/23 08:14 10/11/23 08:14 Labs: Abnormal Lab Results - Last 24 Hours (Table) 10/10/23 10/10/23 10/11/23 Range/Units 16:34 20:17 07:36 WBC (3.8-10.6) k/uL Neutrophils # (1.3-7.7) k/uL Monocytes # (0-1.0) k/uL Glucose (74-99) mg/dL POC Glucose (mg/dL) 157 H 139 H 166 H (70-110) mg/dL Total Protein (6.3-8.2) g/dL 10/11/23 10/11/23 10/11/23 Range/Units 08:14 08:14 11:46 WBC 21.6 H (3.8-10.6) k/uL Neutrophils # 19.2 H (1.3-7.7) k/uL Monocytes # 1.1 H (0-1.0) k/uL Glucose 188 H (74-99) mg/dL POC Glucose (mg/dL) 162 H (70-110) mg/dL Total Protein 5.8 L (6.3-8.2) g/dL Microbiology - Last 24 Hours (Table) 10/09/23 08:21 Gram Stain - Final Sputum Sputum Culture - Final 10/08/23 15:05 Blood Culture - Preliminary Blood 10/08/23 14:50 Blood Culture - Preliminary Blood Assessment and Plan Assessment: Acute exacerbation of chronic bronchial asthma, secondary to possible acute tracheobronchitis, that has failed to respond on outpatient basis. Chest x-ray does not show any focal infiltrates or evidence of pneumonia. Procalcitonin 0.04. Negative for influenza, RSV, COVID Sinus congestion, CT scan of the sinuses revealed a tiny gas retention cyst in the inferior medial right maxillary sinus. Otherwise right and left sinuses are clear Severe persistent steroid-dependent nonallergic, noneosinophilic bronchial asthma, patient on Dupixent on outpatient basis. Also recently transitioned to Trelegy inhaler Acute hypoxemic respiratory failure, secondary to above, recovered and on room air Acute leukocytosis possible steroid effect Previous history of intubation mechanical ventilation related to asthma exacerbation and haemophilus influenza pneumonia back in May 2022 Hypertension History of paroxysmal atrial fibrillation, current rhythm is sinus tachycardia History of GERD, without esophagitis Previous history of COVID-19 infection in December 2021 Plan: The patient was seen and evaluated CT scan of the sinuses, labs and medications reviewed Continue the current treatment plan Currently stable and on room air We will continue to follow I have personally seen and examined the patient, performed the documentation and the assessment and plan as written. Number of minutes spent on the visit: 10.
--- NOTE | 2023-10-11 14:21 | PN ---
PROGRESS NOTE DATE OF SERVICE: 10/11/2023 SUBJECTIVE: This 53-year-old woman was admitted with asthma acute exacerbation and failure of outpatient treatment, closely monitored. No chest pain, no palpitations, no fever. Sinus CT showed tiny mucous retention cyst. OBJECTIVE: VITAL SIGNS: Pulse is 109, blood pressure 113/83, respirations 20. CHEST: Few scattered rhonchi and crackles. ABDOMEN: Soft. NERVOUS SYSTEM: Nonfocal. LABORATORY DATA: WBC 21.6. ASSESSMENT: 1. Asthma acute exacerbation with possible acute purulent tracheobronchitis with failure of outpatient treatment. 2. History of GERD. 3. Hypertension. 4. History of PVCs. 5. Copious secretions. 6. History of previous bronchoscopy, ICU monitoring. 7. History of H influenzae remotely. RECOMMENDATIONS AND DISCUSSION: Recommended to continue current medications, continue symptomatic treatment. Otherwise, repeat labs. Continue the bronchodilators, steroids, closely follow with Pulmonary. Further recommendations to follow. MMODL / IJN: [id number] /
[2023-10-11 16:41] LABS: Glucose,Whole Blood 154 mg/dL (70-110)
[2023-10-11 19:45] LABS: Glucose,Whole Blood 184 mg/dL (70-110)
[2023-10-11] MEDS ORDERED: FLUCONAZOLE 100 MG TAB PO SCH (21:00)
[2023-10-11] MEDS: FLUCONAZOLE 150 MG TAB PO STA (21:24)
[2023-10-11] MEDS: DOCUSATE 100 MG CAP PO SCH (21:27)
[2023-10-12 05:43] LABS: Glucose,Whole Blood 138 mg/dL (70-110)
[2023-10-12 10:00] LABS: HCT 42.4 % (37.2-46.3); MCV 96.8 FL (80.0-97.0); Mean Platelet Volume 11.1 FL (9.5-12.2); NRBC Per 100 WBC 0 X 10*3/uL (0.00-0.01); Platelet Count 364 X 10*3/uL (140-440); RBC 4.38 X 10*6/uL (4.10-5.20); RDW 14.2 % (11.5-14.5); WBC 20.25 X 10*3/uL (4.50-10.00)
[2023-10-12 11:32] LABS: Glucose,Whole Blood 167 mg/dL (70-110)
[2023-10-12 11:45] LABS: BUN/Creat Ratio 20.86 Ratio (12.00-20.00); Blood Urea Nitrogen 14.6 mg/dL (9.0-27.0); Calcium 9.3 mg/dL (8.7-10.3); Carbon Dioxide 25.1 mmol/L (21.6-31.8); Chloride 104 mmol/L (96-109); Glucose 160 mg/dL (70-110); Potassium 4.3 mmol/L (3.5-5.5); Sodium 141 mmol/L (135-145)
[2023-10-12 11:59] LABS: Basophils # (M) 0 X 10*3/uL (0.00-0.10); Eosinophils # (M) 0 X 10*3/uL (0.04-0.35); Lymphocytes # (M) 1.42 X 10*3/uL (0.90-5.00); Monocytes # (M) 1.01 X 10*3/uL (0.20-1.00); Neutrophils # (M) 17.82 X 10*3/uL (1.80-7.70); Neutrophils % (M) 88 %; RBC Morphology Normal (Normal)
--- NOTE | 2023-10-12 13:55 | P.PN ---
Subjective Progress Note Date: 10/12/23 Patient is a 53-year-old white female with past medical history significant for chronic bronchial asthma, GERD. She is maintained on Dupixent outpatient basis. She is also just recently switched to Trelegy inhaler. She does follow in the pulmonary office with Dr. Coker. She did have a recent hospitalization for asthma approximately 1 month ago. She was discharged home on 09/13/2023. Initially, states she was doing well for the first week, however, her symptoms quickly returned. She has been treated on multiple occasions with antibiotics, steroid injection, and prednisone burst taper. She states that she has been progressively more short of breath. She has been wheezing and endorses chest tightness. She has had a productive congested cough with green/todd sputum production. Denies any fevers. Denies any chest pain. Denies any hemoptysis. She was most recently treated with a combination of cefdinir, steroid injection, and prednisone burst taper. Her symptoms have not been improving. She states that she checked her pulse ox at home, and her SpO2 was noted to be in the 80s. She presented to the emergency room yesterday afternoon. Chest x-ray does not show any acute cardiopulmonary process. Negative for influenza, RSV, COVID. CBC shows some leukocytosis with a WC count of 15.7, otherwise unremarkable. D- dimer not elevated. BMP includes a sodium of 141, potassium 4, chloride 112, serum bicarb 19, BUN 14, creatinine 0.82, glucose 166. LFTs not elevated. Troponin less than 0.012. NT proBNP low. Patient is currently sitting up in bed, on 2 L/min nasal cannula, in no acute distress. Afebrile. Heart rhythm appears sinus tachycardia on bedside monitor in the low 100s. Vital signs are stable. The patient is seen today October 10, 2023 in follow-up on the regular medical floor. She is currently sitting up in bed. Awake and alert in no acute distress. She is feeling about more congested today compared to yesterday. She has some complaints of sinus congestion. She still has some chest tightness and wheezing. Continues without congested cough. She is maintaining good O2 saturations in the 90s on room air. She is afebrile. Hemodynamically stable. Blood cultures pending. Sputum culture pending. She is continued on Rocephin and azithromycin per her request. Procalcitonin 0.04. Remains on DuoNeb inhalations every 4 hours. Continued on Pulmicort and Perforomist inhalations twice daily. Remains on Solu-Medrol 60 mg IV every 6 hours. Continued on Singulair, Sudafed, Protonix, Claritin, Mucinex. Heparin for DVT prophylaxis. White count 21.9. Hemoglobin 14.8. Platelets 394. Sodium 140. Potassium 4.4. Bicarb 23. BUN 13. Creatinine 0.9. Glucose 138. The patient is seen today October 11, 2023 in follow-up on the regular medical floor. She is awake and alert in no acute distress. Sitting up in bed. Maintaining good O2 saturations in the 90s on room air. She states she is feeling better today compared to yesterday. She remains on DuoNeb ventilations, Mucomyst inhalations, Pulmicort and Perforomist inhalations, Singulair and Solu- Medrol. She is continued on Protonix. Continued on antibiotics in the form of ceftriaxone and azithromycin. CT scan of the sinuses revealed a tiny mucous retention cyst otherwise clear sinuses. She remains on Sudafed and Claritin. From for DVT prophylaxis. Blood cultures revealed no growth. Sputum culture revealed no growth. White count 21.6. Hemoglobin 14.2. Platelets 386. Sodium 138. Potassium 3.9. Bicarb 24. BUN 14. Creatinine 0.68. Glucose 188. The patient is seen today October 12, 2023 in follow-up on the regular medical floor. She is sitting up in bed. Awake and alert in no acute distress. Continues to progress slowly. She is feeling better today compared to . Blood culture reveals no growth. Sputum culture revealed no growth. Count 20.2. Hemoglobin 14.0. Platelets 364. Sodium 141. Potassium 4.3. Bicarb 25. BUN 15. Creatinine 0.7. Glucose 160. He remains on ceftriaxone. Completed azithromycin. Continued on bronchodilators and steroids. Heparin for DVT prophylaxis. Objective - Vital Signs Vital signs: Vital Signs Temp 98.3 F 10/12/23 06:49 Pulse 92 10/12/23 11:48 Resp 17 10/12/23 06:49 BP 119/80 10/12/23 06:49 Pulse Ox 91 L 10/12/23 06:49 FiO2 Intake & Output 04/10/12/23 10/12/23 18:59 06:59 18:59 Intake Total 650 Balance 650 Intake: Oral 650 Other: Voiding Method Toilet # Voids 3 3 - Exam GENERAL EXAM: Alert, pleasant 53-year-old female, on room air, in no apparent distress. HEAD: Normocephalic. EYES: Normal reaction of pupils, equal size. NOSE: Anus congestion. Clear with pink turbinates. THROAT: No erythema or exudates. NECK: No masses, no JVD. CHEST: No chest wall deformity. LUNGS: Equal air entry with end expiratory wheeze. CVS: S1 and S2 normal with no audible murmur, regular rhythm. ABDOMEN: No hepatosplenomegaly, normal bowel sounds, no guarding or rigidity. SPINE: No scoliosis or deformity SKIN: No rashes CENTRAL NERVOUS SYSTEM: No focal deficits, tone is normal in all 4 extremities. EXTREMITIES: There is no peripheral edema. No clubbing, no cyanosis. Peripheral pulses are intact. - Labs CBC & Chem 7: 10/12/23 05:29 10/12/23 05:29 Labs: Abnormal Lab Results - Last 24 Hours (Table) 10/11/23 10/11/23 10/12/23 Range/Units 16:39 19:43 05:29 WBC 20.25 H (4.50-10.00) X 10*3/uL Monocytes # (Manual) 1.01 H (0.20-1.00) X 10*3/uL Eosinophils # (Manual) 0 L (0.04-0.35) X 10*3/uL BUN/Creatinine Ratio (12.00-20.00) Ratio Glucose (70-110) mg/dL POC Glucose (mg/dL) 154 H 184 H (70-110) mg/dL 10/12/23 10/12/23 10/12/23 Range/Units 05:29 05:42 11:31 WBC (4.50-10.00) X 10*3/uL Monocytes # (Manual) (0.20-1.00) X 10*3/uL Eosinophils # (Manual) (0.04-0.35) X 10*3/uL BUN/Creatinine Ratio 20.86 H (12.00-20.00) Ratio Glucose 160 H (70-110) mg/dL POC Glucose (mg/dL) 138 H 167 H (70-110) mg/dL Microbiology - Last 24 Hours (Table) 10/08/23 15:05 Blood Culture - Preliminary Blood 10/08/23 14:50 Blood Culture - Preliminary Blood 10/09/23 08:21 Gram Stain - Final Sputum Sputum Culture - Final Assessment and Plan Assessment: Acute exacerbation of chronic bronchial asthma, secondary to possible acute tracheobronchitis, that has failed to respond on outpatient basis. Chest x-ray does not show any focal infiltrates or evidence of pneumonia. Procalcitonin 0.04. Negative for influenza, RSV, COVID Sinus congestion, CT scan of the sinuses revealed a tiny gas retention cyst in the inferior medial right maxillary sinus. Otherwise right and left sinuses are clear Severe persistent steroid-dependent nonallergic, noneosinophilic bronchial asthma, patient on Dupixent on outpatient basis. Also recently transitioned to Trelegy inhaler Acute hypoxemic respiratory failure, secondary to above, recovered and on room air Acute leukocytosis possible steroid effect Previous history of intubation mechanical ventilation related to asthma exacerbation and haemophilus influenza pneumonia back in May 2022 Hypertension History of paroxysmal atrial fibrillation, current rhythm is sinus tachycardia History of GERD, without esophagitis Previous history of COVID-19 infection in December 2021 Plan: The patient was seen and evaluated Labs and medications reviewed Continue the current treatment plan Stable and on room air Increase her activity as tolerated We will continue to follow I have personally seen and examined the patient, performed the documentation and the assessment and plan as written. Number of minutes spent on the visit: 10.
--- NOTE | 2023-10-12 14:12 | PN ---
PROGRESS NOTE DATE OF SERVICE: 10/12/2023 SUBJECTIVE: This 53-year-old woman was admitted with asthma acute exacerbation, failure of outpatient improvement. No chest pain. No palpitations. No fever. PHYSICAL EXAMINATION: VITAL SIGNS: Pulse is 88, blood pressure is 119/80, respiratory rate 17. CHEST: Few scattered rhonchi. No crackles. Expiratory wheezing. ABDOMEN: Soft. LABORATORY DATA: WBC 20.2, rest of the labs are noted. ASSESSMENT: 1. Asthma acute exacerbation with possible acute purulent tracheobronchitis with failure of outpatient treatment. 2. Gastroesophageal reflux disease. 3. Hypertension. 4. History of PVCs. 5. Copious secretions. 6. History of previous bronchoscopy and ICU monitoring. 7. History of antibiotics, bronchodilators, steroids. I would closely monitor. Repeat labs tomorrow. Otherwise, closely follow with Pulmonary. Further recommendations to follow. MMODL / IJN: [id number] / MTDD
[2023-10-12 16:35] LABS: Glucose,Whole Blood 189 mg/dL (70-110)
[2023-10-12 20:45] LABS: Glucose,Whole Blood 196 mg/dL (70-110)
[2023-10-13 06:51] LABS: Glucose,Whole Blood 160 mg/dL (70-110)
[2023-10-13 09:50] LABS: HGB 14.3 g/dL (12.0-15.0); MCH 31.7 pg (27.0-32.0); MCHC 33.3 g/dL (32.0-37.0); MCV 95.3 FL (80.0-97.0); Mean Platelet Volume 10.8 FL (9.5-12.2); NRBC Per 100 WBC 0.02 X 10*3/uL (0.00-0.01); Platelet Count 382 X 10*3/uL (140-440); RBC 4.51 X 10*6/uL (4.10-5.20); RDW 13.7 % (11.5-14.5); WBC 21.77 X 10*3/uL (4.50-10.00)
[2023-10-13 09:51] LABS: Basophils # (M) 0 X 10*3/uL (0.00-0.10); Eosinophils # (M) 0 X 10*3/uL (0.04-0.35); Lymphocytes # (M) 0.87 X 10*3/uL (0.90-5.00); Monocytes # (M) 0.44 X 10*3/uL (0.20-1.00); Myelocytes % 1 % (0-0); Neutrophils # (M) 20.25 X 10*3/uL (1.80-7.70); Neutrophils % (M) 93 %; RBC Morphology Normal (Normal)
[2023-10-13 12:06] LABS: Glucose,Whole Blood 156 mg/dL (70-110)
[2023-10-13] MEDS: guaiFENesin 600 MG TABLET.ER PO SCH (12:21)
--- NOTE | 2023-10-13 14:13 | XR ---
EXAMINATION TYPE: XR chest 1V portable DATE OF EXAM: 10/13/2023 Comparison: 10/08/2023 Clinical History: 53-year-old female shortness of breath Findings: Low lung volumes. Patchy bibasilar densities. Heart upper limits of normal in size. Impression: Hypoventilatory changes. Patchy bibasilar densities may relate to areas of associated atelectasis. Co rrelate to exclude early infiltrates.
--- NOTE | 2023-10-13 14:40 | P.PN ---
Subjective Progress Note Date: 10/13/23 Patient is a 53-year-old white female with past medical history significant for chronic bronchial asthma, GERD. She is maintained on Dupixent outpatient basis. She is also just recently switched to Trelegy inhaler. She does follow in the pulmonary office with Dr. Coker. She did have a recent hospitalization for asthma approximately 1 month ago. She was discharged home on 09/13/2023. Initially, states she was doing well for the first week, however, her symptoms quickly returned. She has been treated on multiple occasions with antibiotics, steroid injection, and prednisone burst taper. She states that she has been progressively more short of breath. She has been wheezing and endorses chest tightness. She has had a productive congested cough with green/todd sputum production. Denies any fevers. Denies any chest pain. Denies any hemoptysis. She was most recently treated with a combination of cefdinir, steroid injection, and prednisone burst taper. Her symptoms have not been improving. She states that she checked her pulse ox at home, and her SpO2 was noted to be in the 80s. She presented to the emergency room yesterday afternoon. Chest x-ray does not show any acute cardiopulmonary process. Negative for influenza, RSV, COVID. CBC shows some leukocytosis with a WC count of 15.7, otherwise unremarkable. D- dimer not elevated. BMP includes a sodium of 141, potassium 4, chloride 112, serum bicarb 19, BUN 14, creatinine 0.82, glucose 166. LFTs not elevated. Troponin less than 0.012. NT proBNP low. Patient is currently sitting up in bed, on 2 L/min nasal cannula, in no acute distress. Afebrile. Heart rhythm appears sinus tachycardia on bedside monitor in the low 100s. Vital signs are stable. The patient is seen today October 10, 2023 in follow-up on the regular medical floor. She is currently sitting up in bed. Awake and alert in no acute distress. She is feeling about more congested today compared to yesterday. She has some complaints of sinus congestion. She still has some chest tightness and wheezing. Continues without congested cough. She is maintaining good O2 saturations in the 90s on room air. She is afebrile. Hemodynamically stable. Blood cultures pending. Sputum culture pending. She is continued on Rocephin and azithromycin per her request. Procalcitonin 0.04. Remains on DuoNeb inhalations every 4 hours. Continued on Pulmicort and Perforomist inhalations twice daily. Remains on Solu-Medrol 60 mg IV every 6 hours. Continued on Singulair, Sudafed, Protonix, Claritin, Mucinex. Heparin for DVT prophylaxis. White count 21.9. Hemoglobin 14.8. Platelets 394. Sodium 140. Potassium 4.4. Bicarb 23. BUN 13. Creatinine 0.9. Glucose 138. The patient is seen today October 11, 2023 in follow-up on the regular medical floor. She is awake and alert in no acute distress. Sitting up in bed. Maintaining good O2 saturations in the 90s on room air. She states she is feeling better today compared to yesterday. She remains on DuoNeb ventilations, Mucomyst inhalations, Pulmicort and Perforomist inhalations, Singulair and Solu- Medrol. She is continued on Protonix. Continued on antibiotics in the form of ceftriaxone and azithromycin. CT scan of the sinuses revealed a tiny mucous retention cyst otherwise clear sinuses. She remains on Sudafed and Claritin. From for DVT prophylaxis. Blood cultures revealed no growth. Sputum culture revealed no growth. White count 21.6. Hemoglobin 14.2. Platelets 386. Sodium 138. Potassium 3.9. Bicarb 24. BUN 14. Creatinine 0.68. Glucose 188. The patient is seen today October 12, 2023 in follow-up on the regular medical floor. She is sitting up in bed. Awake and alert in no acute distress. Continues to progress slowly. She is feeling better today compared to . Blood culture reveals no growth. Sputum culture revealed no growth. Count 20.2. Hemoglobin 14.0. Platelets 364. Sodium 141. Potassium 4.3. Bicarb 25. BUN 15. Creatinine 0.7. Glucose 160. He remains on ceftriaxone. Completed azithromycin. Continued on bronchodilators and steroids. Heparin for DVT prophylaxis. The patient is seen today October 13, 2023 in follow-up on the regular medical floor. She is awake and alert in no acute distress. Unfortunately she is feeling a bit worse today compared to yesterday. She is still somewhat bronchospastic and wheezing. She remains on antibiotics, bronchodilators, steroids. Heparin for DVT prophylaxis. Chest x-ray continues to show minimal atelectasis of the lung bases. Otherwise clear lungs. Sputum culture revealed no growth. Blood cultures revealed no growth. Count 21.7. Hemoglobin 14.3. Platelets 382. Glucose 160. She remains on DuoNeb inhalation, Pulmicort and Perforomist inhalations, Solu-Medrol, Singulair, Sudafed, Claritin. Mucinex has been reordered. Remains on ceftriaxone. Completed a course of azithromycin. Procalcitonin is within normal limits. Objective - Vital Signs Vital signs: Vital Signs Temp 98.2 F 10/13/23 07:58 Pulse 104 H 10/13/23 11:21 Resp 18 10/13/23 07:58 BP 133/84 10/13/23 07:58 Pulse Ox 94 L 10/13/23 07:58 FiO2 Intake & Output 10/12/23 10/13/23 10/13/23 18:59 06:59 18:59 Other: # Voids 3 6 - Exam GENERAL EXAM: Alert, oriented 53-year-old female patient, sitting up in bed, on room air, in no acute distress. HEAD: Normocephalic. EYES: Normal reaction of pupils, equal size. NOSE: Anus congestion. Clear with pink turbinates. THROAT: No erythema or exudates. NECK: No masses, no JVD. CHEST: No chest wall deformity. LUNGS: Equal air entry with bilateral end expiratory wheeze. CVS: S1 and S2 normal with no audible murmur, regular rhythm. ABDOMEN: No hepatosplenomegaly, normal bowel sounds, no guarding or rigidity. SPINE: No scoliosis or deformity SKIN: No rashes CENTRAL NERVOUS SYSTEM: No focal deficits, tone is normal in all 4 extremities. EXTREMITIES: There is trace peripheral edema. No clubbing, no cyanosis. Peripheral pulses are intact. - Labs CBC & Chem 7: 10/13/23 05:30 10/12/23 05:29 Labs: Abnormal Lab Results - Last 24 Hours (Table) 10/12/23 10/12/23 10/13/23 Range/Units 16:34 20:43 05:30 WBC 21.77 H (4.50-10.00) X 10*3/uL Lymphocytes # (Manual) 0.87 L (0.90-5.00) X 10*3/uL Eosinophils # (Manual) 0 L (0.04-0.35) X 10*3/uL NRBC/100 WBC Diff 0.02 H (0.00-0.01) X 10*3/uL POC Glucose (mg/dL) 189 H 196 H (70-110) mg/dL 10/13/23 10/13/23 Range/Units 06:50 12:05 WBC (4.50-10.00) X 10*3/uL Lymphocytes # (Manual) (0.90-5.00) X 10*3/uL Eosinophils # (Manual) (0.04-0.35) X 10*3/uL NRBC/100 WBC Diff (0.00-0.01) X 10*3/uL POC Glucose (mg/dL) 160 H 156 H (70-110) mg/dL Assessment and Plan Assessment: Acute exacerbation of chronic bronchial asthma, secondary to possible acute tracheobronchitis, that has failed to respond on outpatient basis. Chest x-ray does not show any focal infiltrates or evidence of pneumonia. Procalcitonin 0.04. Negative for influenza, RSV, COVID. Follow-up chest x-ray shows minimal atelectasis otherwise clear lung fabian Sinus congestion, CT scan of the sinuses revealed a tiny gas retention cyst in the inferior medial right maxillary sinus. Otherwise right and left sinuses are clear Severe persistent steroid-dependent nonallergic, noneosinophilic bronchial asthma, patient on Dupixent on outpatient basis. Also recently transitioned to Trelegy inhaler Acute hypoxemic respiratory failure, secondary to above, recovered and on room air Acute leukocytosis possible steroid effect Previous history of intubation mechanical ventilation related to asthma exacerbation and haemophilus influenza pneumonia back in May 2022 Hypertension History of paroxysmal atrial fibrillation, current rhythm is sinus tachycardia History of GERD, without esophagitis Previous history of COVID-19 infection in December 2021 Plan: The patient was seen and evaluated X-ray, labs and medications reviewed Stable and on room air Resume Mucinex Continue flutter valve Continue the current treatment plan We will continue to follow I have personally seen and examined the patient, performed the documentation and the assessment and plan as written. Number of minutes spent on the visit: 10.
[2023-10-13 17:17] LABS: Glucose,Whole Blood 177 mg/dL (70-110)
[2023-10-13 21:24] LABS: Glucose,Whole Blood 166 mg/dL (70-110)
--- NOTE | 2023-10-14 00:21 | PN ---
PROGRESS NOTE DATE OF SERVICE: 10/13/2023 SUBJECTIVE: This is a 53-year-old woman, who was admitted with acute asthma exacerbation, failure of outpatient treatment, severe purulent tracheobronchitis, has significant bronchospasm also. The patient is being closely monitored by Pulmonary. No chest pain. No palpitations. No fever. OBJECTIVE: VITAL SIGNS: Pulse is 108, blood pressure 133/84, respirations 18. CHEST: A few scattered rhonchi and crackles. ABDOMEN: Soft. NERVOUS SYSTEM: Nonfocal. LABS: WBC 21.7. ASSESSMENT: 1. Asthma acute exacerbation with possible acute purulent tracheobronchitis with failure of outpatient treatment and slow improvement in the hospital. 2. Gastroesophageal reflux disease. 3. Hypertension. 4. History of PVCs. 5. Copious secretions. 6. . RECOMMENDATIONS AND DISCUSSION: This is a 53-year-old woman, who presented with multiple complex medical issues, we will monitor the patient closely. We will continue with bronchodilators, steroids, antibiotics. Repeat labs. Otherwise, I would also repeat an x-ray. Closely follow with Pulmonary. Further recommendations to follow. MMODL / IJN: [id number] /
[2023-10-14 06:44] LABS: Glucose,Whole Blood 142 mg/dL (70-110)
[2023-10-14 08:58] LABS: BUN/Creat Ratio 25.17 Ratio (12.00-20.00); Blood Urea Nitrogen 15.1 mg/dL (9.0-27.0); Calcium 9.3 mg/dL (8.7-10.3); Carbon Dioxide 25.3 mmol/L (21.6-31.8); Chloride 104 mmol/L (96-109); Glucose 159 mg/dL (70-110); Potassium 4.2 mmol/L (3.5-5.5); Sodium 140 mmol/L (135-145)
[2023-10-14 09:37] LABS: Basophils # (M) 0 X 10*3/uL (0.00-0.10); Eosinophils # (M) 0 X 10*3/uL (0.04-0.35); HGB 14.4 g/dL (12.0-15.0); Lymphocytes # (M) 0.85 X 10*3/uL (0.90-5.00); MCH 33.1 pg (27.0-32.0); MCHC 34.3 g/dL (32.0-37.0); MCV 96.6 FL (80.0-97.0); Mean Platelet Volume 11.2 FL (9.5-12.2); Metamyelocytes % 1 % (0-0); Monocytes # (M) 1.06 X 10*3/uL (0.20-1.00); Myelocytes % 3 % (0-0); NRBC Per 100 WBC 0.02 X 10*3/uL (0.00-0.01); Neutrophils # (M) 18.51 X 10*3/uL (1.80-7.70); Neutrophils % (M) 87 %; Platelet Count 345 X 10*3/uL (140-440); RBC 4.35 X 10*6/uL (4.10-5.20); RBC Morphology Normal (Normal); RDW 13.5 % (11.5-14.5); WBC 21.28 X 10*3/uL (4.50-10.00)
[2023-10-14 11:37] LABS: Glucose,Whole Blood 175 mg/dL (70-110)
[2023-10-14] MEDS: AZITHROMYCIN 500 MG TAB PO SCH (12:48)
--- NOTE | 2023-10-14 14:39 | P.PN ---
Subjective Progress Note Date: 10/14/23 Patient is a 53-year-old white female with past medical history significant for chronic bronchial asthma, GERD. She is maintained on Dupixent outpatient basis. She is also just recently switched to Trelegy inhaler. She does follow in the pulmonary office with Dr. Coker. She did have a recent hospitalization for asthma approximately 1 month ago. She was discharged home on 09/13/2023. Initially, states she was doing well for the first week, however, her symptoms quickly returned. She has been treated on multiple occasions with antibiotics, steroid injection, and prednisone burst taper. She states that she has been progressively more short of breath. She has been wheezing and endorses chest tightness. She has had a productive congested cough with green/todd sputum production. Denies any fevers. Denies any chest pain. Denies any hemoptysis. She was most recently treated with a combination of cefdinir, steroid injection, and prednisone burst taper. Her symptoms have not been improving. She states that she checked her pulse ox at home, and her SpO2 was noted to be in the 80s. She presented to the emergency room yesterday afternoon. Chest x-ray does not show any acute cardiopulmonary process. Negative for influenza, RSV, COVID. CBC shows some leukocytosis with a WC count of 15.7, otherwise unremarkable. D- dimer not elevated. BMP includes a sodium of 141, potassium 4, chloride 112, serum bicarb 19, BUN 14, creatinine 0.82, glucose 166. LFTs not elevated. Troponin less than 0.012. NT proBNP low. Patient is currently sitting up in bed, on 2 L/min nasal cannula, in no acute distress. Afebrile. Heart rhythm appears sinus tachycardia on bedside monitor in the low 100s. Vital signs are stable. The patient is seen today October 10, 2023 in follow-up on the regular medical floor. She is currently sitting up in bed. Awake and alert in no acute distress. She is feeling about more congested today compared to yesterday. She has some complaints of sinus congestion. She still has some chest tightness and wheezing. Continues without congested cough. She is maintaining good O2 saturations in the 90s on room air. She is afebrile. Hemodynamically stable. Blood cultures pending. Sputum culture pending. She is continued on Rocephin and azithromycin per her request. Procalcitonin 0.04. Remains on DuoNeb inhalations every 4 hours. Continued on Pulmicort and Perforomist inhalations twice daily. Remains on Solu-Medrol 60 mg IV every 6 hours. Continued on Singulair, Sudafed, Protonix, Claritin, Mucinex. Heparin for DVT prophylaxis. White count 21.9. Hemoglobin 14.8. Platelets 394. Sodium 140. Potassium 4.4. Bicarb 23. BUN 13. Creatinine 0.9. Glucose 138. The patient is seen today October 11, 2023 in follow-up on the regular medical floor. She is awake and alert in no acute distress. Sitting up in bed. Maintaining good O2 saturations in the 90s on room air. She states she is feeling better today compared to yesterday. She remains on DuoNeb ventilations, Mucomyst inhalations, Pulmicort and Perforomist inhalations, Singulair and Solu- Medrol. She is continued on Protonix. Continued on antibiotics in the form of ceftriaxone and azithromycin. CT scan of the sinuses revealed a tiny mucous retention cyst otherwise clear sinuses. She remains on Sudafed and Claritin. From for DVT prophylaxis. Blood cultures revealed no growth. Sputum culture revealed no growth. White count 21.6. Hemoglobin 14.2. Platelets 386. Sodium 138. Potassium 3.9. Bicarb 24. BUN 14. Creatinine 0.68. Glucose 188. The patient is seen today October 12, 2023 in follow-up on the regular medical floor. She is sitting up in bed. Awake and alert in no acute distress. Continues to progress slowly. She is feeling better today compared to . Blood culture reveals no growth. Sputum culture revealed no growth. Count 20.2. Hemoglobin 14.0. Platelets 364. Sodium 141. Potassium 4.3. Bicarb 25. BUN 15. Creatinine 0.7. Glucose 160. He remains on ceftriaxone. Completed azithromycin. Continued on bronchodilators and steroids. Heparin for DVT prophylaxis. The patient is seen today October 13, 2023 in follow-up on the regular medical floor. She is awake and alert in no acute distress. Unfortunately she is feeling a bit worse today compared to yesterday. She is still somewhat bronchospastic and wheezing. She remains on antibiotics, bronchodilators, steroids. Heparin for DVT prophylaxis. Chest x-ray continues to show minimal atelectasis of the lung bases. Otherwise clear lungs. Sputum culture revealed no growth. Blood cultures revealed no growth. Count 21.7. Hemoglobin 14.3. Platelets 382. Glucose 160. She remains on DuoNeb inhalation, Pulmicort and Perforomist inhalations, Solu-Medrol, Singulair, Sudafed, Claritin. Mucinex has been reordered. Remains on ceftriaxone. Completed a course of azithromycin. Procalcitonin is within normal limits. The patient is seen today October 14, 2023 in follow-up on the regular medical floor. She is awake and alert. She has been slow to progress. She is still not feeling back to her baseline. Does Continue to maintain O2 saturations in the 90s on room air. She is afebrile. Blood cultures revealed no growth. Sputum culture reveals no growth. Count 21.2. Hemoglobin 14.4. Platelets 345. Sodium 140. Potassium 4.2. Bicarb 25. BUN 15. Creatinine 0.6. Glucose 159. She remains on DuoNeb inhalations, Pulmicort and performing scintillations, IV Solu-Medrol, Singulair. She remains on Sudafed and Claritin. Objective - Vital Signs Vital signs: Vital Signs Temp 97.9 F 10/14/23 08:00 Pulse 100 10/14/23 11:38 Resp 15 10/14/23 02:10 BP 127/83 10/14/23 08:00 Pulse Ox 93 L 10/14/23 08:34 FiO2 21 10/14/23 08:34 Intake & Output 10/13/23 10/14/23 10/14/23 18:59 06:59 18:59 Intake Total 240 Output Total 4 Balance -4 240 Intake: Oral 240 Output: Urine 4 Other: # Voids 3 - Exam GENERAL EXAM: Alert, somewhat frustrated 53-year-old female, sitting up in bed, on room air, in no acute distress. HEAD: Normocephalic. EYES: Normal reaction of pupils, equal size. NOSE: Anus congestion. Clear with pink turbinates. THROAT: No erythema or exudates. NECK: No masses, no JVD. CHEST: No chest wall deformity. LUNGS: Equal air entry with bilateral end expiratory wheeze. CVS: S1 and S2 normal with no audible murmur, regular rhythm. ABDOMEN: No hepatosplenomegaly, normal bowel sounds, no guarding or rigidity. SPINE: No scoliosis or deformity SKIN: No rashes CENTRAL NERVOUS SYSTEM: No focal deficits, tone is normal in all 4 extremities. EXTREMITIES: There is trace peripheral edema. No clubbing, no cyanosis. Peripheral pulses are intact. - Labs CBC & Chem 7: 10/14/23 05:37 10/14/23 05:37 Labs: Abnormal Lab Results - Last 24 Hours (Table) 10/12/23 10/13/23 10/13/23 Range/Units 05:29 05:30 17:16 WBC (4.50-10.00) X 10*3/uL MCH (27.0-32.0) pg Neutrophils # (Manual) 17.82 H 20.25 H (1.80-7.70) X 10*3/uL Lymphocytes # (Manual) (0.90-5.00) X 10*3/uL Monocytes # (Manual) (0.20-1.00) X 10*3/uL Eosinophils # (Manual) (0.04-0.35) X 10*3/uL NRBC/100 WBC Diff (0.00-0.01) X 10*3/uL BUN/Creatinine Ratio (12.00-20.00) Ratio Glucose (70-110) mg/dL POC Glucose (mg/dL) 177 H (70-110) mg/dL 10/13/23 10/14/23 10/14/23 Range/Units 21:22 05:37 05:37 WBC 21.28 H (4.50-10.00) X 10*3/uL MCH 33.1 H (27.0-32.0) pg Neutrophils # (Manual) 18.51 H (1.80-7.70) X 10*3/uL Lymphocytes # (Manual) 0.85 L (0.90-5.00) X 10*3/uL Monocytes # (Manual) 1.06 H (0.20-1.00) X 10*3/uL Eosinophils # (Manual) 0 L (0.04-0.35) X 10*3/uL NRBC/100 WBC Diff 0.02 H (0.00-0.01) X 10*3/uL BUN/Creatinine Ratio 25.17 H (12.00-20.00) Ratio Glucose 159 H (70-110) mg/dL POC Glucose (mg/dL) 166 H (70-110) mg/dL 10/14/23 10/14/23 Range/Units 06:42 11:35 WBC (4.50-10.00) X 10*3/uL MCH (27.0-32.0) pg Neutrophils # (Manual) (1.80-7.70) X 10*3/uL Lymphocytes # (Manual) (0.90-5.00) X 10*3/uL Monocytes # (Manual) (0.20-1.00) X 10*3/uL Eosinophils # (Manual) (0.04-0.35) X 10*3/uL NRBC/100 WBC Diff (0.00-0.01) X 10*3/uL BUN/Creatinine Ratio (12.00-20.00) Ratio Glucose (70-110) mg/dL POC Glucose (mg/dL) 142 H 175 H (70-110) mg/dL Microbiology - Last 24 Hours (Table) 10/08/23 15:05 Blood Culture - Final Blood 10/08/23 14:50 Blood Culture - Final Blood Assessment and Plan Assessment: Acute exacerbation of chronic bronchial asthma, secondary to possible acute tracheobronchitis, that has failed to respond on outpatient basis. Chest x-ray does not show any focal infiltrates or evidence of pneumonia. Procalcitonin 0.04. Negative for influenza, RSV, COVID. Follow-up chest x-ray shows minimal atelectasis otherwise clear lung fabian Sinus congestion, CT scan of the sinuses revealed a tiny gas retention cyst in the inferior medial right maxillary sinus. Otherwise right and left sinuses are clear Severe persistent steroid-dependent nonallergic, noneosinophilic bronchial asthma, patient on Dupixent on outpatient basis. Also recently transitioned to Trelegy inhaler Acute hypoxemic respiratory failure, secondary to above, recovered and on room air Acute leukocytosis possible steroid effect Previous history of intubation mechanical ventilation related to asthma exacerbation and haemophilus influenza pneumonia back in May 2022 Hypertension History of paroxysmal atrial fibrillation, current rhythm is sinus tachycardia History of GERD, without esophagitis Previous history of COVID-19 infection in December 2021 Plan: The patient was seen and evaluated Labs and medications reviewed And azithromycin on Saturday empirically No plans for bronchoscopy at this point Continue the current treatment plan We will continue to follow I have personally seen and examined the patient, performed the documentation and the assessment and plan as written. Number of minutes spent on the visit: 10.
[2023-10-14 16:53] LABS: Glucose,Whole Blood 188 mg/dL (70-110)
--- NOTE | 2023-10-14 18:00 | P.PN ---
Progress Note - Text Progress Note Date: 10/14/23 This is a 51-year-old patient, follows with Dr. Yarelis Alejo. [employer] Dr. Coker. Patient long-standing asthma. In 2021 patient underwent bronchoscopy with lavage followed by being intubated. October 14, 2023: Patient admitted with acute asthma exacerbation. With possible acute tracheobronchitis. Having bouts of coughing. Sputum is clear able to expectorate. Appetite is fair. Patient's mother and at the bedside. Had a lengthy discussion about simple physiological exercises. Including deep breathing, sitting up in a chair. Questions answered. Patient on the full slew of medications for asthma exacerbation. Active Medications Acetaminophen (Acetaminophen Tab 325 Mg Tab) 650 mg PO Q6HR PRN PRN Reason: Mild Pain or Fever > 100.5 Last Admin: 10/12/23 08:28 Dose: 650 mg Albuterol/Ipratropium (Ipratropium-Albuterol 3 Ml Neb) 3 ml INHALATION RT-Q4H [facility] Last Admin: 10/14/23 15:22 Dose: 3 ml Amlodipine Besylate (Amlodipine 10 Mg Tab) 10 mg PO DAILY [facility] Last Admin: 10/14/23 09:38 Dose: 10 mg Azithromycin (Azithromycin 500 Mg Tab) 500 mg PO MoWeFr@0900 [facility]; Protocol Stop: 10/18/23 09:01 Last Admin: 10/14/23 12:48 Dose: 500 mg Budesonide (Budesonide 1 Mg/2 Ml Nebu) 1 mg INHALATION RT-BID [facility] Last Admin: 10/14/23 08:33 Dose: 1 mg Cholecalciferol (Cholecalciferol 125 Mcg (5000 Iu) Tablet) 125 mcg PO HS [facility] Last Admin: 10/13/23 21:37 Dose: 125 mcg Dextrose/Water (Dextrose 50% Syringe 50 Ml) 25 ml IVP PER PROTOCOL PRN; Protocol PRN Reason: Hypoglycemia Dextrose/Water (Dextrose 50% Syringe 50 Ml) 50 ml IVP PER PROTOCOL PRN; Protocol PRN Reason: Hypoglycemia Docusate Sodium (Docusate 100 Mg Cap) 100 mg PO BID [facility] Last Admin: 10/14/23 09:38 Dose: 100 mg Formoterol Fumarate (Formoterol Fumarate 20 Mcg/2 Ml Nebu) 20 mcg INHALATION RT-BID [facility] Last Admin: 10/14/23 08:32 Dose: 20 mcg Heparin Sodium (Porcine) (Heparin Sodium,Porcine 5,000 Unit/Ml 1 Ml Vial) 5,000 unit SQ Q12HR [facility] Last Admin: 10/14/23 09:38 Dose: 5,000 unit Insulin Aspart (Insulin Aspart (Novolog) 100 Unit/Ml Vial) 0 unit SQ [facility]; Protocol Last Admin: 10/14/23 17:49 Dose: 2 unit Loratadine (Loratadine 10 Mg Tab) 10 mg PO [facility] Last Admin: 10/13/23 21:37 Dose: 10 mg Methylprednisolone Sodium Succinate (Methylprednisolone Sod Succi 125 Mg/2 Ml Vial) 60 mg IV Q6HR [facility] Last Admin: 10/14/23 12:48 Dose: 60 mg Metoprolol Succinate (Metoprolol Succinate (Er) 25 Mg Tab.Er.24h) 25 mg PO [facility] Last Admin: 10/13/23 21:37 Dose: 25 mg Miscellaneous Information (Pneumonia Protocol Utilized 1 Each Misc) 1 each PO ONCE PRN PRN Reason: Per Protocol Montelukast Sodium (Montelukast 10 Mg Tab) 10 mg PO [facility] Last Admin: 10/13/23 21:37 Dose: 10 mg Pantoprazole Sodium (Pantoprazole 40 Mg Tablet) 40 mg PO AC-BID [facility] Last Admin: 10/14/23 17:49 Dose: 40 mg Pseudoephedrine HCl (Pseudoephedrine 12hr 120 Mg Tablet.Er) 120 mg PO BID [facility] Last Admin: 10/14/23 09:38 Dose: 120 mg Past medical history to include: Asthma, reflux, hypertension, migraines, arthralgias COVID December 2021 Social history: . No smoking. Alcohol rarely Physical examination: VITAL SIGNS: 97.9, 112, 18, 1 46/83, 93% room air GENERAL: Sitting up in chair, some wheezing EYES: Pupils equal. Conjunctiva normal. HEENT: External appearance of nose and ears normal, oral cavity endotracheal tube. NECK: JVD not raised; masses not palpable. HEART: First and second heart sounds are normal; no edema. LUNGS: Respiratory rate increased, diminished breath sounds expiratory wheezing ABDOMEN: Soft, nontender, liver spleen not palpable, no masses palpable. PSYCH: Alert 3, mood and affect normal INVESTIGATIONS, reviewed in the clinical context: October 13: White count 21.2 hemoglobin 14.4 platelets 345 sodium 140 potassium 4.2 creatinine 0.6 Assessment and plan: -Acute hypoxic respiratory failure from asthma exacerbation:: Improved Status post Ventilator support, extubated May 29. Down to room air -Acute severe obstructive asthma exacerbation: Slow to respond DuoNeisabel, YOKO Solu-Medrol., nebulized Pulmicort, PerforomistBrigette Follows outpatient with Dr. COKER. -Essential hypertension Amlodipine -GERD PPI -Leukocytosis likely from high-dose steroids -Acute tracheobronchitis, Zithromax -Obesity BMI 30.6 Weight loss measures -Full code Care was discussed at length with the patient and the mother at the bedside. Questions answered. Increase activity. Deep breathing. Incentive spirometry. Other medications to continue.
[2023-10-14 20:29] LABS: Glucose,Whole Blood 194 mg/dL (70-110)
[2023-10-14] MEDS: guaiFENesin 600 MG TABLET.ER PO SCH (22:54)
[2023-10-15 05:47] LABS: Glucose,Whole Blood 152 mg/dL (70-110)
[2023-10-15] MEDS: PSYLLIUM HUSK 100% 6 GM PACKET PO SCH (07:44)
[2023-10-15 11:15] VITALS: BMI 29.2
[2023-10-15 11:49] LABS: Glucose,Whole Blood 188 mg/dL (70-110)
--- NOTE | 2023-10-15 12:49 | P.PN ---
Subjective Progress Note Date: 10/15/23 Patient is a 53-year-old white female with past medical history significant for chronic bronchial asthma, GERD. She is maintained on Dupixent outpatient basis. She is also just recently switched to Trelegy inhaler. She does follow in the pulmonary office with Dr. Coker. She did have a recent hospitalization for asthma approximately 1 month ago. She was discharged home on 09/13/2023. Initially, states she was doing well for the first week, however, her symptoms quickly returned. She has been treated on multiple occasions with antibiotics, steroid injection, and prednisone burst taper. She states that she has been progressively more short of breath. She has been wheezing and endorses chest tightness. She has had a productive congested cough with green/todd sputum production. Denies any fevers. Denies any chest pain. Denies any hemoptysis. She was most recently treated with a combination of cefdinir, steroid injection, and prednisone burst taper. Her symptoms have not been improving. She states that she checked her pulse ox at home, and her SpO2 was noted to be in the 80s. She presented to the emergency room yesterday afternoon. Chest x-ray does not show any acute cardiopulmonary process. Negative for influenza, RSV, COVID. CBC shows some leukocytosis with a WC count of 15.7, otherwise unremarkable. D- dimer not elevated. BMP includes a sodium of 141, potassium 4, chloride 112, serum bicarb 19, BUN 14, creatinine 0.82, glucose 166. LFTs not elevated. Troponin less than 0.012. NT proBNP low. Patient is currently sitting up in bed, on 2 L/min nasal cannula, in no acute distress. Afebrile. Heart rhythm appears sinus tachycardia on bedside monitor in the low 100s. Vital signs are stable. The patient is seen today October 10, 2023 in follow-up on the regular medical floor. She is currently sitting up in bed. Awake and alert in no acute distress. She is feeling about more congested today compared to yesterday. She has some complaints of sinus congestion. She still has some chest tightness and wheezing. Continues without congested cough. She is maintaining good O2 saturations in the 90s on room air. She is afebrile. Hemodynamically stable. Blood cultures pending. Sputum culture pending. She is continued on Rocephin and azithromycin per her request. Procalcitonin 0.04. Remains on DuoNeb inhalations every 4 hours. Continued on Pulmicort and Perforomist inhalations twice daily. Remains on Solu-Medrol 60 mg IV every 6 hours. Continued on Singulair, Sudafed, Protonix, Claritin, Mucinex. Heparin for DVT prophylaxis. White count 21.9. Hemoglobin 14.8. Platelets 394. Sodium 140. Potassium 4.4. Bicarb 23. BUN 13. Creatinine 0.9. Glucose 138. The patient is seen today October 11, 2023 in follow-up on the regular medical floor. She is awake and alert in no acute distress. Sitting up in bed. Maintaining good O2 saturations in the 90s on room air. She states she is feeling better today compared to yesterday. She remains on DuoNeb ventilations, Mucomyst inhalations, Pulmicort and Perforomist inhalations, Singulair and Solu- Medrol. She is continued on Protonix. Continued on antibiotics in the form of ceftriaxone and azithromycin. CT scan of the sinuses revealed a tiny mucous retention cyst otherwise clear sinuses. She remains on Sudafed and Claritin. From for DVT prophylaxis. Blood cultures revealed no growth. Sputum culture revealed no growth. White count 21.6. Hemoglobin 14.2. Platelets 386. Sodium 138. Potassium 3.9. Bicarb 24. BUN 14. Creatinine 0.68. Glucose 188. The patient is seen today October 12, 2023 in follow-up on the regular medical floor. She is sitting up in bed. Awake and alert in no acute distress. Continues to progress slowly. She is feeling better today compared to . Blood culture reveals no growth. Sputum culture revealed no growth. Count 20.2. Hemoglobin 14.0. Platelets 364. Sodium 141. Potassium 4.3. Bicarb 25. BUN 15. Creatinine 0.7. Glucose 160. He remains on ceftriaxone. Completed azithromycin. Continued on bronchodilators and steroids. Heparin for DVT prophylaxis. The patient is seen today October 13, 2023 in follow-up on the regular medical floor. She is awake and alert in no acute distress. Unfortunately she is feeling a bit worse today compared to yesterday. She is still somewhat bronchospastic and wheezing. She remains on antibiotics, bronchodilators, steroids. Heparin for DVT prophylaxis. Chest x-ray continues to show minimal atelectasis of the lung bases. Otherwise clear lungs. Sputum culture revealed no growth. Blood cultures revealed no growth. Count 21.7. Hemoglobin 14.3. Platelets 382. Glucose 160. She remains on DuoNeb inhalation, Pulmicort and Perforomist inhalations, Solu-Medrol, Singulair, Sudafed, Claritin. Mucinex has been reordered. Remains on ceftriaxone. Completed a course of azithromycin. Procalcitonin is within normal limits. The patient is seen today October 14, 2023 in follow-up on the regular medical floor. She is awake and alert. She has been slow to progress. She is still not feeling back to her baseline. Does Continue to maintain O2 saturations in the 90s on room air. She is afebrile. Blood cultures revealed no growth. Sputum culture reveals no growth. Count 21.2. Hemoglobin 14.4. Platelets 345. Sodium 140. Potassium 4.2. Bicarb 25. BUN 15. Creatinine 0.6. Glucose 159. She remains on DuoNeb inhalations, Pulmicort and performing scintillations, IV Solu-Medrol, Singulair. She remains on Sudafed and Claritin. The patient is seen today October 15, 2023 and follow-up on the regular medical floor. She is currently sitting up in a chair at the bedside. Awake and alert in no acute distress. She is finally feeling better. No worsening shortness of breath, cough or congestion. Continues to maintain good O2 saturations in the 90s on room air. She is continued on Solu-Medrol, Singulair, DuoNeb inhalations, Pulmicort and Perforomist inhalations, Mucinex. She remains on Sudafed, Claritin and Protonix. She was initiated on maintenance azithromycin as anti-inflammatory at 250 mg p.o. every Saturday. Cultures have been negative. Heparin for DVT prophylaxis. Procalcitonin again negative at 0.03. Glucose 188. P-ANCA, c-ANCA pending. Objective - Vital Signs Vital signs: Vital Signs Temp 98.5 F 10/15/23 07:24 Pulse 102 H 10/15/23 12:19 Resp 17 10/15/23 07:24 BP 132/82 10/15/23 07:24 Pulse Ox 93 L 04/23/24 07:24 FiO2 21 10/14/23 08:34 Intake & Output 10/14/23 10/15/23 10/15/23 18:59 06:59 18:59 Intake Total 240 Balance 240 Weight 79.832 kg Intake: Oral 240 Other: Voiding Method Toilet # Voids 2 3 - Exam GENERAL EXAM: Alert, pleasant 53-year-old female, sitting up in chair, on room air, in no acute distress. HEAD: Normocephalic. EYES: Normal reaction of pupils, equal size. NOSE: Anus congestion. Clear with pink turbinates. THROAT: No erythema or exudates. NECK: No masses, no JVD. CHEST: No chest wall deformity. LUNGS: Equal air entry with bilateral end expiratory wheeze. CVS: S1 and S2 normal with no audible murmur, regular rhythm. ABDOMEN: No hepatosplenomegaly, normal bowel sounds, no guarding or rigidity. SPINE: No scoliosis or deformity SKIN: No rashes CENTRAL NERVOUS SYSTEM: No focal deficits, tone is normal in all 4 extremities. EXTREMITIES: There is trace peripheral edema. No clubbing, no cyanosis. Peripheral pulses are intact. - Labs CBC & Chem 7: 10/14/23 05:37 10/14/23 05:37 Labs: Abnormal Lab Results - Last 24 Hours (Table) 10/14/23 10/14/23 10/15/23 Range/Units 16:52 20:22 05:42 POC Glucose (mg/dL) 188 H 194 H 152 H (70-110) mg/dL 10/15/23 Range/Units 11:48 POC Glucose (mg/dL) 188 H (70-110) mg/dL Assessment and Plan Assessment: Acute exacerbation of chronic bronchial asthma, secondary to possible acute tracheobronchitis, that has failed to respond on outpatient basis. Chest x-ray does not show any focal infiltrates or evidence of pneumonia. Procalcitonin 0.04. Negative for influenza, RSV, COVID. Follow-up chest x-ray shows minimal atelectasis otherwise clear lung fabian. Follow-up procalcitonin again negative at 0.03. P-ANCA, c-ANCA pending Sinus congestion, CT scan of the sinuses revealed a tiny gas retention cyst in the inferior medial right maxillary sinus. Otherwise right and left sinuses are clear Severe persistent steroid-dependent nonallergic, noneosinophilic bronchial asthma, patient on Dupixent on outpatient basis. Also recently transitioned to Trelegy inhaler Acute hypoxemic respiratory failure, secondary to above, recovered and on room air Acute leukocytosis possible steroid effect Previous history of intubation mechanical ventilation related to asthma exacerbation and haemophilus influenza pneumonia back in May 2022 Hypertension History of paroxysmal atrial fibrillation, current rhythm is sinus tachycardia History of GERD, without esophagitis Previous history of COVID-19 infection in December 2021 Plan: The patient was seen and evaluated Labs and medications reviewed Continue azithromycin on Saturday empirically Follow-up procalcitonin still negative p-ANCA, c-ANCA pending Continue the current treatment plan Remains stable and on room air We will continue to follow I have personally seen and examined the patient, performed the documentation and the assessment and plan as written. Number of minutes spent on the visit: 10.
[2023-10-15 13:53] LABS: C-ANCA <1:20 Titer (<1:20)
--- NOTE | 2023-10-15 16:10 | P.PN ---
Progress Note - Text Progress Note Date: 10/15/23 This is a 51-year-old patient, follows with Dr. Yarelis Alejo. Physical Therapy Assistant Dr. Coker. Patient long-standing asthma. In 2021 patient underwent bronchoscopy with lavage followed by being intubated. October 14, 2023: Patient admitted with acute asthma exacerbation. With possible acute tracheobronchitis. Having bouts of coughing. Sputum is clear able to expectorate. Appetite is fair. Patient's mother and at the bedside. Had a lengthy discussion about simple physiological exercises. Including deep breathing, sitting up in a chair. Questions answered. Patient on the full slew of medications for asthma exacerbation. October 14: Breathing a bit better. Less wheezing. Less cough. Discussed with the patient. Has been active in the room. Zithromax has been added by pulmonary as anti-inflammatory agent. Procalcitonin negative. Discussed Active Medications Acetaminophen (Acetaminophen Tab 325 Mg Tab) 650 mg PO Q6HR PRN PRN Reason: Mild Pain or Fever > 100.5 Last Admin: 10/15/23 07:51 Dose: 650 mg Albuterol/Ipratropium (Ipratropium-Albuterol 3 Ml Neb) 3 ml INHALATION RT-Q4H [facility] Last Admin: 10/15/23 15:59 Dose: 3 ml Amlodipine Besylate (Amlodipine 10 Mg Tab) 10 mg PO DAILY [facility] Last Admin: 10/15/23 07:51 Dose: 10 mg Azithromycin (Azithromycin 250 Mg Tab) 250 mg PO MoWeFr@0900 [facility]; Protocol Stop: 10/18/23 09:01 Budesonide (Budesonide 1 Mg/2 Ml Nebu) 1 mg INHALATION RT-BID [facility] Last Admin: 10/15/23 07:37 Dose: 1 mg Cholecalciferol (Cholecalciferol 125 Mcg (5000 Iu) Tablet) 125 mcg PO HS [facility] Last Admin: 10/14/23 20:46 Dose: 125 mcg Dextrose/Water (Dextrose 50% Syringe 50 Ml) 25 ml IVP PER PROTOCOL PRN; Protoco l PRN Reason: Hypoglycemia Dextrose/Water (Dextrose 50% Syringe 50 Ml) 50 ml IVP PER PROTOCOL PRN; Protocol PRN Reason: Hypoglycemia Formoterol Fumarate (Formoterol Fumarate 20 Mcg/2 Ml Nebu) 20 mcg INHALATION RT-BID [facility] Last Admin: 10/15/23 07:37 Dose: 20 mcg Guaifenesin (Guaifenesin 600 Mg Tablet.Er) 600 mg PO Q12HR [facility] Last Admin: 10/15/23 07:44 Dose: 600 mg Heparin Sodium (Porcine) (Heparin Sodium,Porcine 5,000 Unit/Ml 1 Ml Vial) 5,000 unit SQ Q12HR [facility] Last Admin: 10/15/23 07:43 Dose: 5,000 unit Insulin Aspart (Insulin Aspart (Novolog) 100 Unit/Ml Vial) 0 unit SQ [facility]; Protocol Last Admin: 10/15/23 12:23 Dose: 2 unit Loratadine/Pseudoephedrine Sulfate (Loratadine-Pseudoeph 5-120 Mg 1 Each Tab.Er.12h) 1 each PO Q12HR [facility] Methylprednisolone Sodium Succinate (Methylprednisolone Sod Succi 125 Mg/2 Ml Vial) 60 mg IV Q6HR [facility] Last Admin: 10/15/23 13:49 Dose: 60 mg Metoprolol Succinate (Metoprolol Succinate (Er) 25 Mg Tab.Er.24h) 25 mg PO [facility] Last Admin: 10/14/23 20:46 Dose: 25 mg Miscellaneous Information (Pneumonia Protocol Utilized 1 Each Misc) 1 each PO ONCE PRN PRN Reason: Per Protocol Montelukast Sodium (Montelukast 10 Mg Tab) 10 mg PO [facility] Last Admin: 10/14/23 20:46 Dose: 10 mg Pantoprazole Sodium (Pantoprazole 40 Mg Tablet) 40 mg PO AC-BID [facility] Last Admin: 10/15/23 06:47 Dose: 40 mg Psyllium Hydrophilic Mucilloid (Psyllium Husk 100% 6 Gm Packet) 6 gm PO DAILY [facility] Last Admin: 10/15/23 07:44 Dose: 6 gm Past medical history to include: Asthma, reflux, hypertension, migraines, arthralgias COVID December 2021 Social history: . No smoking. Alcohol rarely Physical examination: VITAL SIGNS: 98.5, 103, 17, 132/82, 93% room air GENERAL: Sitting up in chair, eating better EYES: Pupils equal. Conjunctiva normal. HEENT: External appearance of nose and ears normal, oral cavity endotracheal tube. NECK: JVD not raised; masses not palpable. HEART: First and second heart sounds are normal; no edema. LUNGS: Respiratory rate increased, air entry, much improved wheezing ABDOMEN: Soft, nontender, liver spleen not palpable, no masses palpable. PSYCH: Alert 3, mood and affect normal INVESTIGATIONS, reviewed in the clinical context: October 14: Procalcitonin 0.03 October 13: White count 21.2 hemoglobin 14.4 platelets 345 sodium 140 potassium 4.2 creatinine 0.6 Assessment and plan: -Acute hypoxic respiratory failure from asthma exacerbation:: Improved Status post Ventilator support, extubated May 29. Down to room air -Acute severe obstructive asthma exacerbation: Some improvement DuoNeisabel, IV [id number] to 40 mg every 8., nebulized Pulmicort, Perforomist, Singulair Follows outpatient with Dr. COKER. Zithromax per pulmonary for anti-inflammatory effect. -Essential hypertension Amlodipine -GERD PPI -Leukocytosis likely from high-dose steroids -Acute tracheobronchitis, -Obesity BMI 30.6 Weight loss measures -Full code Discussed with patient. Cut back Solu-Medrol to 40 mg every 8. Zithromax dose change by Dr. COKER for anti-inflammatory effect.
[2023-10-15 16:46] LABS: Glucose,Whole Blood 176 mg/dL (70-110)
[2023-10-15 21:34] LABS: Glucose,Whole Blood 187 mg/dL (70-110)
[2023-10-15] MEDS: LORATADINE-PSEUDOEPH 5-120 MG 1 EACH TAB.ER.12H PO SCH (21:51)
[2023-10-15] MEDS: methylPREDNISolone SOD SUCCI 40 MG/ML 1 ML VIAL IV SCH (21:55)
[2023-10-16 06:28] LABS: Glucose,Whole Blood 173 mg/dL (70-110)
[2023-10-16] MEDS: ENOXAPARIN 40 MG/0.4 ML SYRINGE SQ SCH (07:53)
[2023-10-16] MEDS: AZITHROMYCIN 250 MG TAB PO SCH (07:59)
[2023-10-16 11:42] LABS: Glucose,Whole Blood 157 mg/dL (70-110)
--- NOTE | 2023-10-16 15:02 | P.PN ---
Subjective Progress Note Date: 10/16/23 Patient is a 53-year-old white female with past medical history significant for chronic bronchial asthma, GERD. She is maintained on Dupixent outpatient basis. She is also just recently switched to Trelegy inhaler. She does follow in the pulmonary office with Dr. Coker. She did have a recent hospitalization for asthma approximately 1 month ago. She was discharged home on 09/13/2023. Initially, states she was doing well for the first week, however, her symptoms quickly returned. She has been treated on multiple occasions with antibiotics, steroid injection, and prednisone burst taper. She states that she has been progressively more short of breath. She has been wheezing and endorses chest tightness. She has had a productive congested cough with green/todd sputum production. Denies any fevers. Denies any chest pain. Denies any hemoptysis. She was most recently treated with a combination of cefdinir, steroid injection, and prednisone burst taper. Her symptoms have not been improving. She states that she checked her pulse ox at home, and her SpO2 was noted to be in the 80s. She presented to the emergency room yesterday afternoon. Chest x-ray does not show any acute cardiopulmonary process. Negative for influenza, RSV, COVID. CBC shows some leukocytosis with a WC count of 15.7, otherwise unremarkable. D- dimer not elevated. BMP includes a sodium of 141, potassium 4, chloride 112, serum bicarb 19, BUN 14, creatinine 0.82, glucose 166. LFTs not elevated. Troponin less than 0.012. NT proBNP low. Patient is currently sitting up in bed, on 2 L/min nasal cannula, in no acute distress. Afebrile. Heart rhythm appears sinus tachycardia on bedside monitor in the low 100s. Vital signs are stable. The patient is seen today October 10, 2023 in follow-up on the regular medical floor. She is currently sitting up in bed. Awake and alert in no acute distress. She is feeling about more congested today compared to yesterday. She has some complaints of sinus congestion. She still has some chest tightness and wheezing. Continues without congested cough. She is maintaining good O2 saturations in the 90s on room air. She is afebrile. Hemodynamically stable. Blood cultures pending. Sputum culture pending. She is continued on Rocephin and azithromycin per her request. Procalcitonin 0.04. Remains on DuoNeb inhalations every 4 hours. Continued on Pulmicort and Perforomist inhalations twice daily. Remains on Solu-Medrol 60 mg IV every 6 hours. Continued on Singulair, Sudafed, Protonix, Claritin, Mucinex. Heparin for DVT prophylaxis. White count 21.9. Hemoglobin 14.8. Platelets 394. Sodium 140. Potassium 4.4. Bicarb 23. BUN 13. Creatinine 0.9. Glucose 138. The patient is seen today October 11, 2023 in follow-up on the regular medical floor. She is awake and alert in no acute distress. Sitting up in bed. Maintaining good O2 saturations in the 90s on room air. She states she is feeling better today compared to yesterday. She remains on DuoNeb ventilations, Mucomyst inhalations, Pulmicort and Perforomist inhalations, Singulair and Solu- Medrol. She is continued on Protonix. Continued on antibiotics in the form of ceftriaxone and azithromycin. CT scan of the sinuses revealed a tiny mucous retention cyst otherwise clear sinuses. She remains on Sudafed and Claritin. From for DVT prophylaxis. Blood cultures revealed no growth. Sputum culture revealed no growth. White count 21.6. Hemoglobin 14.2. Platelets 386. Sodium 138. Potassium 3.9. Bicarb 24. BUN 14. Creatinine 0.68. Glucose 188. The patient is seen today October 12, 2023 in follow-up on the regular medical floor. She is sitting up in bed. Awake and alert in no acute distress. Continues to progress slowly. She is feeling better today compared to . Blood culture reveals no growth. Sputum culture revealed no growth. Count 20.2. Hemoglobin 14.0. Platelets 364. Sodium 141. Potassium 4.3. Bicarb 25. BUN 15. Creatinine 0.7. Glucose 160. He remains on ceftriaxone. Completed azithromycin. Continued on bronchodilators and steroids. Heparin for DVT prophylaxis. The patient is seen today October 13, 2023 in follow-up on the regular medical floor. She is awake and alert in no acute distress. Unfortunately she is feeling a bit worse today compared to yesterday. She is still somewhat bronchospastic and wheezing. She remains on antibiotics, bronchodilators, steroids. Heparin for DVT prophylaxis. Chest x-ray continues to show minimal atelectasis of the lung bases. Otherwise clear lungs. Sputum culture revealed no growth. Blood cultures revealed no growth. Count 21.7. Hemoglobin 14.3. Platelets 382. Glucose 160. She remains on DuoNeb inhalation, Pulmicort and Perforomist inhalations, Solu-Medrol, Singulair, Sudafed, Claritin. Mucinex has been reordered. Remains on ceftriaxone. Completed a course of azithromycin. Procalcitonin is within normal limits. The patient is seen today October 14, 2023 in follow-up on the regular medical floor. She is awake and alert. She has been slow to progress. She is still not feeling back to her baseline. Does Continue to maintain O2 saturations in the 90s on room air. She is afebrile. Blood cultures revealed no growth. Sputum culture reveals no growth. Count 21.2. Hemoglobin 14.4. Platelets 345. Sodium 140. Potassium 4.2. Bicarb 25. BUN 15. Creatinine 0.6. Glucose 159. She remains on DuoNeb inhalations, Pulmicort and performing scintillations, IV Solu-Medrol, Singulair. She remains on Sudafed and Claritin. The patient is seen today October 15, 2023 and follow-up on the regular medical floor. She is currently sitting up in a chair at the bedside. Awake and alert in no acute distress. She is finally feeling better. No worsening shortness of breath, cough or congestion. Continues to maintain good O2 saturations in the 90s on room air. She is continued on Solu-Medrol, Singulair, DuoNeb inhalations, Pulmicort and Perforomist inhalations, Mucinex. She remains on Sudafed, Claritin and Protonix. She was initiated on maintenance azithromycin as anti-inflammatory at 250 mg p.o. every Saturday. Cultures have been negative. Heparin for DVT prophylaxis. Procalcitonin again negative at 0.03. Glucose 188. P-ANCA, c-ANCA pending. The patient is seen today October 16, 2023 in follow-up on the regular medical floor. She is awake and alert in no acute distress. Sitting up in the chair. No worsening shortness of breath, cough or congestion. Starting to feel better. Maintaining good O2 saturations in the 90s on room air. She is continued on Solu-Medrol, Singulair, DuoNeb inhalations, Pulmicort and Perforomist in halations, Mucinex. She remains on Sudafed, Claritin and Protonix. She was initiated on maintenance azithromycin as anti-inflammatory at 250 mg p.o. every Saturday. Protonix for GI prophylaxis. Lovenox for DVT prophylaxis. Cultures revealed no growth. Sputum culture revealed no growth. P ANCA less than 1:20 c-ANCA less than 1:20. Objective - Vital Signs Vital signs: Vital Signs Temp 97.9 F 10/16/23 07:03 Pulse 110 H 10/16/23 12:24 Resp 16 10/16/23 08:00 BP 131/89 10/16/23 07:03 Pulse Ox 97 10/16/23 09:08 FiO2 21 10/14/23 08:34 Intake & Output 10/15/23 10/16/23 10/16/23 18:59 06:59 18:59 Weight 79.832 kg Other: Voiding Method Toilet # Voids 1 7 - Exam GENERAL EXAM: Alert, pleasant 53-year-old female, up in a chair, on room air, in no acute distress. HEAD: Normocephalic. EYES: Normal reaction of pupils, equal size. NOSE: Sinus congestion. Clear with pink turbinates. THROAT: No erythema or exudates. NECK: No masses, no JVD. CHEST: No chest wall deformity. LUNGS: Equal air entry with bilateral end expiratory wheeze. CVS: S1 and S2 normal with no audible murmur, regular rhythm. ABDOMEN: No hepatosplenomegaly, normal bowel sounds, no guarding or rigidity. SPINE: No scoliosis or deformity SKIN: No rashes CENTRAL NERVOUS SYSTEM: No focal deficits, tone is normal in all 4 extremities. EXTREMITIES: There is trace peripheral edema. No clubbing, no cyanosis. Peripheral pulses are intact. - Labs CBC & Chem 7: 10/14/23 05:37 10/14/23 05:37 Labs: Abnormal Lab Results - Last 24 Hours (Table) 10/15/23 10/15/23 10/16/23 Range/Units 16:45 21:32 06:27 POC Glucose (mg/dL) 176 H 187 H 173 H (70-110) mg/dL 04/24/24 Range/Units 11:41 POC Glucose (mg/dL) 157 H (70-110) mg/dL Assessment and Plan Assessment: Acute exacerbation of chronic bronchial asthma, secondary to possible acute tracheobronchitis, that has failed to respond on outpatient basis. Chest x-ray does not show any focal infiltrates or evidence of pneumonia. Procalcitonin 0.04. Negative for influenza, RSV, COVID. Follow-up chest x-ray shows minimal atelectasis otherwise clear lung fabian. Follow-up procalcitonin again negative at 0.03. P-ANCA, c-ANCA negative Sinus congestion, CT scan of the sinuses revealed a tiny gas retention cyst in the inferior medial right maxillary sinus. Otherwise right and left sinuses are clear Severe persistent steroid-dependent nonallergic, noneosinophilic bronchial asthma, patient on Dupixent on outpatient basis. Also recently transitioned to Trelegy inhaler Acute hypoxemic respiratory failure, secondary to above, recovered and on room air Acute leukocytosis possible steroid effect Previous history of intubation mechanical ventilation related to asthma exacerbation and haemophilus influenza pneumonia back in May 2022 Hypertension History of paroxysmal atrial fibrillation, current rhythm is sinus tachycardia History of GERD, without esophagitis Previous history of COVID-19 infection in December 2021 Plan: The patient was seen and evaluated Labs and medications reviewed Continue azithromycin empirically p-ANCA, c-ANCA negative Continue the current treatment plan Remains stable and on room air Plan for discharge in a.m. May transition from Dupixent to Tespire in the outpatient setting I have personally seen and examined the patient, performed the documentation and the assessment and plan as written. Number of minutes spent on the visit: 10.
--- NOTE | 2023-10-16 15:49 | P.PN ---
Progress Note - Text Progress Note Date: 10/16/23 This is a 51-year-old patient, follows with Dr. Yarelis Alejo. Publishing Specialist Dr. Coker. Patient long-standing asthma. In 2021 patient underwent bronchoscopy with lavage followed by being intubated. October 14, 2023: Patient admitted with acute asthma exacerbation. With possible acute tracheobronchitis. Having bouts of coughing. Sputum is clear able to expectorate. Appetite is fair. Patient's mother and at the bedside. Had a lengthy discussion about simple physiological exercises. Including deep breathing, sitting up in a chair. Questions answered. Patient on the full slew of medications for asthma exacerbation. October 14: Breathing a bit better. Less wheezing. Less cough. Discussed with the patient. Has been active in the room. Zithromax has been added by pulmonary as anti-inflammatory agent. Procalcitonin negative. Discussed October 15: Patient has been moving about in the room. Respiratory symptoms are better. Decreased cough. On Solu-Medrol 40 mg Q8. She is feeling much better. Active Medications Acetaminophen (Acetaminophen Tab 325 Mg Tab) 650 mg PO Q6HR PRN PRN Reason: Mild Pain or Fever > 100.5 Last Admin: 10/15/23 07:51 Dose: 650 mg Albuterol/Ipratropium (Ipratropium-Albuterol 3 Ml Neb) 3 ml INHALATION RT-Q4H [facility] Last Admin: 10/16/23 12:14 Dose: 3 ml Amlodipine Besylate (Amlodipine 10 Mg Tab) 10 mg PO DAILY [facility] Last Admin: 10/16/23 07:58 Dose: 10 mg Azithromycin (Azithromycin 250 Mg Tab) 250 mg PO MoWeFr@0900 [facility]; Protocol Stop: 10/18/23 09:01 Last Admin: 10/16/23 07:59 Dose: 250 mg Budesonide (Budesonide 1 Mg/2 Ml Nebu) 1 mg INHALATION RT-BID [facility] Last Admin: 10/16/23 09:05 Dose: 1 mg Cholecalciferol (Cholecalciferol 125 Mcg (5000 Iu) Tablet) 125 mcg PO HS [facility] Last Admin: 10/15/23 21:46 Dose: 125 mcg Dextrose/Water (Dextrose 50% Syringe 50 Ml) 25 ml IVP PER PROTOCOL PRN; Pro tocol PRN Reason: Hypoglycemia Dextrose/Water (Dextrose 50% Syringe 50 Ml) 50 ml IVP PER PROTOCOL PRN; Protocol PRN Reason: Hypoglycemia Enoxaparin Sodium (Enoxaparin 40 Mg/0.4 Ml Syringe) 40 mg SQ DAILY [facility] Last Admin: 10/16/23 07:53 Dose: Not Given Formoterol Fumarate (Formoterol Fumarate 20 Mcg/2 Ml Nebu) 20 mcg INHALATION RT-BID [facility] Last Admin: 10/16/23 09:16 Dose: 20 mcg Guaifenesin (Guaifenesin 600 Mg Tablet.Er) 600 mg PO Q12HR [facility] Last Admin: 10/16/23 07:59 Dose: 600 mg Insulin Aspart (Insulin Aspart (Novolog) 100 Unit/Ml Vial) 0 unit SQ [facility]; Protocol Last Admin: 10/16/23 11:55 Dose: 2 unit Loratadine/Pseudoephedrine Sulfate (Loratadine-Pseudoeph 5-120 Mg 1 Each Tab.Er.12h) 1 each PO Q12HR [facility] Last Admin: 10/16/23 07:59 Dose: 1 each Methylprednisolone Sodium Succinate (Methylprednisolone Sod Succi 40 Mg/Ml 1 Ml Vial) 40 mg IV Q8H [facility] Stop: 10/16/23 23:59 Last Admin: 10/16/23 14:09 Dose: 40 mg Methylprednisolone Sodium Succinate (Methylprednisolone Sod Succi 40 Mg/Ml 1 Ml Vial) 40 mg IV Q12HR [facility] Metoprolol Succinate (Metoprolol Succinate (Er) 25 Mg Tab.Er.24h) 25 mg PO [facility] Last Admin: 10/15/23 21:46 Dose: 25 mg Miscellaneous Information (Pneumonia Protocol Utilized 1 Each Misc) 1 each PO ONCE PRN PRN Reason: Per Protocol Montelukast Sodium (Montelukast 10 Mg Tab) 10 mg PO [facility] Last Admin: 10/15/23 21:46 Dose: 10 mg Pantoprazole Sodium (Pantoprazole 40 Mg Tablet) 40 mg PO AC-BID [facility] Last Admin: 10/16/23 06:56 Dose: 40 mg Psyllium Hydrophilic Mucilloid (Psyllium Husk 100% 6 Gm Packet) 6 gm PO DAILY [facility] Last Admin: 10/16/23 07:59 Dose: 6 gm Past medical history to include: Asthma, reflux, hypertension, migraines, arthralgias COVID December 2021 Social history: . No smoking. Alcohol rarely Physical examination: VITAL SIGNS: 98.4, 114, 16, 129 x 86, 95% room air GENERAL: Sitting up in chair, more comfortable EYES: Pupils equal. Conjunctiva normal. HEENT: External appearance of nose and ears normal, oral cavity endotracheal tube. NECK: JVD not raised; masses not palpable. HEART: First and second heart sounds are normal; no edema. LUNGS: Respiratory rate normal, air entry better. Minimal wheezing ABDOMEN: Soft, nontender, liver spleen not palpable, no masses palpable. PSYCH: Alert 3, mood and affect normal INVESTIGATIONS, reviewed in the clinical context: October 14: Procalcitonin 0.03 October 13: White count 21.2 hemoglobin 14.4 platelets 345 sodium 140 potassium 4.2 creatinine 0.6 Assessment and plan: -Acute hypoxic respiratory failure from asthma exacerbation:: Improved Status post Ventilator support, extubated May 29. Down to room air -Acute severe obstructive asthma exacerbation: Better DuoNeb, IV Solu-Medrol- 40 mg every 8., nebulized Pulmicort, Perforomist, Singulair Follows outpatient with Dr. COKER. Divya per pulmonary for anti-inflammatory effect. -Essential hypertension Amlodipine -GERD PPI -Leukocytosis likely from high-dose steroids -Acute tracheobronchitis, -Obesity BMI 30.6 Weight loss measures -Full code Decrease IV Solu-Medrol to 40 mg every 12 from tomorrow. Other medications to continue. Discussed. Hopefully home tomorrow.
[2023-10-16 16:42] LABS: Glucose,Whole Blood 208 mg/dL (70-110)
[2023-10-16 20:23] LABS: Glucose,Whole Blood 184 mg/dL (70-110)
[2023-10-17 06:39] LABS: Glucose,Whole Blood 169 mg/dL (70-110)
[2023-10-17 08:41] VITALS: BP 126/86; RESP 17; TEMP 98.6
[2023-10-17] MEDS: methylPREDNISolone SOD SUCCI 125 MG/2 ML VIAL IV SCH (09:29)
[2023-10-17 11:44] VITALS: PULSE 91
[2023-10-17 12:00] LABS: Glucose,Whole Blood 153 mg/dL (70-110)
--- NOTE | 2023-10-17 15:33 | P.DS ---
Providers Date of admission: 10/08/23 19:05 Expected date of discharge: 10/17/23 Attending physician: Mikhail Mitchell Consults: 10/08/23 15:58 Consult Physician Routine Consulting Provider: [place] Consult Reason/Comments: asthma, pneumonia Do you want consulting provider notified?: Yes Primary care physician: Harini Alejo [facility] Course: This is a 51-year-old patient, follows with Dr. Brant Alejo. 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 Patient long-standing asthma. In 2021 patient underwent bronchoscopy with lavage followed by being intubated. October 14, 2023: Patient admitted with acute asthma exacerbation. With possible acute tracheobronchitis. Having bouts of coughing. Sputum is clear able to expectorate. Appetite is fair. Patient's mother and at the bedside. Had a lengthy discussion about simple physiological exercises. Including deep breathing, sitting up in a chair. Questions answered. Patient on the full slew of medications for asthma exacerbation. October 14: Breathing a bit better. Less wheezing. Less cough. Discussed with the patient. Has been active in the room. Zithromax has been added by pulmonary as anti-inflammatory agent. Procalcitonin negative. Discussed October 15: Patient has been moving about in the room. Respiratory symptoms are better. Decreased cough. On Solu-Medrol 40 mg Q8. She is feeling much better. October 16: Patient doing well. Repeat symptoms greatly improved. Will be discharged on prednisone 60 mg with taper. Home medications discussed. Questions answered. Will follow-up with Dr. COKER next week. Discussion and discharge planning more than 35 minutes Past medical history to include: Asthma, reflux, hypertension, migraines, arthralgias COVID December 2021 Social history: . No smoking. Alcohol rarely Physical examination: VITAL SIGNS: 88.6, 91, 17, 126/86 l 95% room air GENERAL: Sitting up in chair, comfortable EYES: Pupils equal. Conjunctiva normal. HEENT: External appearance of nose and ears normal, oral cavity endotracheal tube. NECK: JVD not raised; masses not palpable. HEART: First and second heart sounds are normal; no edema. LUNGS: Respiratory rate normal, proved air entry ABDOMEN: Soft, nontender, liver spleen not palpable, no masses palpable. PSYCH: Alert 3, mood and affect normal INVESTIGATIONS, reviewed in the clinical context: October 14: Procalcitonin 0.03 October 13: White count 21.2 hemoglobin 14.4 platelets 345 sodium 140 potassium 4.2 creatinine 0.6 Assessment and plan: -Acute hypoxic respiratory failure from asthma exacerbation:: Called Status post Ventilator support, extubated May 29. Down to room air -Acute severe obstructive asthma exacerbation: Proved DuoNeb, IV Solu-Medrol- 40 mg every 8., nebulized Pulmicort, Perforomist, Singulair Follows outpatient with Dr. COKER. Zithromax per pulmonary for anti-inflammatory effect. Discharged on prednisone 60 mg and taper -Essential hypertension Amlodipine -GERD PPI -Leukocytosis likely from high-dose steroids -Acute tracheobronchitis, -Obesity BMI 30.6 Weight loss measures -Full code Disposition: Home Plan - Discharge Summary New Discharge Prescriptions: New predniSONE [Deltasone] 60 mg PO DAILY #100 tab Fluticasone/Umeclidin/Vilanter [Trelegy Ellipta 200-62.5-25] 1 puff INHALATION DAILY #1 each Loratadine-Pseudoeph 5-120 mg [Claritin-D 12 Hour] 1 each PO Q12HR #30 tab amLODIPine [Norvasc] 10 mg PO DAILY #30 tab Azithromycin [Zithromax] 250 mg PO MoWeFr@0900 #30 tab Continue Montelukast [Singulair] 10 mg PO HS Albuterol Nebulized [Ventolin Nebulized] 2.5 mg INHALATION RT-Q4H Metoprolol Succinate (ER) [Toprol XL] 25 mg PO HS CHLORPHEN-HYDROcod 8-10mg/5ml [Tussionex] 5 ml PO Q12HR PRN PRN Reason: Cough Cholecalciferol (Vitamin D3) [Vitamin D3 (3000 Iu)] 150 mcg PO HS guaiFENesin [Mucinex] 600 mg PO Q12HR 7 Days #14 tab Dupilumab [Dupixent Pen] 300 mg SQ Q14D Guaifenesin/Pseudoephedrne HCl [Guaifenesin-Pse ER 600-60 mg] 1 tab PO BID Omeprazole [PriLOSEC] 20 mg PO HS Ipratropium-Albuterol Nebulize [Duoneb 0.5 mg-3 mg/3 ml Soln] 3 ml INHALATION RT-Q2H PRN each PRN Reason: Shortness Of Breath Or Wheezing Acetaminophen Tab [Tylenol] 650 mg PO Q6HR PRN tab PRN Reason: Mild Pain Or Fever > 100.5 Discontinued Cetirizine HCl [Zyrtec] 10 mg PO HS Fluticasone/Umeclidin/Vilanter [Trelegy Ellipta 100-62.5-25] 1 puff INHALATION RT-DAILY Ipratropium-Albuterol Nebulize [Duoneb 0.5 mg-3 mg/3 ml Soln] 3 ml INHALATION RT-Q4H #100 each Cefdinir 300 mg PO BID predniSONE 60 mg PO DAILY Discharge Medication List Montelukast [Singulair] 10 mg PO HS 08/04/14 [History] Albuterol Nebulized [Ventolin Nebulized] 2.5 mg INHALATION RT-Q4H 08/16/16 [History] CHLORPHEN-HYDROcod 8-10mg/5ml [Tussionex] 5 ml PO Q12HR PRN 09/10/23 [History] Cholecalciferol (Vitamin D3) [Vitamin D3 (3000 Iu)] 150 mcg PO HS 09/10/23 [History] Dupilumab [Dupixent Pen] 300 mg SQ Q14D 09/10/23 [History] Guaifenesin/Pseudoephedrne HCl [Guaifenesin-Pse ER 600-60 mg] 1 tab PO BID 09/10/23 [History] Metoprolol Succinate (ER) [Toprol XL] 25 mg PO HS 09/10/23 [History] Omeprazole [PriLOSEC] 20 mg PO HS 09/10/23 [History] Acetaminophen Tab [Tylenol] 650 mg PO Q6HR PRN tab 09/13/23 [Rx] Ipratropium-Albuterol Nebulize [Duoneb 0.5 mg-3 mg/3 ml Soln] 3 ml INHALATION RT-Q2H PRN each 09/13/23 [Rx] guaiFENesin [Mucinex] 600 mg PO Q12HR 7 Days #14 tab 09/13/23 [Rx] Azithromycin [Zithromax] 250 mg PO MoWeFr@0900 #30 tab 10/17/23 [Rx] Fluticasone/Umeclidin/Vilanter [Trelegy Ellipta 200-62.5-25] 1 puff INHALATION DAILY #1 each 10/17/23 [Rx] Loratadine-Pseudoeph 5-120 mg [Claritin-D 12 Hour] 1 each PO Q12HR #30 tab 10/17/23 [Rx] amLODIPine [Norvasc] 10 mg PO DAILY #30 tab 10/17/23 [Rx] predniSONE [Deltasone] 60 mg PO DAILY #100 tab 10/17/23 [Rx] Follow up Appointment(s)/Referral(s): Shalom Coker DO [Doctor of Osteopathic Medicine] - 10/24/23 9:00 am Harini Alejo MD [Primary Care Provider] - 1-2 days Patient Instructions/Handouts: Pneumonia (ED), Pneumonia (DC) Discharge Disposition: HOME SELF-CARE
--- NOTE | 2023-10-17 23:57 | PN ---
PROGRESS NOTE DATE OF SERVICE: 10/17/2023 SUBJECTIVE: The patient is seen today in room 459. She is on room air. She is not receiving any IV fluids. The patient is stable for discharge today. The patient has severe persistent asthma, and was admitted with a diagnosis of severe persistent asthma. Currently, she is feeling much better. The patient will go home on prednisone, taking about 50 mg a day, and she will see me early next week in the office. In addition, she will continue on Trelegy 200, 1 puff daily, Singulair and updrafts with albuterol. In addition, the patient will be placed on azithromycin, 250 mg, Saturday, Saturday, and Saturday, primarily as an anti-inflammatory agent. The patient is feeling much better. PHYSICAL EXAMINATION: VITAL SIGNS: Current vital signs include a temperature 98.6, heart rate 90, respiratory rate 18, blood pressure which is 110/72, and saturations on room air of 95%. GENERAL: She appears in no acute distress. HEENT: Grossly unremarkable. NECK: Supple. Full range of motion. No adenopathy. Neck veins are flat. CARDIOVASCULAR: Reveals regular rhythm and rate. S1, S2 normal. No S3, S4, or murmur. LUNGS: Reveal minimal rhonchi. Minimal expiratory wheezes. Breath sounds are much improved. No crackles. Breath sounds equal. ABDOMEN: Soft. Bowel sounds are heard. EXTREMITIES: Intact. No cyanosis, clubbing, or edema. SKIN: Without rash. NEUROLOGIC: Brief, but nonfocal. LABORATORY DATA: No new labs today other than a glucose of 153. Culture data is negative. No recent chest x-ray. ASSESSMENT: 1. Acute exacerbation of severe persistent asthma. 2. Chronic sinus congestion and sinusitis. 3. Severe steroid dependent asthma, maximally treated. 4. Acute hypoxemic respiratory failure, stable and recovered. 5. Acute leukocytosis. 6. Previous history of intubation following bronchoscopy and BAL. 7. Hypertension. 8. Paroxysmal atrial fibrillation. 9. History of gastroesophageal reflux disease. 10.Previous history of COVID-19 infection in December 2021. PLAN: The patient is stable for discharge. She will follow up with me in the office next week. We will attempt to get her on [place]sp[place], and she should stay on Trelegy 200, 1 puff daily. The patient will have a slow prednisone taper beginning with about 40 or 50 mg. In addition, we recommend azithromycin 250 mg Saturday, Saturday and Saturday primarily as an anti-inflammatory agent. She should continue on Singulair and Mucinex. Additional recommendations and suggestions are forthcoming. MMODL / IJN: [id number] /
== END 2023-10-17 12:44 | disposition home or self-care (01) | DRG 202 ==
LOC: EC 14:01 → 4SSUR 19:05
PROVIDERS: ADMIT Hospitalist; ATTEND Hospitalist
DX: J45.51 Severe persistent asthma with (acute) exacerbation (principal); J96.01 Acute respiratory failure with hypoxia; J20.9 Acute bronchitis, unspecified; I48.0 Paroxysmal atrial fibrillation; I10 Essential (primary) hypertension; E66.9 Obesity, unspecified; Z68.30 Body mass index [BMI] 30.0-30.9, adult; D72.829 Elevated white blood cell count, unspecified; J34.1 Cyst and mucocele of nose and nasal sinus; K21.9 Gastro-esophageal reflux disease without esophagitis; I49.3 Ventricular premature depolarization; M25.50 Pain in unspecified joint; Z79.51 Long term (current) use of inhaled steroids; Z79.899 Other long term (current) drug therapy; Z86.16 Personal history of COVID-19; Z71.3 Dietary counseling and surveillance; Z88.1 Allergy status to other antibiotic agents
CPT/HCPCS: 36415; 70486; 71045; 71046; 80048; 80053; 81003; 83036; 83605; 83735; 83880; 84145; 84484; 85025; 85379; 85610; 85652; 85730; 86140; 86255; 87040; 87070; 87205; 87449; 87636; 93005; 94640; 94667; 94760; 96365; 96366; 96368; 96375; 96376; 99285

== ENCOUNTER → 2024-03-03 | Outpatient (CLI) | payer OTHER ==
[2024-03-04 02:09] LABS: Alternaria alternata IgE <0.10 kU/L; Aspergillus fumagatus IgE <0.10 kU/L; Birch IgE <0.10 kU/L; Cat Epith & Dander IgE 1.08 kU/L; Cladosporian herbarum IgE <0.10 kU/L; Cockroach IgE <0.10 kU/L; Dermato. farinae IgE 0.51 kU/L; Dog Dander IgE <0.10 kU/L; Elm IgE <0.10 kU/L; Maple (Box Elder) IgE <0.10 kU/L; Oak IgE <0.10 kU/L; Ragweed,Common IgE <0.10 kU/L; Red Top (Bentgrass) IgE <0.10 kU/L
[2024-03-04 02:32] LABS: Immunoglobulin E <5.00 IU/mL (0.00-114.00)
[2024-03-04 14:11] LABS: C-ANCA <1:20 Titer (<1:20)
== END | disposition home or self-care (01) ==
LOC: LABWHC1 10:58
PROVIDERS: ATTEND Internal Medicine Critical Care Medicine
DX: J45.50 Severe persistent asthma, uncomplicated (principal)
CPT/HCPCS: 36415; 82785; 86003; 86255

== ENCOUNTER → 2024-03-04 | Outpatient (CLI) | payer OTHER ==
[2024-03-04 15:29] LABS: Basophils # (A) 0.07 X 10*3/uL (0.00-0.10); Basophils % (A) 0.8 %; Eosinophils # (A) 0.22 X 10*3/uL (0.04-0.35); Eosinophils % (A) 2.4 %; HCT 49.8 % (37.2-46.3); HGB 16.1 g/dL (12.0-15.0); Lymphocytes # (A) 3.35 X 10*3/uL (0.90-5.00); Lymphocytes % (A) 37.2 %; MCH 30.6 pg (27.0-32.0); MCHC 32.3 g/dL (32.0-37.0); MCV 94.7 FL (80.0-97.0); Monocytes # (A) 0.83 X 10*3/uL (0.20-1.00); Monocytes % (A) 9.2 %; NRBC Per 100 WBC 0 X 10*3/uL (0.00-0.01); Neutrophils % (A) 50.1 %; Platelet Count 330 X 10*3/uL (140-440); RBC 5.26 X 10*6/uL (4.10-5.20)
== END | disposition home or self-care (01) ==
LOC: LABWHC1 11:17
PROVIDERS: ATTEND Internal Medicine Critical Care Medicine
DX: J45.50 Severe persistent asthma, uncomplicated (principal)
CPT/HCPCS: 36415; 85025

== ENCOUNTER → 2024-03-18 | Outpatient (CLI) | payer OTHER ==
--- NOTE | 2024-03-19 10:08 | CA ---
Transthoracic Echo Report Name: Leydi Grimes Age: 53 Gender: F : 1970 Exam Date: 03/18/2024 15:05 Exam Location: [facility] Ht (in): 64 Wt (lb): 180 Ordering Physician: Paulo Medina MD Attending/Referring Phys: Shamir Mon MD ([id number]) [employer]inder Sabrina Rainey RDCS Procedure CPT: Indications: R60.0 LOCALIZED EDEMA Cardiac Hx: Asthma Technical Quality: Fair Contrast 1: Total Dose (mL): Contrast 2: Total Dose (mL): MEASUREMENTS (Male / Female) Normal Values 2D ECHO LV Diastolic Diameter PLAX 5.0 cm 4.2 - 5.9 / 3.9 - 5.3 cm LV Systolic Diameter PLAX 3.3 cm IVS Diastolic Thickness 1.2 cm 0.6 - 1.0 / 0.6 - 0.9 cm LVPW Diastolic Thickness 1.0 cm 0.6 - 1.0 / 0.6 - 0.9 cm LV Relative Wall Thickness 0.4 RV Internal Dim ED PLAX 1.9 cm LA Systolic Diameter LX 3.6 cm 3.0 - 4.0 / 2.7 - 3.8 cm LV Diastolic Volume MOD BP 76.7 cm??? 67 - 155 / 56 - 104 cm??? LV Systolic Volume MOD BP 26.8 cm??? 22 - 58 / 19 - 49 cm??? LV Ejection Fraction MOD BP 65.1 % >= 55 % LV Cardiac Index MOD BP 2024.2 cm???/min???m??? LV Diastolic Volume MOD 4C 76.9 cm??? LV Systolic Volume MOD 4C 28.1 cm??? LV Ejection Fraction MOD 4C 63.5 % LV Cardiac Index MOD 4C 1980.8 cm???/min???m??? LV Diastolic Length 4C 7.1 cm LV Systolic Length 4C 5.5 cm LV Diastolic Volume MOD 2C 74.4 cm??? LV Systolic Volume MOD 2C 25.2 cm??? LV Ejection Fraction MOD 2C 66.1 % LV Cardiac Index MOD 2C 1991.8 cm???/min???m??? LV Diastolic Length 2C 7.3 cm LV Systolic Length 2C 5.6 cm M-MODE Aortic Root Diameter MM 3.5 cm LA Systolic Diameter MM 3.3 cm LA Ao Ratio MM 0.9 AV Cusp Separation MM 2.0 cm DOPPLER AI Peak Velocity 217.6 cm/s AI Peak Gradient 18.9 mmHg AI Pressure Half Time 996.3 ms Mitral E Point Velocity 56.2 cm/s Mitral A Point Velocity 79.4 cm/s Mitral E to A Ratio 0.7 MV Deceleration Time 277.3 ms MV E' Velocity 6.6 cm/s Mitral E to MV E' Ratio 8.5 TR Peak Velocity 199.2 cm/s TR Peak Gradient 15.9 mmHg FINDINGS Left Ventricle Left ventricular ejection fraction is estimated at 55-60 %. Mildly increased septal wall thickness. Normal left ventricular systolic function with no obvious regional wall motion abnormalities. Left ventricular cavity size normal. Right Ventricle Normal right ventricular size and function. Right ventricular systolic pressure within normal limits. Right Atrium Normal right atrial size. Left Atrium Normal left atrial size. Mitral Valve Structurally normal mitral valve. Trace mitral regurgitation. No mitral stenosis. Aortic Valve Trileaflet aortic valve. Trace to mild aortic regurgitation. No aortic stenosis. Tricuspid Valve Structurally normal tricuspid valve. Trace to mild tricuspid regurgitation. No tricuspid stenosis. Pulmonic Valve Structurally normal pulmonic valve. No pulmonic regurgitation. No pulmonic stenosis. Pericardium No pericardial or pleural effusion. Aorta Normal size aortic root and proximal ascending aorta. CONCLUSIONS Diagnosis: Edema LVH with preserved systolic function Normal RV size and function No significant valvular abnormalities Normal IVC dimension Previewed by: Dr. Shamir Mon MD (Electronically Signed) Final Date: 19 March 2024 10:07
== END | disposition home or self-care (01) ==
LOC: RADECHMAIN 14:51
PROVIDERS: ATTEND Internal Medicine Critical Care Medicine
DX: R60.0 Localized edema
CPT/HCPCS: 93306

== ENCOUNTER → 2024-05-11 | Outpatient (CLI) | payer OTHER ==
--- NOTE | 2024-05-11 11:20 | XR ---
EXAMINATION TYPE: XR Hip Bilateral Complete DATE OF EXAM: 05/11/2024 CLINICAL INDICATION: Female, 53 years old with history of M25.50 PAIN IN UNSPECIFIED JOINT Z01.419 EN CNTR FO; TECHNIQUE: AP and frogleg views of the bilateral hip are obtained. COMPARISON: None. FINDINGS: There is no acute fracture/dislocation evident in the bilateral hip. The joint space in t he bilateral hip appears within normal limits. The overlying soft tissue appears unremarkable. IMPRESSION: There is no acute fracture or dislocation in the bilateral hip. [facility], , 05/11/2024 11:18 AM
--- NOTE | 2024-05-11 11:25 | XR ---
EXAMINATION TYPE: XR foot complete bilateral DATE OF EXAM: 05/11/2024 CLINICAL INDICATION: Female, 53 years old with history of M25.50 PAIN IN UNSPECIFIED JOINT Z01.419 EN CNTR FO; TECHNIQUE: Frontal, lateral, and oblique images of the bilateral foot are obtained. COMPARISON: None FINDINGS: There is no acute fracture/dislocation evident in the bilateral foot. The joint spaces in the bilateral foot appear within normal limits. The overlying soft tissue appears unremarkable. Pos toperative changes of bunionectomy right first metatarsal. IMPRESSION: There is no acute fracture or dislocation in the bilateral feet. [facility], , 05/11/2024 11:22 AM
[2024-05-11 15:05] LABS: HCT 45.2 % (37.2-46.3); HGB 15.1 g/dL (12.0-15.0); MCH 31.7 pg (27.0-32.0); MCHC 33.4 g/dL (32.0-37.0); Mean Platelet Volume 12.1 FL (9.5-12.2); NRBC Per 100 WBC 0 X 10*3/uL (0.00-0.01); Platelet Count 275 X 10*3/uL (140-440); RBC 4.76 X 10*6/uL (4.10-5.20); RDW 12.7 % (11.5-14.5); WBC 5.65 X 10*3/uL (4.50-10.00)
[2024-05-11 15:25] LABS: ALT 19 U/L (8-44); AST 23 U/L (13-35); Albumin/Globulin Ratio 2.11 Ratio (1.60-3.17); Alkaline Phosphatase 103 U/L (41-126); BUN/Creat Ratio 17.57 Ratio (12.00-20.00); Blood Urea Nitrogen 12.3 mg/dL (9.0-27.0); Calcium 9.5 mg/dL (8.7-10.3); Carbon Dioxide 25.6 mmol/L (21.6-31.8); Chloride 107 mmol/L (96-109); Chol/HDL Ratio 4.12 Ratio; Globulin 1.9 g/dL (1.6-3.3); Glucose 91 mg/dL (70-110); Potassium 4.2 mmol/L (3.5-5.5); Sodium 141 mmol/L (135-145); Total Bilirubin 0.8 mg/dL (0.3-1.2); Total Protein 5.9 g/dL (6.2-8.2)
[2024-05-11 15:26] LABS: T4, Free (Free Thyroxine) 0.97 ng/dL (0.80-1.80)
[2024-05-11 17:30] LABS: Anti-Smith Ab Interp Negative (Negative); DNA Double-Stranded Negative (Negative); JO-1 IgG Antibody <0.2 AI
== END | disposition home or self-care (01) ==
LOC: RADXRMAIN 09:29
PROVIDERS: ATTEND Internal Medicine Critical Care Medicine
DX: Z01.419 Encounter for gynecological examination (general) (routine) without abnormal findings (principal); M25.572 Pain in left ankle and joints of left foot; M25.571 Pain in right ankle and joints of right foot
CPT/HCPCS: 73521; 80053; 80061; 83036; 84439; 84443; 85027; 86225; 86235

== ENCOUNTER → 2024-05-28 | Outpatient (CLI) | payer OTHER ==
--- NOTE | 2024-05-28 15:41 | BD ---
EXAMINATION TYPE: Axial Bone Density DATE OF EXAM: 05/28/2024 CLINICAL HISTORY: 53 years old Female. ICD-10 CODE: N95.1 Post menopausal , Additional History: Height: 64 Weight: 178 FRAX RISK QUESTIONS: Family History (Parent hip fracture): no Glucocorticoids (More than 3mos): yes (Ex: prednisone, prednisolone, methylprednisolone, dexamethasone, and hydrocortisone). History of Fracture in Adulthood: yes Secondary Osteoporosis: no Rheumatoid Arthritis: no RISK FACTORS HISTORY OF: Surgery to Spine/Hip(right/left)/Wrist (right/left): no MEDICATIONS: Thyroid Medications: no Osteoporosis Medications: no EXAM MEASUREMENTS: Bone mineral densitometry was performed using the [employer] System. Bone mineral density as measured about the Lumbar spine is: ----- L1-L4(G/cm2): 1.061 T Score Values are as follows: ----- L1: -3.1 ----- L2: -1.7 ----- L3: -1.2 ----- L4: 2.0 ----- L1-L4: -1.0 Z Score Values are as follows: ----- L1: -2.8 ----- L2: -1.4 ----- L3: -0.9 ----- L4: 2.3 ----- L1-L4: -0.7 Bone mineral density has: Increased 4.5% since study of: 04/18/2021 Bone mineral density about the R hip (g/cm2): 0.781 Bone mineral density about the L hip (g/cm2): 0.792 T Score values are as follows: -----R Neck: -2.1 -----L Neck: -2.0 -----R Total: -1.8 -----L Total: -1.7 Z Score values are as follows: -----R Neck: -1.4 -----L Neck: -1.3 -----R Total: -1.5 -----L Total: -1.4 Bone mineral density has: Decreased -8.8% since study of: 04/18/2021 FRAX%s: The graph provided illustrates a 22.1% chance for a major osteoporotic fx and a 3.6% chance f or the hips probability for fx in 10 years time. IMPRESSION: Osteopenia (T Score between -2.5 and -1). There is slightly increased risk of fracture and the patient may be considered for treatment. Re-Screen 2-5 years. NOTE: T-SCORE=SD OF THE YOUNG ADULT MEAN. [facility], , 05/28/2024 3:38 PM
--- NOTE | 2024-05-29 17:43 | MM ---
Reason for Exam: Screening (asymptomatic). Last mammogram was performed 1 year(s) and 2 month(s) ago. Patient History: Menarche at age 10. First Full-Term at age 25. Postmenopausal. Patient has history of breast feeding. Patient used Hormonal Contraceptives for 14 years. Maternal cousin had breast cancer. Mother had breast cancer, age 50. Risk Values: Nikkie 5 year model risk: 2.3%. NCI Lifetime model risk: 15.5%. Prior Study Comparison: 03/22/2022 Bilateral MG 3D screening mammo w/cad, [facility]. 04/10/2023 Bilateral MG 3D screening mammo w/cad, [facility]. 04/18/2023 Left MG 3D work up w/cad , [facility]. Tissue Density: The breasts are heterogeneously dense, which may obscure small masses. Findings: Analyzed By CAD. Unchanged posterior superior asymmetric density on the left. There is no suspicious group of microcalcifications or new suspicious mass in either breast. Overall Assessment: Benign, BI-RAD 2 Management: Screening Mammogram of both breasts in 1 year. . Patient should continue monthly self-breast exams. A clinical breast exam by your physician is recommended on an annual basis. This exam should not preclude additional follow-up of suspicious palpable abnormalities. Note on Nikkie scores and lifetime risk: 1. A Nikkie score greater than 3% is considered moderate risk. If this is the case, consider specialist referral to assess eligibility for a risk reducing agent. 2. If overall lifetime risk for the development of breast cancer is 20% or higher, the patient may qualify for future screening with alternating mammogram and breast MRI. [facility], , 05/29/2024 5:40 PM. Electronically signed and approved by: Shalom Peña DO
== END | disposition home or self-care (01) ==
LOC: RADMAMWWP 06:56
PROVIDERS: ATTEND Obstetrics & Gynecology
DX: Z12.31 Encounter for screening mammogram for malignant neoplasm of breast (principal); Z78.0 Asymptomatic menopausal state; Z80.3 Family history of malignant neoplasm of breast; R92.333 Mammographic heterogeneous density, bilateral breasts; M85.89 Other specified disorders of bone density and structure, multiple sites
CPT/HCPCS: 77063; 77067; 77080

== ENCOUNTER → 2024-06-18 | Outpatient (CLI) | payer OTHER | END | disposition home or self-care (01) | LOC: LABWHC1 11:28 | PROVIDERS: ATTEND Internal Medicine Critical Care Medicine | DX: R76.8 Other specified abnormal immunological findings in serum (principal) | CPT/HCPCS: 36415; 86317 ==

== ENCOUNTER 2024-12-21 09:58 | Inpatient (IN) | payer OTHER ==
--- NOTE | 2024-12-21 10:23 | ED ---
SOB HPI - General Chief Complaint: Shortness of Breath Stated Complaint: Chest Tightness/SOB Time Seen by Provider: 12/21/24 10:04 Source: patient, RN notes reviewed Mode of arrival: ambulatory Limitations: no limitations - History of Present Illness Initial Comments: This is a 54-year-old female who presents to the emergency department for shortness of breath. States that it started over a week ago. She has a history of asthma and states that it feels like a flareup. She has been on prednisone for 9 days and doxycycline for 5 days. States that she thought that she was doing better, however yesterday and this morning she felt like she started to worsen again. She did do a DuoNeb breathing treatment this morning with some improvement. States that when she gets this bad she typically requires IV steroids. Denies any fevers/chills or sick contacts. MD Complaint: shortness of breath, cough - Related Data Home Medications Medication Instructions Recorded Confirmed RX: Montelukast [Singulair] 10 mg PO HS 08/04/14 12/21/24 RX: Albuterol Nebulized [Ventolin 2.5 mg INHALATION RT-QID PRN 08/16/16 12/21/24 Nebulized] RX: Omeprazole [PriLOSEC] 20 mg PO HS 09/10/23 12/21/24 Albuterol Sulfate/Budesonide 2 puff INHALATION RT-Q4H PRN 12/21/24 12/21/24 [Airsupra 90-80 Mcg Inhaler] Cetirizine HCl [Zyrtec] 10 mg PO HS 12/21/24 12/21/24 Fluticasone/Umeclidin/Vilanter 1 puff INHALATION RT-DAILY 12/21/24 12/21/24 [Trelegy Ellipta 200-62.5-25] L.acidoph,Paracasei, B.lactis 1 cap PO DAILY 12/21/24 12/21/24 [Probiotic] Metoprolol Succinate (ER) [Toprol 50 mg PO HS 12/21/24 12/21/24 Xl] Multivitamins, Thera [Multivitamin 1 tab PO DAILY 12/21/24 12/21/24 (formulary)] Promethazine/Dextromethorphan 5 ml PO Q4H PRN 12/21/24 12/21/24 [Promethazine-Dm Syrup] RX: Azithromycin [Zithromax] 250 mg PO MOWEFR@2100 12/21/24 12/21/24 RX: Doxycycline 100 mg PO BID 12/21/24 12/21/24 RX: Ipratropium-Albuterol Nebulize 3 ml INHALATION RT-QID PRN 12/21/24 12/21/24 [Duoneb 0.5 mg-3 mg/3 ml Soln] RX: predniSONE 10 mg PO TID 12/21/24 12/21/24 Tezepelumab-Ekko [Tezspire] 210 mg SQ QMONTHLY 12/21/24 12/21/24 Vitamin C (Unknown Dose) 1 dose PO DAILY 12/21/24 12/21/24 Vitamin D3 (Unknown Dose) 1 dose PO DAILY 12/21/24 12/21/24 Zinc (Unknown Dose) 1 dose PO DAILY 12/21/24 12/21/24 guaiFENesin [Mucinex] 600 mg PO Q12H 12/21/24 12/21/24 Allergies Allergy/AdvReac Type Severity Reaction Status Date / Time Milk Containing Products AdvReac Nausea & Verified 12/21/24 11:16 (Dairy) Vomiting & [Dairy] Diarrhea moxifloxacin HCl AdvReac Nausea & Verified 12/21/24 11:16 [From Avelox] Vomiting/ Passes out Review of Systems ROS Statement: Those systems with pertinent positive or pertinent negative responses have been documented in the HPI. ROS Other: All systems not noted in ROS Statement are negative. Past Medical History Past Medical History: Asthma, GERD/Reflux, Hypertension Additional Past Medical History / Comment(s): PVCs, History of Any Multi-Drug Resistant Organisms: None Reported Past Surgical History: Appendectomy, Tonsillectomy Additional Past Surgical History / Comment(s): D&C; Bunionectomy, bronchoscopy. Past Anesthesia/Blood Transfusion Reactions: Postoperative Nausea & Vomiting (PONV) Additional Past Anesthesia/Blood Transfusion Reaction / Comment(s): no blood tranfusions Past Psychological History: No Psychological Hx Reported Smoking Status: Never smoker Past Alcohol Use History: Occasional, Rare Past Drug Use History: None Reported - Past Family History Mother Family Medical History: Cancer, Myocardial Infarction ([place]) Additional Family Medical History / Comment(s): breast cancer Father Additional Family Medical History / Comment(s): heart failure and multip organ failure recently passed General Exam Limitations: no limitations General appearance: alert, in no apparent distress Head exam: Present: atraumatic, normocephalic, normal inspection Respiratory exam: Present: decreased breath sounds, prolonged expiratory Cardiovascular Exam: Present: regular rate, normal rhythm Neurological exam: Present: alert, oriented X3, CN II-XII intact Psychiatric exam: Present: normal affect, normal mood Skin exam: Present: warm, dry, intact, normal color. Absent: rash Course Vital Signs 12/21/24 12/21/24 12/21/24 10:01 12:52 13:01 Temperature 98.3 F Pulse Rate 107 H 76 80 Respiratory 18 Rate Blood Pressure 150/97 O2 Sat by Pulse 99 Oximetry 12/21/24 12/21/24 12/21/24 13:23 15:50 16:04 Temperature Pulse Rate 103 H 113 H 119 H Respiratory 18 Rate Blood Pressure 147/89 O2 Sat by Pulse 96 Oximetry 12/21/24 16:36 Temperature 98.3 F Pulse Rate 117 H Respiratory 20 Rate Blood Pressure 133/89 O2 Sat by Pulse 95 Oximetry Medical Decision Making - Medical Decision Making This is a 54 year old female who presents to the emergency department for shortness of breath. Was pt. sent in by a medical professional or institution? @ -No Did you speak to anyone other than the patient for history? @ -No Did you review nursing and triage notes? @ -Yes, and I agree, it is accurate with regards to the patient's symptoms. Were old charts reviewed? @ -No Differential Diagnosis? @ -Differential Dyspnea: Coronary syndrome, arrhythmia, tamponade, asthma, COPD, pulmonary embolism, pneumonia, pneumothorax, pulmonary effusion, anaphylaxis, diabetic ketoacidosis, flailed chest, pulmonary contusion, diaphragmatic rupture, anemia, neuromuscular, this is not meant to be an all-inclusive list. EKG interpreted by me (3pts min.)? @ -EKG interpreted by me demonstrating the following: Sinus rhythm. Ventricular rate 96 bpm, ND interval 150 ms, QRS duration 85 ms, QTc 390 ms. X-rays interpreted by me (1pt min.)? @ -Chest x-ray obtained, my interpretation identifies no localized consolidations or infiltrates. CT interpreted by me (1pt min.)? @ -Not obtained U/S interpreted by me (1pt. min.)? @ -Not obtained What testing was considered but not performed? (CT, X-rays, U/S, labs)? Why? @ -None What meds were considered but not given? Why? @ -None Did you discuss the management of the patient with other professionals? @ -Yes, Dr. Swenson, who accepts the patient for admission Did you reconcile home meds? @ -Yes Was smoking cessation discussed for >3mins.? @ -No Was critical care preformed (if so, how long)? @ -No Were there social determinants of health that impacted care today? How? (Homelessness, low income, unemployed, alcoholism, drug addiction, transportation, low edu. Level, literacy, decrease access to med. care, [facility], rehab)? @ -No Was there de-escalation of care discussed even if they declined? (Discuss DNR or withdrawal of care, Hospice)? @ -No What co-morbidities impacted this encounter? (DM, HTN, Smoking, COPD, CAD, Cancer, CVA, Hep., AIDS, mental health diagnosis, sleep apnea, morbid obesity)? @ -Asthma Was patient admitted / discharged? @ -Admitted. Lab work demonstrates leukocytosis with a white blood cell count of 15.73. Lactic acid elevated at 3.6. D-dimer and troponin negative. Leukocytosis likely secondary to ongoing steroid use, as no evidence of infection is identified at this point. COVID, influenza, and RSV testing negative. Chest x-ray reveals no acute process. She was given 125 mg of Solu- Medrol and a DuoNeb breathing treatment with improvement in symptoms. However, patient concerned that she has already been on steroids and antibiotics outpatient without any relief and advised that she requires IV steroids to further manage this. Patient admitted to medicine for asthma exacerbation. Consult placed for pulmonology. Scheduled and as needed DuoNeb breathing treatments ordered. Solu-Medrol 60 mg every 6 hours ordered as well. Case discussed with ED attending Dr. Cherry. Undiagnosed new problem with uncertain prognosis? @ -None Drug Therapy requiring intensive monitoring for toxicity (Heparin, Nitro, Insulin, Cardizem)? @ -None Were any procedures done? @ -None Diagnosis/symptom? @ -Asthma exacerbation Acute, or Chronic, or Acute on Chronic? @ -Acute on chronic Uncomplicated (without systemic symptoms) or Complicated (systemic symptoms)? @ -Uncomplicated Side effects of treatment? @ -None Exacerbation, Progression, or Severe Exacerbation] @ -Exacerbation Poses a threat to life or bodily function? @ -Yes, patient advised that she struggling to function due to her shortness of breath - Lab Data Result diagrams: 12/21/24 14:10 12/21/24 10:37 Lab Results 12/21/24 12/21/24 12/21/24 Range/Units 10:37 10:37 10:37 WBC 15.73 H (4.50-10.00) 10*3/uL RBC 5.22 H (4.10-5.20) 10*6/uL Hgb 16.7 H (12.0-15.0) g/dL Hct 48.9 H (37.2-46.3) % MCV 93.7 (80.0-97.0) fL MCH 32.0 (27.0-32.0) pg MCHC 34.2 (32.0-37.0) g/dL Plt Count 354 (140-440) 10*3/uL MPV 11.3 (9.5-12.2) fL Immature Gran % (Auto) 1.4 % Neutrophils % (Manual) 52 % Lymphocytes % (Manual) 39 % Monocytes % (Manual) 9 % Immature Gran # 0.22 H (0.00-0.04) 10*3/uL Neutrophils # (Manual) 8.18 H (1.3-7.7) k/uL Lymphocytes # (Manual) 6.13 H (1.0-4.8) k/uL Monocytes # (Manual) 1.42 H (0-1.0) k/uL Nucleated RBCs 0 (0-0) /100 WBC Manual Slide Review Performed Stomatocytes Present PT 10.8 (10.0-12.5) sec INR 1.0 (<1.2) APTT 21.0 L (22.0-30.0) sec D-Dimer (<0.60) mg/L FEU Sodium 139 (137-145) mmol/L Potassium 3.9 (3.5-5.1) mmol/L Chloride 103 (98-107) mmol/L Carbon Dioxide 24 (22-30) mmol/L Anion Gap 12 mmol/L BUN 15 (7-17) mg/dL Creatinine 0.89 (0.52-1.04) mg/dL Est GFR (CKD-EPI)AfAm 84 (>60 ml/min/1.73 sqM) Est GFR (CKD-EPI)NonAf 73 (>60 ml/min/1.73 sqM) Glucose 86 (74-99) mg/dL Lactic Ac Sepsis Rflx Plasma Lactic Acid Oswald (0.7-2.0) mmol/L Calcium 11.1 H (8.4-10.2) mg/dL Magnesium 2.0 (1.6-2.3) mg/dL Total Bilirubin 1.4 H (0.2-1.3) mg/dL AST 22 (14-36) U/L ALT 22 (4-34) U/L Alkaline Phosphatase 122 (38-126) U/L Troponin I (0.000-0.034) ng/mL C-Reactive Protein (<1.0) mg/dL NT-Pro-B Natriuret Pep 67 pg/mL Total Protein 7.4 (6.3-8.2) g/dL Albumin 4.6 (3.5-5.0) g/dL Procalcitonin (0.02-0.50) ng/mL Influenza Type A (PCR) (Not Detectd) Influenza Type B (PCR) (Not Detectd) RSV (PCR) (Not Detectd) SARS-CoV-2 (PCR) (Not Detectd) 12/21/24 12/21/24 12/21/24 Range/Units 10:37 10:37 10:37 WBC (4.50-10.00) 10*3/uL RBC (4.10-5.20) 10*6/uL Hgb (12.0-15.0) g/dL Hct (37.2-46.3) % MCV (80.0-97.0) fL MCH (27.0-32.0) pg MCHC (32.0-37.0) g/dL Plt Count (140-440) 10*3/uL MPV (9.5-12.2) fL Immature Gran % (Auto) % Neutrophils % (Manual) % Lymphocytes % (Manual) % Monocytes % (Manual) % Immature Gran # (0.00-0.04) 10*3/uL Neutrophils # (Manual) (1.3-7.7) k/uL Lymphocytes # (Manual) (1.0-4.8) k/uL Monocytes # (Manual) (0-1.0) k/uL Nucleated RBCs (0-0) /100 WBC Manual Slide Review Stomatocytes PT (10.0-12.5) sec INR (<1.2) APTT (22.0-30.0) sec D-Dimer (<0.60) mg/L FEU Sodium (137-145) mmol/L Potassium (3.5-5.1) mmol/L Chloride (98-107) mmol/L Carbon Dioxide (22-30) mmol/L Anion Gap mmol/L BUN (7-17) mg/dL Creatinine (0.52-1.04) mg/dL Est GFR (CKD-EPI)AfAm (>60 ml/min/1.73 sqM) Est GFR (CKD-EPI)NonAf (>60 ml/min/1.73 sqM) Glucose (74-99) mg/dL Lactic Ac Sepsis Rflx Plasma Lactic Acid Oswald 3.6 H* (0.7-2.0) mmol/L Calcium (8.4-10.2) mg/dL Magnesium (1.6-2.3) mg/dL Total Bilirubin (0.2-1.3) mg/dL AST (14-36) U/L ALT (4-34) U/L Alkaline Phosphatase (38-126) U/L Troponin I <0.012 (0.000-0.034) ng/mL C-Reactive Protein (<1.0) mg/dL NT-Pro-B Natriuret Pep pg/mL Total Protein (6.3-8.2) g/dL Albumin (3.5-5.0) g/dL Procalcitonin (0.02-0.50) ng/mL Influenza Type A (PCR) Not Detected (Not Detectd) Influenza Type B (PCR) Not Detected (Not Detectd) RSV (PCR) Not Detected (Not Detectd) SARS-CoV-2 (PCR) Not Detected (Not Detectd) 12/21/24 12/21/24 12/21/24 Range/Units 10:37 10:37 10:37 WBC (4.50-10.00) 10*3/uL RBC (4.10-5.20) 10*6/uL Hgb (12.0-15.0) g/dL Hct (37.2-46.3) % MCV (80.0-97.0) fL MCH (27.0-32.0) pg MCHC (32.0-37.0) g/dL Plt Count (140-440) 10*3/uL MPV (9.5-12.2) fL Immature Gran % (Auto) % Neutrophils % (Manual) % Lymphocytes % (Manual) % Monocytes % (Manual) % Immature Gran # (0.00-0.04) 10*3/uL Neutrophils # (Manual) (1.3-7.7) k/uL Lymphocytes # (Manual) (1.0-4.8) k/uL Monocytes # (Manual) (0-1.0) k/uL Nucleated RBCs (0-0) /100 WBC Manual Slide Review Stomatocytes PT (10.0-12.5) sec INR (<1.2) APTT (22.0-30.0) sec D-Dimer 0.29 (<0.60) mg/L FEU Sodium (137-145) mmol/L Potassium (3.5-5.1) mmol/L Chloride (98-107) mmol/L Carbon Dioxide (22-30) mmol/L Anion Gap mmol/L BUN (7-17) mg/dL Creatinine (0.52-1.04) mg/dL Est GFR (CKD-EPI)AfAm (>60 ml/min/1.73 sqM) Est GFR (CKD-EPI)NonAf (>60 ml/min/1.73 sqM) Glucose (74-99) mg/dL Lactic Ac Sepsis Rflx Plasma Lactic Acid Oswald (0.7-2.0) mmol/L Calcium (8.4-10.2) mg/dL Magnesium (1.6-2.3) mg/dL Total Bilirubin (0.2-1.3) mg/dL AST (14-36) U/L ALT (4-34) U/L Alkaline Phosphatase (38-126) U/L Troponin I (0.000-0.034) ng/mL C-Reactive Protein <0.5 (<1.0) mg/dL NT-Pro-B Natriuret Pep pg/mL Total Protein (6.3-8.2) g/dL Albumin (3.5-5.0) g/dL Procalcitonin <0.20 (0.02-0.50) ng/mL Influenza Type A (PCR) (Not Detectd) Influenza Type B (PCR) (Not Detectd) RSV (PCR) (Not Detectd) SARS-CoV-2 (PCR) (Not Detectd) 12/21/24 Range/Units 11:21 WBC (4.50-10.00) 10*3/uL RBC (4.10-5.20) 10*6/uL Hgb (12.0-15.0) g/dL Hct (37.2-46.3) % MCV (80.0-97.0) fL MCH (27.0-32.0) pg MCHC (32.0-37.0) g/dL Plt Count (140-440) 10*3/uL MPV (9.5-12.2) fL Immature Gran % (Auto) % Neutrophils % (Manual) % Lymphocytes % (Manual) % Monocytes % (Manual) % Immature Gran # (0.00-0.04) 10*3/uL Neutrophils # (Manual) (1.3-7.7) k/uL Lymphocytes # (Manual) (1.0-4.8) k/uL Monocytes # (Manual) (0-1.0) k/uL Nucleated RBCs (0-0) /100 WBC Manual Slide Review Stomatocytes PT (10.0-12.5) sec INR (<1.2) APTT (22.0-30.0) sec D-Dimer (<0.60) mg/L FEU Sodium (137-145) mmol/L Potassium (3.5-5.1) mmol/L Chloride (98-107) mmol/L Carbon Dioxide (22-30) mmol/L Anion Gap mmol/L BUN (7-17) mg/dL Creatinine (0.52-1.04) mg/dL Est GFR (CKD-EPI)AfAm (>60 ml/min/1.73 sqM) Est GFR (CKD-EPI)NonAf (>60 ml/min/1.73 sqM) Glucose (74-99) mg/dL Lactic Ac Sepsis Rflx Y Plasma Lactic Acid Oswald (0.7-2.0) mmol/L Calcium (8.4-10.2) mg/dL Magnesium (1.6-2.3) mg/dL Total Bilirubin (0.2-1.3) mg/dL AST (14-36) U/L ALT (4-34) U/L Alkaline Phosphatase (38-126) U/L Troponin I (0.000-0.034) ng/mL C-Reactive Protein (<1.0) mg/dL NT-Pro-B Natriuret Pep pg/mL Total Protein (6.3-8.2) g/dL Albumin (3.5-5.0) g/dL Procalcitonin (0.02-0.50) ng/mL Influenza Type A (PCR) (Not Detectd) Influenza Type B (PCR) (Not Detectd) RSV (PCR) (Not Detectd) SARS-CoV-2 (PCR) (Not Detectd) - Radiology Data Radiology results: report reviewed, image reviewed Disposition Clinical Impression: Asthma exacerbation, Failure of outpatient treatment Disposition: ADMITTED IP TO THIS HOSP
[2024-12-21] MEDS: SODIUM CHLORIDE 0.9% 1,000 ML IV ONE ×2 (10:38→12:15)
[2024-12-21] MEDS: methylPREDNISolone SOD SUCCI 125 MG/2 ML VIAL IV STA (10:39)
[2024-12-21 10:51] LABS: HCT 48.9 % (37.2-46.3); HGB 16.7 g/dL (12.0-15.0); MCH 32.0 pg (27.0-32.0); MCHC 34.2 g/dL (32.0-37.0); MCV 93.7 fL (80.0-97.0); Platelet Count 354 10*3/uL (140-440); RBC 5.22 10*6/uL (4.10-5.20); RDW 13.0 % (11.5-14.5); WBC 15.73 10*3/uL (4.50-10.00)
--- NOTE | 2024-12-21 11:01 | XR ---
EXAMINATION TYPE: XR chest 2V DATE OF EXAM: 12/21/2024 10:54 AM COMPARISON: 10/13/2023 CLINICAL INDICATION: Female, 54 years old with history of difficulty breathing: Shortness of breath TECHNIQUE: XR chest 2V views of the chest are obtained. FINDINGS: Scattered senescent parenchymal changes noted. Hyperinflation compatible with COPD. No evidence for infiltrate. No evidence for atelectasis. Heart size is stable. Mediastinal structures are stable and grossly unremarkable. No evidence for hilar prominence. Degenerative changes dorsal spine. IMPRESSION: 1. No evidence for acute pulmonary disease. [facility], , 12/21/2024 10:59 AM
[2024-12-21 11:07] LABS: INR 1.0 (<1.2); Prothrombin Time 10.8 sec (10.0-12.5)
[2024-12-21 11:10] LABS: ALT 22 U/L (4-34); AST 22 U/L (14-36); African American GFR (CKD) 84 (>60 ml/min/1.73 sqM); Albumin 4.6 g/dL (3.5-5.0); Alkaline Phosphatase 122 U/L (38-126); Anion Gap 12 mmol/L; Blood Urea Nitrogen 15 mg/dL (7-17); Calcium 11.1 mg/dL (8.4-10.2); Carbon Dioxide 24 mmol/L (22-30); Chloride 103 mmol/L (98-107); Glucose 86 mg/dL (74-99); Magnesium 2.0 mg/dL (1.6-2.3); Non-African American GFR(CKD) 73 (>60 ml/min/1.73 sqM); Potassium 3.9 mmol/L (3.5-5.1); Sodium 139 mmol/L (137-145); Total Protein 7.4 g/dL (6.3-8.2)
[2024-12-21 11:13] LABS: Partial Thromboplastin Time 21.0 sec (22.0-30.0)
[2024-12-21 11:19] LABS: NT-Pro-B-Type Natriuretic Pept 67 pg/mL
[2024-12-21 11:27] LABS: RSV Not Detected (Not Detectd)
[2024-12-21 11:37] LABS: Lymphocytes # (M) 6.13 k/uL (1.0-4.8); Monocytes # (M) 1.42 k/uL (0-1.0); Neutrophils # (M) 8.18 k/uL (1.3-7.7); Neutrophils % (M) 52 %; Stomatocytes Present; Total Cells Counted 100
[2024-12-21] MEDS: IPRATROPIUM-ALBUTEROL 3 ML NEB INHALATION STA (12:48)
[2024-12-21] MEDS ORDERED: NALOXONE 0.4 MG/ML 1 ML VIAL IVP PRN (13:32)
[2024-12-21] MEDS ORDERED: HYDROcodone/APAP 5-325MG 1 EACH TAB PO PRN (13:33)
[2024-12-21] MEDS ORDERED: MORPHINE SULFATE 4 MG/ML SYRINGE IV PRN (13:33)
[2024-12-21] MEDS ORDERED: KETOROLAC 15 MG/ML 1 ML VIAL IVP PRN (13:33)
[2024-12-21] MEDS ORDERED: IBUPROFEN 400 MG TAB PO PRN (13:33)
[2024-12-21] MEDS ORDERED: ONDANSETRON 4 MG/2 ML VIAL IVP PRN (13:33)
[2024-12-21] MEDS ORDERED: ACETAMINOPHEN TAB 325 MG TAB PO PRN (13:33)
[2024-12-21 14:21] LABS: Basophils # (A) 0.04 10*3/uL (0.00-0.10); Basophils % (A) 0.3 %; Eosinophils # (A) 0.00 10*3/uL (0.04-0.35); Eosinophils % (A) 0.0 %; HCT 46.0 % (37.2-46.3); HGB 15.7 g/dL (12.0-15.0); Lymphocytes # (A) 1.50 10*3/uL (0.90-5.00); Lymphocytes % (A) 11.2 %; MCH 32.4 pg (27.0-32.0); MCHC 34.1 g/dL (32.0-37.0); MCV 94.8 fL (80.0-97.0); Monocytes # (A) 0.28 10*3/uL (0.20-1.00); Monocytes % (A) 2.1 %; Neutrophils # (A) 11.37 10*3/uL (1.80-7.70); Neutrophils % (A) 85.0 %; Platelet Count 321 10*3/uL (140-440); RBC 4.85 10*6/uL (4.10-5.20); RDW 13.0 % (11.5-14.5); WBC 13.38 10*3/uL (4.50-10.00)
[2024-12-21] MEDS ORDERED: FLUTICASONE 110 MCG INHALER INHALATION PRN (15:00)
[2024-12-21] MEDS: IPRATROPIUM-ALBUTEROL 3 ML NEB INHALATION SCH (15:49)
[2024-12-21] MEDS: FORMOTEROL FUMARATE 20 MCG/2 ML NEBU INHALATION SCH (16:59)
[2024-12-21] MEDS: BUDESONIDE 1 MG/2 ML NEBU INHALATION SCH (16:59)
[2024-12-21] MEDS: methylPREDNISolone SOD SUCCI 125 MG/2 ML VIAL IV SCH (18:01)
[2024-12-21] MEDS: AZITHROMYCIN 500 MG TAB PO SCH (20:59)
[2024-12-21] MEDS: MONTELUKAST 10 MG TAB PO SCH (20:59)
[2024-12-21] MEDS: LORATADINE 10 MG TAB PO SCH (20:59)
[2024-12-21] MEDS: METOPROLOL SUCCINATE (ER) 50 MG TAB.ER.24H PO SCH (20:59)
[2024-12-21] MEDS ORDERED: DOXYCYCLINE 100 MG TABLET PO SCH (21:00)
[2024-12-21] MEDS ORDERED: NON FORMULARY DRUG (Omeprazole 20 MG Capsule.Dr) PO SCH (21:00)
[2024-12-21] MEDS: HEPARIN SODIUM,PORCINE 5,000 UNIT/ML 1 ML VIAL SQ SCH (21:00)
[2024-12-21] MEDS: PANTOPRAZOLE 40 MG TABLET PO STA (22:14)
[2024-12-22] MEDS: IPRATROPIUM-ALBUTEROL 3 ML NEB INHALATION PRN (00:19)
[2024-12-22 02:11] LABS: Basophils # (A) 0.04 10*3/uL (0.00-0.10); Basophils % (A) 0.3 %; Eosinophils # (A) 0.00 10*3/uL (0.04-0.35); Eosinophils % (A) 0.0 %; HCT 45.2 % (37.2-46.3); HGB 15.1 g/dL (12.0-15.0); Lymphocytes # (A) 1.50 10*3/uL (0.90-5.00); Lymphocytes % (A) 11.0 %; MCH 32.1 pg (27.0-32.0); MCHC 33.4 g/dL (32.0-37.0); MCV 96.2 fL (80.0-97.0); Monocytes # (A) 0.42 10*3/uL (0.20-1.00); Monocytes % (A) 3.1 %; Neutrophils # (A) 11.41 10*3/uL (1.80-7.70); Neutrophils % (A) 84.0 %; Platelet Count 331 10*3/uL (140-440); RBC 4.70 10*6/uL (4.10-5.20); RDW 13.1 % (11.5-14.5); WBC 13.59 10*3/uL (4.50-10.00)
[2024-12-22 02:26] LABS: African American GFR (CKD) >90 (>60 ml/min/1.73 sqM); Anion Gap 13 mmol/L; Blood Urea Nitrogen 12 mg/dL (7-17); Calcium 10.3 mg/dL (8.4-10.2); Carbon Dioxide 21 mmol/L (22-30); Chloride 107 mmol/L (98-107); Glucose 156 mg/dL (74-99); Non-African American GFR(CKD) >90 (>60 ml/min/1.73 sqM); Potassium 4.1 mmol/L (3.5-5.1); Sodium 141 mmol/L (137-145)
--- NOTE | 2024-12-22 02:48 | HP ---
HISTORY AND PHYSICAL CHIEF COMPLAINT: Shortness of breath. HISTORY OF PRESENT ILLNESS: A 54-year-old woman with past medical history of asthma, hypertension, being followed by Dr. stern, complaining of shortness of breath. The patient apparently had multiple outpatient treatments including prednisone, intramuscular injections, and doxycycline. Because of lack of improvement, the patient came to [facility], admitted for further evaluation and treatment. The white count was found to be elevated and lactic acid was also found to be 3.6. Viral screening was negative and chest x-ray showed no acute pneumonia. There is no history of fever, rigors, chills at this time. PAST MEDICAL HISTORY: History of asthma, GERD, hypertension. Rest of the history from chart was also reviewed. HOME MEDICATIONS: Reviewed, include Prilosec. Dose and rest of medications reviewed. ALLERGIES: Milk containing products. FAMILY HISTORY: History of myocardial infarction. SOCIAL HISTORY: Occasional alcohol. REVIEW OF SYSTEMS: Fourteen-point review of systems negative except as mentioned earlier. PHYSICAL EXAMINATION: VITAL SIGNS: Pulse is 117, blood pressure 133/89, respirations 20. HEENT: Conjunctivae normal. NECK: No jugular venous distention. CARDIOVASCULAR: n RESPIRATIONS: Breathing efforts are increased. Bilateral scattered rhonchi and crackles. Breath sounds diminished at the bases. ABDOMEN: Soft, nontender. LEGS: No edema LABORATORY DATA: WBC 13.2. The rest of the labs are noted. ASSESSMENT: 1. Acute asthma exacerbation with failure of outpatient treatment. 2. Elevated lactic acid. Lactic acidemia. 3. Hypercalcemia, mild. 4. Elevated WBC. 5. hypertension. RECOMMENDATIONS AND DISCUSSION: This 54-year-old woman presented with multiple complex medical issues, presented with acute asthma exacerbation, failure of outpatient treatment. I would recommend initiating broad-spectrum IV antibiotics, bronchodilators, steroids, pulmonary consultation. Prognosis guarded because of multiple complex medical issues. Further recommendations to follow. See orders for details. MMODL / IJN: [id number] / MTDD
--- NOTE | 2024-12-22 04:26 | P.CNPUL ---
History of Present Illness Consult date: 12/22/24 Requesting physician: Kimberly Gonzales Reason for consult: asthma Chief complaint: Shortness of breath, cough, wheezing History of present illness: Patient is a 54-year-old female with severe persistent asthma, maintained on Trezspire injections. Also, currently uses Trelegy inhaler and Duo-nebs as needed. She does see Dr. Coker in the pulmonary office. Her last hospitalization was over 1 year ago. Presented the emergency department yesterday morning with chief complaint of shortness of breath. Chest x-ray did not show any acute cardiopulmonary process. CBC: WBC count of 13.6, hemoglobin 15.1, platelets 331. CMP unremarkable, electrolytes WDL, creatinine 0.58, glucose 156. Lactic acid 4.7 is down to 3.8. Patient is being evaluated on the observation unit. States she recently, went up north with some [place]. Approximately 10 days ago, developed earache and sore throat followed by coughing, wheezing, chest tightness and congestion. Cough is mostly nonproductive, occasional yellow sputum. Denies any fevers or chills. Denies any chest pain. Denies any nausea, vomiting, diarrhea. Did receive a Depo- Medrol injection on December 15. Symptoms did not improve, and she went to urgent care center and was given prednisone burst taper and doxycycline. Unfortunately, her respiratory status worsened and came to the emergency department for evaluation and treatment. While in the ED given DuoNeb treatment and loaded with IV Solu-Medrol. She is on room air. Does not appear in any respiratory distress. Also, previously started on azithromycin and Rocephin in the ED. Has remained afebrile. Review of Systems REVIEW OF SYSTEMS: CONSTITUTIONAL: Denies any recent significant weight loss or weight gain. EYES: Denies change in vision. EARS, NOSE, MOUTH, THROAT: Denies headaches, denies sore throat. CARDIOVASCULAR: Denies chest pain, palpitations or syncopal episodes. RESPIRATORY: See HPI. GASTROINTESTINAL: Denies change in appetite, abdominal pain, nausea and vomiting, or diarrhea GENITOURINARY: Denies hematuria, denies infections. MUSKULOSKELETAL: Denies pain, denies swelling. INTEGUMENTARY: Denies rash, denies eczema. NEUROLOGICAL: Denies recent memory loss, no recent seizure activity. PSYCHIATRIC: Denies anxiety, denies depression. HEMATOLOGIC/LYMPHATIC: Denies anemia, denies enlarged lymph node Past Medical History Past Medical History: Asthma, GERD/Reflux, Hypertension Additional Past Medical History / Comment(s): PVCs, severe persistant ASTHMA History of Any Multi-Drug Resistant Organisms: None Reported Past Surgical History: Appendectomy, Tonsillectomy Additional Past Surgical History / Comment(s): D&C; Bunionectomy, bronchoscopy. Past Anesthesia/Blood Transfusion Reactions: Postoperative Nausea & Vomiting (PONV) Additional Past Anesthesia/Blood Transfusion Reaction / Comment(s): no blood tranfusions Past Psychological History: No Psychological Hx Reported Smoking Status: Never smoker Past Alcohol Use History: Occasional, Rare Past Drug Use History: None Reported - Past Family History Mother Family Medical History: Cancer, Myocardial Infarction ([place]) Additional Family Medical History / Comment(s): breast cancer Father Additional Family Medical History / Comment(s): heart failure and multip organ failure recently passed Medications and Allergies Home Medications Medication Instructions Recorded Confirmed Type Montelukast [Singulair] 10 mg PO HS 08/04/14 12/21/24 History Albuterol Nebulized [Ventolin 2.5 mg INHALATION RT-QID PRN 08/16/16 12/21/24 Hi story Nebulized] Omeprazole [PriLOSEC] 20 mg PO HS 09/10/23 12/21/24 History Albuterol Sulfate/Budesonide 2 puff INHALATION RT-Q4H PRN 12/21/24 12/21/24 History [Airsupra 90-80 Mcg Inhaler] Azithromycin [Zithromax] 250 mg PO MOWEFR@2100 12/21/24 12/21/24 History Cetirizine HCl [Zyrtec] 10 mg PO HS 12/21/24 12/21/24 History Doxycycline 100 mg PO BID 12/21/24 12/21/24 History Fluticasone/Umeclidin/Vilanter 1 puff INHALATION RT-DAILY 12/21/24 12/21/24 History [Trelegy Ellipta 200-62.5-25] Ipratropium-Albuterol Nebulize 3 ml INHALATION RT-QID PRN 12/21/24 12/21/24 Hist ory [Duoneb 0.5 mg-3 mg/3 ml Soln] L.acidoph,Paracasei, B.lactis 1 cap PO DAILY 12/21/24 12/21/24 History [Probiotic] Metoprolol Succinate (ER) [Toprol 50 mg PO HS 12/21/24 12/21/24 History Xl] Multivitamins, Thera [Multivitamin 1 tab PO DAILY 12/21/24 12/21/24 History (formulary)] Promethazine/Dextromethorphan 5 ml PO Q4H PRN 12/21/24 12/21/24 History [Promethazine-Dm Syrup] Tezepelumab-Ekko [Tezspire] 210 mg SQ QMONTHLY 12/21/24 12/21/24 History Vitamin C (Unknown Dose) 1 dose PO DAILY 12/21/24 12/21/24 History Vitamin D3 (Unknown Dose) 1 dose PO DAILY 12/21/24 12/21/24 History Zinc (Unknown Dose) 1 dose PO DAILY 12/21/24 12/21/24 History guaiFENesin [Mucinex] 600 mg PO Q12H 12/21/24 12/21/24 History predniSONE 10 mg PO TID 12/21/24 12/21/24 History Allergies Allergy/AdvReac Type Severity Reaction Status Date / Time Milk Containing Products AdvReac Nausea & Verified 12/21/24 11:16 (Dairy) Vomiting & [Dairy] Diarrhea moxifloxacin HCl AdvReac Nausea & Verified 12/21/24 11:16 [From Avelox] Vomiting/ Passes out Physical Exam Vitals: Vital Signs Temp Pulse Pulse Resp BP BP Pulse Ox 12/22/24 00:32 111 H 12/22/24 00:20 92 12/21/24 21:27 106 H 12/21/24 21:12 108 H 12/21/24 20:57 107 H 12/21/24 20:00 98.4 F 92 18 143/89 98 12/21/24 18:39 98.2 F 102 H 16 148/90 97 12/21/24 16:36 98.3 F 117 H 20 133/89 95 12/21/24 16:04 119 H 12/21/24 15:50 113 H 12/21/24 13:23 103 H 18 147/89 96 12/21/24 13:01 80 12/21/24 12:52 76 12/21/24 10:01 98.3 F 107 H 18 150/97 99 Intake and Output 12/21/24 12/21/24 12/22/24 14:59 22:59 06:59 Other: Voiding Method Toilet Weight 84.822 kg 84.822 kg GENERAL EXAM: Alert, 54-year-old female, on room air, comfortable in no apparent distress. HEAD: Normocephalic and atraumatic EYES: Normal reaction of pupils, equal size. NOSE: Clear with pink turbinates. THROAT: No erythema or exudates. NECK: No masses, no JVD. CHEST: No chest wall deformity. LUNGS: Equal air entry with no crackles, wheeze, rhonchi or dullness. No conversational dyspnea or accessory muscle use.. CVS: S1 and S2 normal with no audible murmur, regular rhythm. No extra heart sounds ABDOMEN: No hepatosplenomegaly, active bowel sounds, no guarding or rigidity. SPINE: No scoliosis or deformity SKIN: No rashes CENTRAL NERVOUS SYSTEM: No focal deficits, tone is normal in all 4 extremities. EXTREMITIES: There is no peripheral edema, clubbing, or cyanosis. Peripheral pulses are intact. Results - Laboratory Findings CBC and BMP: 12/22/24 00:20 12/22/24 00:20 PT/INR, D-dimer PT 10.8 sec (10.0-12.5) 12/21/24 10:37 INR 1.0 (<1.2) 12/21/24 10:37 D-Dimer 0.29 mg/L FEU (<0.60) 12/21/24 10:37 Abnormal lab findings: Abnormal Labs 12/21/24 12/21/24 12/21/24 10:37 10:37 10:37 WBC 15.73 H RBC 5.22 H Hgb 16.7 H Hct 48.9 H MCH Immature Gran # 0.22 H Neutrophils # Neutrophils # (Manual) 8.18 H Lymphocytes # (Manual) 6.13 H Monocytes # (Manual) 1.42 H Eosinophils # APTT 21.0 L Carbon Dioxide Glucose Plasma Lactic Acid Oswald Calcium 11.1 H Total Bilirubin 1.4 H 12/21/24 12/21/24 12/21/24 10:37 14:10 14:10 WBC 13.38 H RBC Hgb 15.7 H Hct MCH 32.4 H Immature Gran # 0.19 H Neutrophils # 11.37 H Neutrophils # (Manual) Lymphocytes # (Manual) Monocytes # (Manual) Eosinophils # 0.00 L APTT Carbon Dioxide Glucose Plasma Lactic Acid Oswald 3.6 H* 2.6 H* Calcium Total Bilirubin 12/21/24 12/21/24 12/21/24 17:16 20:20 23:13 WBC RBC Hgb Hct MCH Immature Gran # Neutrophils # Neutrophils # (Manual) Lymphocytes # (Manual) Monocytes # (Manual) Eosinophils # APTT Carbon Dioxide Glucose Plasma Lactic Acid Oswald 3.6 H* 4.7 H* 3.2 H* Calcium Total Bilirubin 12/22/24 12/22/24 12/22/24 00:20 00:20 01:55 WBC 13.59 H RBC Hgb 15.1 H Hct MCH 32.1 H Immature Gran # 0.22 H Neutrophils # 11.41 H Neutrophils # (Manual) Lymphocytes # (Manual) Monocytes # (Manual) Eosinophils # 0.00 L APTT Carbon Dioxide 21 L Glucose 156 H Plasma Lactic Acid Oswald 3.8 H* Calcium 10.3 H Total Bilirubin - Diagnostic Findings Chest x-ray: image reviewed Assessment and Plan Assessment: Acute exacerbation of asthma, failed outpatient treatment Severe persistent steroid-dependent nonallergic, noneosinophilic asthma, [facility] Also, normally uses Trelegy maintenance inhaler Acute hypoxemic respiratory failure, secondary to above Acute leukocytosis Hypertension History of GERD, without esophagitis Plan: Patient states she is feeling much better than on presentation Chest x-ray does not show any acute cardiopulmonary process Viral 4 Plex negative for influenza A/B, RSV, COVID Currently on room air Continue combination of bronchodilators, budesonide inhalation, formoterol inhalation, and IV Solu-Medrol Continue Claritin and singular Previously started on empiric azithromycin and Rocephin Anticipate 24-hour observation, further recommendations to follow I have personally seen and examined the patient, performed the documentation and the assessment and plan as written. Number of minutes spent on the visit:20 Time with Patient: Greater than 30 Time with Patient: Greater than 30
[2024-12-22] MEDS ORDERED: SYMBICORT 160-4.5 MCG INHALER INHALATION SCH (08:00)
[2024-12-22] MEDS: ASCORBIC ACID 500 MG TAB PO SCH (10:23)
[2024-12-22] MEDS: LACTOBACILLUS ACIDOPHILUS/PECT 1 EACH CAPSULE PO SCH (10:24)
[2024-12-22] MEDS: ZINC SULFATE 220 MG CAP PO SCH (10:25)
[2024-12-22] MEDS: CHOLECALCIFEROL 125 MCG (5000 IU) TABLET PO SCH (10:27)
[2024-12-22] MEDS: MULTIVITAMINS, THERA 1 EACH TAB PO SCH (10:27)
[2024-12-22] MEDS: PANTOPRAZOLE 40 MG/10 ML VIAL IV SCH (10:29)
--- NOTE | 2024-12-22 14:48 | PN ---
PROGRESS NOTE DATE OF SERVICE: 12/22/2024 HISTORY OF PRESENT ILLNESS: This 54-year-old woman who was admitted with acute asthma exacerbation, has been receiving bronchodilators and empiric antibiotics for tracheobronchitis also. Dr. Park is following the patient closely. No chest pain. No palpitation. PHYSICAL EXAMINATION: VITAL SIGNS: Pulse is 116, blood pressure 140/80, respirations 17. CHEST: Bilateral scattered rhonchi. ABDOMEN: Soft. NERVOUS SYSTEM: Nonfocal. LABORATORY DATA: Lactic acid is still elevated. PAST MEDICAL HISTORY: Could not be taken. REVIEW OF SYSTEMS: Negative except as mentioned earlier. CURRENT MEDICATIONS: Reviewed. ASSESSMENT: 1. Acute asthma exacerbation with failure of outpatient treatment, acute tracheobronchitis. 2. Elevated lactic acid. Lactic acidemia. 3. Hypercalcemia, mild. 4. Increased WBC. 5. Hypertension. 6. Multiple complex medical issues. RECOMMENDATIONS: Recommend to continue current management and otherwise recommend continue with empiric antibiotics. Cultures. Bronchodilators and steroids. Monitor blood pressure closely. IV fluids. Guarded prognosis because of multiple complex medical conditions. Further recommendations to follow. MMODL / IJN: [id number] /
[2024-12-22] MEDS: SODIUM CHLORIDE 0.9% 1,000 ML IV SCH (16:27)
[2024-12-22 18:46] LABS: Bilirubin,Urine Negative (Negative); Blood,Urine Negative (Negative); Color,Urine Yellow; Glucose,Urine (UA) Negative (Negative); Ketones,Urine Negative (Negative); Leukocyte Esterase,Urine Negative (Negative); Nitrite,Urine Negative (Negative); PH, Urine 6.0 (5.0-8.0); Protein,Urine Trace (Negative); Specific Gravity,Urine 1.031 (1.001-1.035); Urobilinogen,Urine <2.0 mg/dL (<2.0)
[2024-12-23 05:05] LABS: Mycoplasma IgG Antibody (EIA) 0.33 INDEX (<=0.90); Mycoplasma IgM Antibody 0.45 INDEX (<=0.90)
[2024-12-23 07:36] LABS: Basophils # (A) 0.05 10*3/uL (0.00-0.10); Basophils % (A) 0.2 %; Eosinophils # (A) 0.00 10*3/uL (0.04-0.35); Eosinophils % (A) 0.0 %; HCT 44.4 % (37.2-46.3); HGB 14.7 g/dL (12.0-15.0); Lymphocytes # (A) 1.87 10*3/uL (0.90-5.00); Lymphocytes % (A) 8.1 %; MCH 31.3 pg (27.0-32.0); MCHC 33.1 g/dL (32.0-37.0); MCV 94.7 fL (80.0-97.0); Monocytes # (A) 1.11 10*3/uL (0.20-1.00); Monocytes % (A) 4.8 %; Neutrophils # (A) 19.49 10*3/uL (1.80-7.70); Neutrophils % (A) 84.9 %; Platelet Count 324 10*3/uL (140-440); RBC 4.69 10*6/uL (4.10-5.20); RDW 13.5 % (11.5-14.5); WBC 22.99 10*3/uL (4.50-10.00)
[2024-12-23 08:01] LABS: African American GFR (CKD) >90 (>60 ml/min/1.73 sqM); Anion Gap 9 mmol/L; Blood Urea Nitrogen 14 mg/dL (7-17); Calcium 10.1 mg/dL (8.4-10.2); Carbon Dioxide 25 mmol/L (22-30); Chloride 107 mmol/L (98-107); Glucose 148 mg/dL (74-99); Non-African American GFR(CKD) >90 (>60 ml/min/1.73 sqM); Potassium 4.3 mmol/L (3.5-5.1); Sodium 141 mmol/L (137-145)
--- NOTE | 2024-12-23 13:41 | P.PN ---
Subjective Progress Note Date: 12/23/24 Principal diagnosis: Acute exacerbation of severe persistent asthma Patient is a 54-year-old female with severe persistent asthma, maintained on Trezspire injections. Also, currently uses Trelegy inhaler and Duo-nebs as needed. She does see Dr. Coker in the pulmonary office. Her last hospitalization was over 1 year ago. Presented the emergency department yesterday morning with chief complaint of shortness of breath. Chest x-ray did not show any acute cardiopulmonary process. CBC: WBC count of 13.6, hemoglobin 15.1, platelets 331. CMP unremarkable, electrolytes WDL, creatinine 0.58, glucose 156. Lactic acid 4.7 is down to 3.8. Patient is being evaluated on the observation unit. States she recently, went up [place] some [place]. Approximately 10 days ago, developed earache and sore throat followed by coughing, wheezing, chest tightness and congestion. Cough is mostly nonproductive, occasional yellow sputum. Denies any fevers or chills. Denies any chest pain. Denies any nausea, vomiting, diarrhea. Did receive a Depo- Medrol injection on December 15. Symptoms did not improve, and she went to urgent care center and was given prednisone burst taper and doxycycline. Unfortunately, her respiratory status worsened and came to the emergency department for evaluation and treatment. While in the ED given DuoNeb treatment and loaded with IV Solu-Medrol. She is on room air. Does not appear in any respiratory distress. Also, previously started on azithromycin and Rocephin in the ED. Has remained afebrile. Seen today on 12/23/2024, patient remains quite symptomatic she has ongoing cough and intermittent wheezing. Slight improvement but continues to be quite symptomatic. Specially with her cough. Hence cough suppressant medications was added. Patient is on maximal therapy including Solu-Medrol, bronchodilators, antibiotics, nonetheless continues to have cough wheezing and shortness of breath. Patient has leukocytosis with WBC count of 22.9 hemoglobin 14.7 electrolytes are normal renal profile is normal Objective - Vital Signs Vital signs: Vital Signs Temp 98.9 F 12/23/24 12:58 Pulse 104 H 12/23/24 13:33 Resp 16 12/23/24 12:58 BP 136/77 12/23/24 12:58 Pulse Ox 96 12/23/24 12:58 FiO2 Intake & Output 12/22/24 12/23/24 12/23/24 18:59 06:59 18:59 Intake Total 0 Balance 0 Intake: Oral 0 Other: Voiding Method Toilet Toilet # Voids 2 - Exam GENERAL EXAM: 54-year-old female in no distress but she has ongoing cough and wheezing HEAD: Normocephalic and atraumatic EYES: Normal reaction of pupils, equal size. NOSE: Clear with pink turbinates. THROAT: No erythema or exudates. NECK: No masses, no JVD. CHEST: No chest wall deformity. LUNGS: Diminished breath sound bilaterally wheezing on forced expiratory maneuver CVS: S1 and S2 normal with no audible murmur, regular rhythm. No extra heart sounds ABDOMEN: No hepatosplenomegaly, active bowel sounds, no guarding or rigidity. SKIN: No rashes CENTRAL NERVOUS SYSTEM: Alert and oriented x 3 no focal deficit EXTREMITIES: No clubbing edema or cyanosis, good pulses bilaterally - Labs CBC & Chem 7: 12/23/24 07:00 12/23/24 07:00 Labs: Abnormal Lab Results - Last 24 Hours (Table) 12/22/24 12/23/24 12/23/24 Range/Units 18:16 07:00 07:00 WBC 22.99 H (4.50-10.00) 10*3/uL Immature Gran # 0.47 H (0.00-0.04) 10*3/uL Neutrophils # 19.49 H (1.80-7.70) 10*3/uL Monocytes # 1.11 H (0.20-1.00) 10*3/uL Eosinophils # 0.00 L (0.04-0.35) 10*3/uL Glucose 148 H (74-99) mg/dL Urine Protein Trace H (Negative) Assessment and Plan Assessment: Impression: Acute exacerbation of severe persistent asthma Acute hypoxic respiratory failure secondary to above Acute leukocytosis most likely steroids related Benign essential hypertension History of GERD without esophagitis Recommendation: Continue present supportive care measures Continue steroids and antibiotics Continue bronchodilators patient is on maximal therapy Continue Claritin and Singulair and cough suppressant medications Patient is not ready for discharge, Remains quite symptomatic and intermittently bronchospastic Will continue to follow Time with Patient: Less than 30
[2024-12-23] MEDS: NYSTATIN 100,000 UNIT/ML SUSP 500,000 UNIT/5 ML CUP PO SCH (23:54)
--- NOTE | 2024-12-24 05:20 | PN ---
PROGRESS NOTE DATE OF SERVICE: 12/23/2024 SUBJECTIVE: This 54-year-old woman was admitted with acute asthma exacerbation, being closely monitored. No chest pain. No palpitations. The patient also has elevated lactic acid. PHYSICAL EXAMINATION: VITAL SIGNS: Pulse is 98, blood pressure 130/70, respirations 16. CHEST: A few scattered rhonchi and crackles. ABDOMEN: Soft. NERVOUS SYSTEM: Nonfocal. LABORATORY DATA: Reviewed. ASSESSMENT: 1. Acute asthma exacerbation, failure of outpatient treatment with acute tracheobronchitis. 2. Elevated lactic acid and lactic acidemia. 3. Hypercalcemia, mild. 4. Increased WBC. 5. Hypertension. 6. Multiple complex medical issues. RECOMMENDATIONS: Recommend to continue current management. I would recommend repeat lactic acid in the morning. Otherwise, Infectious Disease evaluation. Continue the antibiotics. Cultures are negative so far. Guarded prognosis. Further recommendations to follow. MMODL / IJN: [id number] /
--- NOTE | 2024-12-24 08:22 | XR ---
EXAMINATION TYPE: XR chest 2V DATE OF EXAM: 12/24/2024 6:18 AM COMPARISON: 12/21/2024 CLINICAL INDICATION: Female, 54 years old with history of Pneumonia: Shortness of breath TECHNIQUE: XR chest 2V views of the chest are obtained. FINDINGS: Scattered senescent parenchymal changes noted. Hyperinflation compatible with COPD. No evidence for infiltrate. Linear basilar atelectasis. Heart size is stable. Mediastinal structures are stable and grossly unremarkable. No evidence for hilar prominence. Degenerative changes dorsal spine. IMPRESSION: 1. No evidence for acute pulmonary disease. [facility], , 12/24/2024 8:19 AM
--- NOTE | 2024-12-24 08:35 | P.CONS ---
History of Present Illness - Reason for Consult Consult date: 12/23/24 Sepsis Requesting physician: Carlos Wallace - Chief Complaint Shortness of breath and cough x 1 week - History of Present Illness Patient is a 54-year-old female with a past medical history significant for asthma reflux hypertension presenting to the hospital 2 days ago for evaluation of increasing shortness of breath in this patient symptom has been getting worse for about a week before presentation to the hospital the patient also have a cough moderate intensity but unable to bring up any sputum denies any pleuritic chest pain patient denies having any URI symptoms no nausea no vomiting no abdominal pain and no diarrhea on presentation to the hospital patient was afebrile and no fever have been recorded subsequently patient has been intermittently tachycardic but not hypotensive or hypoxic no need for supplemental oxygen patient did have a white count of 13.38 on admission which is up to 22.99 with a left shift creatinine 0.68 she also have elevated lactic acid on admission repeat is 4 point show bilirubin is 1.4 rest of the liver enzymes are normal urine has been negative influenza RSV Mycoplasma IgG and IgM has been negative patient did have blood culture negative so far he did have a chest x-ray on admission there was no evidence for acute cardiopulmonary disease patient has been treated with the empiric ceftriaxone as well as Solu-Medrol infectious disease was consulted today concerning for sepsis because of her elevated white count Review of Systems Positive point and negatives has been mentioned in the HPI, complete review of systems was performed and all other systems are negative Past Medical History Past Medical History: Asthma, GERD/Reflux, Hypertension Additional Past Medical History / Comment(s): PVCs, severe persistant ASTHMA History of Any Multi-Drug Resistant Organisms: None Reported Past Surgical History: Appendectomy, Tonsillectomy Additional Past Surgical History / Comment(s): D&C; Bunionectomy, bronchoscopy. Past Anesthesia/Blood Transfusion Reactions: Postoperative Nausea & Vomiting (PONV) Additional Past Anesthesia/Blood Transfusion Reaction / Comm: no blood tranfusions Past Psychological History: No Psychological Hx Reported Smoking Status: Never smoker Past Alcohol Use History: Occasional, Rare Past Drug Use History: None Reported - Past Family History Mother Family Medical History: Cancer, Myocardial Infarction ([place]) Additional Family Medical History / Comment(s): breast cancer Father Additional Family Medical History / Comment(s): heart failure and multip organ failure recently passed Medications and Allergies Home Medications Medication Instructions Recorded Confirmed Type Montelukast [Singulair] 10 mg PO HS 08/04/14 12/21/24 History Albuterol Nebulized [Ventolin 2.5 mg INHALATION RT-QID PRN 08/16/16 12/21/24 History Nebulized] Omeprazole [PriLOSEC] 20 mg PO HS 09/10/23 12/21/24 History Albuterol Sulfate/Budesonide 2 puff INHALATION RT-Q4H PRN 12/21/24 12/21/24 History [Airsupra 90-80 Mcg Inhaler] Azithromycin [Zithromax] 250 mg PO MOWEFR@2100 12/21/24 12/21/24 History Cetirizine HCl [Zyrtec] 10 mg PO HS 12/21/24 12/21/24 History Doxycycline 100 mg PO BID 12/21/24 12/21/24 History Fluticasone/Umeclidin/Vilanter 1 puff INHALATION RT-DAILY 12/21/24 12/21/24 History [Trelegy Ellipta 200-62.5-25] Ipratropium-Albuterol Nebulize 3 ml INHALATION RT-QID PRN 12/21/24 12/21/24 History [Duoneb 0.5 mg-3 mg/3 ml Soln] L.acidoph,Paracasei, B.lactis 1 cap PO DAILY 12/21/24 12/21/24 History [Probiotic] Metoprolol Succinate (ER) [Toprol 50 mg PO HS 12/21/24 12/21/24 History Xl] Multivitamins, Thera [Multivitamin 1 tab PO DAILY 12/21/24 12/21/24 History (formulary)] Promethazine/Dextromethorphan 5 ml PO Q4H PRN 12/21/24 12/21/24 History [Promethazine-Dm Syrup] Tezepelumab-Ekko [Tezspire] 210 mg SQ QMONTHLY 12/21/24 12/21/24 History Vitamin C (Unknown Dose) 1 dose PO DAILY 12/21/24 12/21/24 History Vitamin D3 (Unknown Dose) 1 dose PO DAILY 12/21/24 12/21/24 History Zinc (Unknown Dose) 1 dose PO DAILY 12/21/24 12/21/24 History guaiFENesin [Mucinex] 600 mg PO Q12H 12/21/24 12/21/24 History predniSONE 10 mg PO TID 12/21/24 12/21/24 History Allergies Allergy/AdvReac Type Severity Reaction Status Date / Time Milk Containing Products AdvReac Nausea & Verified 12/21/24 11:16 (Dairy) Vomiting & [Dairy] Diarrhea moxifloxacin HCl AdvReac Nausea & Verified 12/21/24 11:16 [From Avelox] Vomiting/ Passes out Physical Exam Vitals: Vital Signs Temp Pulse Pulse Pulse Resp BP BP 12/23/24 13:33 104 H 12/23/24 13:24 103 H 12/23/24 12:58 98.9 F 98 16 136/77 12/23/24 10:32 85 12/23/24 10:19 86 12/23/24 07:19 97.6 F 88 16 143/86 12/23/24 03:57 94 12/23/24 02:00 97.6 F 88 16 172/110 12/22/24 21:09 97 12/22/24 20:59 97 12/22/24 20:58 97 12/22/24 20:48 98 12/22/24 20:05 97.8 F 105 H 18 151/90 Pulse Ox 12/23/24 13:33 12/23/24 13:24 12/23/24 12:58 96 12/23/24 10:32 12/23/24 10:19 98 12/23/24 07:19 95 12/23/24 03:57 12/23/24 02:00 95 12/22/24 21:09 12/22/24 20:59 12/22/24 20:58 12/22/24 20:48 12/22/24 20:05 95 Intake and Output 12/23/24 12/23/24 12/23/24 06:59 14:59 22:59 Other: # Voids 2 GENERAL DESCRIPTION: Middle-age female up in bed, no distress. No tachypnea or accessory muscle of respiration use. HEENT: Shows Pallor , no scleral icterus. Oral mucous membrane is dry. No pharyngeal erythema or thrush NECK: Trachea central, no thyromegaly. LUNGS: Unlabored breathing. Occasional wheeze HEART: S1, S2, regular rate and rhythm. No loud murmur ABDOMEN: Soft, no tenderness , guarding or rigidity, no organomegaly EXTREMITIES: No edema of feet. SKIN: No rash, no masses palpable. NEUROLOGICAL: The patient is awake, alert, oriented x3, mood and affect normal. Results CBC & Chem 7: 12/23/24 07:00 12/23/24 07:00 Labs: Abnormal Lab Results - Last 24 Hours (Table) 12/22/24 12/23/24 12/23/24 Range/Units 18:16 07:00 07:00 WBC 22.99 H (4.50-10.00) 10*3/uL Immature Gran # 0.47 H (0.00-0.04) 10*3/uL Neutrophils # 19.49 H (1.80-7.70) 10*3/uL Monocytes # 1.11 H (0.20-1.00) 10*3/uL Eosinophils # 0.00 L (0.04-0.35) 10*3/uL Glucose 148 H (74-99) mg/dL Urine Protein Trace H (Negative) Assessment and Plan (1) Leukocytosis Current Visit: No Status: Acute Code(s): D72.829 - ELEVATED WHITE BLOOD CELL COUNT, UNSPECIFIED SNOMED Code(s): 344997138 Plan: 1patient who do have a leukocytosis also elevated lactic acid meeting criteria for SIRS however more likely related to her underlying asthma exacerbation in clinic not behaving as pneumonia initial chest x-ray was negative further worsening of the white count is more likely related to the steroids plus minus component of pressure rather than bacterial pneumonia 2-we will repeat chest x-ray PA and lateral in the a.m. check a CRP and a pr ocalcitonin level 3-empirically start the patient on nystatin swish and swallow Multiple question concern answered We will follow on clinical condition and cultures to further adjust medication if needed Thank you for this consultation we will follow the patient along with you Dictation was produced using [employer] software. please excuse any grammatical, word or spelling errors. Time with Patient: Greater than 30
[2024-12-24 09:18] LABS: Basophils # (A) 0.07 10*3/uL (0.00-0.10); Basophils % (A) 0.3 %; Eosinophils # (A) 0.00 10*3/uL (0.04-0.35); Eosinophils % (A) 0.0 %; HCT 44.0 % (37.2-46.3); HGB 14.5 g/dL (12.0-15.0); Lymphocytes # (A) 1.41 10*3/uL (0.90-5.00); Lymphocytes % (A) 6.9 %; MCH 31.6 pg (27.0-32.0); MCHC 33.0 g/dL (32.0-37.0); MCV 95.9 fL (80.0-97.0); Monocytes # (A) 1.01 10*3/uL (0.20-1.00); Monocytes % (A) 4.9 %; Neutrophils # (A) 17.08 10*3/uL (1.80-7.70); Neutrophils % (A) 83.3 %; Platelet Count 325 10*3/uL (140-440); RBC 4.59 10*6/uL (4.10-5.20); RDW 13.6 % (11.5-14.5); WBC 20.52 10*3/uL (4.50-10.00)
[2024-12-24 09:31] LABS: African American GFR (CKD) >90 (>60 ml/min/1.73 sqM); Anion Gap 9 mmol/L; Blood Urea Nitrogen 15 mg/dL (7-17); Calcium 10.1 mg/dL (8.4-10.2); Carbon Dioxide 25 mmol/L (22-30); Chloride 106 mmol/L (98-107); Glucose 157 mg/dL (74-99); Non-African American GFR(CKD) >90 (>60 ml/min/1.73 sqM); Potassium 4.4 mmol/L (3.5-5.1); Sodium 140 mmol/L (137-145)
--- NOTE | 2024-12-24 13:19 | P.PN ---
Subjective Progress Note Date: 12/24/24 Principal diagnosis: Acute exacerbation of severe persistent asthma Patient is a 54-year-old female with severe persistent asthma, maintained on Trezspire injections. Also, currently uses Trelegy inhaler and Duo-nebs as needed. She does see Dr. Coker in the pulmonary office. Her last hospitalization was over 1 year ago. Presented the emergency department yesterday morning with chief complaint of shortness of breath. Chest x-ray did not show any acute cardiopulmonary process. CBC: WBC count of 13.6, hemoglobin 15.1, platelets 331. CMP unremarkable, electrolytes WDL, creatinine 0.58, glucose 156. Lactic acid 4.7 is down to 3.8. Patient is being evaluated on the observation unit. States she recently, [place]. Approximately 10 days ago, developed earache and sore throat followed by coughing, wheezing, chest tightness and congestion. Cough is mostly nonproductive, occasional yellow sputum. Denies any fevers or chills. Denies any chest pain. Denies any nausea, vomiting, diarrhea. Did receive a Depo- Medrol injection on December 15. Symptoms did not improve, and she went to urgent care center and was given prednisone burst taper and doxycycline. Unfortunately, her respiratory status worsened and came to the emergency department for evaluation and treatment. While in the ED given DuoNeb treatment and loaded with IV Solu-Medrol. She is on room air. Does not appear in any respiratory distress. Also, previously started on azithromycin and Rocephin in the ED. Has remained afebrile. Seen today on 12/23/2024, patient remains quite symptomatic she has ongoing cough and intermittent wheezing. Slight improvement but continues to be quite symptomatic. Specially with her cough. Hence cough suppressant medications was added. Patient is on maximal therapy including Solu-Medrol, bronchodilators, antibiotics, nonetheless continues to have cough wheezing and shortness of breath. Patient has leukocytosis with WBC count of 22.9 hemoglobin 14.7 electrolytes are normal renal profile is normal Seen today on 12/24/2024, patient received follow-up, she has severe persistent asthma with acute exacerbation, continues to be quite symptomatic, she is still coughing wheezing and short of breath, on physical examination she remains quite bronchospastic. Patient is on maximal therapy. Her WBC count is 13.1 hemoglobin is 15.9 electrolytes are normal renal profile is normal, chest x-ray showed no acute pulmonary process. Remains on 2 L nasal cannula with O2 sat of 95%. Discussed with the patient the option of bronchoscopy, however the patient is relatively high risk for bronchoscopy without intubation as she has been bron choscoped in the past and she required intubation after her bronchoscopy. Objective - Vital Signs Vital signs: Vital Signs Temp 98.2 F 12/24/24 09:12 Pulse 100 12/24/24 13:06 Resp 18 12/24/24 02:00 BP 138/88 12/24/24 09:12 Pulse Ox 95 12/24/24 09:12 FiO2 Intake & Output 12/23/24 12/24/24 12/24/24 18:59 06:59 18:59 Other: # Voids 2 - Exam GENERAL EXAM: 54-year-old female, anxious, seems to be short of breath, HEAD: Normocephalic and atraumatic EYES: Normal reaction of pupils, equal size. NOSE: Clear with pink turbinates. THROAT: No erythema or exudates. NECK: No masses, no JVD. CHEST: No chest wall deformity. LUNGS: Rhonchi and wheezes noted bilaterally. CVS: S1 and S2 normal with no audible murmur, regular rhythm. No extra heart sounds ABDOMEN: No hepatosplenomegaly, active bowel sounds, no guarding or rigidity. SKIN: No rashes CENTRAL NERVOUS SYSTEM: Alert and oriented x 3 no focal deficit EXTREMITIES: No clubbing edema or cyanosis, good pulses bilaterally - Labs CBC & Chem 7: 12/24/24 09:02 12/24/24 09:02 Labs: Abnormal Lab Results - Last 24 Hours (Table) 12/24/24 12/24/24 12/24/24 Range/Units 09:02 09:02 09:02 WBC 20.52 H (4.50-10.00) 10*3/uL Immature Gran # 0.95 H (0.00-0.04) 10*3/uL Neutrophils # 17.08 H (1.80-7.70) 10*3/uL Monocytes # 1.01 H (0.20-1.00) 10*3/uL Eosinophils # 0.00 L (0.04-0.35) 10*3/uL Glucose 157 H (74-99) mg/dL Plasma Lactic Acid Oswald 4.3 H* (0.7-2.0) mmol/L Microbiology - Last 24 Hours (Table) 12/22/24 14:22 Blood Culture - Preliminary Blood Assessment and Plan Assessment: Impression:Acute exacerbation of severe persistent asthma Acute hypoxic respiratory failure secondary to above Acute leukocytosis most likely steroids related Benign essential hypertension History of GERD without esophagitis Recommendation: Continue present supportive care measures Continue steroids and antibiotics Continue bronchodilators patient is on maximal therapy Continue Claritin and Singulair and cough suppressant medications Patient remains relatively quite ill, bronchospastic, not ready for discharge. Will continue to follow Time with Patient: Less than 30
--- NOTE | 2024-12-24 16:17 | P.PN ---
Subjective Progress Note Date: 12/24/24 Principal diagnosis: Reason for follow-up is leukocytosis Patient is a 54-year-old female with a past medical history significant for asthma reflux hypertension presenting to the hospital for evaluation of increasing shortness of breath and has been diagnosed with asthma exacerbation noticed to have worsening white count prompting this consultation. On today's evaluation that is 12/24/2024,the patient remains to be afebrile, patient is on room air not requiring supplemental oxygen however still complaining of shortness of breath on minimal exertion patient did have a cough and is bringing up some sputum no hemoptysis no abdominal pain no diarrhea. Patient white count slightly down to 20.52 creatinine 0.72 lactic acid 4.3 sputum cultures obtained repeat chest x-ray did not show any infiltrate did have a normal CRP and procalcitonin Objective - Vital Signs Vital signs: Vital Signs Temp 98.2 F 12/24/24 09:12 Pulse 96 12/24/24 13:16 Resp 18 12/24/24 02:00 BP 138/88 12/24/24 09:12 Pulse Ox 95 12/24/24 09:12 FiO2 Intake & Output 12/23/24 12/24/24 12/24/24 18:59 06:59 18:59 Other: # Voids 2 - Exam GENERAL DESCRIPTION: Middle-age female lying in bed in no distress RESPIRATORY SYSTEM: Unlabored breathing , occasional wheeze HEART: S1 S2 regular rate and rhythm , ABDOMEN: Soft , no tenderness EXTREMITIES: No edema feet - Labs CBC & Chem 7: 12/24/24 09:02 12/24/24 09:02 Labs: Abnormal Lab Results - Last 24 Hours (Table) 12/24/24 12/24/24 12/24/24 Range/Units 09:02 09:02 09:02 WBC 20.52 H (4.50-10.00) 10*3/uL Immature Gran # 0.95 H (0.00-0.04) 10*3/uL Neutrophils # 17.08 H (1.80-7.70) 10*3/uL Monocytes # 1.01 H (0.20-1.00) 10*3/uL Eosinophils # 0.00 L (0.04-0.35) 10*3/uL Glucose 157 H (74-99) mg/dL Plasma Lactic Acid Oswald 4.3 H* (0.7-2.0) mmol/L Microbiology - Last 24 Hours (Table) 12/23/24 10:22 Gram Stain - Preliminary Sputum Sputum Culture - Preliminary 12/22/24 14:22 Blood Culture - Preliminary Blood Assessment and Plan (1) Leukocytosis Current Visit: No Status: Acute Code(s): D72.829 - ELEVATED WHITE BLOOD CELL COUNT, UNSPECIFIED SNOMED Code(s): 329341757 Plan: 1patient who do have a leukocytosis also elevated lactic acid meeting criteria for SIRS however more likely related to her underlying asthma exacerbation, clinically not behaving as pneumonia initial chest x-ray was negative further worsening of the white count is more likely related to the steroids plus minus component of pressure rather than bacterial pneumonia 2-patient did have repeat chest x-ray PA and lateral did not show any acute elevated I did have a normal CRP and a procalcitonin level 3-patient to continue with nystatin swish and swallow and monitor clinical course closely Multiple question concern answered Dictation was produced using [employer] dictation software. please excuse any grammatical, word or spelling errors. Time with Patient: Less than 30
[2024-12-24] MEDS ORDERED: DEXTROSE 50% SYRINGE 50 ML IVP PRN ×2 (18:59)
[2024-12-24 20:30] LABS: Glucose,Whole Blood 162 mg/dL (70-110)
[2024-12-24] MEDS: FUROSEMIDE 10 MG/ML 2 ML VIAL IV SCH (21:28)
[2024-12-24] MEDS: INSULIN LISPRO (HumaLOG) 100 UNIT/ML 10 mL VL SQ SCH (21:28)
[2024-12-24] MEDS: ZOLPIDEM 5 MG TAB PO PRN (23:24)
--- NOTE | 2024-12-25 01:05 | PN ---
PROGRESS NOTE DATE OF SERVICE: 12/24/2024 SUBJECTIVE: This is a 54-year-old woman, who was admitted with acute asthma exacerbation, failure of outpatient treatment, is being closely monitored. No chest pain. No palpitation. The patient still has some thick sputum. A chest x-ray repeated today showed no acute abnormality. OBJECTIVE: VITAL SIGNS: Pulse is 100, blood pressure 130/80, respirations 20. HEENT: Conjunctivae normal. CARDIOVASCULAR: S1 and S2. RESPIRATIONS: Bilateral scattered rhonchi and crackles. ABDOMEN: Soft. NERVOUS SYSTEM: No focal deficit. LABORATORY DATA: WBC 20.52. Lactic acid is elevated. ASSESSMENT: 1. Acute asthma exacerbation, failure of outpatient treatment with acute purulent tracheobronchitis. 2. Elevated lactic acid and lactic acidemia. 3. Hypercalcemia, mild. 4. Elevated WBC. 5. Hypertension. 6. Multiple complex medical issues. RECOMMENDATIONS: Recommend to continue current management and symptomatic treatment. Continue with antibiotics, bronchodilators, IV steroids. We will monitor the lactic acid on a daily basis. Guarded prognosis. Further recommendations to follow. MMODL / IJN: [id number] /
[2024-12-25 06:01] LABS: Glucose,Whole Blood 141 mg/dL (70-110)
[2024-12-25 06:31] LABS: Basophils # (A) 0.06 10*3/uL (0.00-0.10); Basophils % (A) 0.4 %; Eosinophils # (A) 0.00 10*3/uL (0.04-0.35); Eosinophils % (A) 0.0 %; HCT 42.1 % (37.2-46.3); HGB 14.1 g/dL (12.0-15.0); Lymphocytes # (A) 1.54 10*3/uL (0.90-5.00); Lymphocytes % (A) 9.6 %; MCH 31.8 pg (27.0-32.0); MCHC 33.5 g/dL (32.0-37.0); MCV 94.8 fL (80.0-97.0); Monocytes # (A) 0.81 10*3/uL (0.20-1.00); Monocytes % (A) 5.1 %; Neutrophils # (A) 12.89 10*3/uL (1.80-7.70); Neutrophils % (A) 80.4 %; Platelet Count 301 10*3/uL (140-440); RBC 4.44 10*6/uL (4.10-5.20); RDW 13.7 % (11.5-14.5); WBC 16.02 10*3/uL (4.50-10.00)
[2024-12-25 06:42] LABS: ALT 26 U/L (4-34); AST 27 U/L (14-36); African American GFR (CKD) >90 (>60 ml/min/1.73 sqM); Albumin 3.6 g/dL (3.5-5.0); Alkaline Phosphatase 94 U/L (38-126); Anion Gap 9 mmol/L; Blood Urea Nitrogen 18 mg/dL (7-17); Calcium 9.5 mg/dL (8.4-10.2); Carbon Dioxide 27 mmol/L (22-30); Chloride 102 mmol/L (98-107); Glucose 136 mg/dL (74-99); Non-African American GFR(CKD) >90 (>60 ml/min/1.73 sqM); Potassium 4.2 mmol/L (3.5-5.1); Sodium 138 mmol/L (137-145); Total Protein 5.7 g/dL (6.3-8.2)
[2024-12-25 11:39] LABS: Glucose,Whole Blood 145 mg/dL (70-110)
[2024-12-25] MEDS: amLODIPine 10 MG TAB PO SCH (13:18)
[2024-12-25 13:43] VITALS: RESP 18
--- NOTE | 2024-12-25 14:52 | P.PN ---
Subjective Progress Note Date: 12/25/24 Principal diagnosis: Reason for follow-up is leukocytosis Patient is a 54-year-old female with a past medical history significant for asthma reflux hypertension presenting to the hospital for evaluation of increasing shortness of breath and has been diagnosed with asthma exacerbation noticed to have worsening white count prompting this consultation. On today's evaluation that is 12/25/2024, the patient continues to be afebrile, the patient is on room air and breathing slightly comfortably, the Pt denies having any chest pain or worsening cough, the patient denies having any abdominal pain no vomiting or any diarrhea, mention feeling slightly better today. Patient white count is down to 16.02, creatinine 0.67 blood and sputum culture have been negative Objective - Vital Signs Vital signs: Vital Signs Temp 98.5 F 12/25/24 12:00 Pulse 87 12/25/24 12:00 Resp 18 12/25/24 12:00 BP 159/95 12/25/24 12:00 Pulse Ox 93 L 12/25/24 12:00 FiO2 Intake & Output 12/24/24 12/25/24 12/25/24 18:59 06:59 18:59 Intake Total 120 658 Output Total 900 Balance 120 -242 Weight 84.6 kg Intake: Oral 120 658 Output: Urine 900 Other: Voiding Method Toilet Toilet Toilet # Voids 1 - Exam GENERAL DESCRIPTION: Middle-age female lying in bed in no distress RESPIRATORY SYSTEM: Unlabored breathing , occasional wheeze HEART: S1 S2 regular rate and rhythm , ABDOMEN: Soft , no tenderness EXTREMITIES: No edema feet - Labs CBC & Chem 7: 12/25/24 05:45 12/25/24 05:45 Labs: Abnormal Lab Results - Last 24 Hours (Table) 12/24/24 12/25/24 12/25/24 Range/Units 20:28 05:45 05:45 WBC 16.02 H (4.50-10.00) 10*3/uL Immature Gran # 0.72 H (0.00-0.04) 10*3/uL Neutrophils # 12.89 H (1.80-7.70) 10*3/uL Eosinophils # 0.00 L (0.04-0.35) 10*3/uL BUN 18 H (7-17) mg/dL Glucose 136 H (74-99) mg/dL POC Glucose (mg/dL) 162 H (70-110) mg/dL Plasma Lactic Acid Oswald (0.7-2.0) mmol/L Total Protein 5.7 L (6.3-8.2) g/dL 12/25/24 12/25/24 12/25/24 Range/Units 05:45 05:59 10:10 WBC (4.50-10.00) 10*3/uL Immature Gran # (0.00-0.04) 10*3/uL Neutrophils # (1.80-7.70) 10*3/uL Eosinophils # (0.04-0.35) 10*3/uL BUN (7-17) mg/dL Glucose (74-99) mg/dL POC Glucose (mg/dL) 141 H (70-110) mg/dL Plasma Lactic Acid Oswald 2.3 H* 4.1 H* (0.7-2.0) mmol/L Total Protein (6.3-8.2) g/dL 12/25/24 Range/Units 11:37 WBC (4.50-10.00) 10*3/uL Immature Gran # (0.00-0.04) 10*3/uL Neutrophils # (1.80-7.70) 10*3/uL Eosinophils # (0.04-0.35) 10*3/uL BUN (7-17) mg/dL Glucose (74-99) mg/dL POC Glucose (mg/dL) 145 H (70-110) mg/dL Plasma Lactic Acid Oswald (0.7-2.0) mmol/L Total Protein (6.3-8.2) g/dL Microbiology - Last 24 Hours (Table) 12/23/24 10:22 Gram Stain - Final Sputum Sputum Culture - Final 12/22/24 14:22 Blood Culture - Preliminary Blood Assessment and Plan (1) Leukocytosis Current Visit: No Status: Acute Code(s): D72.829 - ELEVATED WHITE BLOOD CELL COUNT, UNSPECIFIED SNOMED Code(s): 463991053 Plan: 1patient who do have a leukocytosis also elevated lactic acid meeting criteria for SIRS however more likely related to her underlying asthma exacerbation, clinically not behaving as pneumonia initial chest x-ray was negative further worsening of the white count is more likely related to the steroids plus minus component of pressure rather than bacterial pneumonia 2-patient did have repeat chest x-ray PA and lateral did not show any acute elev ated I did have a normal CRP and a procalcitonin level 3-patient white count is trending down down to 16,000, blood and sputum culture has been negative, patient to continue with nystatin swish and swallow and monitor clinical course closely Multiple question concern answered Dictation was produced using [employer] dictation software. please excuse any grammatical, word or spelling errors. Time with Patient: Less than 30
--- NOTE | 2024-12-25 15:33 | P.PN ---
Subjective Progress Note Date: 12/25/24 Patient is a 54-year-old female with severe persistent asthma, maintained on Trezspire injections. Also, currently uses Trelegy inhaler and Duo-nebs as needed. She does see Dr. Coker in the pulmonary office. Her last hospitalization was over 1 year ago. Presented the emergency department yesterday morning with chief complaint of shortness of breath. Chest x-ray did not show any acute cardiopulmonary process. CBC: WBC count of 13.6, hemoglobin 15.1, platelets 331. CMP unremarkable, electrolytes WDL, creatinine 0.58, glucose 156. Lactic acid 4.7 is down to 3.8. Patient is being evaluated on the observation unit. States she recently, went up [place] some [place]. Approximately 10 days ago, developed earache and sore throat followed by coughing, wheezing, chest tightness and congestion. Cough is mostly nonproductive, occasional yellow sputum. Denies any fevers or chills. Denies any chest pain. Denies any nausea, vomiting, diarrhea. Did receive a Depo- Medrol injection on December 15. Symptoms did not improve, and she went to urgent care center and was given prednisone burst taper and doxycycline. Unfortunately, her respiratory status worsened and came to the emergency depart ment for evaluation and treatment. While in the ED given DuoNeb treatment and loaded with IV Solu-Medrol. She is on room air. Does not appear in any respiratory distress. Also, previously started on azithromycin and Rocephin in the ED. Has remained afebrile. Seen today on 12/23/2024, patient remains quite symptomatic she has ongoing cough and intermittent wheezing. Slight improvement but continues to be quite symptomatic. Specially with her cough. Hence cough suppressant medications was added. Patient is on maximal therapy including Solu-Medrol, bronchodilators, antibiotics, nonetheless continues to have cough wheezing and shortness of breath. Patient has leukocytosis with WBC count of 22.9 hemoglobin 14.7 electrolytes are normal renal profile is normal Seen today on 12/24/2024, patient received follow-up, she has severe persistent asthma with acute exacerbation, continues to be quite symptomatic, she is still coughing wheezing and short of breath, on physical examination she remains quite bronchospastic. Patient is on maximal therapy. Her WBC count is 13.1 hemoglobin is 15.9 electrolytes are normal renal profile is normal, chest x-ray showed no acute pulmonary process. Remains on 2 L nasal cannula with O2 sat of 95%. Discussed with the patient the option of bronchoscopy, however the patient is relatively high risk for bronchoscopy without intubation as she has been bronchoscoped in the past and she required intubation after her bronchoscopy. The patient is seen today December 25, 2024 in follow-up on the selective care unit. She is currently sitting up in bed. Awake and alert in no acute distress. Continues with a congested cough. Continues with some wheezing. She is maintaining O2 saturation in the 90s on room air oxygen. She has been afebrile. Hemodynamically stable. Blood culture revealed no growth. Sputum culture revealed no growth. White count 16.0. Hemoglobin 14.1. Platelets 301. Sodium 138. Potassium 4.2. Bicarb 27. BUN 18. Creatinine 0.67. Glucose 136. She remains on DuoNeb inhalations, Pulmicort and Perforomist inhalations. Remains on Solu-Medrol. Remains on IV diuretics. Continued on Singulair. Continued on her home promethazine as needed for her cough. Objective - Vital Signs Vital signs: Vital Signs Temp 98.5 F 12/25/24 12:00 Pulse 87 12/25/24 12:00 Resp 18 12/25/24 12:00 BP 159/95 12/25/24 12:00 Pulse Ox 93 L 12/25/24 12:00 FiO2 Intake & Output 12/24/24 12/25/24 12/25/24 18:59 06:59 18:59 Intake Total 120 658 Output Total 900 Balance 120 -242 Weight 84.6 kg Intake: Oral 120 658 Output: Urine 900 Other: Voiding Method Toilet Toilet Toilet # Voids 1 - Exam GENERAL EXAM: Alert, pleasant 54-year-old female, on room air oxygen, comfortable in no apparent distress. HEAD: Normocephalic. EYES: Normal reaction of pupils, equal size. NOSE: Clear with pink turbinates. THROAT: No erythema or exudates. NECK: No masses, no JVD. CHEST: No chest wall deformity. LUNGS: Equal air entry with bilateral end expiratory wheeze. CVS: S1 and S2 normal with no audible murmur, regular rhythm. ABDOMEN: No hepatosplenomegaly, normal bowel sounds, no guarding or rigidity. SPINE: No scoliosis or deformity SKIN: No rashes CENTRAL NERVOUS SYSTEM: No focal deficits, tone is normal in all 4 extremities. EXTREMITIES: There is no peripheral edema. No clubbing, no cyanosis. Peripheral pulses are intact. - Labs CBC & Chem 7: 12/25/24 05:45 12/25/24 05:45 Labs: Abnormal Lab Results - Last 24 Hours (Table) 12/24/24 12/25/24 12/25/24 Range/Units 20:28 05:45 05:45 WBC 16.02 H (4.50-10.00) 10*3/uL Immature Gran # 0.72 H (0.00-0.04) 10*3/uL Neutrophils # 12.89 H (1.80-7.70) 10*3/uL Eosinophils # 0.00 L (0.04-0.35) 10*3/uL BUN 18 H (7-17) mg/dL Glucose 136 H (74-99) mg/dL POC Glucose (mg/dL) 162 H (70-110) mg/dL Plasma Lactic Acid Oswald (0.7-2.0) mmol/L Total Protein 5.7 L (6.3-8.2) g/dL 12/25/24 12/25/24 12/25/24 Range/Units 05:45 05:59 10:10 WBC (4.50-10.00) 10*3/uL Immature Gran # (0.00-0.04) 10*3/uL Neutrophils # (1.80-7.70) 10*3/uL Eosinophils # (0.04-0.35) 10*3/uL BUN (7-17) mg/dL Glucose (74-99) mg/dL POC Glucose (mg/dL) 141 H (70-110) mg/dL Plasma Lactic Acid Owsald 2.3 H* 4.1 H* (0.7-2.0) mmol/L Total Protein (6.3-8.2) g/dL 12/25/24 Range/Units 11:37 WBC (4.50-10.00) 10*3/uL Immature Gran # (0.00-0.04) 10*3/uL Neutrophils # (1.80-7.70) 10*3/uL Eosinophils # (0.04-0.35) 10*3/uL BUN (7-17) mg/dL Glucose (74-99) mg/dL POC Glucose (mg/dL) 145 H (70-110) mg/dL Plasma Lactic Acid Oswald (0.7-2.0) mmol/L Total Protein (6.3-8.2) g/dL Microbiology - Last 24 Hours (Table) 12/23/24 10:22 Gram Stain - Final Sputum Sputum Culture - Final 12/22/24 14:22 Blood Culture - Preliminary Blood Assessment and Plan Assessment: Acute exacerbation of severe persistent asthma Acute hypoxic respiratory failure secondary to above Acute leukocytosis most likely steroids related Benign essential hypertension History of GERD without esophagitis Plan: The patient was seen and evaluated Chest x-ray, labs and medications reviewed No acute pulmonary process Continue DuoNeb inhalations Continue Pulmicort and performance inhalations Continue IV Solu-Medrol Continue Singulair Continue diuretics Continue her home promethazine Increase her activity as tolerated We will continue to follow I have personally seen and examined the patient, performed the documentation and the assessment and plan as written. Number of minutes spent on the visit: 10 Dictation was produced using [employer] dictation software. Please excuse any grammatical, word or spelling errors.
[2024-12-25 16:40] LABS: Glucose,Whole Blood 154 mg/dL (70-110)
--- NOTE | 2024-12-25 16:54 | PN ---
PROGRESS NOTE DATE OF SERVICE: 12/25/2024 SUBJECTIVE: This is a 54-year-old woman, who was admitted with acute asthma exacerbation, acute purulent tracheobronchitis, making slow improvement. The lactic acid is still elevated. The cultures are negative so far. Pulmonary is considering possible bronchoscopy. No chest pain. No palpitation. OBJECTIVE: VITAL SIGNS: Pulse 78, blood pressure 177/90, respirations 18. CHEST: A few scattered rhonchi and crackles with expiratory wheezing. ABDOMEN: Soft. NERVOUS SYSTEM: Nonfocal. LABORATORY DATA: Reviewed. ASSESSMENT: 1. Acute asthma exacerbation with failure of outpatient treatment with acute purulent tracheobronchitis. 2. Elevated lactic acid and persistent lactic acidemia of undetermined origin. 3. Hypercalcemia, mild. 4. Hypertension. 5. Elevated WBC. 6. Multiple complex medical issues. RECOMMENDATIONS: Recommend to continue current management and symptomatic treatment. Continue with bronchodilators. Continue with current medications. Add Norvasc to the current regimen. Otherwise, closely follow with Pulmonary. Guarded prognosis. Further recommendations to follow. Infectious Disease also following the patient closely. I would repeat lactic acid in the morning. Continue to monitor. MMODL / IJN: [id number] /
[2024-12-25 20:00] LABS: Glucose,Whole Blood 152 mg/dL (70-110)
[2024-12-26 05:43] LABS: Basophils # (A) 0.09 10*3/uL (0.00-0.10); Basophils % (A) 0.5 %; Eosinophils # (A) 0.00 10*3/uL (0.04-0.35); Eosinophils % (A) 0.0 %; HCT 43.0 % (37.2-46.3); HGB 14.3 g/dL (12.0-15.0); Lymphocytes # (A) 2.22 10*3/uL (0.90-5.00); Lymphocytes % (A) 12.0 %; MCH 31.8 pg (27.0-32.0); MCHC 33.3 g/dL (32.0-37.0); MCV 95.6 fL (80.0-97.0); Monocytes # (A) 1.18 10*3/uL (0.20-1.00); Monocytes % (A) 6.4 %; Neutrophils # (A) 14.19 10*3/uL (1.80-7.70); Neutrophils % (A) 76.5 %; Platelet Count 302 10*3/uL (140-440); RBC 4.50 10*6/uL (4.10-5.20); RDW 13.4 % (11.5-14.5); WBC 18.53 10*3/uL (4.50-10.00)
[2024-12-26 05:58] LABS: Glucose,Whole Blood 117 mg/dL (70-110)
[2024-12-26 06:03] LABS: ALT 26 U/L (4-34); AST 24 U/L (14-36); African American GFR (CKD) >90 (>60 ml/min/1.73 sqM); Albumin 3.5 g/dL (3.5-5.0); Alkaline Phosphatase 93 U/L (38-126); Anion Gap 5 mmol/L; Blood Urea Nitrogen 19 mg/dL (7-17); Calcium 9.4 mg/dL (8.4-10.2); Carbon Dioxide 28 mmol/L (22-30); Chloride 106 mmol/L (98-107); Glucose 123 mg/dL (74-99); Non-African American GFR(CKD) 85 (>60 ml/min/1.73 sqM); Potassium 4.1 mmol/L (3.5-5.1); Sodium 139 mmol/L (137-145); Total Protein 5.7 g/dL (6.3-8.2)
[2024-12-26 11:09] LABS: Glucose,Whole Blood 114 mg/dL (70-110)
--- NOTE | 2024-12-26 12:02 | P.PN ---
Subjective Progress Note Date: 12/26/24 Patient is a 54-year-old female with severe persistent asthma, maintained on Trezspire injections. Also, currently uses Trelegy inhaler and Duo-nebs as needed. She does see Dr. Coker in the pulmonary office. Her last hospitalization was over 1 year ago. Presented the emergency department yesterday morning with chief complaint of shortness of breath. Chest x-ray did not show any acute cardiopulmonary process. CBC: WBC count of 13.6, hemoglobin 15.1, platelets 331. CMP unremarkable, electrolytes WDL, creatinine 0.58, glucose 156. Lactic acid 4.7 is down to 3.8. Patient is being evaluated on the observation unit. States she recently, [place]. Approximately 10 days ago, developed earache and sore throat followed by coughing, wheezing, chest tightness and congestion. Cough is mostly nonproductive, occasional yellow sputum. Denies any fevers or chills. Denies any chest pain. Denies any nausea, vomiting, diarrhea. Did receive a Depo- Medrol injection on December 15. Symptoms did not improve, and she went to urgent care center and was given prednisone burst taper and doxycycline. Unfortunately, her respiratory status worsened and came to the emergency depart ment for evaluation and treatment. While in the ED given DuoNeb treatment and loaded with IV Solu-Medrol. She is on room air. Does not appear in any respiratory distress. Also, previously started on azithromycin and Rocephin in the ED. Has remained afebrile. Seen today on 12/23/2024, patient remains quite symptomatic she has ongoing cough and intermittent wheezing. Slight improvement but continues to be quite symptomatic. Specially with her cough. Hence cough suppressant medications was added. Patient is on maximal therapy including Solu-Medrol, bronchodilators, antibiotics, nonetheless continues to have cough wheezing and shortness of breath. Patient has leukocytosis with WBC count of 22.9 hemoglobin 14.7 electrolytes are normal renal profile is normal Seen today on 12/24/2024, patient received follow-up, she has severe persistent asthma with acute exacerbation, continues to be quite symptomatic, she is still coughing wheezing and short of breath, on physical examination she remains quite bronchospastic. Patient is on maximal therapy. Her WBC count is 13.1 hemoglobin is 15.9 electrolytes are normal renal profile is normal, chest x-ray showed no acute pulmonary process. Remains on 2 L nasal cannula with O2 sat of 95%. Discussed with the patient the option of bronchoscopy, however the patient is relatively high risk for bronchoscopy without intubation as she has been bronchoscoped in the past and she required intubation after her bronchoscopy. The patient is seen today December 25, 2024 in follow-up on the selective care unit. She is currently sitting up in bed. Awake and alert in no acute distress. Continues with a congested cough. Continues with some wheezing. She is maintaining O2 saturation in the 90s on room air oxygen. She has been afebrile. Hemodynamically stable. Blood culture revealed no growth. Sputum culture revealed no growth. White count 16.0. Hemoglobin 14.1. Platelets 301. Sodium 138. Potassium 4.2. Bicarb 27. BUN 18. Creatinine 0.67. Glucose 136. She remains on DuoNeb inhalations, Pulmicort and Perforomist inhalations. Remains on Solu-Medrol. Remains on IV diuretics. Continued on Singulair. Continued on her home promethazine as needed for her cough. The patient is seen today December 26, 2024 in follow-up on the selective care unit. She is sitting up in a chair at the bedside. Awake and alert in no acute distress. Maintaining good O2 saturations in the 90s on room air. Sputum culture revealed no growth. Blood culture revealed no growth. White count 18.5. Hemoglobin 14.3. Platelets 302. Sodium 139. Potassium 4.1. Bicarb 28. BUN 19. Creatinine 0.79. Glucose 123. She remains on DuoNeb inhalations, Pu lmicort and Perforomist inhalations, IV Solu-Medrol and Singulair. She remains on IV diuretics. Remains on ceftriaxone. Azithromycin on Fridays. Heparin for DVT prophylaxis. Promethazine and Mucinex for congestion. Objective - Vital Signs Vital signs: Vital Signs Temp 97.5 F L 12/26/24 08:20 Pulse 104 H 12/26/24 09:16 Resp 18 12/26/24 08:20 BP 133/77 12/26/24 08:20 Pulse Ox 96 12/26/24 08:53 FiO2 Intake & Output 12/25/24 12/26/24 12/26/24 18:59 06:59 18:59 Intake Total 658 718 Output Total 2850 Balance -2 718 Weight 84.7 kg Intake: Intake, IV Titration 600 Amount Sodium Chloride 0.9% 1, 600 000 ml @ 75 mls/hr IV . [id number] [facility] Rx#:[id number] Oral 658 118 Output: Urine 2850 Other: Voiding Method Toilet Toilet # Voids 1 - Exam GENERAL EXAM: Alert, pleasant 54-year-old female, sitting up in a chair, on room air oxygen, in no apparent distress. HEAD: Normocephalic. EYES: Normal reaction of pupils, equal size. NOSE: Clear with pink turbinates. THROAT: No erythema or exudates. NECK: No masses, no JVD. CHEST: No chest wall deformity. LUNGS: Equal air entry with bilateral end expiratory wheeze. CVS: S1 and S2 normal with no audible murmur, regular rhythm. ABDOMEN: No hepatosplenomegaly, normal bowel sounds, no guarding or rigidity. SPINE: No scoliosis or deformity SKIN: No rashes CENTRAL NERVOUS SYSTEM: No focal deficits, tone is normal in all 4 extremities. EXTREMITIES: There is no peripheral edema. No clubbing, no cyanosis. Periphe ral pulses are intact. - Labs CBC & Chem 7: 12/26/24 05:30 12/26/24 05:30 Labs: Abnormal Lab Results - Last 24 Hours (Table) 12/25/24 12/25/24 12/26/24 Range/Units 16:34 19:59 05:30 WBC 18.53 H (4.50-10.00) 10*3/uL Immature Gran # 0.85 H (0.00-0.04) 10*3/uL Neutrophils # 14.19 H (1.80-7.70) 10*3/uL Monocytes # 1.18 H (0.20-1.00) 10*3/uL Eosinophils # 0.00 L (0.04-0.35) 10*3/uL BUN (7-17) mg/dL Glucose (74-99) mg/dL POC Glucose (mg/dL) 154 H 152 H (70-110) mg/dL Plasma Lactic Acid Oswald (0.7-2.0) mmol/L Total Protein (6.3-8.2) g/dL 12/26/24 12/26/24 12/26/24 Range/Units 05:30 05:30 05:54 WBC (4.50-10.00) 10*3/uL Immature Gran # (0.00-0.04) 10*3/uL Neutrophils # (1.80-7.70) 10*3/uL Monocytes # (0.20-1.00) 10*3/uL Eosinophils # (0.04-0.35) 10*3/uL BUN 19 H (7-17) mg/dL Glucose 123 H (74-99) mg/dL POC Glucose (mg/dL) 117 H (70-110) mg/dL Plasma Lactic Acid Oswald 2.3 H* (0.7-2.0) mmol/L Total Protein 5.7 L (6.3-8.2) g/dL 12/26/24 Range/Units 11:08 WBC (4.50-10.00) 10*3/uL Immature Gran # (0.00-0.04) 10*3/uL Neutrophils # (1.80-7.70) 10*3/uL Monocytes # (0.20-1.00) 10*3/uL Eosinophils # (0.04-0.35) 10*3/uL BUN (7-17) mg/dL Glucose (74-99) mg/dL POC Glucose (mg/dL) 114 H (70-110) mg/dL Plasma Lactic Acid Oswald (0.7-2.0) mmol/L Total Protein (6.3-8.2) g/dL Microbiology - Last 24 Hours (Table) 12/22/24 14:22 Blood Culture - Preliminary Blood 12/23/24 10:22 Gram Stain - Final Sputum Sputum Culture - Final Assessment and Plan Assessment: Acute exacerbation of severe persistent asthma Acute hypoxic respiratory failure secondary to above Acute leukocytosis most likely steroids related Benign essential hypertension History of GERD without esophagitis Plan: The patient was seen and evaluated Labs and medications reviewed Continue DuoNeb inhalations Continue Pulmicort and Perforomist inhalations Continue Solu-Medrol Continue Singulair Continue diuretics Stable and on room air Increase her activity as tolerated We will continue to follow I have personally seen and examined the patient, performed the documentation and the assessment and plan as written. Number of minutes spent on the visit: 10 Dictation was produced using [employer] dictation software. Please excuse any grammatical, word or spelling errors.
--- NOTE | 2024-12-26 15:31 | P.PN ---
Subjective Progress Note Date: 12/26/24 Principal diagnosis: Reason for follow-up is leukocytosis Patient is a 54-year-old female with a past medical history significant for asthma reflux hypertension presenting to the hospital for evaluation of increasing shortness of breath and has been diagnosed with asthma exacerbation noticed to have worsening white count prompting this consultation. On today's evaluation that is 12/27/2023, patient did have a temperature of 98.4 F this afternoon and denies having any chills, patient is on room air and breathing slightly comfortably no chest pain or any worsening cough, the patient did not have any nausea vomiting abdominal pain or any diarrhea. Patient white count is elevated 0.53 today, creatinine 0.79 lactic acid noted 2.3 blood and sputum culture has been negative Objective - Vital Signs Vital signs: Vital Signs Temp 98.4 F 12/26/24 12:20 Pulse 96 12/26/24 13:04 Resp 18 12/26/24 12:20 BP 147/60 12/26/24 12:20 Pulse Ox 96 12/26/24 12:20 FiO2 Intake & Output 12/25/24 12/26/24 12/26/24 18:59 06:59 18:59 Intake Total 658 1286 Output Total 2850 2100 Balance -2192 -814 Weight 84.7 kg Intake: Intake, IV Titration 1050 Amount Sodium Chloride 0.9% 1, 1050 000 ml @ 75 mls/hr IV . [id number] [facility] Rx#:[id number] Oral 658 236 Output: Urine 2850 2100 Other: Voiding Method Toilet Toilet # Voids 1 - Exam GENERAL DESCRIPTION: Middle-age female lying in bed in no distress RESPIRATORY SYSTEM: Unlabored breathing , occasional wheeze HEART: S1 S2 regular rate and rhythm , ABDOMEN: Soft , no tenderness EXTREMITIES: No edema feet - Labs CBC & Chem 7: 12/26/24 05:30 12/26/24 05:30 Labs: Abnormal Lab Results - Last 24 Hours (Table) 12/25/24 12/25/24 12/26/24 Range/Units 16:34 19:59 05:30 WBC 18.53 H (4.50-10.00) 10*3/uL Immature Gran # 0.85 H (0.00-0.04) 10*3/uL Neutrophils # 14.19 H (1.80-7.70) 10*3/uL Monocytes # 1.18 H (0.20-1.00) 10*3/uL Eosinophils # 0.00 L (0.04-0.35) 10*3/uL BUN (7-17) mg/dL Glucose (74-99) mg/dL POC Glucose (mg/dL) 154 H 152 H (70-110) mg/dL Plasma Lactic Acid Oswald (0.7-2.0) mmol/L Total Protein (6.3-8.2) g/dL 12/26/24 12/26/24 12/26/24 Range/Units 05:30 05:30 05:54 WBC (4.50-10.00) 10*3/uL Immature Gran # (0.00-0.04) 10*3/uL Neutrophils # (1.80-7.70) 10*3/uL Monocytes # (0.20-1.00) 10*3/uL Eosinophils # (0.04-0.35) 10*3/uL BUN 19 H (7-17) mg/dL Glucose 123 H (74-99) mg/dL POC Glucose (mg/dL) 117 H (70-110) mg/dL Plasma Lactic Acid Oswald 2.3 H* (0.7-2.0) mmol/L Total Protein 5.7 L (6.3-8.2) g/dL 12/26/24 Range/Units 11:08 WBC (4.50-10.00) 10*3/uL Immature Gran # (0.00-0.04) 10*3/uL Neutrophils # (1.80-7.70) 10*3/uL Monocytes # (0.20-1.00) 10*3/uL Eosinophils # (0.04-0.35) 10*3/uL BUN (7-17) mg/dL Glucose (74-99) mg/dL POC Glucose (mg/dL) 114 H (70-110) mg/dL Plasma Lactic Acid Oswald (0.7-2.0) mmol/L Total Protein (6.3-8.2) g/dL Microbiology - Last 24 Hours (Table) 12/22/24 14:22 Blood Culture - Preliminary Blood Assessment and Plan (1) Leukocytosis Current Visit: No Status: Acute Code(s): D72.829 - ELEVATED WHITE BLOOD CELL COUNT, UNSPECIFIED SNOMED Code(s): 169467490 (2) Lactic acidosis Current Visit: Yes Status: Acute Code(s): E87.20 - ACIDOSIS, UNSPECIFIED SNOMED Code(s): 60715255 (3) Thrush Current Visit: Yes Status: Acute Code(s): B37.0 - CANDIDAL STOMATITIS SNOMED Code(s): 48808268 Plan: 1patient who do have a leukocytosis also elevated lactic acid meeting criteria for SIRS however more likely related to her underlying asthma exacerbation, clinically not behaving as pneumonia initial chest x-ray was negative further worsening of the white count is more likely related to the steroids plus minus component of pressure rather than bacterial pneumonia 2-patient did have repeat chest x-ray PA and lateral did not show any acute elevated I did have a normal CRP and a procalcitonin level 3-patient white count is slightly up today more likely steroid related, blood and sputum culture has been negative, patient to continue with nystatin swish and swallow 4elevated lactic acid more likely due to bronchospasm clinically doubt related to an infectious etiology Multiple question concern answered Dictation was produced using [employer] dictation software. please excuse any grammatical, word or spelling errors. Time with Patient: Less than 30
--- NOTE | 2024-12-26 16:05 | P.PN ---
Subjective Progress Note Date: 12/26/24 Patient is a 54-year-old female with severe persistent asthma, maintained on Trezspire injections. Also, currently uses Trelegy inhaler and Duo-nebs as needed. Her last hospitalization was over 1 year ago. Presented the emergency department yesterday morning with chief complaint of shortness of breath. Chest x-ray did not show any acute cardiopulmonary process. CBC: WBC count of 13.6, hemoglobin 15.1, platelets 331. CMP unremarkable, electrolytes WDL, creatinine 0.58, glucose 156. Lactic acid 4.7 is down to 3.8. Patient is being evaluated on the observation unit. States she recently, went up north with some family. Approximately 10 days ago, developed earache and sore throat followed by coughing, wheezing, chest tightness and congestion. Cough is mostly nonproductive, occasional yellow sputum. Denies any fevers or chills. Denies any chest pain. Denies any nausea, vomiting, diarrhea. Did receive a Depo- Medrol injection on December 15. Symptoms did not improve, and she went to urgent care center and was given prednisone burst taper and doxycycline. Unfortunately, her respiratory status worsened and came to the emergency department for evaluation and treatment 12/26. Patient seen and examined . Labs reviewed showing WBC 18.53, hemoglobin 14.3, platelet count 302, sodium 139, potassium 4.1, BUN 19, creatinine 0.79. States breathing is improved. Currently not requiring any oxygen REVIEW OF SYSTEMS: CONSTITUTIONAL: No fever, no malaise,. CARDIOVASCULAR: No chest pain, no palpitations, no syncope. PULMONARY: No shortness of breath, no cough, GASTROINTESTINAL: No diarrhea, no nausea, no vomiting, no abdominal pain. NEUROLOGICAL: No headaches, no weakness, PHYSICAL EXAMINATION: GENERAL: The patient is alert and oriented x3, not in any acute distress. Well d eveloped, well nourished. HEENT: Pupils are round and equally reacting to light. EOMI. No scleral icterus. No conjunctival pallor. Normocephalic, atraumatic. No pharyngeal erythema. No thyromegaly. CARDIOVASCULAR: S1 and S2 present. No murmurs, rubs, or gallops. PULMONARY: Coarse breath sounds bilaterally, no wheezing or crackles. ABDOMEN: Soft, nontender, nondistended, normoactive bowel sounds. No palpable organomegaly. MUSCULOSKELETAL: No joint swelling or deformity. EXTREMITIES: No cyanosis, clubbing, or pedal edema. NEUROLOGICAL: Gross neurological examination did not reveal any focal deficits. SKIN: No rashes. Assessment and plan Acute exacerbation of severe persistent asthma Acute hypoxic respiratory failure secondary to above Acute leukocytosis most likely steroids related Benign essential hypertension History of GERD without esophagitis Monitor vital signs Monitor CBC Monitor CMP Continue DuoNeb inhalations Continue Pulmicort and Perforomist inhalations Continue Solu-Medrol Continue Singulair DC IV Rocephin Pulmonology following Labs and medication were reviewed.. Continue same treatment. Continue with symptomatic treatment. Resume home medication. Monitor labs and vitals. DVT and GI prophylaxis. Further recommendations as per clinical course of the patie nt Dictation was produced using [employer] dictation software. please excuse any grammatical, word or spelling errors. Objective - Vital Signs Vital signs: Vital Signs Temp 98.4 F 12/26/24 12:20 Pulse 86 12/26/24 15:55 Resp 18 12/26/24 12:20 BP 147/60 12/26/24 12:20 Pulse Ox 96 12/26/24 12:20 FiO2 Intake & Output 12/25/24 12/26/24 12/26/24 18:59 06:59 18:59 Intake Total 658 1286 Output Total 2850 2100 Balance -2192 -814 Weight 84.7 kg Intake: Intake, IV Titration 1050 Amount Sodium Chloride 0.9% 1, 1050 000 ml @ 75 mls/hr IV . [id number] [facility] Rx#:[id number] Oral 658 236 Output: Urine 2850 2100 Other: Voiding Method Toilet Toilet # Voids 1 - Labs CBC & Chem 7: 12/26/24 05:30 12/26/24 05:30 Labs: Abnormal Lab Results - Last 24 Hours (Table) 12/25/24 12/25/24 12/26/24 Range/Units 16:34 19:59 05:30 WBC 18.53 H (4.50-10.00) 10*3/uL Immature Gran # 0.85 H (0.00-0.04) 10*3/uL Neutrophils # 14.19 H (1.80-7.70) 10*3/uL Monocytes # 1.18 H (0.20-1.00) 10*3/uL Eosinophils # 0.00 L (0.04-0.35) 10*3/uL BUN (7-17) mg/dL Glucose (74-99) mg/dL POC Glucose (mg/dL) 154 H 152 H (70-110) mg/dL Plasma Lactic Acid Oswald (0.7-2.0) mmol/L Total Protein (6.3-8.2) g/dL 12/26/24 12/26/24 12/26/24 Range/Units 05:30 05:30 05:54 WBC (4.50-10.00) 10*3/uL Immature Gran # (0.00-0.04) 10*3/uL Neutrophils # (1.80-7.70) 10*3/uL Monocytes # (0.20-1.00) 10*3/uL Eosinophils # (0.04-0.35) 10*3/uL BUN 19 H (7-17) mg/dL Glucose 123 H (74-99) mg/dL POC Glucose (mg/dL) 117 H (70-110) mg/dL Plasma Lactic Acid Oswald 2.3 H* (0.7-2.0) mmol/L Total Protein 5.7 L (6.3-8.2) g/dL 12/26/24 Range/Units 11:08 WBC (4.50-10.00) 10*3/uL Immature Gran # (0.00-0.04) 10*3/uL Neutrophils # (1.80-7.70) 10*3/uL Monocytes # (0.20-1.00) 10*3/uL Eosinophils # (0.04-0.35) 10*3/uL BUN (7-17) mg/dL Glucose (74-99) mg/dL POC Glucose (mg/dL) 114 H (70-110) mg/dL Plasma Lactic Acid Oswald (0.7-2.0) mmol/L Total Protein (6.3-8.2) g/dL Microbiology - Last 24 Hours (Table) 12/22/24 14:22 Blood Culture - Preliminary Blood
[2024-12-26 16:21] LABS: Glucose,Whole Blood 182 mg/dL (70-110)
[2024-12-26 20:47] LABS: Glucose,Whole Blood 171 mg/dL (70-110)
[2024-12-27 05:50] LABS: Glucose,Whole Blood 138 mg/dL (70-110)
--- NOTE | 2024-12-27 10:50 | P.DS ---
Providers Date of admission: 12/21/24 13:19 Attending physician: Yasmany Swenson MD Consults: 12/21/24 13:32 Consult Physician Routine Consulting Provider: [place]i [place] Consult Reason/Comments: Asthma exacerbation Do you want consulting provider notified?: Yes 12/23/24 14:49 Consult Physician Routine Consulting Provider: Francisca Barrow Consult Reason/Comments: sepsis Do you want consulting provider notified?: Yes Primary care physician: Harini Alejo Hospital Course: Patient is 54-year-old female admitted for asthma exacerbation patient does have history of severe persistent asthma for which patient is also on biologic agents. Patient is doing much better today not much bronchospastic today is not requiring any oxygen will be discharged today and weaning dose of steroids. Patient received antibiotics for pneumonia although patient appears to have some bronchitis but there is no clear evidence of pneumonia. PHYSICAL EXAMINATION: GENERAL: The patient is alert and oriented x3, not in any acute distress. Well developed, well nourished. HEENT: Pupils are round and equally reacting to light. EOMI. No scleral icterus. No conjunctival pallor. Normocephalic, atraumatic. No pharyngeal erythema. No thyromegaly. CARDIOVASCULAR: S1 and S2 present. No murmurs, rubs, or gallops. PULMONARY: Chest is clear to auscultation, no wheezing or crackles. ABDOMEN: Soft, nontender, nondistended, normoactive bowel sounds. No palpable organomegaly. MUSCULOSKELETAL: No joint swelling or deformity. EXTREMITIES: No cyanosis, clubbing, or pedal edema. NEUROLOGICAL: Gross neurological examination did not reveal any focal deficits. SKIN: No rashes. Assessment and plan Acute exacerbation of severe persistent asthma Acute hypoxic respiratory failure secondary to above Acute leukocytosis most likely steroids related Benign essential hypertension History of GERD without esophagitis Plan - Discharge Summary Discharge Rx Participant: No New Discharge Prescriptions: New amLODIPine [Norvasc] 10 mg PO DAILY #30 tab predniSONE 10 mg PO DAILY #50 tab Continue Montelukast [Singulair] 10 mg PO HS Albuterol Nebulized [Ventolin Nebulized] 2.5 mg INHALATION RT-QID PRN PRN Reason: Shortness Of Breath Metoprolol Succinate (ER) [Toprol XL] 50 mg PO HS Ipratropium-Albuterol Nebulize [Duoneb 0.5 mg-3 mg/3 ml Soln] 3 ml INHALATION RT-QID PRN PRN Reason: Shortness Of Breath Or Wheezing Zinc (Unknown Dose) 1 dose PO DAILY Albuterol Sulfate/Budesonide [Airsupra 90-80 Mcg Inhaler] 2 puff INHALATION RT-Q4H PRN PRN Reason: Wheezing guaiFENesin [Mucinex] 600 mg PO Q12H L.acidoph,Paracasei, B.lactis [Probiotic] 1 cap PO DAILY Omeprazole [PriLOSEC] 20 mg PO HS Fluticasone/Umeclidin/Vilanter [Trelegy Ellipta 200-62.5-25] 1 puff INHALATION RT-DAILY Promethazine/Dextromethorphan [Promethazine-Dm 6.25-15 mg/5Ml] 5 ml PO Q4H PRN PRN Reason: Cough Tezepelumab-Ekko [Tezspire] 210 mg SQ QMONTHLY Vitamin C (Unknown Dose) 1 dose PO DAILY Vitamin D3 (Unknown Dose) 1 dose PO DAILY Cetirizine HCl [Zyrtec] 10 mg PO HS Multivitamins, Thera [Multivitamin (formulary)] 1 tab PO DAILY Discontinued Doxycycline 100 mg PO BID predniSONE 10 mg PO TID Azithromycin [Zithromax] 250 mg PO [id number] Discharge Medication List Montelukast [Singulair] 10 mg PO HS 08/04/14 [History] Albuterol Nebulized [Ventolin Nebulized] 2.5 mg INHALATION RT-QID PRN 08/16/16 [History] Omeprazole [PriLOSEC] 20 mg PO HS 09/10/23 [History] Albuterol Sulfate/Budesonide [Airsupra 90-80 Mcg Inhaler] 2 puff INHALATION RT- Q4H PRN 12/21/24 [History] Cetirizine HCl [Zyrtec] 10 mg PO HS 12/21/24 [History] Fluticasone/Umeclidin/Vilanter [Trelegy Ellipta 200-62.5-25] 1 puff INHALATION RT-DAILY 12/21/24 [History] Ipratropium-Albuterol Nebulize [Duoneb 0.5 mg-3 mg/3 ml Soln] 3 ml INHALATION RT-QID PRN 12/21/24 [History] L.acidoph,Paracasei, B.lactis [Probiotic] 1 cap PO DAILY 12/21/24 [History] Metoprolol Succinate (ER) [Toprol XL] 50 mg PO HS 12/21/24 [History] Multivitamins, Thera [Multivitamin (formulary)] 1 tab PO DAILY 12/21/24 [History] Promethazine/Dextromethorphan [Promethazine-Dm 6.25-15 mg/5Ml] 5 ml PO Q4H PRN 12/21/24 [History] Tezepelumab-Ekko [Tezspire] 210 mg SQ QMONTHLY 12/21/24 [History] Vitamin C (Unknown Dose) 1 dose PO DAILY 12/21/24 [History] Vitamin D3 (Unknown Dose) 1 dose PO DAILY 12/21/24 [History] Zinc (Unknown Dose) 1 dose PO DAILY 12/21/24 [History] guaiFENesin [Mucinex] 600 mg PO Q12H 12/21/24 [History] amLODIPine [Norvasc] 10 mg PO DAILY #30 tab 12/27/24 [Rx] predniSONE 10 mg PO DAILY #50 tab 12/27/24 [Rx] Follow up Appointment(s)/Referral(s): Shalom Coker DO [Doctor of Osteopathic Medicine] - 1 Week Harini Alejo MD [Primary Care Provider] - 3 Days Discharge Disposition: HOME SELF-CARE
[2024-12-27 11:19] LABS: Glucose,Whole Blood 109 mg/dL (70-110)
[2024-12-27 12:25] VITALS: BP 154/94; TEMP 98.2
[2024-12-27 13:04] VITALS: PULSE 102
--- NOTE | 2024-12-27 13:28 | P.PN ---
Subjective Progress Note Date: 12/27/24 Patient is a 54-year-old female with severe persistent asthma, maintained on Trezspire injections. Also, currently uses Trelegy inhaler and Duo-nebs as needed. She does see Dr. Coker in the pulmonary office. Her last hospitalization was over 1 year ago. Presented the emergency department yesterday morning with chief complaint of shortness of breath. Chest x-ray did not show any acute cardiopulmonary process. CBC: WBC count of 13.6, hemoglobin 15.1, platelets 331. CMP unremarkable, electrolytes WDL, creatinine 0.58, glucose 156. Lactic acid 4.7 is down to 3.8. Patient is being evaluated on the observation unit. States she recently, [place]. Approximately 10 days ago, developed earache and sore throat followed by coughing, wheezing, chest tightness and congestion. Cough is mostly nonproductive, occasional yellow sputum. Denies any fevers or chills. Denies any chest pain. Denies any nausea, vomiting, diarrhea. Did receive a Depo- Medrol injection on December 15. Symptoms did not improve, and she went to urgent care center and was given prednisone burst taper and doxycycline. Unfortunately, her respiratory status worsened and came to the emergency depart ment for evaluation and treatment. While in the ED given DuoNeb treatment and loaded with IV Solu-Medrol. She is on room air. Does not appear in any respiratory distress. Also, previously started on azithromycin and Rocephin in the ED. Has remained afebrile. Seen today on 12/23/2024, patient remains quite symptomatic she has ongoing cough and intermittent wheezing. Slight improvement but continues to be quite symptomatic. Specially with her cough. Hence cough suppressant medications was added. Patient is on maximal therapy including Solu-Medrol, bronchodilators, antibiotics, nonetheless continues to have cough wheezing and shortness of breath. Patient has leukocytosis with WBC count of 22.9 hemoglobin 14.7 electrolytes are normal renal profile is normal Seen today on 12/24/2024, patient received follow-up, she has severe persistent asthma with acute exacerbation, continues to be quite symptomatic, she is still coughing wheezing and short of breath, on physical examination she remains quite bronchospastic. Patient is on maximal therapy. Her WBC count is 13.1 hemoglobin is 15.9 electrolytes are normal renal profile is normal, chest x-ray showed no acute pulmonary process. Remains on 2 L nasal cannula with O2 sat of 95%. Discussed with the patient the option of bronchoscopy, however the patient is relatively high risk for bronchoscopy without intubation as she has been bronchoscoped in the past and she required intubation after her bronchoscopy. The patient is seen today December 25, 2024 in follow-up on the selective care unit. She is currently sitting up in bed. Awake and alert in no acute distress. Continues with a congested cough. Continues with some wheezing. She is maintaining O2 saturation in the 90s on room air oxygen. She has been afebrile. Hemodynamically stable. Blood culture revealed no growth. Sputum culture revealed no growth. White count 16.0. Hemoglobin 14.1. Platelets 301. Sodium 138. Potassium 4.2. Bicarb 27. BUN 18. Creatinine 0.67. Glucose 136. She remains on DuoNeb inhalations, Pulmicort and Perforomist inhalations. Remains on Solu-Medrol. Remains on IV diuretics. Continued on Singulair. Continued on her home promethazine as needed for her cough. The patient is seen today December 26, 2024 in follow-up on the selective care unit. She is sitting up in a chair at the bedside. Awake and alert in no acute distress. Maintaining good O2 saturations in the 90s on room air. Sputum culture revealed no growth. Blood culture revealed no growth. White count 18.5. Hemoglobin 14.3. Platelets 302. Sodium 139. Potassium 4.1. Bicarb 28. BUN 19. Creatinine 0.79. Glucose 123. She remains on DuoNeb inhalations, Pu lmicort and Perforomist inhalations, IV Solu-Medrol and Singulair. She remains on IV diuretics. Remains on ceftriaxone. Azithromycin on Fridays. Heparin for DVT prophylaxis. Promethazine and Mucinex for congestion. The patient is seen today December 27, 2024 in follow-up on the selective care unit. She is awake and alert in no acute distress. Feeling better today compared to yesterday. Maintaining O2 saturations in the 90s on room air oxygen. She has been afebrile. Hemodynamically stable. Glucose 106. She remains on DuoNeb inhalations, Pulmicort and Perforomist inhalations, Solu-Medrol. Heparin for DVT prophylaxis. Objective - Vital Signs Vital signs: Vital Signs Temp 98.2 F 12/27/24 12:23 Pulse 102 H 12/27/24 13:02 Resp 18 12/27/24 12:23 BP 154/94 12/27/24 12:23 Pulse Ox 95 12/27/24 12:23 FiO2 Intake & Output 12/26/24 12/27/24 12/27/24 18:59 06:59 18:59 Intake Total 1286 120 240 Output Total 2100 Balance -814 120 240 Weight 79.8 kg Intake: Intake, IV Titration 1050 Amount Sodium Chloride 0.9% 1, 1050 000 ml @ 75 mls/hr IV . [id number] [facility] Rx#:[id number] Oral 236 120 240 Output: Urine 2100 Other: Voiding Method Toilet # Voids 1 - Exam GENERAL EXAM: Alert, 54-year-old female, sitting up in a chair, on room air oxygen, in no apparent distress. HEAD: Normocephalic. EYES: Normal reaction of pupils, equal size. NOSE: Clear with pink turbinates. THROAT: No erythema or exudates. NECK: No masses, no JVD. CHEST: No chest wall deformity. LUNGS: Equal air entry with faint bilateral end expiratory wheeze. CVS: S1 and S2 normal with no audible murmur, regular rhythm. ABDOMEN: No hepatosplenomegaly, normal bowel sounds, no guarding or rigidity. SPINE: No scoliosis or deformity SKIN: No rashes CENTRAL NERVOUS SYSTEM: No focal deficits, tone is normal in all 4 extremities. EXTREMITIES: There is no peripheral edema. No clubbing, no cyanosis. Peripheral pulses are intact. - Labs CBC & Chem 7: 12/26/24 05:30 12/26/24 05:30 Labs: Abnormal Lab Results - Last 24 Hours (Table) 12/26/24 12/26/24 12/27/24 Range/Units 16:19 20:44 05:48 POC Glucose (mg/dL) 182 H 171 H 138 H (70-110) mg/dL Assessment and Plan Assessment: Acute exacerbation of severe persistent chronic bronchial asthma maintained on Tezspire Acute hypoxic respiratory failure secondary to above, recovered and on room air oxygen Acute leukocytosis most likely steroids related Benign essential hypertension History of GERD without esophagitis Plan: The patient was seen and evaluated Medications reviewed Stable and on room air Cleared for discharge Continue her home pulmonary medications Complete a prednisone taper Follow-up in the office in 1 week I have personally seen and examined the patient, performed the documentation and the assessment and plan as written. Number of minutes spent on the visit: 10 Dictation was produced using [employer] dictation software. Please excuse any grammatical, word or spelling errors.
--- NOTE | 2024-12-27 14:44 | P.PN ---
Subjective Progress Note Date: 12/27/24 Principal diagnosis: Reason for follow-up is leukocytosis Patient is a 54-year-old female with a past medical history significant for asthma reflux hypertension presenting to the hospital for evaluation of increasing shortness of breath and has been diagnosed with asthma exacerbation noticed to have worsening white count prompting this consultation. On today's evaluation that is 12/27/2024, Patient is afebrile patient is currently on room air and breathing more comfortably, the patient denies any chest pain and cough is decreased intensity, the patient denies any nausea vomiting did not have any abdominal pain and no diarrhea. No new lab has been obtained today culture has been negative Objective - Vital Signs Vital signs: Vital Signs Temp 98.2 F 12/27/24 12:23 Pulse 102 H 12/27/24 13:02 Resp 18 12/27/24 12:23 BP 154/94 12/27/24 12:23 Pulse Ox 95 12/27/24 12:23 FiO2 Intake & Output 12/26/24 12/27/24 12/27/24 18:59 06:59 18:59 Intake Total 1286 120 240 Output Total 2100 Balance -814 120 240 Weight 79.8 kg Intake: Intake, IV Titration 1050 Amount Sodium Chloride 0.9% 1, 1050 000 ml @ 75 mls/hr IV . [id number] [facility] Rx#:[id number] Oral 236 120 240 Output: Urine 2100 Other: Voiding Method Toilet # Voids 1 - Exam GENERAL DESCRIPTION: Middle-age female lying in bed in no distress RESPIRATORY SYSTEM: Unlabored breathing , occasional wheeze HEART: S1 S2 regular rate and rhythm , ABDOMEN: Soft , no tenderness EXTREMITIES: No edema feet - Labs CBC & Chem 7: 12/26/24 05:30 12/26/24 05:30 Labs: Abnormal Lab Results - Last 24 Hours (Table) 12/26/24 12/26/24 12/27/24 Range/Units 16:19 20:44 05:48 POC Glucose (mg/dL) 182 H 171 H 138 H (70-110) mg/dL Assessment and Plan (1) Leukocytosis Status: Acute Code(s): D72.829 - ELEVATED WHITE BLOOD CELL COUNT, UNSPECIFIED SNOMED Code(s): 324394368 (2) Lactic acidosis Status: Acute Code(s): E87.20 - ACIDOSIS, UNSPECIFIED SNOMED Code(s): 70656989 (3) Thrush Status: Acute Code(s): B37.0 - CANDIDAL STOMATITIS SNOMED Code(s): 16575647 Plan: 1patient who do have a leukocytosis also elevated lactic acid meeting criteria for SIRS however more likely related to her underlying asthma exacerbation, clinically not behaving as pneumonia initial chest x-ray was negative further worsening of the white count is more likely related to the steroids plus minus component of pressure rather than bacterial pneumonia 2-patient did have repeat chest x-ray PA and lateral did not show any acute elevated I did have a normal CRP and a procalcitonin level 3-patient blood and sputum culture has been negative, patient to continue with nystatin swish and swallow for about 5 days on discharge prescription sent to the pharmacy Dictation was produced using [employer] dictation software. please excuse any grammatical, word or spelling errors. Time with Patient: Less than 30
[2025-01-15] MEDS ORDERED: TEZEPELUMAB EKKO 210 MG/1.91 ML SQ SCH (09:00)
== END 2024-12-27 14:26 | disposition home or self-care (01) | DRG 202 ==
LOC: EC 09:58 → 1SOBS 13:19 → OBSVTOIN 13:19 → 1SOBS 16:18 → 3SCARD 12-24 17:15
PROVIDERS: ADMIT Internal Medicine; ATTEND Internal Medicine
DX: J45.51 Severe persistent asthma with (acute) exacerbation (principal); J96.01 Acute respiratory failure with hypoxia; B37.0 Candidal stomatitis; E87.20 Acidosis, unspecified; I10 Essential (primary) hypertension; J20.9 Acute bronchitis, unspecified; D72.828 Other elevated white blood cell count; T38.0X5A Adverse effect of glucocorticoids and synthetic analogues, initial encounter; K21.9 Gastro-esophageal reflux disease without esophagitis; E83.52 Hypercalcemia; Z79.52 Long term (current) use of systemic steroids; Z79.51 Long term (current) use of inhaled steroids; Z79.899 Other long term (current) drug therapy
CPT/HCPCS: 36415; 71046; 80048; 80053; 81003; 83036; 83605; 83735; 83880; 84145; 84484; 85025; 85379; 85610; 85730; 86140; 86738; 87040; 87070; 87205; 87636; 93005; 94640; 94760; 96361; 96374; 99285